=== PATIENT | female | born 1940 | race Caucasian/White ===

== ENCOUNTER → 2017-02-02 | Outpatient (CLI) | payer MEDICARE, OTHER ==
[~2017-02-02] MED LIST: ALBU0.63 IH; ALPR2TAB5 PO; DICY20TA30 PO; ERGO500027 PO; ESTR1TAB25 PO; FLUT16SP2 NS; FLUT1DIS5 IH; FLUV100C2 PO; FURO-68 PO; HYDR1TAB12 PO; LAMO100T5 PO; NYST15PO9 TP; OLME1TAB21 PO; OMEP40CA5 PO; POTA10TA31 PO; SIMV80TA PO; SUCR1TAB35 PO
--- NOTE | 2017-02-02 11:55 | RAD ---
EXAM: Nuclear gastric emptying scan. HISTORY: Nausea/vomiting. COMPARISON: None. TECHNIQUE: Serial static images were obtained over the stomach following oral administration of 2.1 mCi of 99m-Tc sulfur colloid in an egg based meal. FINDINGS: The stomach appears normal in contour. There is clearance of activity into the small bowel. Gastric emptying half-time is 145.5 minutes (normal <90 minutes). Refer to the worksheets for more detail. IMPRESSION: 1. Delayed gastric emptying.
== END | disposition home or self-care (01) ==
LOC: NM 09:41
PROVIDERS: ATTEND Internal Medicine Gastroenterology
DX: K30 Functional dyspepsia (principal); R11.2 Nausea with vomiting, unspecified
CPT/HCPCS: 78264; A9541

== ENCOUNTER → 2017-02-11 | Outpatient (CLI) | payer MEDICARE, OTHER ==
--- NOTE | 2017-02-11 10:55 | KCIC ---
Small bowel series dated 02/11/2017. No comparison available. Clinical indication: Nausea vomiting for 2 years. Constipation. FINDINGS: Initial wastewater analyst radiograph shows a large amount of stool throughout the colon. There are multiple surgical clips. No significant small bowel dilation. Contrast material reaches the colon on the 15 minute film. Spot compression imaging performed at 20 minutes. 9 total images. Small bowel is normal in caliber. No apparent wall thickening or fold thickening. No focal stricture or mass. No intrinsic or extrinsic mass effect. Spot compression imaging of the terminal ileum unremarkable. IMPRESSION: 1. Negative small bowel series. 2. Large amount of stool throughout colon. Electronically signed by: Ramirez Muniz MD (02/11/2017 10:52 AM) [facility]
== END | disposition home or self-care (01) ==
LOC: KCIC 09:26
PROVIDERS: ATTEND Internal Medicine Gastroenterology
DX: K59.00 Constipation, unspecified (principal); R11.2 Nausea with vomiting, unspecified
CPT/HCPCS: 74250

== ENCOUNTER → 2017-04-23 | Day surgery (SDC) | payer MEDICARE, OTHER ==
[~2017-04-23] MED LIST changes: -ALBU0.63 IH; -ALPR2TAB5 PO; -DICY20TA30 PO; -ERGO500027 PO; -ESTR1TAB25 PO; -FLUT16SP2 NS; -FLUT1DIS5 IH; -FLUV100C2 PO; -FURO-68 PO; -HYDR1TAB12 PO; +HYDROmorphone 2 MG/ML VIAL IV; -LAMO100T5 PO; +LIDOCAINE 1% PF 2 ML VIAL. ID; +LIDOCAINE 2% PF Vial for OR 5 ML VIAL.; +MORPHINE SULFATE 2 MG/ML DISP.SYRIN. IV; -NYST15PO9 TP; -OLME1TAB21 PO; -OMEP40CA5 PO; +ONDANSETRON PF 4 MG/2 ML VIAL. IV; -POTA10TA31 PO; +PROCHLORPERAZINE 10 MG/2 ML VIAL. IV; +PROPOFOL 20 ML IV; -SIMV80TA PO; -SUCR1TAB35 PO; +fentaNYL PF VIAL 100 MCG/2 ML VIAL IV
[2017-04-23] MEDS: IV RINGERS,LACTATED 1000ML 1,000 ML IV ×2 (07:00)
== END | disposition home or self-care (01) ==
LOC: ENDOS 10:48
DX: Z08 Encounter for follow-up examination after completed treatment for malignant neoplasm (principal); Z85.038 Personal history of other malignant neoplasm of large intestine; K64.0 First degree hemorrhoids; E78.00 Pure hypercholesterolemia, unspecified; I10 Essential (primary) hypertension; J45.909 Unspecified asthma, uncomplicated; K21.9 Gastro-esophageal reflux disease without esophagitis; E11.9 Type 2 diabetes mellitus without complications; F41.9 Anxiety disorder, unspecified; F32.9 Major depressive disorder, single episode, unspecified; M19.90 Unspecified osteoarthritis, unspecified site; Z86.39 Personal history of other endocrine, nutritional and metabolic disease; Z98.51 Tubal ligation status; Z90.710 Acquired absence of both cervix and uterus; Z88.1 Allergy status to other antibiotic agents; Z88.2 Allergy status to sulfonamides; Z88.8 Allergy status to other drugs, medicaments and biological substances
CPT/HCPCS: 45378; 88305; J2704

== ENCOUNTER → 2017-07-03 | Outpatient (CLI) | payer MEDICARE, OTHER | END | disposition home or self-care (01) | LOC: CT 09:01 | DX: J98.4 Other disorders of lung (principal); J84.10 Pulmonary fibrosis, unspecified; I25.10 Atherosclerotic heart disease of native coronary artery without angina pectoris | CPT/HCPCS: 71250 ==

== ENCOUNTER 2017-12-04 10:31 | Inpatient (IN) | payer MEDICARE ==
[2017-12-04] VITALS (7 sets, daily range): BP systolic 119–164; BP diastolic 54–81
[~2017-12-04] VITALS: Ht 167.6 cm; Wt 103.4 kg
[~2017-12-04 10:31] MED LIST changes: +ALBU0.63 IH; +ALBU2.5V5 IH; +ALPR2TAB2 PO; +ALPR2TAB5 PO; +ASPI-482 PO; +ASPI325T8 PO; +DICY20TA30 PO; +ERGO500027 PO; +ERYT250T14 PO; +ESTR1TAB25 PO; +FLUC200T4 PO; +FLUT16SP2 NS; +FLUT1DIS5 IH; +FLUV100C2 PO; +FURO-68 PO; +HYDR1TAB12 PO; +HYDR1TAB20 PO; -HYDROmorphone 2 MG/ML VIAL IV; +LAMO100T5 PO; -LIDOCAINE 1% PF 2 ML VIAL. ID; -LIDOCAINE 2% PF Vial for OR 5 ML VIAL.; +MELO15TA23 PO; -MORPHINE SULFATE 2 MG/ML DISP.SYRIN. IV; +NABU500T PO; +NITR100C62 PO; +NYST100054 PO; +NYST15PO9 TP; +OLME1TAB21 PO; +OMEP40CA5 PO; -ONDANSETRON PF 4 MG/2 ML VIAL. IV; +POTA10TA12 PO; +POTA10TA31 PO; +PRED-220 PO; +PRED50TA PO; -PROCHLORPERAZINE 10 MG/2 ML VIAL. IV; -PROPOFOL 20 ML IV; +SERT100T PO; +SIMV80TA PO; +SUCR1TAB35 PO; -fentaNYL PF VIAL 100 MCG/2 ML VIAL IV
[2017-12-04] MEDS ORDERED: FAMOTIDINE 20 MG/2 ML VIAL IVP ONE (10:45)
[2017-12-04] MEDS ORDERED: methylPREDNISolone SOD SUCC PF 125 MG/2 ML VIAL. IV ONE (10:45)
[2017-12-04] MEDS ORDERED: ONDANSETRON PF 4 MG/2 ML VIAL. ONE (10:46)
[2017-12-04 10:51] LABS: BASO # 0.1 x10^3/uL (0.0-0.2); BASO % 1 % (0-3); EOS % 0 % (0-3); HEMATOCRIT 42.9 % (36.0-47.0); HEMOGLOBIN 14.9 g/dL (12.0-15.5); LYMPH # 1.6 x10^3/uL (1.0-4.8); LYMPH % 19 % (24-48); MEAN CORPUSCULAR HEMOGLOBIN 32 pg (25-35); MEAN CORPUSCULAR HGB CONC 35 g/dL (31-37); MEAN CORPUSCULAR VOLUME 92 fL (79-100); MONO # 0.6 x10^3/uL (0.0-1.1); MONO % 7 % (0-9); NEUT % 72 % (31-73); PLATELET COUNT 230 x10^3/uL (140-400); RED BLOOD COUNT 4.66 x10^6/uL (3.50-5.40); RED CELL DISTRIBUTION WIDTH 14.7 % (11.5-14.5); WHITE BLOOD COUNT 8.3 x10^3/uL (4.0-11.0)
--- NOTE | 2017-12-04 10:52 | PHYS DOC ---
Past Medical History Past Medical History: Other Additional Past Medical Histor: vertigo Past Surgical History: No Surgical History Additional Past Surgical Histo: colon resection, eyelid surgery, knee surgery, bunionectomy, shoulder Alcohol Use: None Drug Use: None Adult General Chief Complaint Chief Complaint: TONGUE SWELLING/INJURY HPI HPI 69-year-old female with a history of hypertension on lisinopril presenting with tongue swelling that started about 30 minutes prior to arrival. She took Benadryl which seems to be making it worse and she reports is currently improving. She denies any pain. Duration constant. Review of systems is negative for lip swelling or stridor. Negative for difficulty breathing. Patient is able to tolerate her secretions. All other review of systems is negative unless otherwise noted in history of present illness. ED course: 69-year-old female presenting with what is probably lisinopril- induced angioedema. Patient admitted Benadryl prior to arrival. We'll give her corticosteroids and Pepcid here. Her symptoms are improving and given her age I am hesitant to give epi, so we will hold off on epinephrine for now and monitor her. On reexamination the patient's tongue continues to be swollen but is not getting worse. We will admit her for observation to monitor her. I spoke with Dr. Hurtado who accepted patient for admission. Basic bridge orders placed. Review of Systems Review of Systems SEE ABOVE. Current Medications Current Medications Current Medications Medications (Trade) Dose Ordered Sig/Denia Start Time Stop Time Status Last Admin Dose Admin Famotidine (Pepcid Vial) 20 mg 1X ONCE 12/04/17 10:45 12/04/17 10:46 DC 12/04/17 10:42 20 MG Methylprednisolone Sodium Succinate (SOLU-Medrol 125MG VIAL) 125 mg 1X ONCE 12/04/17 10:45 12/04/17 10:46 DC 12/04/17 10:42 125 MG Morphine Sulfate (Morphine Sulfate) 2 mg PRN Q2HR PRN 12/04/17 13:00 12/05/17 12:59 Ondansetron HCl (Zofran) 4 mg PRN Q8HRS PRN 12/04/17 13:00 12/05/17 12:59 Allergies Allergies Allergies Coded Allergies Type Severity Reaction Last Updated Verified Sulfa (Sulfonamide Antibiotics) Allergy Intermediate Itching 04/23/17 Yes cefdinir Allergy Intermediate Itching 04/23/17 Yes ciprofloxacin Allergy Intermediate Itching 04/23/17 Yes ciprofloxacin HCl Allergy Intermediate Itching 04/23/17 Yes tetracycline Allergy Intermediate Itching 04/23/17 Yes lisinopril Adverse Reaction Severe 12/04/17 Yes Physical Exam Physical Exam SEE ABOVE Constitutional: Well developed, well nourished, no acute distress, non-toxic appearance. [] HENT: Normocephalic, atraumatic, bilateral external ears normal, oropharynx moist, no oral exudates, nose normal. the pts tongue is swollen on the left side. Clear airway. Tolerating secretions. Not drooling. No swelling of the lips. No wheezing on examination of the lungs. Eyes: PERRLA, EOMI, conjunctiva normal, no discharge. Neck: Normal range of motion, no tenderness, supple, no stridor. [] Cardiovascular:Heart rate regular rhythm, no murmur Lungs & Thorax: Bilateral breath sounds clear to auscultation [] Abdomen: Bowel sounds normal, soft, no tenderness, no masses, no pulsatile masses. Skin: Warm, dry, no erythema, no rash. [] Back: No tenderness, no CVA tenderness. Extremities: No tenderness, no cyanosis, no clubbing, ROM intact, no edema. [] Neurologic: Alert and oriented X 3, normal motor function, normal sensory function, no focal deficits noted. [] Psychologic: Affect normal, judgement normal, mood normal. [] Current Patient Data Vital Signs Vital Signs Date Time Temp Pulse Resp B/P (MAP) Pulse Ox O2 Delivery O2 Flow Rate FiO2 12/04/17 10:36 98.4 88 18 158/72 (100) 98 Room Air 98.4 Lab Values Laboratory Tests Test 12/04/17 10:35 White Blood Count 8.3 x10^3/uL (4.0-11.0) Red Blood Count 4.66 x10^6/uL (3.50-5.40) Hemoglobin 14.9 g/dL (12.0-15.5) Hematocrit 42.9 % (36.0-47.0) Mean Corpuscular Volume 92 fL (79-100) Mean Corpuscular Hemoglobin 32 pg (25-35) Mean Corpuscular Hemoglobin Concent 35 g/dL (31-37) Red Cell Distribution Width 14.7 % (11.5-14.5) H Platelet Count 230 x10^3/uL (140-400) Neutrophils (%) (Auto) 72 % (31-73) Lymphocytes (%) (Auto) 19 % (24-48) L Monocytes (%) (Auto) 7 % (0-9) Eosinophils (%) (Auto) 0 % (0-3) Basophils (%) (Auto) 1 % (0-3) Neutrophils # (Auto) 6.0 x10^3uL (1.8-7.7) Lymphocytes # (Auto) 1.6 x10^3/uL (1.0-4.8) Monocytes # (Auto) 0.6 x10^3/uL (0.0-1.1) Eosinophils # (Auto) 0.0 x10^3/uL (0.0-0.7) Basophils # (Auto) 0.1 x10^3/uL (0.0-0.2) Sodium Level 143 mmol/L (136-145) Potassium Level 3.9 mmol/L (3.5-5.1) Chloride Level 104 mmol/L (98-107) Carbon Dioxide Level 28 mmol/L (21-32) Anion Gap 11 (6-14) Blood Urea Nitrogen 18 mg/dL (7-20) Creatinine 1.5 mg/dL (0.6-1.0) H Estimated GFR (Cockcroft-Gault) 33.6 BUN/Creatinine Ratio 12 (6-20) Glucose Level 139 mg/dL (70-99) H Calcium Level 8.4 mg/dL (8.5-10.1) L Total Bilirubin 0.3 mg/dL (0.2-1.0) Aspartate Amino Transferase (AST) 16 U/L (15-37) Alanine Aminotransferase (ALT) 20 U/L (14-59) Alkaline Phosphatase 78 U/L (46-116) Total Protein 7.7 g/dL (6.4-8.2) Albumin 3.5 g/dL (3.4-5.0) Albumin/Globulin Ratio 0.8 (1.0-1.7) L Laboratory Tests 12/04/17 10:35 Laboratory Tests 12/04/17 10:35 EKG EKG [] Radiology/Procedures Radiology/Procedures [] Course & Med Decision Making Course & Med Decision Making Pertinent Labs and Imaging studies reviewed. (See chart for details) [] Dragon Disclaimer Dragon Disclaimer This electronic medical record was generated, in whole or in part, using a voice recognition dictation system. Departure Departure Impression: Primary Impression: SARIAH inhibitor-aggravated angioedema Disposition: ADMITTED INPATIENT Admitting Physician: Janett La Condition: STABLE Referrals: JANETT LA MD (PCP) Patient Instructions: Angioedema SVETLANA DAVID MD Dec 04, 2017 10:52
[2017-12-04 10:55] LABS: CALCIUM 8.4 mg/dL (8.5-10.1); CREATININE 1.5 mg/dL (0.6-1.0); GFR 33.6; POTASSIUM 3.9 mmol/L (3.5-5.1)
[2017-12-04] MEDS ORDERED: ONDANSETRON PF 4 MG/2 ML VIAL. IV ONE (11:00)
[2017-12-04 11:01] LABS: ALBUMIN 3.5 g/dL (3.4-5.0); ALBUMIN/GLOBULIN RATIO 0.8 (1.0-1.7); TOTAL BILIRUBIN 0.3 mg/dL (0.2-1.0); TOTAL PROTEIN 7.7 g/dL (6.4-8.2)
[2017-12-04] MEDS ORDERED: MORPHINE SULFATE 2 MG/ML VIAL. IV PRN (13:00)
[2017-12-04] MEDS ORDERED: ONDANSETRON PF 4 MG/2 ML VIAL. IV PRN (13:00)
[2017-12-04] MEDS: IV 1/2 NORMAL SALINE 1,000 ML IV SCH (17:49)
[2017-12-04] MEDS ORDERED: CETIRIZINE HCL 10 MG TABLET. PO ONE (18:00)
[2017-12-04] MEDS: FAMOTIDINE 20 MG/2 ML VIAL IVP SCH (21:09)
[2017-12-04] MEDS: methylPREDNISolone SOD SUCC PF 40 MG/ML VIAL. IV SCH (21:09)
[2017-12-05] VITALS (16 sets, daily range): BP systolic 110–145; BP diastolic 48–74
[2017-12-05 04:57] LABS: BASO % 0 % (0-3); EOS % 0 % (0-3); HEMATOCRIT 40.7 % (36.0-47.0); HEMOGLOBIN 13.8 g/dL (12.0-15.5); LYMPH # 1.1 x10^3/uL (1.0-4.8); LYMPH % 13 % (24-48); MEAN CORPUSCULAR HEMOGLOBIN 32 pg (25-35); MEAN CORPUSCULAR HGB CONC 34 g/dL (31-37); MEAN CORPUSCULAR VOLUME 94 fL (79-100); MONO # 0.2 x10^3/uL (0.0-1.1); MONO % 2 % (0-9); NEUT # 7.4 x10^3uL (1.8-7.7); NEUT % 85 % (31-73); PLATELET COUNT 196 x10^3/uL (140-400); RED BLOOD COUNT 4.35 x10^6/uL (3.50-5.40); RED CELL DISTRIBUTION WIDTH 14.9 % (11.5-14.5); WHITE BLOOD COUNT 8.7 x10^3/uL (4.0-11.0)
[2017-12-05 05:28] LABS: CALCIUM 8.2 mg/dL (8.5-10.1); CREATININE 1.2 mg/dL (0.6-1.0); GFR 43.4; POTASSIUM 3.9 mmol/L (3.5-5.1)
[2017-12-05] MEDS: methylPREDNISolone SOD SUCC PF 40 MG/ML VIAL. IV SCH (05:38)
[2017-12-05] MEDS: IV 1/2 NORMAL SALINE 1,000 ML IV SCH (05:39)
[2017-12-05] MEDS: FAMOTIDINE 20 MG/2 ML VIAL IVP SCH (09:00)
[2017-12-05] MEDS ORDERED: HYDROCODONE BIT PO PRN (12:15)
[2017-12-05] MEDS ORDERED: ALBUTEROL SULFATE 2.5 MG/3 ML NEBU. NEB PRN (12:15)
[2017-12-05] MEDS ORDERED: ACETAMINOPHEN PO PRN (12:15)
--- NOTE | 2017-12-05 12:27 | PDOC ---
Provider Note Provider Note [id number] CHASE SHAIKH MD Dec 05, 2017 12:27
[2017-12-05] MEDS ORDERED: ALPRAZolam 1 MG TABLET PO PRN (12:30)
[2017-12-05] MEDS ORDERED: HYDROcodone/APAP 5/325MG 1 TAB TABLET PO PRN (12:30)
--- NOTE | 2017-12-05 12:45 | HP ---
ADMIT DATE: 12/04/2017 CHIEF COMPLAINT: Tongue swelling. HISTORY OF PRESENT ILLNESS: A 77-year-old white female, patient of Dr. Mello, has asthma, hypertension, and gastroparesis. She was seen by an sugar drier about 2 months ago for possibility of diabetes, which was found not to be the case, but was placed on lisinopril for hypertension. She is not sure of the dose, but she has been taking it daily since then until she developed swelling of the left side of her tongue and came to the ER. Her last dose of lisinopril is now about 36 hours ago and she was given IV steroids and Benadryl and feels better at this time. PAST MEDICAL HISTORY: MULTIPLE ALLERGIES INCLUDING SULFA, CIPRO, TETRACYCLINE. MEDICATIONS: She is on multiple meds as listed per the chart. History of asthma, taking Symbicort, hypertension, gastroparesis and anxiety disorder for which she takes Lamictal and Zoloft. SOCIAL HISTORY: Nonsmoker. Lives with , nondrinker as well. FAMILY HISTORY: Unremarkable. REVIEW OF SYSTEMS: No other complaints. OBJECTIVE: ENT: There is no sign of oral, lingual, or buccal swelling at this time. EYES AND EARS: Normal. NECK: Revealed no carotid bruits, nodes or masses. LUNGS: Clear, without wheezing. CARDIOVASCULAR: Regular rate. No irregular beat or tachycardia. ABDOMEN: Soft, benign and nontender. EXTREMITIES: Good pedal and radial pulses. No joint or skin lesions or any swelling. NEUROLOGIC: Physiologic, nonfocal, oriented and not combative. ASSESSMENT: Likely lisinopril-induced angioedema, seems to be improved at this time. Otherwise, medically stable. PLAN: We will reduce steroids, discontinue IV fluids and transfer and let her eat and drink. I recommended staying another 24 hours to be sure no further angioedema will occur as it is possible to occur several days even after stopping lisinopril as her last dose was 36 hours ago and she concurs to stay in the hospital. CHASE SHAIKH MD DR: MARIAH/nts JOB#: [id number] / [id number]
[2017-12-05] MEDS: SERTRALINE 50 MG TABLET. PO SCH (13:35)
[2017-12-05] MEDS: POTASSIUM CHLORIDE 10 MEQ TABLET.ER. PO SCH (13:35)
[2017-12-05] MEDS: FUROSEMIDE 40 MG TABLET. PO SCH (13:36)
[2017-12-05] MEDS: PANTOPRAZOLE 40 MG TABLET.DR. PO SCH (13:36)
[2017-12-05] MEDS: ASPIRIN ENTERIC COATED 81 MG TABLET.DR. PO SCH (13:36)
[2017-12-05] MEDS: lamoTRIgine 100 MG TABLET. PO SCH ×2 (13:36→19:58)
[2017-12-05] MEDS: methylPREDNISolone SOD SUCC PF 125 MG/2 ML VIAL. IV SCH (16:55)
[2017-12-05] MEDS: ERYTHROMYCIN BASE 250 MG TABLET PO SCH (16:55)
[2017-12-05] MEDS ORDERED: LAMOTRIGINE 100 MG PO SCH (21:00)
[2017-12-05] MEDS ORDERED: NON FORMULARY ITEM (Omeprazole 40 MG) PO SCH (21:00)
[2017-12-06 03:03] VITALS: BP 122/43
[2017-12-06] MEDS: methylPREDNISolone SOD SUCC PF 125 MG/2 ML VIAL. IV SCH (06:02)
[2017-12-06 08:00] VITALS: BP 147/60
[2017-12-06] MEDS: PANTOPRAZOLE 40 MG TABLET.DR. PO SCH (08:13)
[2017-12-06] MEDS: POTASSIUM CHLORIDE 10 MEQ TABLET.ER. PO SCH (08:13)
[2017-12-06] MEDS: ERYTHROMYCIN BASE 250 MG TABLET PO SCH (08:13)
[2017-12-06] MEDS: lamoTRIgine 100 MG TABLET. PO SCH (08:13)
[2017-12-06] MEDS: FUROSEMIDE 40 MG TABLET. PO SCH (08:14)
[2017-12-06] MEDS: ASPIRIN ENTERIC COATED 81 MG TABLET.DR. PO SCH (08:14)
[2017-12-06] MEDS: SERTRALINE 50 MG TABLET. PO SCH (08:14)
[2017-12-06] MEDS ORDERED: ESTROGEN ESTER PO SCH ×2 (09:00)
[2017-12-06] MEDS ORDERED: [UNRECOGNIZED DRUG - OTHER] PO SCH ×2 (09:00)
[2017-12-06] MEDS ORDERED: FUROSEMIDE 40 MG TABLET. PO SCH (09:00)
[2017-12-06] MEDS ORDERED: TESTOSTERONE PO SCH ×2 (09:00)
[2017-12-06] MEDS ORDERED: POTASSIUM CHLORIDE 10 MEQ TABLET.ER. PO SCH (09:00)
--- NOTE | 2017-12-06 09:02 | DISCH ---
DISCHARGE INSTRUCTIONS Condition on Discharge Condition on Discharge: Stable Activity After Discharge Activity Instructions for Disc: No restrictions Diet after Discharge Diet after Discharge: Low Sodium 4 gm Follow-Up Follow up with: dr arlene Drake w CHASE SHAIKH MD Dec 06, 2017 09:02
--- NOTE | 2017-12-06 09:05 | PDOC ---
Provider Note Provider Note [id number] CHASE SHAIKH MD Dec 06, 2017 09:05
[2017-12-06] MEDS ORDERED: MAGNESIUM HYDROXIDE 2,400 MG/30 ML ORAL.SUSP. PO ONE (09:30)
--- NOTE | 2017-12-06 10:49 | DS ---
DATE OF DISCHARGE: 12/06/2017 HOSPITAL SUMMARY: A 77-year-old white female, patient of Dr. Mello, who has been on lisinopril for about 2 months for hypertension, developed swelling of the left side of her tongue that progressed at home and came in to the ER. It had already lessened somewhat and she was given IV Solu-Medrol, Zyrtec and Pepcid. Throughout her hospital stay she had no further angioedema, was eating and drinking well, and was given reduced dose of steroids. Blood pressure remained stable. CBC and chemistry profile were unremarkable. She is eating and drinking and comfortable, will be discharged and followed as an outpatient at this point. FINAL DIAGNOSES: Lisinopril-induced angioedema. OPERATIONS, PROCEDURES, COMPLICATIONS, AND CONSULTATIONS: None. DISPOSITION: Home medicines remain the same at home except no further lisinopril or any SARIAH inhibitors. Blood pressure has been good without the drug here in the hospital. Office followup with Dr. Mello in 1-2 weeks and she is advised that further angioedema could occur for a few weeks even though she is no longer taking the lisinopril and she is aware of this possibility. CHASE SHAIKH MD DR: MARIAH/darwin JOB#: [id number] / [id number]
== END 2017-12-06 10:20 | disposition home or self-care (01) | DRG 916 ==
LOC: ER 10:31 → 1 WEST ICU 12:34 → 6 SOUTH 12-05 15:47
PROVIDERS: ADMIT Family Medicine; ATTEND Family Medicine
DX: T78.3XXA Angioneurotic edema, initial encounter (principal); K31.84 Gastroparesis; J45.909 Unspecified asthma, uncomplicated; F41.9 Anxiety disorder, unspecified; I10 Essential (primary) hypertension; T46.4X5A Adverse effect of angiotensin-converting-enzyme inhibitors, initial encounter; Z88.2 Allergy status to sulfonamides; Z88.1 Allergy status to other antibiotic agents; Y92.89 Other specified places as the place of occurrence of the external cause; Z79.899 Other long term (current) drug therapy; Z88.8 Allergy status to other drugs, medicaments and biological substances
CPT/HCPCS: 36415; 80048; 80053; 85025; 87641; 96374; 96375; J2405; J2920; J2930; S0028; 99285-25

== ENCOUNTER 2018-01-15 17:10 | Emergency (ER) | payer MEDICARE ==
[~2018-01-15] VITALS: Ht 167.6 cm; Wt 102.1 kg
[2018-01-15] MEDS ORDERED: ONDANSETRON PF 4 MG/2 ML VIAL. IV ONE (18:00)
[2018-01-15] MEDS ORDERED: IOHEXOL 300 MG/ML 100ML VIAL. IV ONE (18:00)
[2018-01-15] MEDS ORDERED: CONTRAST GIVEN. MC PRN (18:00)
[2018-01-15] MEDS ORDERED: IV NORMAL SALINE 500ML BAG 500 ML IV ONE (18:00)
[2018-01-15] MEDS ORDERED: fentaNYL PF VIAL 100 MCG/2 ML VIAL IV ONE (18:00)
[2018-01-15 18:03] LABS: BASO # 0.1 x10^3/uL (0.0-0.2); BASO % 1 % (0-3); EOS # 0.2 x10^3/uL (0.0-0.7); EOS % 3 % (0-3); HEMATOCRIT 42.5 % (36.0-47.0); HEMOGLOBIN 14.9 g/dL (12.0-15.5); LYMPH # 2.5 x10^3/uL (1.0-4.8); LYMPH % 32 % (24-48); MEAN CORPUSCULAR HEMOGLOBIN 32 pg (25-35); MEAN CORPUSCULAR HGB CONC 35 g/dL (31-37); MEAN CORPUSCULAR VOLUME 92 fL (79-100); MONO % 12 % (0-9); NEUT % 52 % (31-73); PLATELET COUNT 204 x10^3/uL (140-400); RED BLOOD COUNT 4.64 x10^6/uL (3.50-5.40); RED CELL DISTRIBUTION WIDTH 14.5 % (11.5-14.5); WHITE BLOOD COUNT 7.9 x10^3/uL (4.0-11.0)
[2018-01-15 18:13] LABS: CALCIUM 8.9 mg/dL (8.5-10.1); CREATININE 1.7 mg/dL (0.6-1.0); GFR 29.1; POTASSIUM 4.2 mmol/L (3.5-5.1)
[2018-01-15 18:19] LABS: ALBUMIN 3.3 g/dL (3.4-5.0); TOTAL BILIRUBIN 0.4 mg/dL (0.2-1.0); TOTAL PROTEIN 6.6 g/dL (6.4-8.2)
--- NOTE | 2018-01-15 18:24 | PHYS DOC ---
Past Medical History Past Medical History: Asthma, Cancer, COPD, High Cholesterol, Hypertension, Other Additional Past Medical Histor: vertigo, colon CA; gastroparesis Past Surgical History: Cancer Surgery, , Hysterectomy, Other Additional Past Surgical Histo: colon resection, eyelid surgery, l knee surgery , bunionectomy, r shoulder Alcohol Use: Rarely Drug Use: None Adult General Chief Complaint Chief Complaint: ABDOMINAL PAIN HPI HPI Patient is a 77 year old female who presents with diffuse abdominal pain and with nausea and vomiting. Patient reports history of gastroparesis. She reports she was out of her medication for gastroparesis and recently restarted that. She reports she has been vomiting and unable to keep anything down for the last 3 days. She has not had a bowel movement for approximately 4 days. Patient reports she has had multiple surgeries on her abdomen, the last time the surgeon told her she had a lot of lesions. Review of Systems Review of Systems Constitutional: Denies fever or chills [] GI: Reports generalized abdominal pain, nausea, vomiting and constipation. : Denies dysuria or hematuria [] Musculoskeletal: Denies back pain or joint pain [] Integument: Denies rash or skin lesions [] Neurologic: Denies headache, focal weakness or sensory changes [] All other systems were reviewed and found to be within normal limits, except as documented in this note. Current Medications Current Medications Current Medications Medications (Trade) Dose Ordered Sig/Denia Start Time Stop Time Status Last Admin Dose Admin Fentanyl Citrate (Fentanyl 2ml Vial) 50 mcg 1X ONCE 01/15/18 18:00 01/15/18 18:01 DC 01/15/18 18:00 50 MCG Info (CONTRAST GIVEN -- Rx MONITORING) 1 each PRN DAILY PRN 01/15/18 18:00 01/15/18 21:08 DC Iohexol (Omnipaque 300 Mg/ml) 75 ml 1X ONCE 01/15/18 18:00 01/15/18 18:01 DC Metoclopramide HCl (Reglan) 10 mg 1X ONCE 01/15/18 20:00 01/15/18 20:01 DC Mineral Oil (Fleet Mineral Oil) 133 ml 1X ONCE 01/15/18 20:15 01/15/18 20:16 DC 01/15/18 20:32 133 ML Ondansetron HCl (Zofran) 4 mg 1X ONCE 01/15/18 18:00 01/15/18 18:01 DC 01/15/18 18:00 4 MG Sodium Chloride 500 ml @ 500 mls/hr 1X ONCE 01/15/18 18:00 01/15/18 18:59 DC 01/15/18 18:00 500 MLS/HR Allergies Allergies Allergies Coded Allergies Type Severity Reaction Last Updated Verified Sulfa (Sulfonamide Antibiotics) Allergy Intermediate Itching 04/23/17 Yes cefdinir Allergy Intermediate Itching 04/23/17 Yes ciprofloxacin Allergy Intermediate Itching 04/23/17 Yes ciprofloxacin HCl Allergy Intermediate Itching 04/23/17 Yes tetracycline Allergy Intermediate Itching 04/23/17 Yes lisinopril Adverse Reaction Severe 12/04/17 Yes Physical Exam Physical Exam Constitutional: Well developed, well nourished, no acute distress, non-toxic appearance. [] HENT: Normocephalic, atraumatic Eyes: PERRLA, EOMI, conjunctiva normal, no discharge. [] Neck: Normal range of motion, no tenderness, supple, no stridor. [] Cardiovascular:Heart rate regular rhythm, no murmur [] Lungs & Thorax: Bilateral breath sounds clear to auscultation [] Abdomen: Bowel sounds normal, soft, diffuse tenderness Skin: Warm, dry, no erythema, no rash. [] Back: No tenderness, no CVA tenderness. [] Neurologic: Alert and oriented X 3, normal motor function, normal sensory function, no focal deficits noted. [] Psychologic: Affect normal, judgement normal, mood normal. [] Current Patient Data Vital Signs Vital Signs Date Time Temp Pulse Resp B/P (MAP) Pulse Ox O2 Delivery O2 Flow Rate FiO2 01/15/18 18:35 68 121/60 (80) 96 Nasal Cannula 2.0 01/15/18 18:00 17 01/15/18 17:30 98.1 98.1 Lab Values Laboratory Tests Test 01/15/18 17:53 01/15/18 19:20 White Blood Count 7.9 x10^3/uL (4.0-11.0) Red Blood Count 4.64 x10^6/uL (3.50-5.40) Hemoglobin 14.9 g/dL (12.0-15.5) Hematocrit 42.5 % (36.0-47.0) Mean Corpuscular Volume 92 fL (79-100) Mean Corpuscular Hemoglobin 32 pg (25-35) Mean Corpuscular Hemoglobin Concent 35 g/dL (31-37) Red Cell Distribution Width 14.5 % (11.5-14.5) Platelet Count 204 x10^3/uL (140-400) Neutrophils (%) (Auto) 52 % (31-73) Lymphocytes (%) (Auto) 32 % (24-48) Monocytes (%) (Auto) 12 % (0-9) H Eosinophils (%) (Auto) 3 % (0-3) Basophils (%) (Auto) 1 % (0-3) Neutrophils # (Auto) 4.0 x10^3uL (1.8-7.7) Lymphocytes # (Auto) 2.5 x10^3/uL (1.0-4.8) Monocytes # (Auto) 1.0 x10^3/uL (0.0-1.1) Eosinophils # (Auto) 0.2 x10^3/uL (0.0-0.7) Basophils # (Auto) 0.1 x10^3/uL (0.0-0.2) Sodium Level 142 mmol/L (136-145) Potassium Level 4.2 mmol/L (3.5-5.1) Chloride Level 103 mmol/L (98-107) Carbon Dioxide Level 31 mmol/L (21-32) Anion Gap 8 (6-14) Blood Urea Nitrogen 22 mg/dL (7-20) H Creatinine 1.7 mg/dL (0.6-1.0) H Estimated GFR (Cockcroft-Gault) 29.1 BUN/Creatinine Ratio 13 (6-20) Glucose Level 98 mg/dL (70-99) Calcium Level 8.9 mg/dL (8.5-10.1) Total Bilirubin 0.4 mg/dL (0.2-1.0) Aspartate Amino Transferase (AST) 14 U/L (15-37) L Alanine Aminotransferase (ALT) 12 U/L (14-59) L Alkaline Phosphatase 70 U/L (46-116) Total Protein 6.6 g/dL (6.4-8.2) Albumin 3.3 g/dL (3.4-5.0) L Albumin/Globulin Ratio 1.0 (1.0-1.7) Urine Collection Type Unknown Urine Color Yellow Urine Clarity Cloudy Urine pH 6.5 Urine Specific [place] 1.010 Urine Protein Negative mg/dL (NEG-TRACE) Urine Glucose (UA) Negative mg/dL (NEG) Urine Ketones (Stick) Negative mg/dL (NEG) Urine Blood Negative (NEG) Urine Nitrite Negative (NEG) Urine Bilirubin Negative (NEG) Urine Urobilinogen Dipstick 0.2 mg/dL (0.2 mg/dL) Urine Leukocyte Esterase Negative (NEG) Urine RBC 0 /HPF (0-2) Urine WBC Rare /HPF (0-4) Urine Squamous Epithelial Cells Mod /LPF Urine Bacteria 0 /HPF (0-FEW) Urine Mucus Slight /LPF Laboratory Tests 01/15/18 17:53 Laboratory Tests 01/15/18 17:53 EKG EKG [] Radiology/Procedures Radiology/Procedures PATIENT: JAY VILLANUEVA JACCOUNT: [id number]#: [id number] : 1940 LOCATION: ER AGE: 77 SEX: F EXAM STATUS: REG ER ORD. PHYSICIAN: NEHAL LE APRN REASON: vomiting, abdominal pain PROCEDURE: CT ABDOMEN PELVIS WO CONTRAST EXAM: CT Abdomen and Pelvis without IV contrast CLINICAL HISTORY: Four-day history of abdominal pain and vomiting.s COMPARISON: none TECHNIQUE: Helical CT of the abdomen and pelvis without intravenous contrast. Axial, coronal and sagittal reformatted images were generated. PQRS compliance statement - One or more of the following individualized dose reduction techniques were utilized for this study: 1. Automated exposure control 2. Adjustment of the mA and/or kV according to patient size 3. Use of iterative reconstruction technique FINDINGS: Lack of intravenous contrast limits evaluation of solid organs, vasculature, and lymph nodes. Lower chest: Dependent opacities likely atelectasis/scarring most prominent in the lower lobes and lingula. Abdomen and Pelvis: No focal liver lesion. Gallbladder is unremarkable. No biliary ductal dilatation. Spleen is unremarkable. Small calcified splenic artery aneurysm is seen at the splenic hilum. Adrenal glands are normal. Pancreas is mildly atrophic but otherwise unremarkable. No definite renal tract calculus. No hydronephrosis or hydroureter. No focal renal lesion. Moderate colonic stool content is seen. No small or large bowel dilatation to suggest bowel obstruction. The appendix is not seen. No abdominal or pelvic ascites. No abdominal or pelvic lymphadenopathy. Bones: Degenerative changes of the spine are seen. IMPRESSION: 1. No evidence for bowel obstruction. 2. Gallbladder is normal. 3. No renal tract calculi. No hydronephrosis. Electronically signed by: Francisco Javier Sahu MD (01/15/2018 7:37 PM) [facility] DICTATED and SIGNED BY: FRANCISCO JAVIER SAHU MD DATE: 01/15/181922 [] Course & Med Decision Making Course & Med Decision Making Pertinent Labs and Imaging studies reviewed. (See chart for details) Patient had a large BM after enema. She is feeling better. Plan: home to rest, f/u with PCP, return precautions reviewed Dragon Disclaimer Dragon Disclaimer This electronic medical record was generated, in whole or in part, using a voice recognition dictation system. Departure Departure Impression: Primary Impression: Constipation Additional Impression: Gastroparesis Disposition: HOME, SELF-CARE Condition: IMPROVED Referrals: JANETT LA MD (PCP) Patient Instructions: Constipation, Adult Attending Signature Attending Signature I have reviewed the PA/RETAIL MANAGER IN [employer]'s note and plan of care. I was available for consultation as needed during the patient's visit in the emergency department. I agree with the clinical impression, plan, and disposition. Problem Qualifiers Primary Impression: Constipation Constipation type: unspecified constipation type Qualified Codes: K59.00 - Constipation, unspecified NEHAL LE APRN Jan 15, 2018 18:24 CECILIA SALINAS DO Jan 16, 2018 03:08
[2018-01-15 18:35] VITALS: BP 121/60
[2018-01-15 19:28] LABS: BILIRUBIN,URINE NEGATIVE (NEG); CLARITY,URINE CLOUDY; COLOR,URINE YELLOW; NITRITE,URINE NEGATIVE (NEG); PH,URINE 6.5; PROTEIN,URINE NEGATIVE (NEG-TRACE); UROBILINOGEN,URINE 0.2 mg/dL (0.2 mg/dL)
--- NOTE | 2018-01-15 19:40 | RAD ---
EXAM: CT Abdomen and Pelvis without IV contrast CLINICAL HISTORY: Four-day history of abdominal pain and vomiting.s COMPARISON: none TECHNIQUE: Helical CT of the abdomen and pelvis without intravenous contrast. Axial, coronal and sagittal reformatted images were generated. PQRS compliance statement - One or more of the following individualized dose reduction techniques were utilized for this study: 1. Automated exposure control 2. Adjustment of the mA and/or kV according to patient size 3. Use of iterative reconstruction technique FINDINGS: Lack of intravenous contrast limits evaluation of solid organs, vasculature, and lymph nodes. Lower chest: Dependent opacities likely atelectasis/scarring most prominent in the lower lobes and lingula. Abdomen and Pelvis: No focal liver lesion. Gallbladder is unremarkable. No biliary ductal dilatation. Spleen is unremarkable. Small calcified splenic artery aneurysm is seen at the splenic hilum. Adrenal glands are normal. Pancreas is mildly atrophic but otherwise unremarkable. No definite renal tract calculus. No hydronephrosis or hydroureter. No focal renal lesion. Moderate colonic stool content is seen. No small or large bowel dilatation to suggest bowel obstruction. The appendix is not seen. No abdominal or pelvic ascites. No abdominal or pelvic lymphadenopathy. Bones: Degenerative changes of the spine are seen. IMPRESSION: 1. No evidence for bowel obstruction. 2. Gallbladder is normal. 3. No renal tract calculi. No hydronephrosis. Electronically signed by: Francisco Javier Rizzo MD (01/15/2018 7:37 PM) [facility]
[2018-01-15 19:42] LABS: BACTERIA,URINE 0 /HPF (0-FEW); RBC,URINE 0 /HPF (0-2); SQUAMOUS EPITHELIAL CELL,UR MOD /LPF; WBC,URINE RARE /HPF (0-4)
[2018-01-15] MEDS ORDERED: METOCLOPRAMIDE 10 MG TABLET. PO ONE (20:00)
[2018-01-15] MEDS ORDERED: MINERAL OIL 133 ML ENEMA. PR ONE (20:15)
[2018-01-15] MEDS ORDERED: METO10TA81 PO (20:43)
== END 2018-01-15 21:01 | disposition home or self-care (01) ==
LOC: ER 17:10
DX: K31.84 Gastroparesis (principal); K59.00 Constipation, unspecified; R11.2 Nausea with vomiting, unspecified; J44.9 Chronic obstructive pulmonary disease, unspecified; E78.00 Pure hypercholesterolemia, unspecified; I10 Essential (primary) hypertension; Z90.710 Acquired absence of both cervix and uterus; Z90.49 Acquired absence of other specified parts of digestive tract; Z88.1 Allergy status to other antibiotic agents; Z88.2 Allergy status to sulfonamides; Z88.8 Allergy status to other drugs, medicaments and biological substances
CPT/HCPCS: 36415; 74176; 80053; 81001; 85025; 96361; 96374; 96375; 99285; J2405; J3010; J7040

== ENCOUNTER → 2018-02-10 | Outpatient (CLI) | payer MEDICARE ==
[2018-01-15 18:35] VITALS: BP 121/60
[~2018-02-10] MED LIST changes: +METO10TA81 PO
--- NOTE | 2018-02-10 13:04 | KCIC ---
EXAM: Lumbar spine MRI without contrast. HISTORY: Left lower extremity radiculopathy TECHNIQUE: Multiplanar, multisequence magnetic resonance imaging of the lumbar spine was performed without contrast. COMPARISON: None. FINDINGS: There is grade 1 anterolisthesis of L4 on L5, measuring 6 mm. There is grade 1 anterolisthesis of L5 on S1, measuring 3 mm. There is mild scoliosis. There is degenerative endplate remodeling with osteophytosis primarily at L5-S1. There are multiple endplate Schmorl's nodes. There is multilevel disc desiccation. The conus terminates at L1-L2. There is no suspicious osseous lesion. At L1-L2, there is a minimal shallow right paracentral superior disc extrusion superimposed on a disc bulge and endplate remodeling. There is mild bilateral foraminal stenosis. At L2-L3, there is a broad-based posterior central disc protrusion and annular tear and there is a right foraminal to extraforaminal disc protrusion with slight superior extrusion and annular tear. These are superimposed on a right lateral predominant disc bulge and endplate osteophytosis. There is mild right facet arthropathy. There is mild to moderate right greater than left foraminal stenosis. At L3-L4, there are bilateral foraminal disc protrusions and annular tears superimposed on a disc bulge and endplate remodeling. There is mild to moderate bilateral facet arthropathy. There is moderate right and mild left foraminal stenosis. At L4-L5, there is a disc bulge and endplate remodeling. There is moderate to severe facet arthropathy. There is hypertrophy of the ligamentum flavum. There is grade 1 anterolisthesis. There is moderate central canal stenosis. At L5-S1, there is a broad-based posterior central disc protrusion and annular tear with slight superior extrusion superimposed on a disc bulge and endplate osteophytosis. There is severe bilateral facet arthropathy. There is mild to moderate right and moderate left foraminal stenosis. There is mild central canal stenosis. IMPRESSION: 1. Multilevel degenerative change within the lumbar spine, described in detail above. This results in stenosis at the aforementioned levels. 2. Mild scoliosis and multilevel listhesis, described above. Electronically signed by: Jena Blackburn MD (02/10/2018 1:01 PM) [facility]
== END | disposition home or self-care (01) ==
LOC: KCIC MRI 12:19
PROVIDERS: ATTEND Family Medicine
DX: M51.36 Other intervertebral disc degeneration, lumbar region (principal); M48.061 Spinal stenosis, lumbar region without neurogenic claudication; M41.86 Other forms of scoliosis, lumbar region; M43.16 Spondylolisthesis, lumbar region; M51.27 Other intervertebral disc displacement, lumbosacral region; M12.88 Other specific arthropathies, not elsewhere classified, other specified site; M48.07 Spinal stenosis, lumbosacral region; M51.46 Schmorl's nodes, lumbar region
CPT/HCPCS: 72148

== ENCOUNTER → 2018-03-05 | Outpatient (CLI) | payer MEDICARE ==
[~2018-03-05] MED LIST changes: +ASCO500T PO; +BUDE10.2 IH; +IOHEXOL 180 MG/ML 10 ML VIAL. ONE; +MULT1TAB6 PO; +OMEG1CAP38 PO; +methylPREDNISolone ACETATE 40 MG/ML VIAL. ONE; +methylPREDNISolone ACETATE 80 MG/ML VIAL. ONE
--- NOTE | 2018-03-05 13:39 | PAIN ---
DATE OF SERVICE: 03/05/2018 INITIAL CONSULTATION FOR PAIN CLINIC CHIEF COMPLAINT: Low back and left lower extremity pain. HISTORY OF PRESENT ILLNESS: This is a 78-year-old female who presents with history of pain in the low back, left lower extremity for many years, but worse over the past 3 months, increasing daily. The patient reports not the result of any specific injury or accident she is aware of, but has had significant pain in the low back, left leg. Describes as intermittent in intensity, but tingling with numbness, radiating, throbbing, aching, shooting, sharp, dull, cramping and burning at times. The patient reports it is much worse with standing, walking, better with sitting or lying down, but does awaken her from sleep about twice at night. The patient reports it does not affect her bowel or bladder control, but does affect her ability to walk. She has a cane, walker and a wheelchair. She has a cane with her today. The patient has had physical therapy in the past, but nothing recently, is doing some stretching on her own, but this has not been decreasing the pain significantly. The patient reports it is much worse with standing, especially for greater than about 15 minutes, also walking for about 20 minutes. The patient reports no loss of motor function with significant fatigability in the left lower extremity. The patient reports it is mostly in the left anterior thigh with numbness and tingling, anterior medial thigh, some in the posterior leg as well, but mostly in the medial and anterior aspect on the left side. The patient reports no significant symptoms on the right side. The patient reports her disability rate from 0-10, 10 being the worst, is an 8 with family and home responsibilities, recreation, social activity and occupation, 7 with self-care and life support activities, 0 with sexual behavior. The patient did have an MRI scan of the lumbar spine dated 02/10/2018 showing multilevel degenerative change within the lumbar spine with stenosis in the L2-L3, L3-L4, L4-L5 and L5-S1 levels. At L2-L3, broad-based posterior central disk protrusion, annular tear with right foraminal to extraforaminal disk protrusion and slight extrusion and annular tear as well. PAST MEDICAL HISTORY: Significant for shortness of breath, colon cancer, hypertension, gastroparesis, dizziness, arthritis. PREVIOUS SURGERY: Include colon resection, knee replacement, hysterectomy, eye surgery, and cataract extraction as well as a previous hernia repair. CURRENT MEDICATIONS: Include estrogen cream, vitamins, omeprazole, Zocor, Bentyl, Symbicort, vitamin C, omega 3 oils, Lasix, daily baby aspirin, Xanax, Zoloft, prednisone, meloxicam, potassium, Flonase, Lamictal, and erythromycin. ALLERGIES: The patient is allergic to CIPRO, SULFA and TETRACYCLINE. FAMILY HISTORY: Significant for no major medical problems or conditions that she reports. SOCIAL HISTORY: The patient does not smoke, does drink alcohol about twice a year. Does not use illegal, illicit, recreational drugs or other substances. She is , lives with her spouse locally in [place], [place]. Reports she is currently retired. REVIEW OF SYSTEMS: The patient's review of systems is positive for those items mentioned in history of present illness. All systems reviewed and otherwise negative. It is complete, full and well documented on the patient's chart. PHYSICAL EXAMINATION: VITAL SIGNS: The patient's blood pressure is 143/75, pulse 75, respirations 18, temperature is 96.0 degrees. Height is 5 feet 5 inches, weight is 232 pounds. GENERAL: The patient is awake, alert, oriented, appropriate, very pleasant demeanor. HEENT: Shows normocephalic, atraumatic. Extraocular movements are intact and symmetrical. Oral cavity appears moist and pink. Dentition is intact. NECK: Shows anterior throat supple without palpable lymphadenopathy noted. Swallow reflex symmetrical. CHEST: Shows normal with inspection. Breath sounds are clear to auscultation bilaterally. HEART: Shows S1, S2 clear. No murmurs auscultated. ABDOMEN: Soft, obese, nontender, nondistended. No palpable organomegaly is noted. No rebound or guarding demonstrated. BACK: Shows spine grossly in the midline, slight exaggerated thoracic kyphosis, mild flattening of the lumbar lordotic curvature. Lumbar paraspinous muscle shows symmetrical on inspection. On palpation shows some moderate tenderness throughout the upper, middle and lower distribution of the paraspinous muscles diffusely without radiation, without trigger points. No tenderness over the spinous processes, sacrum or sacroiliac regions. The patient has good rotational motion of lumbar spine, both laterally as well as extension and flexion without significant increase in pain, no tenderness over the sacrum. The patient's lower extremities show deep tendon reflexes at 1+ in the patellar and tendo calcaneus tendons are equal. Motor exam is approximately 4 on a scale of 5, but equal and symmetrical dorsiflexion, extension, quadriceps and hamstring flexion, right and left. Peripheral pulses are 1+ posterior tibial bilaterally. No peripheral edema is noted as well. Lower extremities are warm and dry to touch, equal in color and appearance. Straight leg raise noted to be positive on the left at about 35 degrees, decreased with knee flexion, right side is negative. Gaenslen's and Suman's maneuvers are negative bilaterally. The patient is able to stand, stand on her toes, loses balance quickly with putting all of her weight on her left leg. Again, using a cane in her right hand that she has it with her today, walks with a favoring gait with a limp favoring the left lower extremity in an antalgic fashion. SKIN: The patient's skin shows warm and dry, good turgor. No edema. No sores, rashes or bruising. IMPRESSION: 1. This is a 78-year-old female with long history of low back, left lower extremity pain, worse over the past 3 months in a radicular fashion. 2. MRI scan of lumbar spine as noted. 3. History of colon cancer. 4. Arthritis. 5. Hypertension. PLAN: Options were discussed with the patient including conservative medical management, physical therapy, interventional techniques. She would like to pursue interventional techniques. We discussed lumbar epidural steroid injection using description as well as anatomical models to describe the procedure. Risks were then discussed including, but not limited to bleeding, infection, possibility of epidural hematoma, subsequent neurological compromise, dural puncture, headaches, spinal cord and/or nerve damage, side effects of steroid medication and poor results regarding pain control. The patient understands and wished to proceed. The patient will return to clinic in approximately 2 weeks for followup, was counseled on return appointment, activity level and side effects to be aware of. DIAGNOSES: Lumbar radiculopathy with lumbar spinal stenosis, lumbar degenerative disk disease. PROCEDURE: Lumbar epidural steroid injection, translaminar approach at L3-L4 level using C-arm fluoroscopic guidance under sterile prep and drape using local anesthetic. MEDICATION INJECTED: A total of 120 mg Depo-Medrol plus 10 mL of preservative-free normal saline and 2 mL of Isovue for contrast. CONDITION AT DISCHARGE: Stable. The patient tolerated procedure well, had no complications. JONATAN MUÑOZ MD DR: MARY ANNE/darwin JOB#: [id number] / [id number] Johan Márquez MD
== END | disposition home or self-care (01) ==
LOC: PNCL 09:37
PROVIDERS: ATTEND Anesthesiology
DX: M51.16 Intervertebral disc disorders with radiculopathy, lumbar region (principal); M48.061 Spinal stenosis, lumbar region without neurogenic claudication; I10 Essential (primary) hypertension; M19.90 Unspecified osteoarthritis, unspecified site; Z85.038 Personal history of other malignant neoplasm of large intestine; K31.84 Gastroparesis; Z90.710 Acquired absence of both cervix and uterus; Z98.890 Other specified postprocedural states; Z90.49 Acquired absence of other specified parts of digestive tract; Z96.652 Presence of left artificial knee joint; Z98.49 Cataract extraction status, unspecified eye; Z96.1 Presence of intraocular lens; Z79.82 Long term (current) use of aspirin; Z79.899 Other long term (current) drug therapy; Z88.2 Allergy status to sulfonamides; Z88.1 Allergy status to other antibiotic agents; Z72.89 Other problems related to lifestyle; Z88.8 Allergy status to other drugs, medicaments and biological substances
CPT/HCPCS: 62323; J1030; J1040; Q9965

== ENCOUNTER → 2018-05-04 | Outpatient (CLI) | payer MEDICARE ==
[~2018-05-04] MED LIST changes: -HYDR1TAB12 PO; +HYDR1TAB13 PO; -IOHEXOL 180 MG/ML 10 ML VIAL. ONE; -methylPREDNISolone ACETATE 40 MG/ML VIAL. ONE; -methylPREDNISolone ACETATE 80 MG/ML VIAL. ONE
--- NOTE | 2018-05-04 16:55 | KCIC ---
EXAM: Lateral views of the lumbar spine in neutral, flexion and extension DATE: 05/04/2018 12:00 AM INDICATION: Spondylolisthesis, chronic low back pain progressing. COMPARISON: MRI lumbar spine 02/02/2018 FINDINGS: For the purposes of this report, there are 5 nonrib-bearing lumbar-type vertebral bodies. On the neutral examination there is approximately 9 mm anterolisthesis of L4 on L5. This measures 8 mm on the flexion image and 8 mm on the extension image. There is also trace anterolisthesis of L5 on S1 measuring 5 mm on the neutral image, 5 mm in the flexion image and 5 mm on the extension image. There is at least moderate multilevel intervertebral disc height loss with moderate to severe disc height loss at L5-S1 and L2-3. Small anterior endplate osteophytes are seen at multiple levels. Multilevel degenerative changes most prominent at L4-5 and L5-S1. Intracranially surgical clips are partially profiled. Diffusely decreased bone mineral density. Vertebral body heights are preserved. IMPRESSION: 1. Anterolisthesis of L4 on L5 and L5 on S1 without dynamic instability. 2. Multilevel degenerative changes as above. Electronically signed by: Francisco Javier Rizzo MD (05/04/2018 4:52 PM) [facility]
== END | disposition home or self-care (01) ==
LOC: KCIC 12:17
PROVIDERS: ATTEND Neurological Surgery
DX: M43.16 Spondylolisthesis, lumbar region (principal); M43.17 Spondylolisthesis, lumbosacral region; M47.896 Other spondylosis, lumbar region; M25.78 Osteophyte, vertebrae; R29.890 Loss of height
CPT/HCPCS: 72100

== ENCOUNTER → 2018-05-20 | Outpatient (CLI) | payer MEDICARE ==
[~2018-05-20] MED LIST changes: +IOHEXOL 180 MG/ML 10 ML VIAL. ONE; +methylPREDNISolone ACETATE 40 MG/ML VIAL. ONE; +methylPREDNISolone ACETATE 80 MG/ML VIAL. ONE
--- NOTE | 2018-05-20 21:46 | PAIN ---
DATE OF SERVICE: 05/20/2018 PROGRESS NOTE FOR PAIN CLINIC: DIAGNOSES: Lumbar radiculopathy with lumbar spinal stenosis, lumbar degenerative disk disease. HISTORY OF PRESENT ILLNESS: The patient is a 78-year-old female who returns for followup status post lumbar epidural steroid injection x 1, last seen 03/05/2018. The patient reports she did well with this, 50% improvement initially, now about 25% improvement, but still did better, especially the first week after the injection. The patient reports the pain returned now in the low back, left lower extremity, mostly in the lateral aspect of the thigh, anterior thigh, medial thigh, medial lower leg and into the posterior lower leg into the calf. The patient reports it goes to her hip bone in her back and is rated 8 on a scale of 10 at its worst, 7 on average and a 3 at its least and is a 7 today. The patient reports it is aching, sharp, shooting, stabbing, burning, tingling and becoming more severe and cramping. It has been waking her from sleep at night about every 5 hours, worse with walking and standing. She is still using a cane in her right hand. The patient reports no new motor or sensory deficits, no new bowel or bladder incontinence. Initially, she was doing better with walking and doing household activities, but now has returned. PHYSICAL EXAMINATION: VITAL SIGNS: The patient's blood pressure 148/89, pulse 54, respirations 18, temperature 98.4 degrees Fahrenheit, height is 5 feet 5 inches, weight is 232 pounds. GENERAL: The patient is awake, alert, oriented, appropriate, very pleasant demeanor. HEENT: Head shows normocephalic, atraumatic. Extraocular muscles are intact and symmetrical. Oral cavity: Mucous membranes moist and pink. Dentition is intact. NECK: Shows anterior throat supple without palpable lymphadenopathy noted. Swallow reflex is symmetrical. CHEST: Shows normal with inspection. Breath sounds are clear to auscultation bilaterally. HEART: Shows S1, S2 clear. No murmurs auscultated. ABDOMEN: Soft, nontender, nondistended. No palpable organomegaly is noted. No rebound or guarding demonstrated. BACK: Shows spine grossly in the midline. Slight increase in thoracic kyphosis and minor flattening of lumbar lordotic curvature. Lumbar paraspinous muscle shows symmetrical on inspection, with palpation shows some moderate tenderness bilaterally, but only with a deeper palpation in the low lumbar distribution, specifically patient reports no pain with rotational motion, which is intact to greater than 10 degrees right and left as well as extension greater than 10 degrees, forward flexion 45 degrees without difficulty or pain reported. EXTREMITIES: Lower extremities show deep tendon reflexes 1+ in the patellar and tendo calcaneus tendons. Motor exam is strong with approximately 4 on a scale of 5, but equal dorsiflexion, extension, quadriceps and hamstring flexion and symmetrical. Peripheral pulses are 1+ posterior tibia. No peripheral edema is noted. Options were discussed with the patient. The patient's old chart was reviewed as her current medication regimen updated. Current review of systems updated today as well. We will proceed with a second in the series of lumbar epidural steroid injection today with fluoroscopic guidance. Risks were again discussed including, but not limited to bleeding, infection, possibility of epidural hematoma and subsequent neurological compromise, dural puncture, headaches, spinal cord and/or nerve damage, side effects of steroid medication and poor results regarding pain control. The patient understands and wished to proceed. The patient will return to clinic in approximately 2 weeks for followup, was counseled as to return appointment, activity level and side effects to be aware of. DIAGNOSES: Lumbar radiculopathy with lumbar spinal stenosis, lumbar degenerative disk disease. PROCEDURE: Lumbar epidural steroid injection, translaminar approach L3-L4 level using C-arm fluoroscopic guidance under sterile prep and drape using local anesthetic. MEDICATION INJECTED: A total of 120 mg Depo-Medrol plus 10 mL of preservative free normal saline, 2 mL of Isovue for contrast. CONDITION AT DISCHARGE: Stable. The patient tolerated procedure well, had no complications. JONATAN MUÑOZ MD DR: MARY ANNE/darwin JOB#: [id number] / [id number]
== END | disposition home or self-care (01) ==
LOC: PNCL 11:22
PROVIDERS: ATTEND Anesthesiology
DX: M51.16 Intervertebral disc disorders with radiculopathy, lumbar region (principal); M48.061 Spinal stenosis, lumbar region without neurogenic claudication; Z88.2 Allergy status to sulfonamides; Z88.1 Allergy status to other antibiotic agents; Z88.8 Allergy status to other drugs, medicaments and biological substances
CPT/HCPCS: 62323; J1030; J1040; Q9965

== ENCOUNTER → 2019-04-01 | Outpatient (CLI) | payer MEDICARE ==
[~2019-04-01] MED LIST changes: +ASCO-219 PO; -ASCO500T PO; -IOHEXOL 180 MG/ML 10 ML VIAL. ONE; +IOHEXOL 240 MG/ML 50ML VIAL. PO ONE; +IOHEXOL 300 MG/ML 100ML VIAL. IV ONE; +OMEP40CA45 PO; -OMEP40CA5 PO; -methylPREDNISolone ACETATE 40 MG/ML VIAL. ONE; -methylPREDNISolone ACETATE 80 MG/ML VIAL. ONE
--- NOTE | 2019-04-01 12:20 | KCIC ---
EXAM: CT Abdomen and Pelvis with and without IV contrast INDICATION: Colon cancer, chronic kidneys disease with elevated CEA. TECHNIQUE: Multi-detector row CT images were acquired from the lung bases through the abdomen and pelvis with the use of IV contrast. Sagittal and coronal images were acquired from the transaxial data. All CT scans performed at this facility utilize dose optimization techniques as appropriate to the exam, including the following: Automated exposure control and adjustment of the mA and/or KV according to patient size (this includes techniques or standardized protocols for targeted exams where dose is indication/reason for exam). IV CONTRAST: Administered ORAL CONTRAST: Administered DLP 2159 mGycm COMPARISON: Report on January 15, [address] without IV contrast FINDINGS: LOWER CHEST: Unremarkable LIVER: Unremarkable BILIARY SYSTEM: Gallbladder is unremarkable. Bile ducts are not dilated. PANCREAS: Generalized parenchymal atrophy is present with multiple pancreatic tail cysts, at least 3 number largest measuring 1.2 cm most proximally. SPLEEN: Unremarkable ADRENALS: Unremarkable KIDNEYS & URETERS: Unremarkable BLADDER: Unremarkable REPRODUCTIVE ORGANS: Hysterectomy GASTROINTESTINAL: The stomach and small bowel are unremarkable. The large bowel shows evidence of previous partial left colectomy with anastomosis. There are no findings of bowel obstruction, perforation or acute inflammation. Appendix is not well seen and may be surgically absent. MESENTERY/PERITONEUM/RETROPERITONEUM: Unremarkable VASCULAR: Unremarkable LYMPH NODES: No adenopathy OSSEOUS & SOFT TISSUES: Left flank neurostimulator is present with electrodes terminating in the dorsal aspect of the lower thoracic spine, entering from a left T11-T12 approach terminate at T9. Lumbar spinal degenerative changes with minimal anterolisthesis of L4-L5 and L5-S1. IMPRESSION: 1. Postoperative changes from partial colectomy in the left upper quadrant with no findings suspicious for local recurrence or metastatic disease in the included field of view. 2. Pancreatic atrophy with cystic changes in the pancreatic tail of indeterminate significance. Primary pancreatic neoplasm is not excluded. Recommend attention on follow-up. Electronically signed by: Narda Benavidez MD (04/01/2019 12:17 PM) [facility]
== END | disposition home or self-care (01) ==
LOC: KCIC CT 09:14
PROVIDERS: ATTEND Internal Medicine Endocrinology, Diabetes & Metabolism
DX: C18.9 Malignant neoplasm of colon, unspecified (principal); K86.89 Other specified diseases of pancreas; N18.3 Chronic kidney disease, stage 3 (moderate)
CPT/HCPCS: 74178; 82565; Q9966; Q9967

== ENCOUNTER 2020-04-14 12:32 | Inpatient (IN) | payer MEDICARE ==
[~2020-04-14] VITALS: Ht 170.2 cm; Wt 107.0 kg
[~2020-04-14 12:32] MED LIST changes: -ASCO-219 PO; +ASCO500T53 PO; -IOHEXOL 240 MG/ML 50ML VIAL. PO ONE; -IOHEXOL 300 MG/ML 100ML VIAL. IV ONE; -NABU500T PO; +NABU500T11 PO; -OMEP40CA45 PO; +OMEP40CA7 PO
[2020-04-14] MEDS ORDERED: ONDANSETRON PF 4 MG/2 ML VIAL. IVP ONE (13:15)
[2020-04-14 13:31] LABS: BASO # 0.1 x10^3/uL (0.0-0.2); BASO % 1 % (0-3); EOS # 0.1 x10^3/uL (0.0-0.7); EOS % 1 % (0-3); HEMATOCRIT 40.2 % (36.0-47.0); HEMOGLOBIN 13.9 g/dL (12.0-15.5); LYMPH # 2.4 x10^3/uL (1.0-4.8); LYMPH % 23 % (24-48); MEAN CORPUSCULAR HEMOGLOBIN 31 pg (25-35); MEAN CORPUSCULAR HGB CONC 35 g/dL (31-37); MEAN CORPUSCULAR VOLUME 90 fL (79-100); MONO # 1.3 x10^3/uL (0.0-1.1); MONO % 12 % (0-9); NEUT # 6.6 x10^3/uL (1.8-7.7); NEUT % 62 % (31-73); PLATELET COUNT 185 x10^3/uL (140-400); RED BLOOD COUNT 4.49 x10^6/uL (3.50-5.40); WHITE BLOOD COUNT 10.7 x10^3/uL (4.0-11.0)
[2020-04-14 13:43] LABS: CREATININE 1.3 mg/dL (0.6-1.0); GFR 39.3; POTASSIUM 3.7 mmol/L (3.5-5.1)
[2020-04-14 13:49] LABS: ALBUMIN 3.4 g/dL (3.4-5.0); DIRECT BILIRUBIN 0.1 mg/dL (0.0-0.2); TOTAL BILIRUBIN 0.5 mg/dL (0.2-1.0); TOTAL PROTEIN 7.1 g/dL (6.4-8.2)
--- NOTE | 2020-04-14 14:02 | PHYS DOC ---
Past Medical History Past Medical History: Asthma, Cancer, COPD, High Cholesterol, Hypertension, Other Additional Past Medical Histor: vertigo, colon CA; gastroparesis Past Surgical History: Cancer Surgery, , Hysterectomy, Other Additional Past Surgical Histo: colon resection, eyelid surgery, l knee surgery, bunionectomy, r shoulder Smoking Status: Never Smoker Alcohol Use: Rarely Drug Use: None General Adult EDM: Chief Complaint: ABDOMINAL PAIN HPI: HPI: 80-year-old female past medical history significant for colon cancer with resection, CKD, COPD, hypertension, and hyperlipidemia presents to the ED with complaints of left upper quadrant left lower quadrant abdominal pain with associated nausea and "brown vomiting" stating "I feel constipation and full of gas." Normal formed bowel movement yesterday. States she has a history of an incarcerated hernia 2 years ago and gastroparesis. Reports back infection from her neurostimulator that was placed 6 weeks ago, completed 3 wks of keflex. Review of Systems: Review of Systems: Constitutional: Denies fever or chills. [] Eyes: Denies change in visual acuity. [] HENT: Denies nasal congestion or sore throat. [] Respiratory: Denies cough or shortness of breath. [] Cardiovascular: Denies chest pain or edema. [] GI: Denies bloody stools or diarrhea. [] : Denies dysuria. [] Musculoskeletal: Denies midline back pain or joint pain. [] Integument: Denies rash. [] Neurologic: Denies headache, focal weakness or sensory changes. [] Endocrine: Denies polyuria or polydipsia. [] Lymphatic: Denies swollen glands. [] Psychiatric: Denies depression or anxiety. [] Heart Score: Risk Factors: Risk Factors: DM, Current or recent (<one month) smoker, HTN, HLP, family history of CAD, obesity. Risk Scores: Score 0 - 3: 2.5% MACE over next 6 weeks - Discharge Home Score 4 - 6: 20.3% MACE over next 6 weeks - Admit for Clinical Observation Score 7 - 10: 72.7% MACE over next 6 weeks - Early Invasive Strategies Current Medications: Current Medications Medications (Trade) Dose Ordered Sig/Denia Start Time Stop Time Status Last Admin Dose Admin Ondansetron HCl (Zofran) 8 mg 1X ONCE 04/14/20 13:15 04/14/20 13:16 DC 04/14/20 13:55 8 MG Allergies: Allergies: Allergies Coded Allergies Type Severity Reaction Last Updated Verified lisinopril Allergy Severe 09/18/18 Yes Sulfa (Sulfonamide Antibiotics) Allergy Intermediate Itching 04/23/17 Yes cefdinir Allergy Intermediate Itching 04/23/17 Yes ciprofloxacin Allergy Intermediate Itching 04/23/17 Yes ciprofloxacin HCl Allergy Intermediate Itching 04/23/17 Yes tetracycline Allergy Intermediate Itching 04/23/17 Yes Physical Exam: PE: Constitutional: Well developed, well nourished, no acute distress, non-toxic appearance. HENT: Normocephalic, atraumatic, dry mucous membranes Eyes: EOMI, conjunctiva normal, no discharge. Neck: Normal range of motion, supple, Cardiovascular: S1/2 present, regular rhythm Lungs & Thorax: Speaking in full sentences, bilateral equal chest rise, no tachypnea or increased work of breathing Abdomen: soft, no tenderness, Skin: Warm, dry, no erythema, no rash. [] Back: No tenderness, no CVA tenderness. [] Extremities: No tenderness, no cyanosis, no edema Neurologic: Alert and oriented X 3, normal motor function, normal sensory function, no focal deficits noted. [] Psychologic: Affect normal, judgement normal, mood normal. [] Current Patient Data: Labs: Laboratory Tests Test 04/14/20 13:25 White Blood Count 10.7 x10^3/uL (4.0-11.0) Red Blood Count 4.49 x10^6/uL (3.50-5.40) Hemoglobin 13.9 g/dL (12.0-15.5) Hematocrit 40.2 % (36.0-47.0) Mean Corpuscular Volume 90 fL (79-100) Mean Corpuscular Hemoglobin 31 pg (25-35) Mean Corpuscular Hemoglobin Concent 35 g/dL (31-37) Red Cell Distribution Width 15.0 % (11.5-14.5) H Platelet Count 185 x10^3/uL (140-400) Neutrophils (%) (Auto) 62 % (31-73) Lymphocytes (%) (Auto) 23 % (24-48) L Monocytes (%) (Auto) 12 % (0-9) H Eosinophils (%) (Auto) 1 % (0-3) Basophils (%) (Auto) 1 % (0-3) Neutrophils # (Auto) 6.6 x10^3/uL (1.8-7.7) Lymphocytes # (Auto) 2.4 x10^3/uL (1.0-4.8) Monocytes # (Auto) 1.3 x10^3/uL (0.0-1.1) H Eosinophils # (Auto) 0.1 x10^3/uL (0.0-0.7) Basophils # (Auto) 0.1 x10^3/uL (0.0-0.2) Sodium Level 141 mmol/L (136-145) Potassium Level 3.7 mmol/L (3.5-5.1) Chloride Level 106 mmol/L (98-107) Carbon Dioxide Level 30 mmol/L (21-32) Anion Gap 5 (6-14) L Blood Urea Nitrogen 24 mg/dL (7-20) H Creatinine 1.3 mg/dL (0.6-1.0) H Estimated GFR (Cockcroft-Gault) 39.3 Glucose Level 94 mg/dL (70-99) Calcium Level 9.0 mg/dL (8.5-10.1) Total Bilirubin 0.5 mg/dL (0.2-1.0) Direct Bilirubin 0.1 mg/dL (0.0-0.2) Aspartate Amino Transferase (AST) 16 U/L (15-37) Alanine Aminotransferase (ALT) 17 U/L (14-59) Alkaline Phosphatase 56 U/L (46-116) Creatine Kinase 33 U/L (26-192) Troponin I Quantitative < 0.017 ng/mL (0.000-0.055) Total Protein 7.1 g/dL (6.4-8.2) Albumin 3.4 g/dL (3.4-5.0) Lipase 62 U/L (73-393) L Laboratory Tests 04/14/20 13:25 Laboratory Tests 04/14/20 13:25 EKG: EKG: Sinus rhythm 64 bpm, left axis deviation, normal intervals, no T wave inversions, no ST elevations or ST depressions Radiology/Procedures: Radiology/Procedures: IMAGING REPORT Signed PATIENT: JAY VILLANUEVA Walt ACCOUNT: [id number] : 1940 LOCATION: ER AGE: 80 SEX: F EXAM STATUS: REG ER ORD. PHYSICIAN: JOSE GRIFFITH DO REASON: luq pain, OMNI 300 INJ 60 MLS OK TO INJ PER GLADIS PROCEDURE: CT ABD PELV W/ IV CONTRST ONLY CT abdomen and pelvis with contrast: Reason for examination: Left upper quadrant abdominal pain. Comparison is made to previous studies dated 04/01/2019 and 01/15/2018. Helical images were obtained through the abdomen and pelvis with intravenous administration Omnipaque 300. Reconstruction was performed in sagittal and coronal planes. Exposure: One or more of the following individualized dose reduction techniques were utilized for this examination: 1. Automated exposure control 2. Adjustment of the mA and/or kV according to patient size 3. Use of iterative reconstruction technique. The lung bases show some mild increased interstitial markings in the lingula which are unchanged. The heart size is enlarged with no pericardial effusion evident. No abnormality seen at the liver, gallbladder, spleen, adrenal glands or pancreas. There is a small calcific density near the splenic hilum consistent with a splenic artery aneurysm measuring 1 cm in size which is unchanged. The abdominal aorta and inferior vena cava show no acute abnormalities. The colon shows no diverticulosis, diverticulitis or colitis. There is however some mild distention and moderate amount fecal material present in the region of the splenic flexure proximal to the colonic anastomosis. A similar appearance however was seen previously. The appendix is not identified and may be surgically absent. Recommend clinical correlation. The small intestinal tract shows no abnormal dilatation or wall thickening and no apparent obstruction. No abnormality seen at the stomach or duodenum. There continue to be metallic densities with beam hardening artifact present in the left upper quadrant adjacent to the left kidney and in the left lower quadrant. There is a small 7 mm cystic-appearing lesion posteriorly at the upper pole of the right kidney. No other renal nodules are seen. There are no renal calculi, hydronephrosis or obstructive uropathy evident. No abnormality seen at the bladder or vaginal cuff. No free fluid or free air seen in the abdomen or pelvis. There is also severe degenerative disc disease at the L2-3 level with mild central stenosis and moderate right lateral recess stenosis and neural foraminal stenosis. There is severe degenerative disc disease at the L3-4 disc levels with mild stenosis centrally and at the lateral recesses and neural foramen. There is a grade 1 anterolisthesis of L4 on L5 with moderate degenerative disc disease with severe central stenosis and bilateral lateral recess and neural foraminal stenosis related to the anterolisthesis and bilateral facet hypertrophy. There is a grade 1 anterolisthesis of L5 on S1 with severe degenerative disc disease with moderate central stenosis and bilateral neural foraminal stenosis. No acute bony abnormalities are seen. There appears be a TENS unit present in the thoracolumbar spine. IMPRESSION: Mild interstitial changes in the left lingula without change. Cardiomegaly which is stable. 1 cm calcified splenic artery aneurysm at the splenic hilum which is stable. Dilatation with moderate fecal material in the splenic flexure colon proximal to the anastomosis in the left colon but with a similar appearance to previous exams. No apparent obstruction is seen. Small 7 mm cystic lesion at the upper pole the right kidney. Severe degenerative spondylosis in the lumbar spine. Electronically signed by: Heri De Dios MD (04/14/2020 3:06 PM) [facility] DICTATED and SIGNED BY: HERI DE DIOS MD DATE: 04/14/20 [id number] IMAGING REPORT Signed PATIENT: JAY VILLANUEVA ACCOUNT: [id number] : 1940 LOCATION: ER AGE: 80 SEX: F EXAM STATUS: REG ER ORD. PHYSICIAN: JOSE GRIFFITH DO REASON: cvc palcement PROCEDURE: CHEST AP ONLY EXAM: Chest, single view. HISTORY: Line placement. COMPARISON: 07/03/2017 FINDINGS: A frontal view of the chest is obtained. There is no infiltrate, pleural effusion or pneumothorax. There are suspected chronic interstitial changes with superimposed lower lobe atelectasis. The heart is normal in size. There is left glenohumeral osteoarthritis. There are surgical clips within the upper abdomen. There are dorsal column stimulator leads overlying the mid thoracic spine. IMPRESSION: 1. Chronic appearing interstitial changes with superimposed lower lobe atelectasis. 1. No line is seen to correspond with the reported history. This may be external to the [id number]. Electronically signed by: Jena Cramer MD (04/14/2020 2:00 PM) [facility] DICTATED and SIGNED BY: JENA CRAMER MD DATE: 04/14/20 [id number] 0 Course & Med Decision Making: Course & Med Decision Making Pertinent Labs and Imaging studies reviewed. (See chart for details) Concern for pyelonephritis with nausea and vomiting and acute kidney injury. Will admit for IV fluids, antiemetics and further medical management. Patient accepted by Dr. Mello. Patient stable at time of admission. I have spoken with the patient and/or caregivers. I have explained the patient's condition, diagnosis and treatment plan based on the information available to me at this time. I have answered the patient's and/or caregivers questions and answered any concerns. The patient and/or caregivers have as good an understanding of the patient's diagnosis, condition and treatment plan as can be expected at this point. The patient has been stabilized within the capability of the emergency department. The patient will be transported for further care and management or will be moved to an observation or inpatient service. I have communicated with the staff or medical practitioner taking over this patient's care. Adali Disclaimer: Adali Disclaimer: This electronic medical record was generated, in whole or in part, using a voice recognition dictation system. Departure Departure Impression: Primary Impression: Pyelonephritis Additional Impressions: UTI (urinary tract infection) Nausea and vomiting Abdominal pain Disposition: ADMITTED INPT THIS HOSP Admitting Physician: Janett Mello Condition: STABLE Referrals: JANETT MELLO MD (PCP) JOSE GRIFFITH DO Apr 14, 2020 14:02
--- NOTE | 2020-04-14 14:07 | RAD ---
EXAM: Chest, single view. HISTORY: Line placement. COMPARISON: 07/03/2017 FINDINGS: A frontal view of the chest is obtained. There is no infiltrate, pleural effusion or pneumo thorax. There are suspected chronic interstitial changes with superimposed lower lobe atelectasis. Th e heart is normal in size. There is left glenohumeral osteoarthritis. There are surgical clips within the upper abdomen. There are dorsal column stimulator leads overlying the mid thoracic spine. IMPRESSION: 1. Chronic appearing interstitial changes with superimposed lower lobe atelectasis. 1. No line is seen to correspond with the reported history. This may be external to the [id number]-ns-[id number] . Electronically signed by: Jena Blackburn MD (04/14/2020 2:00 PM) [facility]
[2020-04-14 14:08] LABS: BILIRUBIN,URINE NEGATIVE (NEG); CLARITY,URINE CLEAR; COLOR,URINE YELLOW; NITRITE,URINE NEGATIVE (NEG); PROTEIN,URINE NEGATIVE (NEG-TRACE); UROBILINOGEN,URINE 0.2 mg/dL (0.2 mg/dL)
[2020-04-14 14:16] LABS: BARBITURATES NEG (NEG); BENZODIAZEPINES POS (NEG); CANNABINOIDS NEG (NEG); COCAINE NEG (NEG); METHADONE NEG (NEG); OPIATES NEG (NEG); PHENCYCLIDINE NEG (NEG)
[2020-04-14 14:17] LABS: AMPHETAMINE/METHAMPHETAMINE NEG (NEG); BACTERIA,URINE MODERATE /HPF (0-FEW); HYALINE CASTS, URINE MODERATE /HPF; RBC,URINE 0 /HPF (0-2)
[2020-04-14] MEDS ORDERED: IV NORMAL SALINE 1000ML BAG 1,000 ML IV ONE (14:30)
[2020-04-14] MEDS ORDERED: fentaNYL PF VIAL 100 MCG/2 ML VIAL IVP ONE (14:30)
[2020-04-14] MEDS ORDERED: IOHEXOL 300 MG/ML 100ML VIAL. IV ONE (14:45)
[2020-04-14] MEDS ORDERED: CONTRAST GIVEN. MC PRN (14:45)
--- NOTE | 2020-04-14 15:13 | RAD ---
CT abdomen and pelvis with contrast: Reason for examination: Left upper quadrant abdominal pain. Comparison is made to previous studies dated 04/01/2019 and 01/15/2018. Helical images were obtained through the abdomen and pelvis with intravenous administration Omnipaque 300. Reconstruction was performed in sagittal and coronal planes. Exposure: One or more of the following individualized dose reduction techniques were utilized for thi s examination: 1. Automated exposure control 2. Adjustment of the mA and/or kV according to patient size 3. Use of iterative reconstruction technique. The lung bases show some mild increased interstitial markings in the lingula which are unchanged. The heart size is enlarged with no pericardial effusion evident. No abnormality seen at the liver, gallbladder, spleen, adrenal glands or pancreas. There is a small c alcific density near the splenic hilum consistent with a splenic artery aneurysm measuring 1 cm in si ze which is unchanged. The abdominal aorta and inferior vena cava show no acute abnormalities. The co john shows no diverticulosis, diverticulitis or colitis. There is however some mild distention and mod erate amount fecal material present in the region of the splenic flexure proximal to the colonic anas tomosis. A similar appearance however was seen previously. The appendix is not identified and may be surgically absent. Recommend clinical correlation. The small intestinal tract shows no abnormal dilat ation or wall thickening and no apparent obstruction. No abnormality seen at the stomach or duodenum. There continue to be metallic densities with beam hardening artifact present in the left upper quadr ant adjacent to the left kidney and in the left lower quadrant. There is a small 7 mm cystic-appearin g lesion posteriorly at the upper pole of the right kidney. No other renal nodules are seen. There ar e no renal calculi, hydronephrosis or obstructive uropathy evident. No abnormality seen at the bladder or vaginal cuff. No free fluid or free air seen in the abdomen or pelvis. There is also severe degenerative disc disease at the L2-3 level with mild central stenosis a nd moderate right lateral recess stenosis and neural foraminal stenosis. There is severe degenerative disc disease at the L3-4 disc levels with mild stenosis centrally and at the lateral recesses and ne ural foramen. There is a grade 1 anterolisthesis of L4 on L5 with moderate degenerative disc disease with severe central stenosis and bilateral lateral recess and neural foraminal stenosis related to th e anterolisthesis and bilateral facet hypertrophy. There is a grade 1 anterolisthesis of L5 on S1 wit h severe degenerative disc disease with moderate central stenosis and bilateral neural foraminal sten osis. No acute bony abnormalities are seen. There appears be a TENS unit present in the thoracolumbar spine. IMPRESSION: Mild interstitial changes in the left lingula without change. Cardiomegaly which is stable. 1 cm calcified splenic artery aneurysm at the splenic hilum which is stable. Dilatation with moderate fecal material in the splenic flexure colon proximal to the anastomosis in t he left colon but with a similar appearance to previous exams. No apparent obstruction is seen. Small 7 mm cystic lesion at the upper pole the right kidney. Severe degenerative spondylosis in the lumbar spine. Electronically signed by: Ángela Vang MD (04/14/2020 3:06 PM) [facility]
[2020-04-14] MEDS ORDERED: ONDANSETRON PF 4 MG/2 ML VIAL. IV PRN (16:15)
[2020-04-14] MEDS ORDERED: PIPERACILLIN/TAZOBACTAM 4.5 GM in IV NORMAL SALINE 100ML 100 ML IV ONE (16:15)
[2020-04-14] MEDS ORDERED: PIPERACILLIN/TAZOBACTAM 3.375 GM in IV NORMAL SALINE 50ML 50 ML IV ONE (16:30)
[2020-04-14] MEDS ORDERED: ALPR1TAB6 PO (20:25)
[2020-04-14] MEDS ORDERED: VITAMIN D (20:26)
[2020-04-14] MEDS ORDERED: NON FORMULARY ITEM (Budesonide/Formoterol Fumarate (Symbicort 160-4.5 Mcg Inhaler) 1 PUFF) IH SCH (21:00)
[2020-04-14] MEDS ORDERED: ALPRAZolam 1 MG TABLET PO SCH (21:00)
[2020-04-14] MEDS: IV NORMAL SALINE 1000ML BAG 1,000 ML IV SCH (21:16)
[2020-04-14] MEDS: ALPRAZolam 1 MG TABLET PO PRN (21:17)
[2020-04-14] MEDS: fentaNYL PF VIAL 100 MCG/2 ML VIAL IVP PRN (21:17)
[2020-04-14] MEDS: lamoTRIgine 100 MG TABLET. PO SCH (21:17)
[2020-04-14] MEDS: BUDESONIDE 0.5 MG/2 ML NEBU. NEB SCH (21:30)
[2020-04-14] MEDS: ALBUTEROL SULFATE 2.5 MG/3 ML NEBU. NEB SCH (21:30)
--- NOTE | 2020-04-14 22:00 | NUR ---
Rt does not seem to have administered her treatments, monitoring
[2020-04-14 23:00] VITALS: BP 118/94
[2020-04-15] MEDS: PIPERACILLIN/TAZOBACTAM 3.375 GM in IV NORMAL SALINE 50ML 50 ML IV SCH ×5 (00:40→23:27)
[2020-04-15 03:00] VITALS: BP 120/52
--- NOTE | 2020-04-15 04:08 | EKG ---
[facility] [address] [place] [address] Test Date: 2020-04-14 Test Time: 13:12:07 Pat Name: JAY VILLANUEVA Department: Room: [facility] Gender: F Hse Manager: : 1940 Requested By: JOSE GRIFFITH Order Number: [id number] Reading MD: Barrington Arce Measurements Intervals [place] Rate: 64 P: ID: QRS: -31 QRSD: 92 T: 32 QT: 414 QTc: 431 Interpretive Statements SINUS RHYTHM ABNORMAL LEFT AXIS DEVIATION LEFT ANTERIOR FASCICULAR BLOCK ABNORMAL ECG Electronically Signed On 04-24-2020 14:43:54 [employer]LE [employer]ARD OPERATOR by Barrington Arce
[2020-04-15 07:00] VITALS: BP 136/76
[2020-04-15] MEDS: ALBUTEROL SULFATE 2.5 MG/3 ML NEBU. NEB SCH ×4 (07:31→20:42)
[2020-04-15] MEDS: BUDESONIDE 0.5 MG/2 ML NEBU. NEB SCH ×2 (07:31→20:42)
[2020-04-15] MEDS: lamoTRIgine 100 MG TABLET. PO SCH ×2 (08:48→22:06)
[2020-04-15] MEDS: IV NORMAL SALINE 1000ML BAG 1,000 ML IV SCH ×2 (08:50→17:13)
[2020-04-15] MEDS: fentaNYL PF VIAL 100 MCG/2 ML VIAL IVP PRN ×3 (08:50→18:24)
[2020-04-15] MEDS ORDERED: MAGNESIUM CITRATE 296 ML SOLUTION. PO ONE (10:45)
[2020-04-15 11:00] VITALS: BP 119/45
--- NOTE | 2020-04-15 13:44 | HP ---
ADMIT DATE: 04/15/2020 CHIEF COMPLAINT AND HISTORY OF PRESENT ILLNESS: This 80-year-old white female is well known to me from followup in the office. The patient called me on the day of admission with left upper quadrant abdominal pain with radiation into the back. She stated it was crampy in nature and tend to come in waves. She admits to being a little bit constipated with it. Denied any urinary symptoms with the same. It was severe enough. She came to the Emergency Room where she was felt to have a probable pyelonephritis; although, I think this is probably stool and constipation related by looking at her CT and the urine which shows possibly some infection, but it is not that impressive, and a normal white count. PAST MEDICAL HISTORY: Remarkable for: 1. Chronic persistent asthma. 2. History of cancer. 3. COPD. 4. Hypertension. 5. Hyperlipidemia. 6. Gastroparesis. PAST SURGICAL HISTORY: Remarkable for: 1. Partial colon resection. 2. . 3. Hysterectomy. 4. One knee surgery. 5. Bunionectomy. 6. Right shoulder surgery. SOCIAL HISTORY: She is a lifetime nonsmoker. Rarely drinks. Does not use drugs. Lives at home with her . FAMILY HISTORY: Positive for longevity with both of her parents living into their 90s. MEDICATIONS: Medications were brought with the patient, listed on the computer and have been addressed. ALLERGIES: She is allergic to SULFA, CEFDINIR, CIPRO, LISINOPRIL and TETRACYCLINE. REVIEW OF SYSTEMS: As mentioned above. PHYSICAL EXAMINATION: GENERAL: She is a well-developed, well-nourished white female who appears nontoxic. VITAL SIGNS: Stable. She is afebrile. HEAD, EYES, EARS, NOSE and THROAT: Unremarkable. NECK: Supple, without adenopathy or thyromegaly. CHEST: Clear to auscultation and percussion. HEART: Regular rate and rhythm without S3, S4 or murmur. ABDOMEN: Soft. Does have some left upper quadrant tenderness on deep palpation, but no rebound or guarding, organomegaly or masses. EXTREMITIES: Without cyanosis, clubbing or edema. NEUROLOGIC: She is intact. LABORATORY DATA: Initial ____ is 10,700 with a normal differential. Rest of her CBC is essentially unremarkable. Initial creatinine 1.3. Toxicology screen shows benzodiazepines, which she takes at home. UA shows 5-10 white blood cells, moderate bacteria and moderate leukocyte esterase, negative nitrite. IMAGING: Includes a chest x-ray showing chronic changes and an abdomen and pelvis CT that shows stable cardiomegaly and mild interstitial changes in left lingula without change. 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 Dilation with moderate fecal material in the splenic flexure colon proximal to the anastomosis in the left colon with similar appearance to previous exams. No obstruction seen. A small ____ cystic lesion in upper pole of right kidney and severe degenerative spondylosis in the lumbar spine. IMPRESSION: 1. Abdominal pain, pyelo versus constipation. 2. Other problems listed above. PLAN: Pain control. IV antibiotics. Urine culture. I am going to give her some mag citrate today to see how she does with the same and we will reevaluate tomorrow morning. JANETT LA MD DR: MARITZA/darwin JOB#: [id number] / [id number]
[2020-04-15 15:00] VITALS: BP 166/73
[2020-04-15] MEDS ORDERED: ONDANSETRON PF 4 MG/2 ML VIAL. IVP PRN (17:00)
[2020-04-15 19:00] VITALS: BP 139/44
[2020-04-15] MEDS: LACTOBACILLUS RHAMNOSUS GG 1 CAPSULE. PO SCH (22:06)
[2020-04-15] MEDS: ALPRAZolam 1 MG TABLET PO PRN (22:06)
[2020-04-15 23:00] VITALS: BP 122/45
[2020-04-16 03:00] VITALS: BP 135/49
[2020-04-16] MEDS: PIPERACILLIN/TAZOBACTAM 3.375 GM in IV NORMAL SALINE 50ML 50 ML IV SCH ×4 (06:00→23:34)
[2020-04-16 07:00] VITALS: BP 125/49
[2020-04-16] MEDS: BUDESONIDE 0.5 MG/2 ML NEBU. NEB SCH ×2 (07:04→20:37)
[2020-04-16] MEDS: ALBUTEROL SULFATE 2.5 MG/3 ML NEBU. NEB SCH ×4 (07:04→20:37)
[2020-04-16] MEDS: lamoTRIgine 100 MG TABLET. PO SCH ×2 (07:59→20:57)
[2020-04-16] MEDS: IV NORMAL SALINE 1000ML BAG 1,000 ML IV SCH ×2 (07:59→17:46)
[2020-04-16] MEDS: LACTOBACILLUS RHAMNOSUS GG 1 CAPSULE. PO SCH ×2 (07:59→20:57)
[2020-04-16] MEDS: fentaNYL PF VIAL 100 MCG/2 ML VIAL IVP PRN ×2 (09:02→17:51)
[2020-04-16 11:00] VITALS: BP 101/47
--- NOTE | 2020-04-16 11:33 | NUR ---
SW following for discharge planning. Spoke with RN and reviewed chart. Pt from home with spouse. SW met with pt and pt's spouse today. Discharge plan is home, self-care. Pt declined the need for HH. Pt on 3l 02 with home 02. Pt on IV Zosyn at this time. SW following.
[2020-04-16 15:00] VITALS: BP 115/44
[2020-04-16] MEDS ORDERED: predniSONE 10 MG TABLET PO PRN (15:45)
[2020-04-16 19:00] VITALS: BP 148/52
[2020-04-16] MEDS: ALPRAZolam 1 MG TABLET PO PRN (20:57)
[2020-04-16] MEDS ORDERED: lamoTRIgine 100 MG TABLET. PO SCH (21:00)
[2020-04-16] MEDS ORDERED: SIMVASTATIN 40 MG TABLET. PO SCH (21:00)
[2020-04-16 23:00] VITALS: BP 126/47
[2020-04-17 03:00] VITALS: BP 133/48
[2020-04-17] MEDS: IV NORMAL SALINE 1000ML BAG 1,000 ML IV SCH ×2 (03:08→08:33)
[2020-04-17] MEDS: ALPRAZolam 1 MG TABLET PO PRN (03:08)
--- NOTE | 2020-04-17 03:24 | PN ---
DATE: 04/16/2020 DAILY PROGRESS NOTE LOCATION: She is in room 510. SUBJECTIVE: The patient is awake, alert, getting ready to eat breakfast as I saw her this morning. She is still having left upper quadrant pain, but feels like it may be slightly better. She did have bowel movement with some mag citrate yesterday, but not what she expected to be a good one. OBJECTIVE: VITAL SIGNS: Stable. She is afebrile. CHEST: Clear. HEART: Regular. ABDOMEN: Left upper quadrant tenderness. EXTREMITIES: Okay. LABORATORY DATA: Urine culture pending. IMPRESSION: 1. Left upper quadrant pain with pyelonephritis versus constipation. 2. Gastroparesis with history today of not taking her erythromycin regularly, which may be part of this pain process in addition. 3. Asthma. PLAN: Continue present care. We would expect erythromycin may help in addition with her bowel movements. I will get this restarted today. Otherwise, observe clinically and see ____ tomorrow. JANETT LA MD DR: MARITZA/darwin JOB#: [id number] / [id number]
[2020-04-17] MEDS: fentaNYL PF VIAL 100 MCG/2 ML VIAL IVP PRN (04:09)
[2020-04-17] MEDS: PIPERACILLIN/TAZOBACTAM 3.375 GM in IV NORMAL SALINE 50ML 50 ML IV SCH (05:37)
[2020-04-17 07:00] VITALS: BP 134/60
[2020-04-17] MEDS: ALBUTEROL SULFATE 2.5 MG/3 ML NEBU. NEB SCH (07:48)
[2020-04-17] MEDS: BUDESONIDE 0.5 MG/2 ML NEBU. NEB SCH (07:48)
[2020-04-17] MEDS ORDERED: methylPREDNISolone SOD SUCC PF 125 MG/2 ML VIAL. IV ONE (08:15)
[2020-04-17] MEDS: lamoTRIgine 100 MG TABLET. PO SCH (08:34)
[2020-04-17] MEDS: LACTOBACILLUS RHAMNOSUS GG 1 CAPSULE. PO SCH (08:34)
[2020-04-17] MEDS ORDERED: MULTIVITAMIN with MINERAL TABLET. PO SCH (09:00)
[2020-04-17] MEDS ORDERED: OMEGA-3 FATTY ACIDS/FISH OIL 1,000 MG CAPSULE. PO SCH (09:00)
[2020-04-17] MEDS ORDERED: FUROSEMIDE 40 MG TABLET. PO SCH (09:00)
[2020-04-17] MEDS ORDERED: ASPIRIN ENTERIC COATED 81 MG TABLET.DR. PO SCH (09:00)
[2020-04-17] MEDS ORDERED: MELOXICAM 7.5 MG TABLET PO SCH (09:00)
[2020-04-17] MEDS ORDERED: SERTRALINE 50 MG TABLET. PO SCH (09:00)
[2020-04-17] MEDS ORDERED: FLUTICASONE 50MCG/NASAL SPRAY 16GM BOTTLE. NS SCH (09:00)
[2020-04-17] MEDS ORDERED: POTASSIUM CHLORIDE 10 MEQ TABLET.ER. PO SCH (09:00)
--- NOTE | 2020-04-17 11:00 | NUR ---
Discharge Note: JAY VILLANUEVA [address] Discharge instructions and discharge home medications reviewed with Patient and a copy given. All questions have been answered and understanding verbalized. The following instructions and handouts were given: discharge instructions, education and follow up recommendations. Discontinued lines and drains: Peripheral IV discontinued intact. Patient discharged to Home or Self Care with Spouse via Wheelchair off unit by STAFFING RN.
--- NOTE | 2020-04-17 12:11 | NUR ---
SW following for discharge planning. Spoke with RN and reviewed chart. Pt to discharge home today, self-care. No further SW needs at this time.
--- NOTE | 2020-04-17 19:05 | DS ---
DATE OF DISCHARGE: 04/17/2020 PRIMARY DIAGNOSIS: Left upper quadrant abdominal pain, likely due to constipation. ADDITIONAL DIAGNOSES: Asthma, history of colon cancer, hypertension, hyperlipidemia, gastroparesis. CHIEF COMPLAINT AND HISTORY OF PRESENT ILLNESS: This 80-year-old white female is well known to me from followup in the office. I spoke with her on the phone on the day of admission with left upper quadrant abdominal pain with radiation into the back. It was crampy in nature and came in waves. She admitted to be somewhat constipated with it. Denied any urinary symptoms with it. It was severe enough that she came to the Emergency Room where she was initially felt to have a possible pyelonephritis and admitted for the same. CT scanning of her abdomen was impressive for more constipation and particularly in the splenic flexure area at the site of her pain and her urine was minimally compressive with a normal white count on admission. SUMMARY OF STAY: The patient was admitted and treated with IV antibiotics, laxatives, and improved. It became apparent that she had not been taking her erythromycin for the gastroparesis as she should because of cost at home and this may have been part of the entire presentation. She improved to the point where she was felt ready for dismissal and this was accomplished. DISPOSITION: The patient is discharged to home. DIET: Regular diet. ACTIVITY: As tolerated. FOLLOWUP: In the office in 1 week. DISCHARGE MEDICATIONS: Listed on the med rec and have been addressed. JANETT LA MD DR: MARITZA/darwin JOB#: [id number] / [id number]
--- NOTE | 2020-07-06 15:05 | PDOC1 ---
History & Physical: Date of Service: DOS: 04-15-2020 H&P: PATIENT: JAY VILLANUEVA ACCOUNT: [id number] : 1940 LOC: [address] [place] [address] AGE: 80 SEX: F STATUS: ADM IN LOCATION: [address] [place] [address] ADMIT DATE: 04/15/2020 CHIEF COMPLAINT AND HISTORY OF PRESENT ILLNESS: This 80-year-old white female is well known to me from followup in the office. The patient called me on the day of admission with left upper quadrant abdominal pain with radiation into the back. She stated it was crampy in nature and tend to come in waves. She admits to being a little bit constipated with it. Denied any urinary symptoms with the same. It was severe enough. She came to the Emergency Room where she was felt to have a probable pyelonephritis; although, I think this is probably stool and constipation related by looking at her CT and the urine which shows possibly some infection, but it is not that impressive, and a normal white count. PAST MEDICAL HISTORY: Remarkable for: 1. Chronic persistent asthma. 2. History of cancer. 3. COPD. 4. Hypertension. 5. Hyperlipidemia. 6. Gastroparesis. PAST SURGICAL HISTORY: Remarkable for: 1. Partial colon resection. 2. . 3. Hysterectomy. 4. One knee surgery. 5. Bunionectomy. 6. Right shoulder surgery. SOCIAL HISTORY: She is a lifetime nonsmoker. Rarely drinks. Does not use drugs. Lives at home with her . FAMILY HISTORY: Positive for longevity with both of her parents living into their 90s. MEDICATIONS: Medications were brought with the patient, listed on the computer and have been addressed. ALLERGIES: She is allergic to SULFA, CEFDINIR, CIPRO, LISINOPRIL and TETRACYCLINE. REVIEW OF SYSTEMS: As mentioned above. PHYSICAL EXAMINATION: GENERAL: She is a well-developed, well-nourished white female who appears nontoxic. VITAL SIGNS: Stable. She is afebrile. HEAD, EYES, EARS, NOSE and THROAT: Unremarkable. NECK: Supple, without adenopathy or thyromegaly. CHEST: Clear to auscultation and percussion. HEART: Regular rate and rhythm without S3, S4 or murmur. ABDOMEN: Soft. Does have some left upper quadrant tenderness on deep palpation, but no rebound or guarding, organomegaly or masses. EXTREMITIES: Without cyanosis, clubbing or edema. NEUROLOGIC: She is intact. LABORATORY DATA: Initial ____ is 10,700 with a normal differential. Rest of her CBC is essentially unremarkable. Initial creatinine 1.3. Toxicology screen shows benzodiazepines, which she takes at home. UA shows 5-10 white blood cells, moderate bacteria and moderate leukocyte esterase, negative nitrite. IMAGING: Includes a chest x-ray showing chronic changes and an abdomen and pelvis CT that shows stable cardiomegaly and mild interstitial changes in left lingula without change. 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 Dilation with moderate fecal material in the splenic flexure colon proximal to the anastomosis in the left colon with similar appearance to previous exams. No obstruction seen. A small ____ cystic lesion in upper pole of right kidney and severe degenerative spondylosis in the lumbar spine. IMPRESSION: 1. Abdominal pain, pyelo versus constipation. 2. Other problems listed above. PLAN: Pain control. IV antibiotics. Urine culture. I am going to give her some mag citrate today to see how she does with the same and we will reevaluate tomorrow morning. JANETT LA MD DR: MARITZA/darwin JOB#: [id number] / [id number] DICTATED BY: JANETT LA MD 04/15/20 1037 SIGNED BY: JANETT LA MD 04/16/20 1044 cc: JANETT LA MD ~[id number] Page of JANETT LA MD Jul 06, 2020 15:05
== END 2020-04-17 12:29 | disposition home or self-care (01) | DRG 392 ==
LOC: ER 12:32 → ED HOLD 15:30 → 5 NORTH 19:10
PROVIDERS: ADMIT Family Medicine; ATTEND Family Medicine
DX: K59.00 Constipation, unspecified (principal); N12 Tubulo-interstitial nephritis, not specified as acute or chronic; E78.00 Pure hypercholesterolemia, unspecified; E78.5 Hyperlipidemia, unspecified; I12.9 Hypertensive chronic kidney disease with stage 1 through stage 4 chronic kidney disease, or unspecified chronic kidney disease; J44.9 Chronic obstructive pulmonary disease, unspecified; K31.84 Gastroparesis; M48.00 Spinal stenosis, site unspecified; M51.36 Other intervertebral disc degeneration, lumbar region; N18.9 Chronic kidney disease, unspecified; Z85.038 Personal history of other malignant neoplasm of large intestine; Z90.710 Acquired absence of both cervix and uterus; Z88.1 Allergy status to other antibiotic agents; Z88.2 Allergy status to sulfonamides; Z88.8 Allergy status to other drugs, medicaments and biological substances
CPT/HCPCS: 36415; 71045; 74177; 80048; 80076; 80307; 81001; 82550; 83605; 83690; 84484; 85025; 87040; 87086; 93005; 94640; 94760; 96361; 96374; 96375; J2405; J2543; J2930; J3010; J7030; Q9967; 99285-25; G0378; J7613; J7626

== ENCOUNTER 2020-04-18 16:34 | Inpatient (IN) | payer MEDICARE ==
[~2020-04-18] VITALS: Ht 165.1 cm; Wt 102.5 kg
[2020-04-18 10:30] VITALS: BP 143/62
[~2020-04-18 16:34] MED LIST changes: +ALPR1TAB6 PO; +VITAMIN D
[2020-04-18 17:34] LABS: BASO # 0.1 x10^3/uL (0.0-0.2); BASO % 1 % (0-3); EOS # 0.1 x10^3/uL (0.0-0.7); EOS % 1 % (0-3); HEMOGLOBIN 12.1 g/dL (12.0-15.5); LYMPH # 1.2 x10^3/uL (1.0-4.8); LYMPH % 12 % (24-48); MEAN CORPUSCULAR HEMOGLOBIN 31 pg (25-35); MEAN CORPUSCULAR HGB CONC 34 g/dL (31-37); MEAN CORPUSCULAR VOLUME 91 fL (79-100); MONO # 1.2 x10^3/uL (0.0-1.1); MONO % 12 % (0-9); NEUT # 7.6 x10^3/uL (1.8-7.7); NEUT % 75 % (31-73); PLATELET COUNT 168 x10^3/uL (140-400); RED BLOOD COUNT 3.97 x10^6/uL (3.50-5.40); RED CELL DISTRIBUTION WIDTH 14.5 % (11.5-14.5); WHITE BLOOD COUNT 10.2 x10^3/uL (4.0-11.0)
[2020-04-18 17:44] LABS: INFLUENZA A PATIENT NEGATIVE (NEGATIVE); INFLUENZA B PATIENT NEGATIVE (NEGATIVE)
[2020-04-18 17:45] LABS: CALCIUM 8.1 mg/dL (8.5-10.1); CREATININE 1.1 mg/dL (0.6-1.0); GFR 47.7; POTASSIUM 3.5 mmol/L (3.5-5.1)
[2020-04-18 17:51] LABS: ALBUMIN 3.1 g/dL (3.4-5.0); ALBUMIN/GLOBULIN RATIO 0.9 (1.0-1.7); MAGNESIUM 2.3 mg/dL (1.8-2.4); TOTAL BILIRUBIN 0.6 mg/dL (0.2-1.0); TOTAL PROTEIN 6.5 g/dL (6.4-8.2)
--- NOTE | 2020-04-18 18:19 | RAD ---
INDICATION: Reason: soa, fever / Spl. Instructions: / History: COMPARISON: April 14, 2020 FINDINGS: Single view of chest obtained. Enlarged cardiomediastinal silhouette. Severe degenerative changes the left shoulder. Mild interstitial opacities bilaterally IMPRESSION: * There is some patchy interstitial opacities bilaterally which could be from interstitial infiltrat e or edema Electronically signed by: Lance Escoto MD (04/18/2020 6:16 PM) [id number]
[2020-04-18] MEDS ORDERED: CONTRAST GIVEN. MC PRN (19:45)
[2020-04-18] MEDS ORDERED: IOHEXOL 350 MG/ML 100 ML VIAL. IV ONE (19:45)
--- NOTE | 2020-04-18 19:56 | ED.ADGEN ---
Past Medical History Past Medical History: Asthma, Cancer, COPD, High Cholesterol, Hypertension, Other Additional Past Medical Histor: vertigo, colon CA; gastroparesis Past Surgical History: Cancer Surgery, , Hysterectomy, Other Additional Past Surgical Histo: colon resection, eyelid surgery, l knee surgery, bunionectomy, r shoulder Smoking Status: Never Smoker Alcohol Use: Rarely Drug Use: None General Adult EDM: Chief Complaint: FEVER HPI: HPI: Patient is a 80 year old female who presents emergency department with complaints of shortness of breath, and a fever that began today. Patient reports that she was just discharged from this facility yesterday after being admitted for urinary tract infection. Reports that they used a temporal thermometer and her temperature was 101. Patient denies taking any Tylenol or ibuprofen prior to arrival. She denies any abdominal pain, chest pain, palpitations, dysuria, increased urinary frequency, back pain, or hematuria. The patient denies any cough. She reports body aches, chills, fatigue, and nausea. The patient denies any vomiting, or diarrhea. She currently rates her pain a 8 out of 10 on the pain scale, she denies any alleviating or exacerbating factors. Patient denies any known COVID-19 exposure. Review of Systems: Review of Systems: Complete ROS is negative unless otherwise noted in HPI. Current Medications: Current Medications Medications (Trade) Dose Ordered Sig/Denia Start Time Stop Time Status Last Admin Dose Admin Info (CONTRAST GIVEN -- Rx MONITORING) 1 each PRN DAILY PRN 04/18/20 19:45 04/20/20 19:44 Iohexol (Omnipaque 350 Mg/ml) 100 ml 1X ONCE 04/18/20 19:45 04/18/20 19:46 DC 04/18/20 19:53 100 ML Allergies: Allergies: Allergies Coded Allergies Type Severity Reaction Last Updated Verified lisinopril Allergy Severe 09/18/18 Yes Sulfa (Sulfonamide Antibiotics) Allergy Intermediate Itching 04/23/17 Yes cefdinir Allergy Intermediate Itching 04/23/17 Yes ciprofloxacin Allergy Intermediate Itching 04/23/17 Yes ciprofloxacin HCl Allergy Intermediate Itching 04/23/17 Yes tetracycline Allergy Intermediate Itching 04/23/17 Yes Physical Exam: PE: See Above Constitutional: Well developed, well nourished, no acute distress, non-toxic appearance. [] HENT: Normocephalic, atraumatic, bilateral external ears normal, nose normal. [] Eyes: PERRLA, EOMI, conjunctiva normal, no discharge. [] Neck: Normal range of motion, no stridor. [] Cardiovascular:Heart rate regular rhythm Lungs & Thorax: Respirations even and unlabored, no retractions, no respiratory distress Abdomen: soft, no tenderness Skin: Warm, dry, no erythema, no rash. [] Extremities: No cyanosis, ROM intact, no edema. [] Neurologic: Alert and oriented X 3, no focal deficits noted. [] Psychologic: Affect normal, judgement normal, mood normal. [] Current Patient Data: Labs: Laboratory Tests Test 04/18/20 17:10 White Blood Count 10.2 x10^3/uL (4.0-11.0) Red Blood Count 3.97 x10^6/uL (3.50-5.40) Hemoglobin 12.1 g/dL (12.0-15.5) Hematocrit 36.0 % (36.0-47.0) Mean Corpuscular Volume 91 fL (79-100) Mean Corpuscular Hemoglobin 31 pg (25-35) Mean Corpuscular Hemoglobin Concent 34 g/dL (31-37) Red Cell Distribution Width 14.5 % (11.5-14.5) Platelet Count 168 x10^3/uL (140-400) Neutrophils (%) (Auto) 75 % (31-73) H Lymphocytes (%) (Auto) 12 % (24-48) L Monocytes (%) (Auto) 12 % (0-9) H Eosinophils (%) (Auto) 1 % (0-3) Basophils (%) (Auto) 1 % (0-3) Neutrophils # (Auto) 7.6 x10^3/uL (1.8-7.7) Lymphocytes # (Auto) 1.2 x10^3/uL (1.0-4.8) Monocytes # (Auto) 1.2 x10^3/uL (0.0-1.1) H Eosinophils # (Auto) 0.1 x10^3/uL (0.0-0.7) Basophils # (Auto) 0.1 x10^3/uL (0.0-0.2) D-Dimer (Samantha) 1.18 ug/mlFEU (0.00-0.50) H Sodium Level 141 mmol/L (136-145) Potassium Level 3.5 mmol/L (3.5-5.1) Chloride Level 104 mmol/L (98-107) Carbon Dioxide Level 29 mmol/L (21-32) Anion Gap 8 (6-14) Blood Urea Nitrogen 14 mg/dL (7-20) Creatinine 1.1 mg/dL (0.6-1.0) H Estimated GFR (Cockcroft-Gault) 47.7 BUN/Creatinine Ratio 13 (6-20) Glucose Level 120 mg/dL (70-99) H Lactic Acid Level 1.1 mmol/L (0.4-2.0) Calcium Level 8.1 mg/dL (8.5-10.1) L Magnesium Level 2.3 mg/dL (1.8-2.4) Total Bilirubin 0.6 mg/dL (0.2-1.0) Aspartate Amino Transferase (AST) 16 U/L (15-37) Alanine Aminotransferase (ALT) 17 U/L (14-59) Alkaline Phosphatase 51 U/L (46-116) Creatine Kinase 81 U/L (26-192) Creatine Kinase MB (Mass) 0.9 ng/mL (0.0-3.6) Creatine Kinase MB Relative Index 1.1 % (0-4) Troponin I Quantitative 0.022 ng/mL (0.000-0.055) NZ-Ppj-Y-Type Natriuretic Peptide 4267 pg/mL (0-449) H Total Protein 6.5 g/dL (6.4-8.2) Albumin 3.1 g/dL (3.4-5.0) L Albumin/Globulin Ratio 0.9 (1.0-1.7) L Influenza Type A Antigen Negative (NEGATIVE) Influenza Type B Antigen Negative (NEGATIVE) Laboratory Tests 04/18/20 17:10 Laboratory Tests 04/18/20 17:10 Vital Signs: Vital Signs Date Time Temp Pulse Resp B/P (MAP) Pulse Ox O2 Delivery O2 Flow Rate FiO2 04/18/20 16:57 98.6 78 19 163/70 (101) 98 Room Air 98.6 EKG: EKG: [] Heart Score: Risk Factors: Risk Factors: DM, Current or recent (<one month) smoker, HTN, HLP, family history of CAD, obesity. Risk Scores: Score 0 - 3: 2.5% MACE over next 6 weeks - Discharge Home Score 4 - 6: 20.3% MACE over next 6 weeks - Admit for Clinical Observation Score 7 - 10: 72.7% MACE over next 6 weeks - Early Invasive Strategies Radiology/Procedures: Radiology/Procedures: PROCEDURE: CHEST AP ONLY INDICATION: Reason: soa, fever / Spl. Instructions: / History: COMPARISON: April 14, 2020 FINDINGS: Single view of chest obtained. Enlarged cardiomediastinal silhouette. Severe degenerative changes the left shoulder. Mild interstitial opacities bilaterally IMPRESSION: * There is some patchy interstitial opacities bilaterally which could be from interstitial infiltrate or edema PROCEDURE: CT ANGIOGRAPHY CHEST Exam: CT of chest with contrast INDICATION: Short of air TECHNIQUE: Sequential axial images through the chest obtained following the administration 100 mL of Omni 350 IV contrast. Sagittal and coronal reformatted images were reconstructed from the axial data and reviewed. 3-D reformatted images were reconstructed from the axial data and reviewed. Comparisons: Chest x-ray same day FINDINGS: Visual is portions of the thyroid are unremarkable. No enlarged mediastinal lymph nodes. Heart size is normal. No pericardial effusion. Mild coronary artery calcium lesions. Thoracic aorta has a normal course and caliber. Pulmonary artery is not enlarged. Airways are patent. No consolidation or pneumothorax. There is patchy areas of groundglass opacity noted in the right upper lobe. No suspicious lung nodules. There are small bilateral pleural effusions. Visualized upper abdomen is unremarkable. No suspicious osseous lesions or acute fractures. IMPRESSION: 1. No pulmonary embolus identified within the main, lobar or segmental pulmonary arteries. 2. Patchy areas of groundglass opacity noted in the right upper lobe favored to be infectious or inflammatory in etiology. [] Course & Med Decision Making: Course & Med Decision Making Pertinent Labs and Imaging studies reviewed. (See chart for details) 1945-spoke with Dr. Mello who is the admitting physician, and care was assumed following discussion of patient. Will admit patient for shortness of breath, bilateral lung infiltrates, and PUI. I will order Solu-Medrol, 40 mg of Lasix, 500 mg of Zithromax, and a gram of IV Rocephin as requested. Patient's vital signs stable. Patient remains afebrile, appears nontoxic, r espirations even and unlabored. Patient will be admitted to the med/telemetry floor. Patient's case and plan of care also discussed with Dr. Ashu Bro Disclaimer: Adali Disclaimer: This electronic medical record was generated, in whole or in part, using a voice recognition dictation system. Departure Departure Impression: Primary Impression: Shortness of breath Additional Impressions: Bilateral pulmonary infiltrates on CXR Person under investigation for COVID-19 Disposition: ADMITTED INPT THIS HOSP Admitting Physician: Janett Mello Condition: STABLE Referrals: JANETT MELLO MD (PCP) Problem Qualifiers TYE COREA APRN Apr 18, 2020 19:56
[2020-04-18] MEDS ORDERED: cefTRIAXone IV Push 1 GM VIAL. IVP ONE (20:15)
[2020-04-18] MEDS ORDERED: methylPREDNISolone SOD SUCC PF 125 MG/2 ML VIAL. IV ONE (20:15)
[2020-04-18] MEDS ORDERED: diphenhydrAMINE 50 MG/ML VIAL IVP ONE (20:15)
[2020-04-18] MEDS ORDERED: AZITHRMYCN 500MG IVPB FOR OMNI 250 ML IV ONE (20:15)
[2020-04-18] MEDS ORDERED: FUROSEMIDE 20 MG/2 ML VIAL. IVP ONE (20:15)
--- NOTE | 2020-04-18 20:18 | RAD ---
Exam: CT of chest with contrast INDICATION: Short of air TECHNIQUE: Sequential axial images through the chest obtained following the administration 100 mL of Omni 350 IV contrast. Sagittal and coronal reformatted images were reconstructed from the axial data and reviewed. 3-D reformatted images were reconstructed from the axial data and reviewed. Comparisons: Chest x-ray same day FINDINGS: Visual is portions of the thyroid are unremarkable. No enlarged mediastinal lymph nodes. Heart size is normal. No pericardial effusion. Mild coronary artery calcium lesions. Thoracic aorta h as a normal course and caliber. Pulmonary artery is not enlarged. Airways are patent. No consolidation or pneumothorax. There is patchy areas of groundglass opacity no kuldeep in the right upper lobe. No suspicious lung nodules. There are small bilateral pleural effusions. Visualized upper abdomen is unremarkable. No suspicious osseous lesions or acute fractures. IMPRESSION: 1. No pulmonary embolus identified within the main, lobar or segmental pulmonary arteries. 2. Patchy areas of groundglass opacity noted in the right upper lobe favored to be infectious or inf lammatory in etiology. Exposure: One or more of the following in the visualized dose reduction techniques were utilized for this examination: 1. Automated exposure control 2. Adjustment of the MA and/or KV according to patient size 3. Use of iterative of reconstructive technique Electronically signed by: Sarah Chacon MD (04/18/2020 8:16 PM) [facility]
[2020-04-18] MEDS ORDERED: ALPRAZolam 1 MG TABLET PO ONE (22:30)
[2020-04-18] MEDS: ALPRAZolam 1 MG TABLET PO SCH (23:13)
[2020-04-18] MEDS: fentaNYL PF VIAL 100 MCG/2 ML VIAL IVP PRN (23:14)
[2020-04-19 03:00] VITALS: BP 151/67
[2020-04-19 07:00] VITALS: BP 146/65
[2020-04-19] MEDS: ALPRAZolam 1 MG TABLET PO SCH ×2 (08:08→20:26)
[2020-04-19 11:00] VITALS: BP 116/54
--- NOTE | 2020-04-19 13:26 | NUR ---
CHELSEA following for discharge planning. Spoke with RN and reviewed chart. COVID result negative. Pt on 2l , regular diet. CHELSEA following. Addendum: 04/19/20 at 1332 by MARYCHUY TRAN CHELSEA confirmed pt has home .
[2020-04-19 15:00] VITALS: BP 146/65
[2020-04-19] MEDS: fentaNYL PF VIAL 100 MCG/2 ML VIAL IVP PRN (16:52)
--- NOTE | 2020-04-19 18:03 | HP ---
ADMIT DATE: 04/19/2020 CHIEF COMPLAINT AND HISTORY OF PRESENT ILLNESS: This is an 80-year-old white female presented to the Emergency Room with fevers up to 101 and shortness of breath as well as cough. She had just been discharged within a couple of days with abdominal pain, felt most likely due to constipation with initial pyelonephritis that does not kebede out with negative cultures. She still complains of some left upper quadrant pain. Denies any urinary symptoms. Does admit aches, chills, sweats. With the same, denies any vomiting or diarrhea. She is rating pain in her chest area 8/10. She has had no recent COVID exposure. PAST MEDICAL HISTORY: Well documented includes asthma, hyperlipidemia, cancer of the colon, hypertension, vertigo, gastroparesis. PAST SURGICAL HISTORY: Marked for , hysterectomy, partial colon resection, eyelid surgery, knee surgery, right shoulder surgery. SOCIAL HISTORY: She is a lifetime nonsmoker. Rarely drinks alcohol. Does not use drugs. . Lives at home with her . FAMILY HISTORY: Positive for longevity. MEDICATIONS: Brought with the patient, listed on the computer and have been addressed. ALLERGIES: SHE IS ALLERGIC TO CEFDINIR, CIPROFLOXACIN, LISINOPRIL, AND TETRACYCLINE. REVIEW OF SYSTEMS: As mentioned above. PHYSICAL EXAMINATION: GENERAL: She is a well-developed, well-nourished white female who does not appear toxic. VITAL SIGNS: Stable. She is afebrile since admission. HEAD, EYES, EARS, NOSE AND THROAT: Unremarkable. NECK: Supple, without adenopathy or thyromegaly. CHEST: Reveals some wheezing in the right upper lobe posteriorly. HEART: Regular rate and rhythm. ABDOMEN: Soft, nontender, without hepatosplenomegaly or masses. EXTREMITIES: Without cyanosis, clubbing, or edema. NEUROLOGIC: She is intact. LABORATORY DATA: Initial evaluation reveals a white count of 10,200 with a slight left shift. Creatinine is 1.1. BNP is elevated at 4267. D-dimer is high at 1.18. She is negative for influenza as well as COVID-19. Chest x-ray shows some patchy bilateral interstitial infiltrates that could be infectious versus edematous. CTA of the chest to rule out pulmonary embolism was negative, but it shows patchy areas of ground-glass opacity noted in the right upper lobe, felt to be infectious or inflammatory in etiology. IMPRESSION: Right upper lobe pneumonia in a patient with known underlying asthma, multiple other medical conditions listed above. PLAN: The patient has been admitted. She will be giving antibiotics and followed clinically with Pulmonary consultation if there is any deterioration. JANETT LA MD DR: MARITZA/darwin JOB#: [id number] / [id number]
[2020-04-19] MEDS: cefTRIAXone IV Push 1 GM VIAL. IVP SCH (18:27)
[2020-04-19] MEDS: methylPREDNISolone SOD SUCC PF 40 MG/ML VIAL. IV SCH (18:27)
[2020-04-19 19:50] VITALS: BP 162/72
[2020-04-19] MEDS: lamoTRIgine 100 MG TABLET. PO SCH (20:25)
[2020-04-19] MEDS: AZITHROMYCIN 500 MG in IV NORMAL SALINE 250ML 250 ML IV SCH (20:25)
[2020-04-19] MEDS: SIMVASTATIN 40 MG TABLET. PO SCH (20:26)
[2020-04-19] MEDS: ALBUTEROL SULFATE 2.5 MG/3 ML NEBU. NEB SCH (20:35)
[2020-04-19] MEDS: BUDESONIDE 0.5 MG/2 ML NEBU. NEB SCH (20:35)
[2020-04-19] MEDS ORDERED: NON FORMULARY ITEM (Budesonide/Formoterol Fumarate (Symbicort 160-4.5 Mcg Inhaler) 1 PUFF) IH SCH (21:00)
[2020-04-19 23:40] VITALS: BP 125/57
[2020-04-20] MEDS: methylPREDNISolone SOD SUCC PF 40 MG/ML VIAL. IV SCH ×4 (00:17→21:56)
[2020-04-20 03:52] VITALS: BP 142/62
[2020-04-20 07:00] VITALS: BP 144/88
[2020-04-20] MEDS: ALBUTEROL SULFATE 2.5 MG/3 ML NEBU. NEB SCH ×5 (07:00→22:49)
[2020-04-20] MEDS: BUDESONIDE 0.5 MG/2 ML NEBU. NEB SCH ×2 (07:00→19:56)
[2020-04-20] MEDS ORDERED: TESTOSTERONE PO SCH (09:00)
[2020-04-20] MEDS ORDERED: ESTROGEN ESTER PO SCH (09:00)
[2020-04-20] MEDS ORDERED: [UNRECOGNIZED DRUG - OTHER] PO SCH (09:00)
[2020-04-20 09:02] LABS: BILIRUBIN,URINE NEGATIVE (NEG); CLARITY,URINE CLEAR; COLOR,URINE YELLOW; NITRITE,URINE NEGATIVE (NEG); PH,URINE 7.5 (<5.0-8.0); PROTEIN,URINE NEGATIVE (NEG-TRACE); UROBILINOGEN,URINE 0.2 mg/dL (0.2 mg/dL)
[2020-04-20] MEDS: MELOXICAM 7.5 MG TABLET PO SCH (09:04)
[2020-04-20] MEDS: FLUTICASONE 50MCG/NASAL SPRAY 16GM BOTTLE. NS SCH (09:04)
[2020-04-20] MEDS: lamoTRIgine 100 MG TABLET. PO SCH ×2 (09:04→19:53)
[2020-04-20] MEDS: ASPIRIN ENTERIC COATED 81 MG TABLET.DR. PO SCH (09:04)
[2020-04-20] MEDS: MULTIVITAMIN with MINERAL TABLET. PO SCH (09:04)
[2020-04-20] MEDS: FUROSEMIDE 40 MG TABLET. PO SCH (09:04)
[2020-04-20] MEDS: OMEGA-3 FATTY ACIDS/FISH OIL 1,000 MG CAPSULE. PO SCH (09:04)
[2020-04-20] MEDS: ASCORBIC ACID 500 MG TABLET PO SCH (09:05)
[2020-04-20] MEDS: SERTRALINE 50 MG TABLET. PO SCH (09:05)
[2020-04-20] MEDS: ALPRAZolam 1 MG TABLET PO SCH ×2 (09:05→19:53)
[2020-04-20] MEDS: POTASSIUM CHLORIDE 10 MEQ TABLET.ER. PO SCH (09:05)
[2020-04-20 09:36] LABS: RBC,URINE RARE /HPF (0-2)
[2020-04-20 09:39] LABS: BACTERIA,URINE 0 /HPF (0-FEW)
[2020-04-20 11:00] VITALS: BP 132/63
--- NOTE | 2020-04-20 11:01 | PN ---
DATE: 04/20/2020 DAILY PROGRESS NOTE LOCATION: She is in room 672. SUBJECTIVE: This 80-year-old white female remains hospitalized with right upper lobe pneumonia, shortness of breath and chest pain. She does feel a little bit better, but is completely worn out and has no energy whatsoever. OBJECTIVE: VITAL SIGNS: Stable. She is afebrile. CHEST: Sounds better with no wheezing heard this morning. HEART: Regular rate and rhythm. ABDOMEN: Benign. IMPRESSION: 1. Right upper lobe pneumonia in a patient with chronic asthma. 2. Recent admission for left upper quadrant pain, felt to be constipation, normal in nature. 3. Gastroparesis. PLAN: Continue present antibiotics, steroids and follow. I am going to add back her erythromycin before meals for gastroparesis. JANETT LA MD DR: MARITZA/darwin JOB#: [id number] / [id number]
[2020-04-20] MEDS: CALCIUM CARBONATE 500 MG TAB.CHEW PO PRN (11:31)
[2020-04-20] MEDS: DOCUSATE SODIUM 100 MG CAPSULE. PO SCH ×2 (11:31→19:53)
[2020-04-20] MEDS: ERYTHROMYCIN BASE 250 MG TABLET PO SCH ×2 (11:34→16:42)
[2020-04-20 15:00] VITALS: BP 152/64
[2020-04-20] MEDS: cefTRIAXone IV Push 1 GM VIAL. IVP SCH (17:46)
[2020-04-20 19:00] VITALS: BP 159/76
[2020-04-20] MEDS: AZITHROMYCIN 500 MG in IV NORMAL SALINE 250ML 250 ML IV SCH (19:52)
[2020-04-20] MEDS: SIMVASTATIN 40 MG TABLET. PO SCH (19:53)
[2020-04-20 22:31] VITALS: BP 169/73
[2020-04-21 02:42] VITALS: BP 147/67
[2020-04-21] MEDS: fentaNYL PF VIAL 100 MCG/2 ML VIAL IVP PRN (04:48)
[2020-04-21] MEDS: methylPREDNISolone SOD SUCC PF 40 MG/ML VIAL. IV SCH ×3 (05:32→21:35)
[2020-04-21 07:00] VITALS: BP 143/77
[2020-04-21] MEDS: MELOXICAM 7.5 MG TABLET PO SCH (08:26)
[2020-04-21] MEDS: lamoTRIgine 100 MG TABLET. PO SCH ×2 (08:26→20:06)
[2020-04-21] MEDS: MULTIVITAMIN with MINERAL TABLET. PO SCH (08:26)
[2020-04-21] MEDS: ASPIRIN ENTERIC COATED 81 MG TABLET.DR. PO SCH (08:26)
[2020-04-21] MEDS: SERTRALINE 50 MG TABLET. PO SCH (08:26)
[2020-04-21] MEDS: ERYTHROMYCIN BASE 250 MG TABLET PO SCH ×3 (08:26→17:06)
[2020-04-21] MEDS: POTASSIUM CHLORIDE 10 MEQ TABLET.ER. PO SCH (08:27)
[2020-04-21] MEDS: ALPRAZolam 1 MG TABLET PO SCH ×2 (08:27→22:08)
[2020-04-21] MEDS: DOCUSATE SODIUM 100 MG CAPSULE. PO SCH ×2 (08:27→20:07)
[2020-04-21] MEDS: OMEGA-3 FATTY ACIDS/FISH OIL 1,000 MG CAPSULE. PO SCH (08:27)
[2020-04-21] MEDS: FUROSEMIDE 40 MG TABLET. PO SCH (08:27)
[2020-04-21] MEDS: ASCORBIC ACID 500 MG TABLET PO SCH (08:27)
[2020-04-21] MEDS: FLUTICASONE 50MCG/NASAL SPRAY 16GM BOTTLE. NS SCH (08:28)
[2020-04-21] MEDS ORDERED: ONDANSETRON PF 4 MG/2 ML VIAL. IVP PRN (08:30)
[2020-04-21] MEDS: BUDESONIDE 0.5 MG/2 ML NEBU. NEB SCH ×2 (08:31→20:01)
[2020-04-21] MEDS: ALBUTEROL SULFATE 2.5 MG/3 ML NEBU. NEB SCH ×4 (08:31→22:25)
[2020-04-21] MEDS: CALCIUM CARBONATE 500 MG TAB.CHEW PO PRN (09:00)
--- NOTE | 2020-04-21 10:07 | PN ---
DATE: 04/21/2020 LOCATION: She is in room 672. SUBJECTIVE: This 80-year-old white female remains hospitalized with right upper lobe pneumonia, shortness of breath, and chest pain. She does feel better on a daily basis and continues to have no energy. She states she did not sleep at all last night, probably because of steroids. OBJECTIVE: VITAL SIGNS: Stable. She is afebrile. CHEST: Reveals mild wheezing right upper lobe posteriorly. HEART: Regular rate and rhythm. ABDOMEN: Benign. IMPRESSION: 1. Right upper lobe pneumonia in a patient with chronic asthma. 2. Recent admission for left upper quadrant pain, felt to be constipation. 3. Gastroparesis. PLAN: Continue present antibiotics, steroids and followup. Would anticipate transition to p.o. antibiotics by Thursday at home. JANETT LA MD DR: MARITZA/darwin JOB#: [id number] / [id number]
[2020-04-21 11:00] VITALS: BP 144/65
[2020-04-21 15:00] VITALS: BP 153/65
[2020-04-21] MEDS: cefTRIAXone IV Push 1 GM VIAL. IVP SCH (17:06)
[2020-04-21 19:45] VITALS: BP 149/66
[2020-04-21] MEDS: AZITHROMYCIN 500 MG in IV NORMAL SALINE 250ML 250 ML IV SCH (20:06)
[2020-04-21] MEDS: SIMVASTATIN 40 MG TABLET. PO SCH (20:07)
[2020-04-21 23:00] VITALS: BP 157/69
[2020-04-22 03:40] VITALS: BP 178/76
[2020-04-22] MEDS ORDERED: cloNIDine HCL 0.1 MG TABLET PO ONE (04:15)
--- NOTE | 2020-04-22 06:25 | NUR ---
Pt received one time dose Clonidine 0.5 fpr elevated BP 176/79 pt voiced concern with BP higher than usual. Appeared to be awake majority of the night, voiced concern steroid is keeping her awake. SB on telemetry 58 HR, Snacks and juices received throughout the night. Safety measures in place will continue to monitor.
[2020-04-22] MEDS: methylPREDNISolone SOD SUCC PF 40 MG/ML VIAL. IV SCH (06:57)
[2020-04-22 07:00] VITALS: BP 148/61
[2020-04-22] MEDS: ALBUTEROL SULFATE 2.5 MG/3 ML NEBU. NEB SCH ×4 (07:37→19:57)
[2020-04-22] MEDS: BUDESONIDE 0.5 MG/2 ML NEBU. NEB SCH ×2 (07:37→19:57)
[2020-04-22] MEDS: ASPIRIN ENTERIC COATED 81 MG TABLET.DR. PO SCH (08:26)
[2020-04-22] MEDS: OMEGA-3 FATTY ACIDS/FISH OIL 1,000 MG CAPSULE. PO SCH (08:26)
[2020-04-22] MEDS: ERYTHROMYCIN BASE 250 MG TABLET PO SCH (08:26)
[2020-04-22] MEDS: FLUTICASONE 50MCG/NASAL SPRAY 16GM BOTTLE. NS SCH (08:26)
[2020-04-22] MEDS: SERTRALINE 50 MG TABLET. PO SCH (08:26)
[2020-04-22] MEDS: ASCORBIC ACID 500 MG TABLET PO SCH (08:27)
[2020-04-22] MEDS: MULTIVITAMIN with MINERAL TABLET. PO SCH (08:27)
[2020-04-22] MEDS: ALPRAZolam 1 MG TABLET PO SCH ×2 (08:27→22:10)
[2020-04-22] MEDS: FUROSEMIDE 40 MG TABLET. PO SCH (08:27)
[2020-04-22] MEDS: DOCUSATE SODIUM 100 MG CAPSULE. PO SCH ×2 (08:27→20:17)
[2020-04-22] MEDS: MELOXICAM 7.5 MG TABLET PO SCH (08:27)
[2020-04-22] MEDS: lamoTRIgine 100 MG TABLET. PO SCH ×2 (08:28→20:17)
[2020-04-22] MEDS: POTASSIUM CHLORIDE 10 MEQ TABLET.ER. PO SCH (08:28)
--- NOTE | 2020-04-22 09:03 | PDOC ---
Provider Note Date of Service: DATE: 04/22/20 TIME: 09:02 Provider Note vss, no temp, feels beter , no wheezing at rest - go to po pred now, likey dc in am Justifications for Admission Other Justification CHASE SHAIKH MD Apr 22, 2020 09:03
[2020-04-22 11:00] VITALS: BP 148/62
[2020-04-22 15:00] VITALS: BP 179/87
[2020-04-22] MEDS: cefTRIAXone IV Push 1 GM VIAL. IVP SCH (17:37)
[2020-04-22 19:45] VITALS: BP 151/66
[2020-04-22] MEDS: SIMVASTATIN 40 MG TABLET. PO SCH (20:17)
[2020-04-22 23:30] VITALS: BP 162/72
[2020-04-23 04:00] VITALS: BP 148/66
[2020-04-23 07:00] VITALS: BP 173/76
[2020-04-23] MEDS ORDERED: predniSONE 20 MG TABLET PO SCH (08:00)
[2020-04-23] MEDS: FLUTICASONE 50MCG/NASAL SPRAY 16GM BOTTLE. NS SCH (08:35)
[2020-04-23] MEDS: ASPIRIN ENTERIC COATED 81 MG TABLET.DR. PO SCH (08:35)
[2020-04-23] MEDS: MULTIVITAMIN with MINERAL TABLET. PO SCH (08:36)
[2020-04-23] MEDS: ALPRAZolam 1 MG TABLET PO SCH (08:36)
[2020-04-23] MEDS: ASCORBIC ACID 500 MG TABLET PO SCH (08:36)
[2020-04-23] MEDS: SERTRALINE 50 MG TABLET. PO SCH (08:36)
[2020-04-23] MEDS: OMEGA-3 FATTY ACIDS/FISH OIL 1,000 MG CAPSULE. PO SCH (08:36)
[2020-04-23] MEDS: MELOXICAM 7.5 MG TABLET PO SCH (08:36)
[2020-04-23] MEDS: FUROSEMIDE 40 MG TABLET. PO SCH (08:37)
[2020-04-23] MEDS: POTASSIUM CHLORIDE 10 MEQ TABLET.ER. PO SCH (08:37)
[2020-04-23] MEDS: lamoTRIgine 100 MG TABLET. PO SCH (08:37)
[2020-04-23] MEDS: DOCUSATE SODIUM 100 MG CAPSULE. PO SCH (08:38)
--- NOTE | 2020-04-23 10:17 | NUR ---
Called Dr. Mello at 1000 regarding the patient's antibiotic, cefdinir listed as allergy. Prescription changed to levofloxacin 500 mg OD x 7days. Dr Mello is aware that tetracycline is in the list. Prescription called to the patient's pharmacy, [facility] at [facility]4.
--- NOTE | 2020-04-23 10:56 | NUR ---
Discharge Note: JAY VILLANUEVA J[facility] Discharge instructions and discharge home medications reviewed with the patient and a copy given. All questions have been answered and understanding verbalized. The following instructions and handouts were given: Take homeds as directed Levaquin 500 mg OD x 7 days Resume erythromycin tab BID for gastroparesis. Pneumonia handout Watch out for severe SOB, body weakness, fever--call MD Watch out for allergy symptoms-generalized itch, SOB, tongue swelling--go to nearest ER Follow up with Dr. Mello in 2 weeks Discontinued lines and drains: peripheral IV intact, patient tolerated removal, no complications noted Patient discharged to home with self-care via wheelchair on room air accompanied by the patient's at 1040.
--- NOTE | 2020-04-23 13:07 | DS ---
DATE OF DISCHARGE: 04/23/2020 PRIMARY DIAGNOSIS: Right upper lobe pneumonia. ADDITIONAL DIAGNOSES: Shortness of breath, asthma, right-sided chest pain, hypertension, status post cancer of the colon, gastroparesis. CHIEF COMPLAINT AND HISTORY OF PRESENT ILLNESS: This 80-year-old white female admitted through the Emergency Room with chest pain, shortness of breath and found to have right upper lobe pneumonia on CT scanning. SUMMARY OF STAY: The patient was admitted and treated with steroids, breathing treatments, IV antibiotics with improvement to the point where she was felt she could go home with oral antibiotics on the day of dismissal on a prednisone taper by now and this was accomplished. DISPOSITION: The patient is discharged to home. DIET: Regular diet. ACTIVITY: As tolerated, office in 2 weeks. DISCHARGE MEDICATIONS: Listed on the med rec and have been addressed I did give her a prescription for prednisone taper as well as Levaquin 500 mg 1 daily, #7, in addition to her regular home medications. JANETT LA MD DR: MARITZA/darwin JOB#: [id number] / [id number]
--- NOTE | 2020-07-06 15:04 | PDOC1 ---
History & Physical: Date of Service: DOS: 04-19-2020 H&P: PATIENT: JAY VILLANUEVA ACCOUNT: [id number] : 1940 LOC: [address] [place] [address] AGE: 80 SEX: F STATUS: ADM IN LOCATION: [address] [place] [address] ADMIT DATE: 04/19/2020 CHIEF COMPLAINT AND HISTORY OF PRESENT ILLNESS: This is an 80-year-old white female presented to the Emergency Room with fevers up to 101 and shortness of breath as well as cough. She had just been discharged within a couple of days with abdominal pain, felt most likely due to constipation with initial pyelonephritis that does not kebede out with negative cultures. She still complains of some left upper quadrant pain. Denies any urinary symptoms. Does admit aches, chills, sweats. With the same, denies any vomiting or diarrhea. She is rating pain in her chest area 8/10. She has had no recent COVID exposure. PAST MEDICAL HISTORY: Well documented includes asthma, hyperlipidemia, cancer of the colon, hypertension, vertigo, gastroparesis. PAST SURGICAL HISTORY: Marked for , hysterectomy, partial colon resection, eyelid surgery, knee surgery, right shoulder surgery. SOCIAL HISTORY: She is a lifetime nonsmoker. Rarely drinks alcohol. Does not use drugs. . Lives at home with her . FAMILY HISTORY: Positive for longevity. MEDICATIONS: Brought with the patient, listed on the computer and have been addressed. ALLERGIES: SHE IS ALLERGIC TO CEFDINIR, CIPROFLOXACIN, LISINOPRIL, AND TETRACYCLINE. REVIEW OF SYSTEMS: As mentioned above. PHYSICAL EXAMINATION: GENERAL: She is a well-developed, well-nourished white female who does not appear toxic. VITAL SIGNS: Stable. She is afebrile since admission. HEAD, EYES, EARS, NOSE AND THROAT: Unremarkable. NECK: Supple, without adenopathy or thyromegaly. CHEST: Reveals some wheezing in the right upper lobe posteriorly. HEART: Regular rate and rhythm. ABDOMEN: Soft, nontender, without hepatosplenomegaly or masses. EXTREMITIES: Without cyanosis, clubbing, or edema. NEUROLOGIC: She is intact. LABORATORY DATA: Initial evaluation reveals a white count of 10,200 with a slight left shift. Creatinine is 1.1. BNP is elevated at 4267. D-dimer is high at 1.18. She is negative for influenza as well as COVID-19. Chest x-ray shows some patchy bilateral interstitial infiltrates that could be infectious versus edematous. CTA of the chest to rule out pulmonary embolism was negative, but it shows patchy areas of ground-glass opacity noted in the right upper lobe, felt to be infectious or inflammatory in etiology. IMPRESSION: Right upper lobe pneumonia in a patient with known underlying asthma, multiple other medical conditions listed above. PLAN: The patient has been admitted. She will be giving antibiotics and followed clinically with Pulmonary consultation if there is any deterioration. JANETT Hannah. MD ABHINAV DR: MARITZA/darwin JOB#: [id number] / [id number] DICTATED BY: JANETT LA MD 04/19/20 1731 SIGNED BY: JANETT LA MD 04/20/20 0924 cc: JANETT LA MD ~[id number] 28 Page of JANETT LA MD Jul 06, 2020 15:04
== END 2020-04-23 10:40 | disposition home or self-care (01) | DRG 190 ==
LOC: ER 16:34 → 6 SOUTH 19:45
PROVIDERS: ADMIT Family Medicine; ATTEND Family Medicine
DX: J44.0 Chronic obstructive pulmonary disease with (acute) lower respiratory infection (principal); J18.9 Pneumonia, unspecified organism; Z20.822 Contact with and (suspected) exposure to COVID-19; Z85.038 Personal history of other malignant neoplasm of large intestine; Z90.710 Acquired absence of both cervix and uterus; K31.84 Gastroparesis; E78.00 Pure hypercholesterolemia, unspecified; E78.5 Hyperlipidemia, unspecified; I10 Essential (primary) hypertension; Z90.711 Acquired absence of uterus with remaining cervical stump; Z88.1 Allergy status to other antibiotic agents; Z88.2 Allergy status to sulfonamides; Z88.8 Allergy status to other drugs, medicaments and biological substances
CPT/HCPCS: 36415; 71045; 71275; 80053; 81001; 82553; 83605; 83735; 83880; 84484; 85025; 85379; 87040; 87086; 87804; 93005; 94640; 94667; 94760; 96365; 96375; 99285; J0456; J0696; J1200; J1940; J2405; J2920; J2930; J3010; J7050; J7512; Q9967; U0003; 97116-GP; 97530-GP; G0378; J7030; J7613; J7626

== ENCOUNTER 2020-11-05 09:53 | Inpatient (IN) | payer MEDICARE ==
[~2020-11-05] VITALS: Ht 165.1 cm; Wt 95.4 kg
--- NOTE | 2020-11-05 10:13 | PHYS DOC ---
Past Medical History Past Medical History: Asthma, Cancer, COPD, High Cholesterol, Hypertension, Other Additional Past Medical Histor: vertigo, colon CA; gastroparesis (CECILIA RANGEL APRN) Past Surgical History: Cancer Surgery, , Hysterectomy, Other Additional Past Surgical Histo: colon resection, eyelid surgery, l knee surgery, bunionectomy, r shoulder (CECILIA RANGEL APRN) Smoking Status: Never Smoker Alcohol Use: Rarely Drug Use: None (CECILIA RANGEL APRN) General Adult EDM: Chief Complaint: DIZZY/LIGHT HEADED HPI: HPI: Patient is a 80 female presents to the emergency department with a chief complaint of feeling tired and unable to wake up. Patient's is at bedside who reports patient took her tramadol at 8 PM last night and again at 11 PM along with a Xanax for anxiety. Woke up in a confused state at approximately 3:30 AM in which she went outside and fell off the front porch into the flower garden. Patient's states patient suffered abrasions to her arms and legs, did not want to be seen at the hospital, helped her up and she went back to bed. Patient's reports she woke up and was still acting confused in his opinion, made an appointment to see her primary care physician Dr. Edwards, was unable to get her in the car related to increased weakness, called 911 to have her transported to the emergency department. Patient denies remembering the events of the fall. Patient reports her last tetanus immunization was greater than 5 years ago. Patient denies aches or pains at this time. Patient denies any other physical complaints or physical concerns. (CECILIA RANGEL APRN) Review of Systems: Review of Systems: 14 body systems of review of systems have been reviewed. See HPI for pertinent positives and negative responses, otherwise all other systems are negative, n onpertinent or noncontributory. Constitutional: Negative except as outlined in HPI above. Skin: Negative except as outlined in HPI above. Eyes: Negative except as outlined in HPI above. HENT: Negative except as outlined in HPI above. Respiratory: Negative except as outlined in HPI above. Cardiovascular: Negative except as outlined in HPI above. GI: Negative except as outlined in HPI above. : Negative except as outlined in HPI above. Musculoskeletal: Negative except as outlined in HPI above. Integument: Negative except as outlined in HPI above. Neurologic: Negative except as outlined in HPI above. Endocrine: Negative except as outlined in HPI above. Lymphatic: Negative except as outlined in HPI above. Psychiatric: Negative except as outlined in HPI above. (CECILIA RANGEL APRN) Heart Score: C/O Chest Pain: No Risk Factors: Risk Factors: DM, Current or recent (<one month) smoker, HTN, HLP, family history of CAD, obesity. Risk Scores: Score 0 - 3: 2.5% MACE over next 6 weeks - Discharge Home Score 4 - 6: 20.3% MACE over next 6 weeks - Admit for Clinical Observation Score 7 - 10: 72.7% MACE over next 6 weeks - Early Invasive Strategies (CECILIA RANGEL APRN) Allergies: Allergies: Allergies Coded Allergies Type Severity Reaction Last Updated Verified lisinopril Allergy Severe 09/18/18 Yes Sulfa (Sulfonamide Antibiotics) Allergy Intermediate Itching 04/23/17 Yes cefdinir Allergy Intermediate Itching 04/23/17 Yes ciprofloxacin Allergy Intermediate Itching 04/23/17 Yes ciprofloxacin HCl Allergy Intermediate Itching 04/23/17 Yes tetracycline Allergy Intermediate Itching 04/23/17 Yes (CECILIA RANGEL APRN) Physical Exam: PE: Constitutional: Well developed, well nourished, no acute distress, non-toxic appearance. 80-year-old female in no apparent distress. Asleep upon arrival to room for examination however patient awakens easily with verbal stimuli and is keenly alert. HENT: Normocephalic, atraumatic, bilateral external ears normal, oropharynx moist, no oral exudates, nose normal. No raccoon eyes, no bullard's sign, no drainage from bilateral external auditory canals, no drainage from bilateral nasal turbinates, no malocclusion, patient speaking in normal voice tones. Eyes: PERRLA, EOMI, conjunctiva normal, no discharge. Satisfactory 6 cardinal eye movements. Neck: Normal range of motion, no tenderness, supple, no stridor. No midline spinal neck tenderness, no step-offs, no crepitus or contusions appreciated. Cardiovascular:Heart rate regular rhythm, no murmur Lungs & Thorax: Bilateral breath sounds clear to auscultation Abdomen: Bowel sounds normal, soft, no tenderness, no masses, no pulsatile masses. Skin: Warm, dry, no erythema, no rash. Skin abrasions to bilateral feet, right knee. Back: No tenderness, no CVA tenderness. Extremities: No tenderness, no cyanosis, no clubbing, ROM intact, no edema. Neurologic: Alert and oriented X 3, normal motor function, normal sensory function, no focal deficits noted. Psychologic: Affect normal, judgement normal, mood normal. (CECILIA RANGEL APRN) Current Patient Data: Labs: Laboratory Tests Test 11/05/20 10:01 Glucose (Fingerstick) 120 mg/dL (70-99) H (CECILIA RANGEL APRN) EKG: EKG: EKG performed at 1014 by ED nursing staff shows a heart rate of 93 bpm sinus rhythm with a first-degree AV block, left axis deviation, HI interval 0.260, QTc interval 0.445, no acute STEMI, no ACS, no acute ischemia appreciated, EKG interpreted by ED attending physician Dr. Dey. (CECILIA RANGEL APRN) Radiology/Procedures: Radiology/Procedures: PATIENT: JAY VILLANUEVA ACCOUNT: [id number] : 1940 LOCATION: ER AGE: 80 SEX: F EXAM STATUS: REG ER ORD. PHYSICIAN: CECILIA RANGEL APRN REASON: fall,dizzy PROCEDURE: CT HEAD AND CERVICAL SPINE WO EXAM: CT head and cervical spine without contrast INDICATION: Fall, dizziness COMPARISON: CT head and C-spine 11/28/2012 TECHNIQUE: Axial CT imaging through the head and cervical spine without intravenous contrast. Sagittal and coronal reformats were obtained of the cervical spine. One or more of the following individualized dose reduction techniques were utilized for this examination: 1. Automated exposure control 2. Adjustment of the mA and/or kV according to patient size 3. Use of iterative reconstruction technique. FINDINGS: CT head: The ventricles and sulci are mildly enlarged, reflecting age-related volume loss. There is mild periventricular white matter hypoattenuation. Wen-white matter differentiation is maintained. There is no intracranial hemorrhage, acute infarct, or mass lesion. Basal cisterns are clear. The skull and scalp are intact. Paranasal sinuses and mastoid air cells are clear. Globes and orbits are intact. CT cervical spine: No acute fracture. There is minimal listhesis at several levels. Mild to moderate disc space narrowing throughout the cervical spine. There is multilevel facet arthrosis, severe on the left C2-C3 and C3-C4, severe on the right at C4- C5. Prevertebral soft tissues normal. Mild septal thickening in the lung apices. A 7 mm subpleural nodular opacity in the right apex with adjacent pleural thickening is unchanged from at least 2018 and may reflect scarring or atelectasis. IMPRESSION: 1. No acute intracranial abnormality. 2. No acute osseous abnormality of the cervical spine. 3. Mild degenerative disc disease and multilevel facet arthrosis. PATIENT: JAY VILLANUEVA ACCOUNT: [id number] : 1940 LOCATION: ER AGE: 80 SEX: F EXAM STATUS: REG ER ORD. PHYSICIAN: CECILIA RANGEL APRN REASON: fall,dizzy PROCEDURE: CT HEAD AND CERVICAL SPINE WO EXAM: CT head and cervical spine without contrast INDICATION: Fall, dizziness COMPARISON: CT head and C-spine 11/28/2012 TECHNIQUE: Axial CT imaging through the head and cervical spine without intravenous contrast. Sagittal and coronal reformats were obtained of the cervical spine. One or more of the following individualized dose reduction techniques were utilized for this examination: 1. Automated exposure control 2. Adjustment of the mA and/or kV according to patient size 3. Use of iterative reconstruction technique. FINDINGS: CT head: The ventricles and sulci are mildly enlarged, reflecting age-related volume loss. There is mild periventricular white matter hypoattenuation. Wen-white matter differentiation is maintained. There is no intracranial hemorrhage, acute infarct, or mass lesion. Basal cisterns are clear. The skull and scalp are intact. Paranasal sinuses and mastoid air cells are clear. Globes and orbits are intact. CT cervical spine: No acute fracture. There is minimal listhesis at several levels. Mild to m oderate disc space narrowing throughout the cervical spine. There is multilevel facet arthrosis, severe on the left C2-C3 and C3-C4, severe on the right at C4- C5. Prevertebral soft tissues normal. Mild septal thickening in the lung apices. A 7 mm subpleural nodular opacity in the right apex with adjacent pleural thickening is unchanged from at least 2018 and may reflect scarring or atelectasis. IMPRESSION: 1. No acute intracranial abnormality. 2. No acute osseous abnormality of the cervical spine. 3. Mild degenerative disc disease and multilevel facet arthrosis. (CECILIA RANGEL APRN) Course & Med Decision Making: Course & Med Decision Making Pertinent Labs and Imaging studies reviewed. (See chart for details) 80-year-old female, vital signs reviewed, presents to the emergency department with chief complaint of weakness and fall. Patient's physical examination concerning for over medicated syndrome of tramadol and Xanax. Will order CT head, cardiorespiratory work-up. Patient's was concerned of patient having slurred speech, and NIHSS scale performed immediately upon notification of this, NIHSS scale equals 0. Will order urinalysis assay. The patient's tetanus status was brought up-to-date today in the emergency department with Adacel/Tdap. The patient's urine was not infected, CT head and chest x-ray unremarkable, cardiorespiratory work-up unremarkable. However patient's creatinine 2.5, upon extensive review of history patient is usually around 1-1.1, recommended patient be admitted for weakness and acute kidney injury, patient is amenable to this planning. Called and discussed patient case and ED work-up with patient's primary care physician Dr. Janett Mello who agreed patient's case warrants admission to the medical surgical unit, recommended consult from nephrology related to acute kidney injury. Patient is awaiting bed assignment from house repairer. Dr. Janett Mello has assumed patient care at this time. While patient awaiting room assignment from house repairer, ED nurse reported patient was found sitting on ground on edge of bed, there is a abrasion to the b ack. Upon reexamination of the patient, the patient denies back pain on or around the abrasion site. Nursing staff will cleansed and dressed with bacitracin. Patient's tetanus immunization was brought up-to-date earlier today in the emergency department. (CECILIA RANGEL APRN) Course & Med Decision Making I have reviewed and agree with all pertinent clinical information above including history, exam, and recommendations. Radha Dey DO (RADHA DEY DO) Adali Disclaimer: Adali Disclaimer: This electronic medical record was generated, in whole or in part, using a voice recognition dictation system. (CECILIA RANGEL APRN) NIHSS Stroke Scale NIH Stroke Scale: NIH Stroke Scale Response (Comments) Value Level of Consciousness: 0 Alert/Responsive 0 LOC Questions: 0 Answers both correctly 0 LOC Commands: 0 Performs both tasks 0 Best Gaze: 0 Normal 0 Visual: 0 No visual loss 0 Facial Palsy: 0 Normal, symmetrical 0 Motor - Left Arm 0 No drift 0 Motor - Right Arm 0 No drift 0 Motor - Left Leg 0 No drift 0 Motor: Right Leg 0 No drift 0 Limb Ataxia: 0 Absent 0 Sensory: 0 No loss 0 Best Language: 0 Normal 0 Dysathria: 0 Normal 0 Extinction and Inattention: 0 Normal 0 Total 0 Departure Departure Impression: Primary Impression: Weakness Additional Impressions: Fall Qualified Codes: W19.XXXA - Unspecified fall, initial encounter Acute kidney injury Skin abrasion Disposition: HOME / SELF CARE / HOMELESS Admitting Physician: Janett Mello (Admit to MedSurg unit) (CECILIA RANGEL APRN) Referrals: JANETT MELLO MD (PCP) CECILIA RANGEL APRN Nov 05, 2020 10:13 RADHA DEY DO Nov 05, 2020 16:29
[2020-11-05] MEDS ORDERED: IV NORMAL SALINE 1000ML BAG 1,000 ML IV ONE (10:15)
--- NOTE | 2020-11-05 10:18 | EKG ---
[facility] [address] [place] [address] Test Date: 2020-11-05 Test Time: 10:14:48 Pat Name: JAY VILLANUEVA Department: Room: Gender: F Master Esthetician: [id number] : 1940 Requested By: CECILIA RANGEL Order Number: [id number] Reading MD: Measurements Intervals [place] Rate: 93 P: 167 AR: 260 QRS: -44 QRSD: 90 T: 8 QT: 356 QTc: 445 Interpretive Statements SINUS RHYTHM PROLONGED AR INTERVAL ABNORMAL LEFT AXIS DEVIATION R-S TRANSITION ZONE IN V LEADS DISPLACED TO THE LEFT LEFT ANTERIOR FASCICULAR BLOCK ABNORMAL ECG RI6.02 No previous ECG available for comparison
[2020-11-05 10:34] LABS: BASO % 1 % (0-3); EOS # 0.4 x10^3/uL (0.0-0.7); EOS % 4 % (0-3); HEMATOCRIT 36.2 % (36.0-47.0); HEMOGLOBIN 12.3 g/dL (12.0-15.5); LYMPH # 1.8 x10^3/uL (1.0-4.8); LYMPH % 18 % (24-48); MEAN CORPUSCULAR HEMOGLOBIN 32 pg (25-35); MEAN CORPUSCULAR HGB CONC 34 g/dL (31-37); MEAN CORPUSCULAR VOLUME 93 fL (79-100); MONO # 1.3 x10^3/uL (0.0-1.1); MONO % 13 % (0-9); NEUT # 6.5 x10^3/uL (1.8-7.7); NEUT % 65 % (31-73); PLATELET COUNT 229 x10^3/uL (140-400); RED BLOOD COUNT 3.91 x10^6/uL (3.50-5.40); RED CELL DISTRIBUTION WIDTH 14.2 % (11.5-14.5); WHITE BLOOD COUNT 10.1 x10^3/uL (4.0-11.0)
[2020-11-05 10:40] LABS: CALCIUM 8.9 mg/dL (8.5-10.1); CREATININE 2.5 mg/dL (0.6-1.0); GFR 18.5; POTASSIUM 4.2 mmol/L (3.5-5.1)
[2020-11-05] MEDS ORDERED: BACITRACIN TOPICAL OINT PACKET. TP ONE (10:45)
[2020-11-05] MEDS ORDERED: DIPH,PERTUSS(ACELL),TET VAC/PF 0.5 ML SYRINGE. VAX IM ONE (10:45)
[2020-11-05 10:46] LABS: ALBUMIN 3.5 g/dL (3.4-5.0); ALBUMIN/GLOBULIN RATIO 0.9 (1.0-1.7); TOTAL BILIRUBIN 0.4 mg/dL (0.2-1.0); TOTAL PROTEIN 7.2 g/dL (6.4-8.2)
--- NOTE | 2020-11-05 11:43 | RAD ---
EXAM: CT head and cervical spine without contrast INDICATION: Fall, dizziness COMPARISON: CT head and C-spine 11/28/2012 TECHNIQUE: Axial CT imaging through the head and cervical spine without intravenous contrast. Sagitta l and coronal reformats were obtained of the cervical spine. One or more of the following individualized dose reduction techniques were utilized for this examinat ion: 1. Automated exposure control 2. Adjustment of the mA and/or kV according to patient size 3. Use of iterative reconstruction technique. FINDINGS: CT head: The ventricles and sulci are mildly enlarged, reflecting age-related volume loss. There is mild periv entricular white matter hypoattenuation. Wen-white matter differentiation is maintained. There is no intracranial hemorrhage, acute infarct, or mass lesion. Basal cisterns are clear. The skull and scal p are intact. Paranasal sinuses and mastoid air cells are clear. Globes and orbits are intact. CT cervical spine: No acute fracture. There is minimal listhesis at several levels. Mild to moderate disc space narrowin g throughout the cervical spine. There is multilevel facet arthrosis, severe on the left C2-C3 and C3 -C4, severe on the right at C4-C5. Prevertebral soft tissues normal. Mild septal thickening in the eusebia ng apices. A 7 mm subpleural nodular opacity in the right apex with adjacent pleural thickening is un changed from at least 2018 and may reflect scarring or atelectasis. IMPRESSION: 1. No acute intracranial abnormality. 2. No acute osseous abnormality of the cervical spine. 3. Mild degenerative disc disease and multilevel facet arthrosis. Electronically signed by: Chelsy Queen MD (11/05/2020 11:41 AM) [id number]
--- NOTE | 2020-11-05 11:45 | RAD ---
EXAM: Chest, single view. HISTORY: Weakness. COMPARISON: 04/18/2020 FINDINGS: A frontal view of the chest is obtained. There is right upper lobe and left lower lobe inte rstitial opacity superimposed on diffuse interstitial prominence. There is no consolidation, pleural effusion or pneumothorax. There is a prominent cardiac silhouette. There are dorsal column stimulator leads overlying the mid thoracic spine. There are surgical clips within the left upper abdomen. IMPRESSION: Suspected right upper lobe and left lower lobe interstitial infiltrate superimposed on ch ronic interstitial changes. Electronically signed by: Jena Blackburn MD (11/05/2020 11:42 AM) [id number]
[2020-11-05] MEDS ORDERED: ACETAMINOPHEN 325 MG TABLET. PO ONE (12:00)
[2020-11-05 12:24] LABS: BILIRUBIN,URINE NEGATIVE (NEG); CLARITY,URINE CLEAR; COLOR,URINE YELLOW; NITRITE,URINE NEGATIVE (NEG); PROTEIN,URINE NEGATIVE (NEG-TRACE); UROBILINOGEN,URINE 0.2 mg/dL (0.2 mg/dL)
[2020-11-05 12:48] LABS: BACTERIA,URINE 0 /HPF (0-FEW); HYALINE CASTS, URINE FEW /HPF; RBC,URINE 0 /HPF (0-2); WBC,URINE 0 /HPF (0-4)
--- NOTE | 2020-11-05 19:33 | NUR ---
Nursing communication was given to Shira ARREOLA at shift change.
--- NOTE | 2020-11-05 22:10 | NUR ---
Patient admitted from ER to room 434 per cart. Admitting diagnosis: JANAE and weakness. Patient lives at home with . Patient fell at home at 0300. Patient's stated she was weak and slurring her speech. In ER stroke scale 0. Patient may have been taking too much pain medication at home. While patient was in ER she fell again according to ER staff. Patient stated to the nurse that she was looking for her diet coke. No diet was in the patient's room. Patient also has JANAE with elevated BUN and Creat. Consult to Dr. Davis. Patient in no acute distress on admission. Will continue to monitor.
[2020-11-05 23:00] VITALS: BP 130/89
[2020-11-06 03:00] VITALS: BP 103/45
[2020-11-06 07:15] VITALS: BP 144/54
--- NOTE | 2020-11-06 07:41 | NUR ---
Report got this AM that pt had emesis coffee ground colored. This nurse went to assess pt and noted that she was confused and rambling her words unable to make senses. Pt would not open her eyes. Lung sounds to BUL with faint crackles heard on expiratory. VS were obtained and Temp was 101.1, O2 88% on 3.5L. Dr. Hurtado was here making rounds, he was notified in regards of pt status. He assessed her and gave orders for blood gases, CXR and pulmonary consult. Orders were placed for stat blood gases and CXR. Call placed to Dr. Marshall for consult.
[2020-11-06] MEDS ORDERED: IV 1/2 NORMAL SALINE 1,000 ML IV ONE (07:45)
--- NOTE | 2020-11-06 08:00 | NUR ---
Dr. Monroy returned phone call at this time, will be in to consult
[2020-11-06] MEDS: PIPERACILLIN/TAZOBACTAM 2.25 GM in IV NORMAL SALINE 50ML 50 ML IV SCH ×4 (08:25→23:11)
[2020-11-06] MEDS: PANTOPRAZOLE IV PUSH 40 MG VIAL. IVP SCH (08:25)
--- NOTE | 2020-11-06 08:34 | RAD ---
EXAM: Chest, single view. HISTORY: Crackles. COMPARISON: 11/05/2020 FINDINGS: A frontal view of the chest obtained. There has been interval increase in diffuse mixed int erstitial and alveolar infiltrate. There is no convincing pleural effusion. There is no pneumothorax. There is a stable cardiac silhouette. There are dorsal column stimulator leads overlying the thoraci c spine. There are surgical clips within the left upper quadrant. IMPRESSION: Increase in diffuse mixed interstitial and alveolar infiltrate. Electronically signed by: Jena Blackburn MD (11/06/2020 8:32 AM) [id number]
[2020-11-06] MEDS: lamoTRIgine 100 MG TABLET. PO SCH ×2 (09:00→20:50)
--- NOTE | 2020-11-06 09:08 | PREOP HP ---
DATE OF SERVICE: 11/06/2020 CHIEF COMPLAINT AND HISTORY OF PRESENT ILLNESS: This is an 80-year-old female who is well known to me from followup in the office. The patient had an episode the night prior where she got up, ____ some outside, went outside and fell into apparently a flower bed, was confused. thought it might be medication related. She was not acting right. Unable to get her up and around the house. He called 911 and she was sent to the Emergency Room where she was admitted with mental status change, acute kidney injury with creatinine up to 2.5 and chest x-ray showing possible pneumonia. PAST MEDICAL HISTORY: Remarkable for longstanding severe asthma. She has a history of hyperlipidemia, hypertension, vertigo, gastroparesis. PAST SURGICAL HISTORY: Remarkable for prior colon polyp with resection, , hysterectomy, knee surgery, bunionectomy, right shoulder surgery, eyelid surgery. MEDICATIONS: Brought with the patient, listed on the computer, have been addressed. ALLERGIES: SHE IS ALLERGIC TO SULFA, OMNICEF, TETRACYCLINE, LISINOPRIL AND CIPRO. SOCIAL HISTORY: She is a lifetime nonsmoker and rarely drinks alcohol. , lives at home with her . Does not abuse drugs. FAMILY HISTORY: Positive for longevity. REVIEW OF SYSTEMS: Unobtainable due to her altered mental status. PHYSICAL EXAMINATION: GENERAL: She is a well-developed, well-nourished white female who is very confused. She is breathing in a relatively rapid rate and has bilateral rhonchi and crackles audible without a stethoscope. HEAD, EYES, EARS, NOSE AND THROAT: Remarkable for O2 per nasal cannula. NECK: Supple, without any lymphadenopathy or thyromegaly. CHEST: Bilateral rhonchi, rales. HEART: Regular rate and rhythm without S3, S4 or murmur. ABDOMEN: Soft, nontender, without hepatosplenomegaly or mass. EXTREMITIES: Without cyanosis, clubbing, edema. NEUROLOGIC: Remarkable for the altered mental status. LABORATORY DATA: Initial lab work includes a CBC that is essentially unremarkable. Chem panel was remarkable for the creatinine increased to 2.5. CPK is normal. Urinalysis is normal. She is COVID negative. CT scanning of the head and neck showed no acute process from the fall and chest x-ray shows suspected right upper lobe and left lower lobe interstitial infiltrates. IMPRESSION: 1. Fall with altered mental status, likely due to infection and likely due to pneumonia. 2. Acute kidney injury. 3. Multiple other problems listed above. PLAN: Hydration. Chest x-ray. We will check a blood gas this morning. Ask Pulmonary to see her. Antibiotics will be started. Per nursing, she had some coffee-ground emesis within the last hour or so and they are concerned about aspiration. We will heme test any further emesis and follow blood counts. ROBERTA/CONCHITA DR: Bisi TID: [id number]
--- NOTE | 2020-11-06 09:56 | PDOC2 ---
NEUROLOGY CONSULT Date of Service DOS: DATE: 11/06/20 TIME: 09:48 Reason for Consult Reason for Consult: Altered mental status, weakness Referring Physician Referring Physician: Dr. Mello Source Source: Caregiver (), Chart review History of Present Illness History of Present Illness The patient is an 80-year-old right-handed female with a long history of gait disorder for which I saw her last 7 years ago. She has had several falls over the years. She gets around with a walker or a cane. Sometimes she uses a wheelchair. The night before last she heard a noise outside and sent her out to investigate. He did not find anything. Then she came out on the porch and fell off of it into a flower bed, but did not lose consciousness or hit her head, says. However, yesterday, the patient was more lethargic and not acting herself. He tried to get her into his car to bring her to Dr. Mello's office, but was unsuccessful, so he called 911. In the [place] emergency department she has been found to have acute kidney injury and possible pneumonia. Past Medical History Cardiovascular: HTN, Hyperlipidemia Pulmonary: Asthma, Other (Sleep apnea) CENTRAL NERVOUS SYSTEM: Other (Gait disorder) GI: Constipation (And diarrhea), GERD, Other (Gastroparesis, esophagitis, stricture) Heme/Onc: Cancer (:), Other (Hives with blood transfusion) Psych: Anxiety, Depression Musculoskeletal: Osteoarthritis Past Surgical History Past Surgical History: , Hernia Repair (Ventral, with obstruction), Hysterectomy, Colon Resection, Other (knee surgery, bunionectomy, right shoulder surgery, eyelid surgery, remove pancreatic cyst) Family History Family History: Other (Both parents lived into their 90s) Social History Social History , no tobacco or alcohol Current Medications Current Medications Current Medications Sodium Chloride 1,000 ml @ 1,000 mls/hr 1X ONCE IV Last administered on 11/05/20at 12:17; Start 11/05/20 at 10:15; Stop 11/05/20 at 11:14; Status DC Diphtheria/ Tetanus/Acell Pertussis (ADACEL TDap SYRINGE) 0.5 ml ONCE ONCE VAX IM Last administered on 11/05/20at 12:14; Start 11/05/20 at 10:45; Stop 11/05/20 at 10:53; Status DC Bacitracin (Bacitracin Zinc Oint Pkt) 1 pkt 1X ONCE TP Last administered on 11/05/20at 12:14; Start 11/05/20 at 10:45; Stop 11/05/20 at 10:53; Status DC Acetaminophen (Tylenol) 650 mg 1X ONCE PO Last administered on 11/05/20at 12:12; Start 11/05/20 at 12:00; Stop 11/05/20 at 12:01; Status DC Lorazepam (Ativan Inj) 1 mg 1X ONCE IVP Last administered on 11/05/20at 13:15; Start 11/05/20 at 13:15; Stop 11/05/20 at 13:16; Status DC Lamotrigine (LaMICtal) 100 mg BID PO ; Start 11/06/20 at 09:00 Pantoprazole Sodium (PROTONIX VIAL for IV PUSH) 40 mg DAILYAC IVP Last administered on 11/06/20at 08:25; Start 11/06/20 at 08:00 Sodium Chloride 1,000 ml @ 75 mls/hr 1X ONCE IV Last administered on 11/06/20at 08:11; Start 11/06/20 at 07:45; Stop 11/06/20 at 21:04 Piperacillin Sod/ Tazobactam Sod 2.25 gm/Sodium Chloride 50 ml @ 100 mls/hr Q6HRS IV Last administered on 11/06/20at 08:25; Start 11/06/20 at 08:00 Active Scripts Active Reported [Vitamin D] Alprazolam 1 Mg Tablet 1 Tab PO BID Centrum Complete Multivit Tab (Multivitamin/Iron/Folic Acid) 1 Each Tablet 1 Each PO DAILY Dorsey 3 Fish Oil Softgel (Dorsey-3 Fatty Acids/Fish Oil) 1 Each Capsule.dr 1 Each PO DAILY Vitamin C (Ascorbic Acid) 500 Mg Tab.chew 500 Mg PO DAILY Symbicort 160-4.5 Mcg Inhaler (Budesonide/Formoterol Fumarate) 10.2 Gm Hfa.aer.ad 1 Puff IH BID Aspir 81 (Aspirin) 81 Mg Tablet.dr 81 Mg PO DAILY Meloxicam 15 Mg Tablet 15 Mg PO DAILY Zoloft (Sertraline Hcl) 100 Mg Tablet 150 Mg PO DAILY Potassium Chloride 10 Meq Tab.er.prt 10 Meq PO DAILY Lasix (Furosemide) 40 Mg Tablet 40 Mg PO DAILY Flonase (Fluticasone Propionate) 16 Gm [place].susp 16 Gm NS DAILY Lamictal (Lamotrigine) 100 Mg Tablet 100 Mg PO BID Eemt Hs 0.625-1.25 Mg Tablet (Estrogen,Tess/Me-Testosterone) 1 Each Tablet 1 Each PO DAILY Zocor (Simvastatin) 80 Mg Tablet 40 Mg PO QHS Allergies Allergies: Coded Allergies: lisinopril (Verified Allergy, Severe, 09/18/18) Patient has lisinopril-induced angioedema Sulfa (Sulfonamide Antibiotics) (Verified Allergy, Intermediate, Itching, 04/23/17) cefdinir (Verified Allergy, Intermediate, Itching, 04/23/17) ciprofloxacin (Verified Allergy, Intermediate, Itching, 04/23/17) ciprofloxacin HCl (Verified Allergy, Intermediate, Itching, 04/23/17) tetracycline (Verified Allergy, Intermediate, Itching, 04/23/17) ROS Review of System Negative for fever, chills, weight loss, shortness of breath, chest pain, indigestion, hematochezia, melena, and dysuria. Full 14-point review of systems is negative. Physical Exam Physical Examination General: Well-developed, well-nourished white female in no acute distress HEENT: Normocephalic andatraumatic. Tympanic membranes clear.Temporal arteriespulsatile and nontender.Fundoscopic exam unremarkable Neck: Supple without bruit, no meningismus Musculoskeletal: Stability:see neurologic. Gait exam:see neurologic. Tone:see neurologic.Strength:see neurologic. Neurological: Mental Status:orientation, memory, attention span/concentration, language, fund of knowledge: Sleepy, arouses, tells me she is in the hospital and her name, does not know the date, follows command. Cranial Nerves:Pupils equal and reactive to light, extraocular movements areintact, visual gusman are full to confrontation. Facial sensation is normal. There is no facial asymmetry. Vestibulo-ocular reflex is intact. Palate elevates and tongue protrudes in midline. All other cranial related problems are negative except as mentioned before.Reflexes:1+ and symmetric with flexor plantar responses. Motor:3-4/5 strength with normal tone and bulk. Coordination and gait:not cooperative. Sensory:Responds to pinprick in all 4 extremities. Vitals VITALS Vital Signs Date Time Temp Pulse Resp B/P (MAP) Pulse Ox O2 Delivery O2 Flow Rate FiO2 11/06/20 07:15 101.1 100 16 144/54 (84) 88 Nasal Cannula 4.0 101.1 Labs Labs Laboratory Tests Test 11/05/20 10:00 11/05/20 10:01 11/05/20 12:18 11/05/20 13:18 White Blood Count 10.1 x10^3/uL (4.0-11.0) Red Blood Count 3.91 x10^6/uL (3.50-5.40) Hemoglobin 12.3 g/dL (12.0-15.5) Hematocrit 36.2 % (36.0-47.0) Mean Corpuscular Volume 93 fL (79-100) Mean Corpuscular Hemoglobin 32 pg (25-35) Mean Corpuscular Hemoglobin Concent 34 g/dL (31-37) Red Cell Distribution Width 14.2 % (11.5-14.5) Platelet Count 229 x10^3/uL (140-400) Neutrophils (%) (Auto) 65 % (31-73) Lymphocytes (%) (Auto) 18 % (24-48) Monocytes (%) (Auto) 13 % (0-9) Eosinophils (%) (Auto) 4 % (0-3) Basophils (%) (Auto) 1 % (0-3) Neutrophils # (Auto) 6.5 x10^3/uL (1.8-7.7) Lymphocytes # (Auto) 1.8 x10^3/uL (1.0-4.8) Monocytes # (Auto) 1.3 x10^3/uL (0.0-1.1) Eosinophils # (Auto) 0.4 x10^3/uL (0.0-0.7) Basophils # (Auto) 0.0 x10^3/uL (0.0-0.2) Sodium Level 144 mmol/L (136-145) Potassium Level 4.2 mmol/L (3.5-5.1) Chloride Level 105 mmol/L (98-107) Carbon Dioxide Level 25 mmol/L (21-32) Anion Gap 14 (6-14) Blood Urea Nitrogen 23 mg/dL (7-20) Creatinine 2.5 mg/dL (0.6-1.0) Estimated GFR (Cockcroft-Gault) 18.5 BUN/Creatinine Ratio 9 (6-20) Glucose Level 115 mg/dL (70-99) Calcium Level 8.9 mg/dL (8.5-10.1) Total Bilirubin 0.4 mg/dL (0.2-1.0) Aspartate Amino Transf (AST/SGOT) 24 U/L (15-37) Alanine Aminotransferase (ALT/SGPT) 15 U/L (14-59) Alkaline Phosphatase 77 U/L (46-116) Creatine Kinase 191 U/L (26-192) Creatine Kinase MB (Mass) 5.8 ng/mL (0.0-3.6) Creatine Kinase MB Relative Index 3.0 % (0-4) Troponin I Quantitative 0.019 ng/mL (0.000-0.055) Total Protein 7.2 g/dL (6.4-8.2) Albumin 3.5 g/dL (3.4-5.0) Albumin/Globulin Ratio 0.9 (1.0-1.7) Glucose (Fingerstick) 120 mg/dL (70-99) Urine Collection Type U cath Urine Color Yellow Urine Clarity Clear Urine pH 5.0 (<5.0-8.0) Urine Specific [place] 1.015 (1.000-1.030) Urine Protein Negative mg/dL (NEG-TRACE) Urine Glucose (UA) Negative mg/dL (NEG) Urine Ketones (Stick) Negative mg/dL (NEG) Urine Blood Negative (NEG) Urine Nitrite Negative (NEG) Urine Bilirubin Negative (NEG) Urine Urobilinogen Dipstick 0.2 mg/dL (0.2 mg/dL) Urine Leukocyte Esterase Negative (NEG) Urine RBC 0 /HPF (0-2) Urine WBC 0 /HPF (0-4) Urine Transitional Epithelial Cells Occ /LPF Urine Bacteria 0 /HPF (0-FEW) Urine Hyaline Casts Few /HPF SARS-CoV-2 RNA (MICAELA) Negative (Negative) SARS-CoV-2 Antigen (Rapid) Negative (NEGATIVE) Laboratory Tests Test 11/05/20 10:00 11/05/20 10:01 11/05/20 12:18 11/05/20 13:18 White Blood Count 10.1 x10^3/uL (4.0-11.0) Red Blood Count 3.91 x10^6/uL (3.50-5.40) Hemoglobin 12.3 g/dL (12.0-15.5) Hematocrit 36.2 % (36.0-47.0) Mean Corpuscular Volume 93 fL (79-100) Mean Corpuscular Hemoglobin 32 pg (25-35) Mean Corpuscular Hemoglobin Concent 34 g/dL (31-37) Red Cell Distribution Width 14.2 % (11.5-14.5) Platelet Count 229 x10^3/uL (140-400) Neutrophils (%) (Auto) 65 % (31-73) Lymphocytes (%) (Auto) 18 % (24-48) Monocytes (%) (Auto) 13 % (0-9) Eosinophils (%) (Auto) 4 % (0-3) Basophils (%) (Auto) 1 % (0-3) Neutrophils # (Auto) 6.5 x10^3/uL (1.8-7.7) Lymphocytes # (Auto) 1.8 x10^3/uL (1.0-4.8) Monocytes # (Auto) 1.3 x10^3/uL (0.0-1.1) Eosinophils # (Auto) 0.4 x10^3/uL (0.0-0.7) Basophils # (Auto) 0.0 x10^3/uL (0.0-0.2) Sodium Level 144 mmol/L (136-145) Potassium Level 4.2 mmol/L (3.5-5.1) Chloride Level 105 mmol/L (98-107) Carbon Dioxide Level 25 mmol/L (21-32) Anion Gap 14 (6-14) Blood Urea Nitrogen 23 mg/dL (7-20) Creatinine 2.5 mg/dL (0.6-1.0) Estimated GFR (Cockcroft-Gault) 18.5 BUN/Creatinine Ratio 9 (6-20) Glucose Level 115 mg/dL (70-99) Calcium Level 8.9 mg/dL (8.5-10.1) Total Bilirubin 0.4 mg/dL (0.2-1.0) Aspartate Amino Transf (AST/SGOT) 24 U/L (15-37) Alanine Aminotransferase (ALT/SGPT) 15 U/L (14-59) Alkaline Phosphatase 77 U/L (46-116) Creatine Kinase 191 U/L (26-192) Creatine Kinase MB (Mass) 5.8 ng/mL (0.0-3.6) Creatine Kinase MB Relative Index 3.0 % (0-4) Troponin I Quantitative 0.019 ng/mL (0.000-0.055) Total Protein 7.2 g/dL (6.4-8.2) Albumin 3.5 g/dL (3.4-5.0) Albumin/Globulin Ratio 0.9 (1.0-1.7) Glucose (Fingerstick) 120 mg/dL (70-99) Urine Collection Type U cath Urine Color Yellow Urine Clarity Clear Urine pH 5.0 (<5.0-8.0) Urine Specific [place] 1.015 (1.000-1.030) Urine Protein Negative mg/dL (NEG-TRACE) Urine Glucose (UA) Negative mg/dL (NEG) Urine Ketones (Stick) Negative mg/dL (NEG) Urine Blood Negative (NEG) Urine Nitrite Negative (NEG) Urine Bilirubin Negative (NEG) Urine Urobilinogen Dipstick 0.2 mg/dL (0.2 mg/dL) Urine Leukocyte Esterase Negative (NEG) Urine RBC 0 /HPF (0-2) Urine WBC 0 /HPF (0-4) Urine Transitional Epithelial Cells Occ /LPF Urine Bacteria 0 /HPF (0-FEW) Urine Hyaline Casts Few /HPF SARS-CoV-2 RNA (MICAELA) Negative (Negative) SARS-CoV-2 Antigen (Rapid) Negative (NEGATIVE) Images Images CT head and cervical spine without contrast INDICATION: Fall, dizziness COMPARISON: CT head and C-spine 11/28/2012 TECHNIQUE: Axial CT imaging through the head and cervical spine without intravenous contrast. Sagittal and coronal reformats were obtained of the cervical spine. One or more of the following individualized dose reduction techniques were utilized for this examination: 1. Automated exposure control 2. Adjustment of the mA and/or kV according to patient size 3. Use of iterative reconstruction technique. FINDINGS: CT head: The ventricles and sulci are mildly enlarged, reflecting age-related volume loss. There is mild periventricular white matter hypoattenuation. Wen-white matter differentiation is maintained. There is no intracranial hemorrhage, acute infarct, or mass lesion. Basal cisterns are clear. The skull and scalp are intact. Paranasal sinuses and mastoid air cells are clear. Globes and orbits are intact. CT cervical spine: No acute fracture. There is minimal listhesis at several levels. Mild to moderate disc space narrowing throughout the cervical spine. There is multilevel facet arthrosis, severe on the left C2-C3 and C3-C4, severe on the right at C4- C5. Prevertebral soft tissues normal. Mild septal thickening in the lung apices. A 7 mm subpleural nodular opacity in the right apex with adjacent pleural thickening is unchanged from at least 2018 and may reflect scarring or atelectasis. IMPRESSION: 1. No acute intracranial abnormality. 2. No acute osseous abnormality of the cervical spine. 3. Mild degenerative disc disease and multilevel facet arthrosis. Assessment/Plan Assessment/Plan Impression: Metabolic encephalopathy, pneumonia and acute kidney injury Covid negative No acute intracranial findings or focal abnormalities on exam Cervical spondylosis without evidence of radiculopathy or myelopathy Recommendations: Treat medical issues Hold on additional studies such as MRI Discussed with patient and . Thank you for letting me help with the patient's care. MOO BRO MD Nov 06, 2020 09:56
[2020-11-06] MEDS: ACETAMINOPHEN 650 MG SUPP.RECT. PR PRN (10:29)
--- NOTE | 2020-11-06 10:37 | NUR ---
Pt with a temp of 101.4, labored, shallow breathing noted with audible rales noted on expiratory. Tylenol 650mg suppository was given and gown with socks removed, sheet only covering pt to cool body down. at bedside applying cold wash clothes to her head. CXR was done this AM, waiting on results
[2020-11-06 11:12] LABS: BASE EXCESS ABG 0 mmol/L (-3-3); CORRECTED PCO2 ABG 54 mmHg; CORRECTED PH ABG 7.32; CORRECTED PO2 ABG 69 mmHg; HCO3 ABG 27 mmol/L (21-28); SAT O2 ABG 94 % (92-99)
[2020-11-06 11:14] VITALS: BP 119/50
[2020-11-06] MEDS ORDERED: VANCOMYCIN PER PHARMACY MC PRN (11:45)
[2020-11-06] MEDS ORDERED: FUROSEMIDE 40 MG/4 ML VIAL. IVP ONE (11:45)
--- NOTE | 2020-11-06 11:54 | NUR ---
Blood gases were drawn by respiratory, Bipap was applied and Dr. Monroy was here for consult. Order to draw blood cx and to consult ID. Call placed to Dr. Pizano and messaged left, order was put into computer
--- NOTE | 2020-11-06 11:58 | CONS ---
DATE OF CONSULTATION: 11/06/2020 PULMONARY CONSULTATION ATTENDING PHYSICIAN: Johan Mello MD REASON FOR CONSULTATION: Respiratory failure. HISTORY OF PRESENT ILLNESS: The patient is an 80-year-old female who has been followed by me at the office. The patient has history of COPD, history of JAVI, on home CPAP and nocturnal oxygen. She was brought into the hospital after she has been feeling tired and weak. She has been falling recently. The patient called 911 and was hospitalized. She has received her COVID vaccine. In fact, she received a third dose a week ago. While in the hospital, she was receiving IV fluids. I was called today due to increasing respiratory distress. She feels very weak and fatigued. I have reviewed the patient's chest x-ray that shows worsening bilateral interstitial infiltrates consistent with congestive heart failure. The patient is currently on nasal cannula. Her arterial blood gases are not recorded yet, but I reviewed them and she had respiratory acidosis with a pCO2 in the 50s, and a pO2 also was low. I have ordered BiPAP. PAST MEDICAL HISTORY: Significant for history of COPD, history of JAVI, dyslipidemia, hypertension, vertigo. PAST SURGICAL HISTORY: Colon cancer surgery, , hysterectomy and others as listed. ALLERGIES: All reviewed as listed. MEDICATIONS: All reviewed as listed. REVIEW OF SYSTEMS: A 10-point system obtained. Pertinent positives and negatives discussed in my present illness, otherwise noncontributory. All systems that were negative were reviewed as well. FAMILY HISTORY: Noncontributory to lungs. SOCIAL HISTORY: Nonsmoker. PHYSICAL EXAMINATION: VITAL SIGNS: T-max of 101.9, pulse ox is 92% on 4 L. LUNGS: With coarse rhonchi. CARDIOVASCULAR: With a regular rate. ABDOMEN: Soft. EXTREMITIES: With no pitting edema. LABORATORY DATA: Her COVID test is negative. BUN 23, creatinine 2.5. IMPRESSION: 1. Acute hypoxic and hypercapnic respiratory failure with worsening bilateral infiltrates/ high grade fever in a patient who recently received 3rd COVID19- booster. Possibilities include A)Acute Interstitial Pneumonitis with hyperimmune response to vaccine. B).Likely congestive heart failure, Pt on IVF since admission C) Sepsis 2. Abnormal chest x-ray with worsening bilateral infiltrates. Currently receiving IV fluids. Suspect congestive heart failure, but cannot exclude pneumonia. 3. Underlying chronic obstructive pulmonary disease. 4. Obstructive sleep apnea, on home CPAP and oxygen. 5. Acute kidney injury.? sepsis induced, check previous renal function. 6. The patient is status post third booster of COVID vaccine. RECOMMENDATIONS: 1. We will initiate BiPAP and follow ABGs. 2. Follow all blood cultures. Consider Infectious Disease consult. Continue Zosyn. 3. One dose of Lasix with close monitoring of renal function. 4. Follow chest x-rays post diuresis 5. Consider adding gram-positive coverage until Infectious Disease has seen the patient. 6. P.r.n. bronchodilators. 7. We will follow along with you. 8. Discontinue IV fluids. 9. Discussed with RN./ RT 10. d/w ID/ Dr John cct 30 min DAYSI/[facility] [place] DR: DAYSI/darwin TID: [id number] MTDD
[2020-11-06 13:25] LABS: FIO2 ABG 44; PCO2 ABG 52 mmHg (35-46); PO2 ABG 65 mmHg (65-108)
[2020-11-06] MEDS ORDERED: LINEZOLID 600 MG TABLET PO SCH (13:30)
[2020-11-06] MEDS ORDERED: VANCOMYCIN 1.5 GM in IV NORMAL SALINE 500ML BAG 500 ML IV ONE (14:00)
[2020-11-06 14:32] LABS: CREATININE 2.5 mg/dL (0.6-1.0); GFR 18.5
[2020-11-06 14:51] LABS: BILIRUBIN,URINE SMALL (NEG); CLARITY,URINE CLEAR; COLOR,URINE YELLOW; NITRITE,URINE NEGATIVE (NEG); PROTEIN,URINE NEGATIVE (NEG-TRACE); UROBILINOGEN,URINE 0.2 mg/dL (0.2 mg/dL)
[2020-11-06 14:57] VITALS: BP 105/35
[2020-11-06 15:01] LABS: HYALINE CASTS, URINE MANY /HPF
[2020-11-06 15:02] LABS: AMORPHOUS SEDIMENT,UR PRESENT /HPF; BACTERIA,URINE 0 /HPF (0-FEW); RBC,URINE 0 /HPF (0-2); WBC,URINE 0 /HPF (0-4)
--- NOTE | 2020-11-06 15:05 | CONS ---
DATE OF CONSULTATION: 11/06/2020 REFERRING PHYSICIAN: Marshall Monroy MD. REASON FOR CONSULTATION: Fever, antibiotic management. HISTORY OF PRESENT ILLNESS: An 80-year-old female who lives at home with her who was brought to the ER on 11/05 with complaints of feeling tired, history of fall at home. She had sustained some abrasions to her arm and legs. The patient continues to remain confused. He was unable to make an appointment to see her primary care physician, Dr. Mello as she was unable to get in the car due to weakness, so 911 was called and was brought to the ER. The patient's glucose was 120. CT head was negative for acute intracranial abnormality. CT spine was negative for acute fracture. The patient was afebrile on admission. White count was 10.1, eosinophil of 4, lymphocyte of 18. Creatinine was 2.5, CK was 191, glucose later was 120. UA was negative. SARS COVID PCR was negative. Chest x-ray revealed suspected right upper lobe and left lower lobe interstitial infiltrate superimposed on chronic interstitial changes. The patient this morning was febrile at 101. She also had coffee-ground emesis, now on BiPAP. The patient was started on IV vanc and Zosyn. ID consultation has been requested for antibiotic management. Blood cultures are done. PAST MEDICAL HISTORY: COPD, JAVI, dyslipidemia, hypertension, vertigo, history of multiple falls, gait ataxia. PAST SURGICAL HISTORY: Colon cancer surgery, , hysterectomy. ALLERGIES: CEFDINIR, CIPRO, LISINOPRIL, TETRACYCLINE, SULFA. REVIEW OF SYSTEMS: The patient denies any headache, sore throat, currently nausea, vomiting, diarrhea, abdominal pain. SOCIAL HISTORY: Nonsmoker. Lives at home with . Status post a third dose of COVID vaccine last week. FAMILY HISTORY: Noncontributory. PHYSICAL EXAMINATION: VITAL SIGNS: Temperature 101.9, pulse 97, respiratory rate 22, blood pressure 119/50, oxygen saturation 92% on 4 liters O2 by nasal cannula. GENERAL: Alert, awake female, well-developed, well-nourished on BiPAP. confused HEENT: Normocephalic, atraumatic. Anicteric. No thrush. Oral mucosa moist. NECK: Supple, no JVD. No meningismus. LUNGS: Coarse breath sounds bilaterally. Rhonchi present. HEART: S1, S2 regular. No murmurs. ABDOMEN: Soft, nontender, nondistended. No rebound. No guarding. GENITOURINARY: Brief is in place. No Harrell. EXTREMITIES: No edema, no cyanosis. DERMATOLOGIC: Warm, dry. No generalized rash. Few abrasions not infected. PSYCHIATRIC: Calm, cooperative. NEUROLOGIC: Alert, awake, confused, moves all 4 extremities. PIV looks clean. LABORATORY DATA: WBC 10.1, hemoglobin 12.3, Plt 229. Sodium 144, potassium 4.2, chloride 105, bicarb 25, BUN 23, creatinine 2.5, glucose 115. LFT is normal. CK 191, albumin 3.5. SARS-COVID negative. UA negative. IMAGING DATA: 1. CT head as above. 2. CT spine as above. 3. Chest x-ray as above. 4. Repeat chest x-ray today shows increase in diffuse mixed interstitial and alveolar infiltrates. IMPRESSION: 1. Fever, source appears respiratory. 2. Acute hypoxic respiratory failure with diffuse bilateral infiltrates, 3. Acute kidney injury. 4. History of chronic obstructive pulmonary disease. 5. History of obstructive sleep apnea. 6. CHF 7. Status post third booster of COVID vaccine. 8. Coffee-ground emesis earlier this morning. 9. History of fall prior to admission. 10.Encephalopathy appears metabolic RECOMMENDATIONS: 1. Discontinue vancomycin due to JANAE. 2. Start linezolid. 3. Continue Zosyn, renal dosing.Pharmacy to assist 4. Follow up labs and cultures.Labs have been ordered for the am. 5. Continue supportive care. 6. Maintain aspiration precaution. Thank you for allowing me to participate in this patient's care. If you have any questions, do not hesitate to contact me. Discussed with Dr. Monroy. Discussed with RN. MICHI/ORIlana LLANES: Wayne TID: [id number] MTDD
--- NOTE | 2020-11-06 15:12 | NUR ---
Wound Care wound care consult for multiple abrasions. Pt has abrasions to right foot, knee, arm and upper back that are superficial and scabbed. Painted with skin prpe and reapplied foam dressings. Wound care will sign off at this time. Please reconsult if new wounds develop
[2020-11-06] MEDS: ACETAMINOPHEN 325 MG TABLET. PO PRN (17:40)
--- NOTE | 2020-11-06 18:18 | NUR ---
Pt is alert and asking for drinks, she is communicating with staff. She does not remember this morning. Water has been given and pt swallowing without incident. Renal diet had been ordered. Pt up to commode with balance steady and gaitbelt on
[2020-11-06 19:25] VITALS: BP 111/46
[2020-11-06 23:35] VITALS: BP 107/43
[2020-11-07 03:00] VITALS: BP 110/51
--- NOTE | 2020-11-07 03:30 | NUR ---
CHECKED ON PT PT IS REFUSING BIPAP. PT NALINI BIT MORE CONFUSED AND SLEEPY. ABG DONE AND IS SLIGHTLY WORSE THAN PREVIOUS. PLACED ON BIPAP AND SEEMS TO TOLERATE BETTER. WILL CONTINUE TO MONITOR
[2020-11-07 04:04] LABS: BASE EXCESS ABG -1 mmol/L (-3-3); HCO3 ABG 26 mmol/L (21-28); PCO2 ABG 55 mmHg (35-46); PO2 ABG 70 mmHg (65-108); SAT O2 ABG 94 % (92-99)
[2020-11-07 04:46] LABS: BASO % 0 % (0-3); EOS # 0.2 x10^3/uL (0.0-0.7); EOS % 1 % (0-3); HEMATOCRIT 34.7 % (36.0-47.0); HEMOGLOBIN 11.5 g/dL (12.0-15.5); LYMPH # 1.1 x10^3/uL (1.0-4.8); LYMPH % 7 % (24-48); MEAN CORPUSCULAR HEMOGLOBIN 31 pg (25-35); MEAN CORPUSCULAR HGB CONC 33 g/dL (31-37); MEAN CORPUSCULAR VOLUME 94 fL (79-100); MONO % 7 % (0-9); NEUT # 12.9 x10^3/uL (1.8-7.7); NEUT % 85 % (31-73); PLATELET COUNT 168 x10^3/uL (140-400); RED CELL DISTRIBUTION WIDTH 14.6 % (11.5-14.5); WHITE BLOOD COUNT 15.3 x10^3/uL (4.0-11.0)
[2020-11-07 05:13] LABS: ALBUMIN 2.6 g/dL (3.4-5.0); ALBUMIN/GLOBULIN RATIO 0.7 (1.0-1.7); CALCIUM 8.1 mg/dL (8.5-10.1); CREATININE 2.6 mg/dL (0.6-1.0); GFR 17.7; TOTAL BILIRUBIN 0.7 mg/dL (0.2-1.0); TOTAL PROTEIN 6.1 g/dL (6.4-8.2)
[2020-11-07] MEDS: PANTOPRAZOLE IV PUSH 40 MG VIAL. IVP SCH (05:25)
[2020-11-07] MEDS: PIPERACILLIN/TAZOBACTAM 2.25 GM in IV NORMAL SALINE 50ML 50 ML IV SCH ×3 (05:27→17:29)
[2020-11-07 05:32] LABS: % BANDS 55 % (0-9); % EOS 1 % (0-5); % LYMPHS 7 % (24-48); % METAS 4 % (0-0); % MONOS 2 % (0-10); % MYELOS 2 % (0-0); % SEGS 29 % (35-66); PLT ESTIMATE ADEQUATE (ADEQUATE)
[2020-11-07 05:33] LABS: TOXIC GRANULATION SLIGHT
[2020-11-07 07:10] VITALS: BP 167/65
--- NOTE | 2020-11-07 07:42 | NUR ---
Pt agitated, trying to take her Bi-pap off. Mits have been placed. Pt making statements that staff are trying to kill her. She calls out for [place]. Dr. Monroy called and gave orders to obtain Pro-BNP and Procalcitonin. Change her Bipap settings to I-pap at 20, rate 20, and O2 at 45%.
[2020-11-07 08:22] LABS: BASE EXCESS ABG -3 mmol/L (-3-3); HCO3 ABG 23 mmol/L (21-28); PCO2 ABG 43 mmHg (35-46); PO2 ABG 81 mmHg (65-108); SAT O2 ABG 96 % (92-99)
[2020-11-07 08:23] LABS: FIO2 ABG 45
--- NOTE | 2020-11-07 08:28 | PDOC ---
PROGRESS NOTES Date of Service DATE: 11/07/20 TIME: 08:25 Assessment Problems Medical Problems: (1) Acute kidney injury Status: Acute (2) Fall Status: Acute (3) Skin abrasion Status: Acute (4) Weakness Status: Acute Metabolic encephalopathy, pneumonia and acute kidney injury, more alert today Covid negative No acute intracranial findings or focal abnormalities on exam Cervical spondylosis without evidence of radiculopathy or myelopathy Plan Treat medical issues Hold on additional studies such as MRI Discussed with patient and . Subjective No new complaints Objective Vital Signs Date Time Temp Pulse Resp B/P (MAP) Pulse Ox O2 Delivery O2 Flow Rate FiO2 11/07/20 07:54 BiPAP/CPAP 11/07/20 07:10 98.6 87 18 167/65 (99) 95 98.6 11/06/20 23:35 3.0 Intake and Output 11/07/20 07:00 Intake Total 1000 ml Balance 1000 ml Intake Oral 600 ml IV Total 400 ml # Voids 3 PHYSICAL EXAM Alert. Knows the year, says that she is "in a place that I do not want to be." PERRL. EOMI. CN: no focal findings. Muscle tone: normal. Muscle strength: 3-4/5 DTR: 1+ Plantar reflex: Flexor Gait: not examined in bed. Sensory exam: no abnormal findings. No cerebellar signs elicited. Review of Relevant I have reviewed the following items shiela (where applicable) has been applied. Labs Laboratory Tests Test 11/05/20 10:00 11/05/20 10:01 11/05/20 12:18 11/05/20 13:18 White Blood Count 10.1 x10^3/uL (4.0-11.0) Red Blood Count 3.91 x10^6/uL (3.50-5.40) Hemoglobin 12.3 g/dL (12.0-15.5) Hematocrit 36.2 % (36.0-47.0) Mean Corpuscular Volume 93 fL (79-100) Mean Corpuscular Hemoglobin 32 pg (25-35) Mean Corpuscular Hemoglobin Concent 34 g/dL (31-37) Red Cell Distribution Width 14.2 % (11.5-14.5) Platelet Count 229 x10^3/uL (140-400) Neutrophils (%) (Auto) 65 % (31-73) Lymphocytes (%) (Auto) 18 % (24-48) Monocytes (%) (Auto) 13 % (0-9) Eosinophils (%) (Auto) 4 % (0-3) Basophils (%) (Auto) 1 % (0-3) Neutrophils # (Auto) 6.5 x10^3/uL (1.8-7.7) Lymphocytes # (Auto) 1.8 x10^3/uL (1.0-4.8) Monocytes # (Auto) 1.3 x10^3/uL (0.0-1.1) Eosinophils # (Auto) 0.4 x10^3/uL (0.0-0.7) Basophils # (Auto) 0.0 x10^3/uL (0.0-0.2) Sodium Level 144 mmol/L (136-145) Potassium Level 4.2 mmol/L (3.5-5.1) Chloride Level 105 mmol/L (98-107) Carbon Dioxide Level 25 mmol/L (21-32) Anion Gap 14 (6-14) Blood Urea Nitrogen 23 mg/dL (7-20) Creatinine 2.5 mg/dL (0.6-1.0) Estimated GFR (Cockcroft-Gault) 18.5 BUN/Creatinine Ratio 9 (6-20) Glucose Level 115 mg/dL (70-99) Calcium Level 8.9 mg/dL (8.5-10.1) Total Bilirubin 0.4 mg/dL (0.2-1.0) Aspartate Amino Transf (AST/SGOT) 24 U/L (15-37) Alanine Aminotransferase (ALT/SGPT) 15 U/L (14-59) Alkaline Phosphatase 77 U/L (46-116) Creatine Kinase 191 U/L (26-192) Creatine Kinase MB (Mass) 5.8 ng/mL (0.0-3.6) Creatine Kinase MB Relative Index 3.0 % (0-4) Troponin I Quantitative 0.019 ng/mL (0.000-0.055) Total Protein 7.2 g/dL (6.4-8.2) Albumin 3.5 g/dL (3.4-5.0) Albumin/Globulin Ratio 0.9 (1.0-1.7) Glucose (Fingerstick) 120 mg/dL (70-99) Urine Collection Type U cath Urine Color Yellow Urine Clarity Clear Urine pH 5.0 (<5.0-8.0) Urine Specific [place] 1.015 (1.000-1.030) Urine Protein Negative mg/dL (NEG-TRACE) Urine Glucose (UA) Negative mg/dL (NEG) Urine Ketones (Stick) Negative mg/dL (NEG) Urine Blood Negative (NEG) Urine Nitrite Negative (NEG) Urine Bilirubin Negative (NEG) Urine Urobilinogen Dipstick 0.2 mg/dL (0.2 mg/dL) Urine Leukocyte Esterase Negative (NEG) Urine RBC 0 /HPF (0-2) Urine WBC 0 /HPF (0-4) Urine Transitional Epithelial Cells Occ /LPF Urine Bacteria 0 /HPF (0-FEW) Urine Hyaline Casts Few /HPF SARS-CoV-2 RNA (MICAELA) Negative (Negative) SARS-CoV-2 Antigen (Rapid) Negative (NEGATIVE) Test 11/06/20 11:15 11/06/20 14:00 11/06/20 14:17 11/07/20 03:35 O2 Saturation 94 % (92-99) 94 % (92-99) Arterial Blood pH 7.33 (7.35-7.45) 7.30 (7.35-7.45) Arterial Blood pH (Temp corrected) 7.32 Arterial Blood pCO2 at Patient Temp 52 mmHg (35-46) 55 mmHg (35-46) Arterial Blood pCO2 (Temp correct) 54 mmHg Arterial Blood pO2 at Patient Temp 65 mmHg (65-108) 70 mmHg (65-108) Arterial Blood pO2 (Temp corrected) 69 mmHg Arterial Blood HCO3 27 mmol/L (21-28) 26 mmol/L (21-28) Arterial Blood Base Excess 0 mmol/L (-3-3) -1 mmol/L (-3-3) FiO2 44 Urine Collection Type Unknown Urine Color Yellow Urine Clarity Clear Urine pH 5.0 (<5.0-8.0) Urine Specific [place] 1.020 (1.000-1.030) Urine Protein Negative mg/dL (NEG-TRACE) Urine Glucose (UA) Negative mg/dL (NEG) Urine Ketones (Stick) Negative mg/dL (NEG) Urine Blood Negative (NEG) Urine Nitrite Negative (NEG) Urine Bilirubin Small (NEG) Urine Urobilinogen Dipstick 0.2 mg/dL (0.2 mg/dL) Urine Leukocyte Esterase Negative (NEG) Urine RBC 0 /HPF (0-2) Urine WBC 0 /HPF (0-4) Urine Amorphous Sediment Present /HPF Urine Bacteria 0 /HPF (0-FEW) Urine Hyaline Casts Many /HPF Urine Mucus Mod /LPF Creatinine 2.5 mg/dL (0.6-1.0) Estimated GFR (Cockcroft-Gault) 18.5 Test 11/07/20 04:10 11/07/20 08:20 White Blood Count 15.3 x10^3/uL (4.0-11.0) Red Blood Count 3.70 x10^6/uL (3.50-5.40) Hemoglobin 11.5 g/dL (12.0-15.5) Hematocrit 34.7 % (36.0-47.0) Mean Corpuscular Volume 94 fL (79-100) Mean Corpuscular Hemoglobin 31 pg (25-35) Mean Corpuscular Hemoglobin Concent 33 g/dL (31-37) Red Cell Distribution Width 14.6 % (11.5-14.5) Platelet Count 168 x10^3/uL (140-400) Neutrophils (%) (Auto) 85 % (31-73) Lymphocytes (%) (Auto) 7 % (24-48) Monocytes (%) (Auto) 7 % (0-9) Eosinophils (%) (Auto) 1 % (0-3) Basophils (%) (Auto) 0 % (0-3) Neutrophils # (Auto) 12.9 x10^3/uL (1.8-7.7) Lymphocytes # (Auto) 1.1 x10^3/uL (1.0-4.8) Monocytes # (Auto) 1.0 x10^3/uL (0.0-1.1) Eosinophils # (Auto) 0.2 x10^3/uL (0.0-0.7) Basophils # (Auto) 0.0 x10^3/uL (0.0-0.2) Segmented Neutrophils % 29 % (35-66) Band Neutrophils % 55 % (0-9) Lymphocytes % 7 % (24-48) Monocytes % 2 % (0-10) Eosinophils % 1 % (0-5) Metamyelocytes % 4 % (0-0) Myelocytes % 2 % (0-0) Toxic Granulation Slight Dohle Bodies Present Platelet Estimate Adequate (ADEQUATE) Sodium Level 142 mmol/L (136-145) Potassium Level 4.0 mmol/L (3.5-5.1) Chloride Level 106 mmol/L (98-107) Carbon Dioxide Level 26 mmol/L (21-32) Anion Gap 10 (6-14) Blood Urea Nitrogen 45 mg/dL (7-20) Creatinine 2.6 mg/dL (0.6-1.0) Estimated GFR (Cockcroft-Gault) 17.7 BUN/Creatinine Ratio 17 (6-20) Glucose Level 112 mg/dL (70-99) Calcium Level 8.1 mg/dL (8.5-10.1) Total Bilirubin 0.7 mg/dL (0.2-1.0) Aspartate Amino Transf (AST/SGOT) 50 U/L (15-37) Alanine Aminotransferase (ALT/SGPT) 21 U/L (14-59) Alkaline Phosphatase 55 U/L (46-116) KK-[id number]-Type Natriuretic Peptide 8560 pg/mL (0-449) Total Protein 6.1 g/dL (6.4-8.2) Albumin 2.6 g/dL (3.4-5.0) Albumin/Globulin Ratio 0.7 (1.0-1.7) O2 Saturation 96 % (92-99) Arterial Blood pH 7.35 (7.35-7.45) Arterial Blood pCO2 at Patient Temp 43 mmHg (35-46) Arterial Blood pO2 at Patient Temp 81 mmHg (65-108) Arterial Blood HCO3 23 mmol/L (21-28) Arterial Blood Base Excess -3 mmol/L (-3-3) FiO2 45 Laboratory Tests Test 11/06/20 11:15 11/06/20 14:00 11/06/20 14:17 11/07/20 03:35 O2 Saturation 94 % (92-99) 94 % (92-99) Arterial Blood pH 7.33 (7.35-7.45) 7.30 (7.35-7.45) Arterial Blood pH (Temp corrected) 7.32 Arterial Blood pCO2 at Patient Temp 52 mmHg (35-46) 55 mmHg (35-46) Arterial Blood pCO2 (Temp correct) 54 mmHg Arterial Blood pO2 at Patient Temp 65 mmHg (65-108) 70 mmHg (65-108) Arterial Blood pO2 (Temp corrected) 69 mmHg Arterial Blood HCO3 27 mmol/L (21-28) 26 mmol/L (21-28) Arterial Blood Base Excess 0 mmol/L (-3-3) -1 mmol/L (-3-3) FiO2 44 Urine Collection Type Unknown Urine Color Yellow Urine Clarity Clear Urine pH 5.0 (<5.0-8.0) Urine Specific [place] 1.020 (1.000-1.030) Urine Protein Negative mg/dL (NEG-TRACE) Urine Glucose (UA) Negative mg/dL (NEG) Urine Ketones (Stick) Negative mg/dL (NEG) Urine Blood Negative (NEG) Urine Nitrite Negative (NEG) Urine Bilirubin Small (NEG) Urine Urobilinogen Dipstick 0.2 mg/dL (0.2 mg/dL) Urine Leukocyte Esterase Negative (NEG) Urine RBC 0 /HPF (0-2) Urine WBC 0 /HPF (0-4) Urine Amorphous Sediment Present /HPF Urine Bacteria 0 /HPF (0-FEW) Urine Hyaline Casts Many /HPF Urine Mucus Mod /LPF Creatinine 2.5 mg/dL (0.6-1.0) Estimated GFR (Cockcroft-Gault) 18.5 Test 11/07/20 04:10 11/07/20 08:20 White Blood Count 15.3 x10^3/uL (4.0-11.0) Red Blood Count 3.70 x10^6/uL (3.50-5.40) Hemoglobin 11.5 g/dL (12.0-15.5) Hematocrit 34.7 % (36.0-47.0) Mean Corpuscular Volume 94 fL (79-100) Mean Corpuscular Hemoglobin 31 pg (25-35) Mean Corpuscular Hemoglobin Concent 33 g/dL (31-37) Red Cell Distribution Width 14.6 % (11.5-14.5) Platelet Count 168 x10^3/uL (140-400) Neutrophils (%) (Auto) 85 % (31-73) Lymphocytes (%) (Auto) 7 % (24-48) Monocytes (%) (Auto) 7 % (0-9) Eosinophils (%) (Auto) 1 % (0-3) Basophils (%) (Auto) 0 % (0-3) Neutrophils # (Auto) 12.9 x10^3/uL (1.8-7.7) Lymphocytes # (Auto) 1.1 x10^3/uL (1.0-4.8) Monocytes # (Auto) 1.0 x10^3/uL (0.0-1.1) Eosinophils # (Auto) 0.2 x10^3/uL (0.0-0.7) Basophils # (Auto) 0.0 x10^3/uL (0.0-0.2) Segmented Neutrophils % 29 % (35-66) Band Neutrophils % 55 % (0-9) Lymphocytes % 7 % (24-48) Monocytes % 2 % (0-10) Eosinophils % 1 % (0-5) Metamyelocytes % 4 % (0-0) Myelocytes % 2 % (0-0) Toxic Granulation Slight Dohle Bodies Present Platelet Estimate Adequate (ADEQUATE) Sodium Level 142 mmol/L (136-145) Potassium Level 4.0 mmol/L (3.5-5.1) Chloride Level 106 mmol/L (98-107) Carbon Dioxide Level 26 mmol/L (21-32) Anion Gap 10 (6-14) Blood Urea Nitrogen 45 mg/dL (7-20) Creatinine 2.6 mg/dL (0.6-1.0) Estimated GFR (Cockcroft-Gault) 17.7 BUN/Creatinine Ratio 17 (6-20) Glucose Level 112 mg/dL (70-99) Calcium Level 8.1 mg/dL (8.5-10.1) Total Bilirubin 0.7 mg/dL (0.2-1.0) Aspartate Amino Transf (AST/SGOT) 50 U/L (15-37) Alanine Aminotransferase (ALT/SGPT) 21 U/L (14-59) Alkaline Phosphatase 55 U/L (46-116) [id number]-Type Natriuretic Peptide 8560 pg/mL (0-449) Total Protein 6.1 g/dL (6.4-8.2) Albumin 2.6 g/dL (3.4-5.0) Albumin/Globulin Ratio 0.7 (1.0-1.7) O2 Saturation 96 % (92-99) Arterial Blood pH 7.35 (7.35-7.45) Arterial Blood pCO2 at Patient Temp 43 mmHg (35-46) Arterial Blood pO2 at Patient Temp 81 mmHg (65-108) Arterial Blood HCO3 23 mmol/L (21-28) Arterial Blood Base Excess -3 mmol/L (-3-3) FiO2 45 Medications Current Medications Sodium Chloride 1,000 ml @ 1,000 mls/hr 1X ONCE IV Last administered on 11/05/20at 12:17; Start 11/05/20 at 10:15; Stop 11/05/20 at 11:14; Status DC Diphtheria/ Tetanus/Acell Pertussis (ADACEL TDap SYRINGE) 0.5 ml ONCE ONCE VAX IM Last administered on 11/05/20at 12:14; Start 11/05/20 at 10:45; Stop 11/05/20 at 10:53; Status DC Bacitracin (Bacitracin Zinc Oint Pkt) 1 pkt 1X ONCE TP Last administered on 11/05/20at 12:14; Start 11/05/20 at 10:45; Stop 11/05/20 at 10:53; Status DC Acetaminophen (Tylenol) 650 mg 1X ONCE PO Last administered on 11/05/20at 12:12; Start 11/05/20 at 12:00; Stop 11/05/20 at 12:01; Status DC Lorazepam (Ativan Inj) 1 mg 1X ONCE IVP Last administered on 11/05/20at 13:15; Start 11/05/20 at 13:15; Stop 11/05/20 at 13:16; Status DC Lamotrigine (LaMICtal) 100 mg BID PO Last administered on 11/06/20at 20:50; Start 11/06/20 at 09:00 Pantoprazole Sodium (PROTONIX VIAL for IV PUSH) 40 mg DAILYAC IVP Last administered on 11/07/20at 05:25; Start 11/06/20 at 08:00 Sodium Chloride 1,000 ml @ 75 mls/hr 1X ONCE IV Last administered on 11/06/20at 08:11; Start 11/06/20 at 07:45; Stop 11/06/20 at 21:04; Status DC Piperacillin Sod/ Tazobactam Sod 2.25 gm/Sodium Chloride 50 ml @ 100 mls/hr Q6HRS IV Last administered on 11/07/20at 05:27; Start 11/06/20 at 08:00 Acetaminophen (Tylenol Supp) 650 mg PRN Q6HRS PRN DE MILD PAIN / TEMP > 100.3'F Last administered on 11/06/20at 10:29; Start 11/06/20 at 10:15 Vancomycin HCl (Vanco Per Pharmacy) 1 each PRN DAILY PRN MC SEE COMMENTS; Start 11/06/20 at 11:45; Stop 11/06/20 at 13:20; Status DC Furosemide (Lasix) 40 mg 1X ONCE IVP Last administered on 11/06/20at 12:05; Start 11/06/20 at 11:45; Stop 11/06/20 at 11:46; Status DC Vancomycin HCl 1.5 gm/Sodium Chloride 500 ml @ 250 mls/hr 1X ONCE IV ; Start 11/06/20 at 14:00; Stop 11/06/20 at 13:18; Status DC Linezolid (Zyvox) 600 mg BID PO ; Start 11/06/20 at 13:30; Status Cancel Linezolid/Dextrose 300 ml @ 300 mls/hr Q12H IV Last administered on 11/07/20at 01:01; Start 11/06/20 at 14:00 Acetaminophen (Tylenol) 650 mg PRN Q6HRS PRN PO MILD PAIN / TEMP > 100.3'F Last administered on 11/06/20at 17:40; Start 11/06/20 at 17:30 Active Scripts Active Reported [Vitamin D] Alprazolam 1 Mg Tablet 1 Tab PO BID Centrum Complete Multivit Tab (Multivitamin/Iron/Folic Acid) 1 Each Tablet 1 Each PO DAILY [place] 3 Fish Oil Softgel ([place]-3 Fatty Acids/Fish Oil) 1 Each Capsule.dr 1 Each PO DAILY Vitamin C (Ascorbic Acid) 500 Mg Tab.chew 500 Mg PO DAILY Symbicort 160-4.5 Mcg Inhaler (Budesonide/Formoterol Fumarate) 10.2 Gm Hfa.aer.ad 1 Puff IH BID Aspir 81 (Aspirin) 81 Mg Tablet.dr 81 Mg PO DAILY Meloxicam 15 Mg Tablet 15 Mg PO DAILY Zoloft (Sertraline Hcl) 100 Mg Tablet 150 Mg PO DAILY Potassium Chloride 10 Meq Tab.er.prt 10 Meq PO DAILY Lasix (Furosemide) 40 Mg Tablet 40 Mg PO DAILY Flonase (Fluticasone Propionate) 16 Gm [place].susp 16 Gm NS DAILY Lamictal (Lamotrigine) 100 Mg Tablet 100 Mg PO BID [place]em[place] Hs 0.625-1.25 Mg Tablet (Estrogen,Tess/Me-Testosterone) 1 Each Tablet 1 Each PO DAILY Zocor (Simvastatin) 80 Mg Tablet 40 Mg PO QHS Vitals/I & O Vital Sign - Last 24 Hours 11/06/20 11/06/20 11/06/20 11/06/20 11:04 11:14 11:20 13:16 Temp 101.9 101.9 Pulse 97 Resp 22 B/P (MAP) 119/50 (73) Pulse Ox 92 94 96 O2 Delivery Nasal Cannula Nasal Cannula BiPAP/CPAP BiPAP/CPAP O2 Flow Rate 6.0 4.0 11/06/20 11/06/20 11/06/20 11/06/20 14:57 19:25 20:00 21:06 Temp 97.1 98.6 97.1 98.6 Pulse 90 68 Resp 20 18 B/P (MAP) 105/35 (58) 111/46 (67) Pulse Ox 93 93 99 O2 Delivery Nasal Cannula Nasal Cannula Nasal Cannula BiPAP/CPAP O2 Flow Rate 4.0 3.0 3.0 11/06/20 11/07/20 11/07/20 11/07/20 23:35 03:00 03:50 07:10 Temp 98.8 98.3 98.6 98.8 98.3 98.6 Pulse 90 90 87 Resp 18 18 18 B/P (MAP) 107/43 (64) 110/51 (70) 167/65 (99) Pulse Ox 93 93 93 95 O2 Delivery Nasal Cannula BiPAP/CPAP BiPAP/CPAP BiPAP/CPAP O2 Flow Rate 3.0 11/07/20 07:54 O2 Delivery BiPAP/CPAP Intake and Output 11/06/20 11/06/20 11/07/20 15:00 23:00 07:00 Intake Total 100 ml 540 ml 360 ml Balance 100 ml 540 ml 360 ml Justicifation of Admission Dx: Justifications for Admission: Justification of Admission Dx: N/A MOO BRO MD Nov 07, 2020 08:28
--- NOTE | 2020-11-07 08:40 | PDOC ---
Infectious Disease Note Subjective: Subjective She remains on BiPAP Fever pattern improved Somewhat confused No further episodes of nausea or vomiting per discussion with RN at bedside Vital Signs: Vital Signs Vital Signs Date Time Temp Pulse Resp B/P (MAP) Pulse Ox O2 Delivery O2 Flow Rate FiO2 11/07/20 07:54 BiPAP/CPAP 11/07/20 07:10 98.6 87 18 167/65 (99) 95 98.6 11/06/20 23:35 3.0 Physical Exam: PHYSICAL EXAM GENERAL: Alert, awake female, well-developed, well-nourished on BiPAP. Remains confused HEENT: Normocephalic, atraumatic. Anicteric. No thrush. Oral mucosa moist. NECK: Supple, no JVD. No meningismus. LUNGS: Coarse breath sounds bilaterally. Rhonchi present. HEART: S1, S2 regular. No murmurs. ABDOMEN: Soft, nontender, nondistended. No rebound. No guarding. GENITOURINARY: Brief is in place. No [place]. EXTREMITIES: No edema, no cyanosis. DERMATOLOGIC: Warm, dry. No generalized rash. Few abrasions not infected. PSYCHIATRIC: Calm, cooperative. NEUROLOGIC: Alert, awake, remains confused moves all 4 extremities. PIV looks clean. Medications: Inpatient Meds: Medications reviewed. Labs: Lab Laboratory Tests Test 11/06/20 11:15 11/06/20 14:00 11/06/20 14:17 11/07/20 03:35 O2 Saturation 94 % (92-99) 94 % (92-99) Arterial Blood pH 7.33 (7.35-7.45) 7.30 (7.35-7.45) Arterial Blood pH (Temp corrected) 7.32 Arterial Blood pCO2 at Patient Temp 52 mmHg (35-46) 55 mmHg (35-46) Arterial Blood pCO2 (Temp correct) 54 mmHg Arterial Blood pO2 at Patient Temp 65 mmHg (65-108) 70 mmHg (65-108) Arterial Blood pO2 (Temp corrected) 69 mmHg Arterial Blood HCO3 27 mmol/L (21-28) 26 mmol/L (21-28) Arterial Blood Base Excess 0 mmol/L (-3-3) -1 mmol/L (-3-3) FiO2 44 Urine Collection Type Unknown Urine Color Yellow Urine Clarity Clear Urine pH 5.0 (<5.0-8.0) Urine Specific [place] 1.020 (1.000-1.030) Urine Protein Negative mg/dL (NEG-TRACE) Urine Glucose (UA) Negative mg/dL (NEG) Urine Ketones (Stick) Negative mg/dL (NEG) Urine Blood Negative (NEG) Urine Nitrite Negative (NEG) Urine Bilirubin Small (NEG) Urine Urobilinogen Dipstick 0.2 mg/dL (0.2 mg/dL) Urine Leukocyte Esterase Negative (NEG) Urine RBC 0 /HPF (0-2) Urine WBC 0 /HPF (0-4) Urine Amorphous Sediment Present /HPF Urine Bacteria 0 /HPF (0-FEW) Urine Hyaline Casts Many /HPF Urine Mucus Mod /LPF Creatinine 2.5 mg/dL (0.6-1.0) Estimated GFR (Cockcroft-Gault) 18.5 Test 11/07/20 04:10 11/07/20 08:20 White Blood Count 15.3 x10^3/uL (4.0-11.0) Red Blood Count 3.70 x10^6/uL (3.50-5.40) Hemoglobin 11.5 g/dL (12.0-15.5) Hematocrit 34.7 % (36.0-47.0) Mean Corpuscular Volume 94 fL (79-100) Mean Corpuscular Hemoglobin 31 pg (25-35) Mean Corpuscular Hemoglobin Concent 33 g/dL (31-37) Red Cell Distribution Width 14.6 % (11.5-14.5) Platelet Count 168 x10^3/uL (140-400) Neutrophils (%) (Auto) 85 % (31-73) Lymphocytes (%) (Auto) 7 % (24-48) Monocytes (%) (Auto) 7 % (0-9) Eosinophils (%) (Auto) 1 % (0-3) Basophils (%) (Auto) 0 % (0-3) Neutrophils # (Auto) 12.9 x10^3/uL (1.8-7.7) Lymphocytes # (Auto) 1.1 x10^3/uL (1.0-4.8) Monocytes # (Auto) 1.0 x10^3/uL (0.0-1.1) Eosinophils # (Auto) 0.2 x10^3/uL (0.0-0.7) Basophils # (Auto) 0.0 x10^3/uL (0.0-0.2) Segmented Neutrophils % 29 % (35-66) Band Neutrophils % 55 % (0-9) Lymphocytes % 7 % (24-48) Monocytes % 2 % (0-10) Eosinophils % 1 % (0-5) Metamyelocytes % 4 % (0-0) Myelocytes % 2 % (0-0) Toxic Granulation Slight Dohle Bodies Present Platelet Estimate Adequate (ADEQUATE) Sodium Level 142 mmol/L (136-145) Potassium Level 4.0 mmol/L (3.5-5.1) Chloride Level 106 mmol/L (98-107) Carbon Dioxide Level 26 mmol/L (21-32) Anion Gap 10 (6-14) Blood Urea Nitrogen 45 mg/dL (7-20) Creatinine 2.6 mg/dL (0.6-1.0) Estimated GFR (Cockcroft-Gault) 17.7 BUN/Creatinine Ratio 17 (6-20) Glucose Level 112 mg/dL (70-99) Calcium Level 8.1 mg/dL (8.5-10.1) Total Bilirubin 0.7 mg/dL (0.2-1.0) Aspartate Amino Transf (AST/SGOT) 50 U/L (15-37) Alanine Aminotransferase (ALT/SGPT) 21 U/L (14-59) Alkaline Phosphatase 55 U/L (46-116) [id number]-Type Natriuretic Peptide 8560 pg/mL (0-449) Total Protein 6.1 g/dL (6.4-8.2) Albumin 2.6 g/dL (3.4-5.0) Albumin/Globulin Ratio 0.7 (1.0-1.7) O2 Saturation 96 % (92-99) Arterial Blood pH 7.35 (7.35-7.45) Arterial Blood pCO2 at Patient Temp 43 mmHg (35-46) Arterial Blood pO2 at Patient Temp 81 mmHg (65-108) Arterial Blood HCO3 23 mmol/L (21-28) Arterial Blood Base Excess -3 mmol/L (-3-3) FiO2 45 Objective: Assessment: 1. Fever, source appears respiratory. Improved 2. Acute hypoxic respiratory failure with diffuse bilateral infiltrates, Appears multifactorial including pneumonia, CHF, pneumonitis 3. Acute kidney injury. 4. History of chronic obstructive pulmonary disease. 5. History of obstructive sleep apnea. 6. CHF 7. Status post third booster of COVID vaccine. 8. Coffee-ground emesis earlier this morning. 9. History of fall prior to admission. 10.Encephalopathy appears metabolic Plan: Plan of Care Continue Zosyn and linezolid Follow labs and cultures Maintain aspiration precautions Discussed with at bedside Discussed with WILFRIDO ARGUELLES MD Nov 07, 2020 08:40
--- NOTE | 2020-11-07 08:49 | RAD ---
EXAM: Chest, single view. HISTORY: Congestive heart failure. COMPARISON: 11/06/2020 FINDINGS: A frontal view of the chest is obtained. There is stable diffuse interstitial and alveolar infiltrate. No pleural effusion or pneumothorax is seen. There is a stable cardiac silhouette. There are incidental dorsal column stimulator leads overlying the thoracic spine. There are surgical clips within the left upper abdomen. IMPRESSION: Stable diffuse infiltrate. Electronically signed by: Jena Blackburn MD (11/07/2020 8:46 AM) [id number]
[2020-11-07] MEDS: lamoTRIgine 100 MG TABLET. PO SCH ×2 (09:00→21:00)
--- NOTE | 2020-11-07 10:27 | PDOC ---
PULMONARY PROGRESS NOTES DATE: 11/07/20 TIME: 10:25 Subjective Still on BiPAP. Complains of shortness of breath and wheezing. Fever improving. Vitals Vital Signs Date Time Temp Pulse Resp B/P (MAP) Pulse Ox O2 Delivery O2 Flow Rate FiO2 11/07/20 07:54 BiPAP/CPAP 11/07/20 07:10 98.6 87 18 167/65 (99) 95 98.6 11/06/20 23:35 3.0 General: Alert, No acute distress Lungs: Wheezing Cardiovascular: S1 Abdomen: Soft Neuro Exam: Alert Extremities: No Edema Skin: Warm Labs Laboratory Tests Test 11/05/20 12:18 11/05/20 13:18 11/06/20 11:15 11/06/20 14:00 Urine Collection Type U cath Unknown Urine Color Yellow Yellow Urine Clarity Clear Clear Urine pH 5.0 (<5.0-8.0) 5.0 (<5.0-8.0) Urine Specific [place] 1.015 (1.000-1.030) 1.020 (1.000-1.030) Urine Protein Negative mg/dL (NEG-TRACE) Negative mg/dL (NEG-TRACE) Urine Glucose (UA) Negative mg/dL (NEG) Negative mg/dL (NEG) Urine Ketones (Stick) Negative mg/dL (NEG) Negative mg/dL (NEG) Urine Blood Negative (NEG) Negative (NEG) Urine Nitrite Negative (NEG) Negative (NEG) Urine Bilirubin Negative (NEG) Small (NEG) Urine Urobilinogen Dipstick 0.2 mg/dL (0.2 mg/dL) 0.2 mg/dL (0.2 mg/dL) Urine Leukocyte Esterase Negative (NEG) Negative (NEG) Urine RBC 0 /HPF (0-2) 0 /HPF (0-2) Urine WBC 0 /HPF (0-4) 0 /HPF (0-4) Urine Transitional Epithelial Cells Occ /LPF Urine Bacteria 0 /HPF (0-FEW) 0 /HPF (0-FEW) Urine Hyaline Casts Few /HPF Many /HPF SARS-CoV-2 RNA (MICAELA) Negative (Negative) SARS-CoV-2 Antigen (Rapid) Negative (NEGATIVE) O2 Saturation 94 % (92-99) Arterial Blood pH 7.33 (7.35-7.45) Arterial Blood pH (Temp corrected) 7.32 Arterial Blood pCO2 at Patient Temp 52 mmHg (35-46) Arterial Blood pCO2 (Temp correct) 54 mmHg Arterial Blood pO2 at Patient Temp 65 mmHg (65-108) Arterial Blood pO2 (Temp corrected) 69 mmHg Arterial Blood HCO3 27 mmol/L (21-28) Arterial Blood Base Excess 0 mmol/L (-3-3) FiO2 44 Urine Amorphous Sediment Present /HPF Urine Mucus Mod /LPF Test 11/06/20 14:17 11/07/20 03:35 11/07/20 04:10 11/07/20 08:20 Creatinine 2.5 mg/dL (0.6-1.0) 2.6 mg/dL (0.6-1.0) Estimated GFR (Cockcroft-Gault) 18.5 17.7 O2 Saturation 94 % (92-99) 96 % (92-99) Arterial Blood pH 7.30 (7.35-7.45) 7.35 (7.35-7.45) Arterial Blood pCO2 at Patient Temp 55 mmHg (35-46) 43 mmHg (35-46) Arterial Blood pO2 at Patient Temp 70 mmHg (65-108) 81 mmHg (65-108) Arterial Blood HCO3 26 mmol/L (21-28) 23 mmol/L (21-28) Arterial Blood Base Excess -1 mmol/L (-3-3) -3 mmol/L (-3-3) FiO2 45 White Blood Count 15.3 x10^3/uL (4.0-11.0) Red Blood Count 3.70 x10^6/uL (3.50-5.40) Hemoglobin 11.5 g/dL (12.0-15.5) Hematocrit 34.7 % (36.0-47.0) Mean Corpuscular Volume 94 fL (79-100) Mean Corpuscular Hemoglobin 31 pg (25-35) Mean Corpuscular Hemoglobin Concent 33 g/dL (31-37) Red Cell Distribution Width 14.6 % (11.5-14.5) Platelet Count 168 x10^3/uL (140-400) Neutrophils (%) (Auto) 85 % (31-73) Lymphocytes (%) (Auto) 7 % (24-48) Monocytes (%) (Auto) 7 % (0-9) Eosinophils (%) (Auto) 1 % (0-3) Basophils (%) (Auto) 0 % (0-3) Neutrophils # (Auto) 12.9 x10^3/uL (1.8-7.7) Lymphocytes # (Auto) 1.1 x10^3/uL (1.0-4.8) Monocytes # (Auto) 1.0 x10^3/uL (0.0-1.1) Eosinophils # (Auto) 0.2 x10^3/uL (0.0-0.7) Basophils # (Auto) 0.0 x10^3/uL (0.0-0.2) Segmented Neutrophils % 29 % (35-66) Band Neutrophils % 55 % (0-9) Lymphocytes % 7 % (24-48) Monocytes % 2 % (0-10) Eosinophils % 1 % (0-5) Metamyelocytes % 4 % (0-0) Myelocytes % 2 % (0-0) Toxic Granulation Slight Dohle Bodies Present Platelet Estimate Adequate (ADEQUATE) Sodium Level 142 mmol/L (136-145) Potassium Level 4.0 mmol/L (3.5-5.1) Chloride Level 106 mmol/L (98-107) Carbon Dioxide Level 26 mmol/L (21-32) Anion Gap 10 (6-14) Blood Urea Nitrogen 45 mg/dL (7-20) BUN/Creatinine Ratio 17 (6-20) Glucose Level 112 mg/dL (70-99) Calcium Level 8.1 mg/dL (8.5-10.1) Total Bilirubin 0.7 mg/dL (0.2-1.0) Aspartate Amino Transf (AST/SGOT) 50 U/L (15-37) Alanine Aminotransferase (ALT/SGPT) 21 U/L (14-59) Alkaline Phosphatase 55 U/L (46-116) MM-Ogs-T-Type Natriuretic Peptide 8560 pg/mL (0-449) Total Protein 6.1 g/dL (6.4-8.2) Albumin 2.6 g/dL (3.4-5.0) Albumin/Globulin Ratio 0.7 (1.0-1.7) Laboratory Tests Test 11/06/20 11:15 11/06/20 14:00 11/06/20 14:17 11/07/20 03:35 O2 Saturation 94 % (92-99) 94 % (92-99) Arterial Blood pH 7.33 (7.35-7.45) 7.30 (7.35-7.45) Arterial Blood pH (Temp corrected) 7.32 Arterial Blood pCO2 at Patient Temp 52 mmHg (35-46) 55 mmHg (35-46) Arterial Blood pCO2 (Temp correct) 54 mmHg Arterial Blood pO2 at Patient Temp 65 mmHg (65-108) 70 mmHg (65-108) Arterial Blood pO2 (Temp corrected) 69 mmHg Arterial Blood HCO3 27 mmol/L (21-28) 26 mmol/L (21-28) Arterial Blood Base Excess 0 mmol/L (-3-3) -1 mmol/L (-3-3) FiO2 44 Urine Collection Type Unknown Urine Color Yellow Urine Clarity Clear Urine pH 5.0 (<5.0-8.0) Urine Specific [place] 1.020 (1.000-1.030) Urine Protein Negative mg/dL (NEG-TRACE) Urine Glucose (UA) Negative mg/dL (NEG) Urine Ketones (Stick) Negative mg/dL (NEG) Urine Blood Negative (NEG) Urine Nitrite Negative (NEG) Urine Bilirubin Small (NEG) Urine Urobilinogen Dipstick 0.2 mg/dL (0.2 mg/dL) Urine Leukocyte Esterase Negative (NEG) Urine RBC 0 /HPF (0-2) Urine WBC 0 /HPF (0-4) Urine Amorphous Sediment Present /HPF Urine Bacteria 0 /HPF (0-FEW) Urine Hyaline Casts Many /HPF Urine Mucus Mod /LPF Creatinine 2.5 mg/dL (0.6-1.0) Estimated GFR (Cockcroft-Gault) 18.5 Test 11/07/20 04:10 11/07/20 08:20 White Blood Count 15.3 x10^3/uL (4.0-11.0) Red Blood Count 3.70 x10^6/uL (3.50-5.40) Hemoglobin 11.5 g/dL (12.0-15.5) Hematocrit 34.7 % (36.0-47.0) Mean Corpuscular Volume 94 fL (79-100) Mean Corpuscular Hemoglobin 31 pg (25-35) Mean Corpuscular Hemoglobin Concent 33 g/dL (31-37) Red Cell Distribution Width 14.6 % (11.5-14.5) Platelet Count 168 x10^3/uL (140-400) Neutrophils (%) (Auto) 85 % (31-73) Lymphocytes (%) (Auto) 7 % (24-48) Monocytes (%) (Auto) 7 % (0-9) Eosinophils (%) (Auto) 1 % (0-3) Basophils (%) (Auto) 0 % (0-3) Neutrophils # (Auto) 12.9 x10^3/uL (1.8-7.7) Lymphocytes # (Auto) 1.1 x10^3/uL (1.0-4.8) Monocytes # (Auto) 1.0 x10^3/uL (0.0-1.1) Eosinophils # (Auto) 0.2 x10^3/uL (0.0-0.7) Basophils # (Auto) 0.0 x10^3/uL (0.0-0.2) Segmented Neutrophils % 29 % (35-66) Band Neutrophils % 55 % (0-9) Lymphocytes % 7 % (24-48) Monocytes % 2 % (0-10) Eosinophils % 1 % (0-5) Metamyelocytes % 4 % (0-0) Myelocytes % 2 % (0-0) Toxic Granulation Slight Dohle Bodies Present Platelet Estimate Adequate (ADEQUATE) Sodium Level 142 mmol/L (136-145) Potassium Level 4.0 mmol/L (3.5-5.1) Chloride Level 106 mmol/L (98-107) Carbon Dioxide Level 26 mmol/L (21-32) Anion Gap 10 (6-14) Blood Urea Nitrogen 45 mg/dL (7-20) Creatinine 2.6 mg/dL (0.6-1.0) Estimated GFR (Cockcroft-Gault) 17.7 BUN/Creatinine Ratio 17 (6-20) Glucose Level 112 mg/dL (70-99) Calcium Level 8.1 mg/dL (8.5-10.1) Total Bilirubin 0.7 mg/dL (0.2-1.0) Aspartate Amino Transf (AST/SGOT) 50 U/L (15-37) Alanine Aminotransferase (ALT/SGPT) 21 U/L (14-59) Alkaline Phosphatase 55 U/L (46-116) NW-Nhl-N-Type Natriuretic Peptide 8560 pg/mL (0-449) Total Protein 6.1 g/dL (6.4-8.2) Albumin 2.6 g/dL (3.4-5.0) Albumin/Globulin Ratio 0.7 (1.0-1.7) O2 Saturation 96 % (92-99) Arterial Blood pH 7.35 (7.35-7.45) Arterial Blood pCO2 at Patient Temp 43 mmHg (35-46) Arterial Blood pO2 at Patient Temp 81 mmHg (65-108) Arterial Blood HCO3 23 mmol/L (21-28) Arterial Blood Base Excess -3 mmol/L (-3-3) FiO2 45 Medications Active Scripts Medications Dose Route/Sig Max Daily Dose Days Date Category [Vitamin D] 04/14/20 Reported Alprazolam 1 Mg Tablet 1 Tab PO BID 04/14/20 Reported Centrum Complete Multivit Tab (Multivitamin/Iron/Folic Acid) 1 Each Tablet 1 Each PO DAILY 03/05/18 Reported [place] 3 Fish Oil Softgel ([place]-3 Fatty Acids/Fish Oil) 1 Each Capsule.dr 1 Each PO DAILY 03/05/18 Reported Vitamin C (Ascorbic Acid) 500 Mg Tab.chew 500 Mg PO DAILY 03/05/18 Reported Symbicort 160-4.5 Mcg Inhaler (Budesonide/Formoterol Fumarate) 10.2 Gm Hfa.aer.ad 1 Puff IH BID 03/05/18 Reported Aspir 81 (Aspirin) 81 Mg Tablet.dr 81 Mg PO DAILY 04/23/17 Reported Meloxicam 15 Mg Tablet 15 Mg PO DAILY 04/23/17 Reported Zoloft (Sertraline Hcl) 100 Mg Tablet 150 Mg PO DAILY 07/28/16 Reported Potassium Chloride 10 Meq Tab.er.prt 10 Meq PO DAILY 03/10/13 Reported Lasix (Furosemide) 40 Mg Tablet 40 Mg PO DAILY 03/10/13 Reported Flonase (Fluticasone Propionate) 16 Gm [place].susp 16 Gm NS DAILY 03/10/13 Reported Lamictal (Lamotrigine) 100 Mg Tablet 100 Mg PO BID 03/10/13 Reported Eemt Hs 0.625-1.25 Mg Tablet (Estrogen,Tess/Me-Testosterone) 1 Each Tablet 1 Each PO DAILY 02/19/13 Reported Zocor (Simvastatin) 80 Mg Tablet 40 Mg PO QHS 02/19/13 Reported Comments Chest x-ray reviewed 11/07/2020 Mild improvement in bilateral interstitial infiltrates. Impression . 1. Acute hypoxic and hypercapnic respiratory failure with worsening bilateral infiltrates/ high grade fever in a patient who recently received 3rd COVID19- booster. Possibilities include A)Acute Interstitial Pneumonitis with hyperimmune response to vaccine. B).Likely congestive heart failure, Pt on IVF since admission ( High PrBNP) C) Sepsis with bacterial pneumonia ( Procalcitonin 30) 2. Abnormal chest x-ray with worsening bilateral infiltrates. Currently receiving IV fluids. Suspect congestive heart failure, but cannot exclude pneumonia. 3. Underlying chronic obstructive pulmonary disease. 4. Obstructive sleep apnea, on home CPAP and oxygen. 5. Acute kidney injury.? sepsis induced, check previous renal function. 6. The patient is status post third booster of COVID vaccine. Plan . 1. Continue BiPAP and follow ABGs. As needed 2. Follow all blood cultures. Follow infectious disease recommendations. 3. Hold off further Lasix. 4. Follow chest x-rays as needed. May consider doing CT chest. 5. Add IV Solu-Medrol due to bronchospasm along with duo nebs 6. Discussed with RN./ RT 10. d/w ID/ Dr John and patient's HEIDI TRACEY MD Nov 07, 2020 10:27
--- NOTE | 2020-11-07 10:42 | NUR ---
Dr. Mello notified of agitation, new order for Ativan IV 1mg Q6H PRN. is aware of order is in agreement with it
[2020-11-07 11:04] VITALS: BP 140/76
[2020-11-07] MEDS: methylPREDNISolone SOD SUCC PF 125 MG/2 ML VIAL. IV SCH ×2 (11:10→22:12)
[2020-11-07] MEDS: IPRATRPIUM/ALBUTEROL 0.5/2.5MG 3 ML NEBU. NEB SCH ×3 (11:32→20:18)
--- NOTE | 2020-11-07 13:11 | NUR ---
Pt continues to be agitated, trying to get out of bed, pulling at mits and at bipap. ask "is there anything else you can give her because she just wont stay still and trying to get out of the bed." Dr. Mello notified order to give Haldol 1mg IM X 1.
[2020-11-07] MEDS ORDERED: HALOPERIDOL LACTATE 5 MG/ML VIAL. IM ONE (13:15)
[2020-11-07 14:56] VITALS: BP 142/79
[2020-11-07 19:00] VITALS: BP 121/67
[2020-11-07 23:30] VITALS: BP 123/75
[2020-11-08] VITALS (8 sets, daily range): BP systolic 136–240; BP diastolic 63–100
[2020-11-08] MEDS: PIPERACILLIN/TAZOBACTAM 2.25 GM in IV NORMAL SALINE 50ML 50 ML IV SCH ×4 (00:14→21:33)
--- NOTE | 2020-11-08 05:32 | PN ---
DATE: 11/07/2020 DAILY PROGRESS NOTE SUBJECTIVE: This is an 80-year-old female remains hospitalized with sepsis, pneumonia, acute kidney injury likely due to pneumonia. She is much more awake and alert this morning, but definitely has a very altered mental status from her baseline. She is very encephalopathic. She does recognize me as well as her in the room, but feels like someone is trying to kill her and we have tried to reassure her that everybody is trying to help. She is quite combative after gloves on. OBJECTIVE: VITAL SIGNS: Stable. Temperature curve is better. CHEST: Reveals bilateral wheezes. HEART: Regular. ABDOMEN: Benign. She remains on O2. LABORATORY DATA: BNP is elevated at 8560. Procalcitonin is markedly elevated at 30.79, creatinine is still elevated at 2.6. Blood gas this morning called shows resolution of her respiratory acidosis. Hemoglobin has not dropped significantly with her ____ of coffee-ground emesis yesterday and she is on a PPI for the same. IMPRESSION: Pneumonia, sepsis, encephalopathy and acute kidney injury. PLAN: Continue supportive care. Help of pulmonary and ID appreciated ongoing antibiotics. Neurology opinion also noted. MARITZA/MAYDA/PATRICIA DR: MARITZA/darwin TID: [id number]
[2020-11-08] MEDS: methylPREDNISolone SOD SUCC PF 125 MG/2 ML VIAL. IV SCH ×3 (06:16→22:36)
[2020-11-08] MEDS: IPRATRPIUM/ALBUTEROL 0.5/2.5MG 3 ML NEBU. NEB SCH ×4 (08:02→20:00)
[2020-11-08] MEDS: PANTOPRAZOLE IV PUSH 40 MG VIAL. IVP SCH (08:34)
[2020-11-08] MEDS: lamoTRIgine 100 MG TABLET. PO SCH ×2 (08:34→21:00)
--- NOTE | 2020-11-08 09:18 | PDOC ---
Infectious Disease Note Subjective: Subjective She is sleeping, I could not arouse her,got ativan for agitation remains on BiPAP T-max 100.5 this am No further episodes of nausea or vomiting per discussion with RN at bedside Vital Signs: Vital Signs Vital Signs Date Time Temp Pulse Resp B/P (MAP) Pulse Ox O2 Delivery O2 Flow Rate FiO2 11/08/20 07:59 95 BiPAP/CPAP 11/08/20 07:00 97.9 65 22 170/65 (100) 97.9 Physical Exam: PHYSICAL EXAM GENERAL:Pt sleepy on BiPAP. HEENT: Normocephalic, atraumatic. Anicteric. No thrush. Oral mucosa moist. NECK: Supple, no JVD. No meningismus. LUNGS: Coarse breath sounds bilaterally. Rhonchi present. HEART: S1, S2 regular. No murmurs. ABDOMEN: Soft, nontender, nondistended. No rebound. No guarding. GENITOURINARY: Brief is in place. No Harrell. EXTREMITIES: No edema, no cyanosis. DERMATOLOGIC: Warm, dry. No generalized rash. Few abrasions not infected. PSYCHIATRIC: Calm, cooperative. NEUROLOGIC: in mittens,sleepy, PIV looks clean. Medications: Inpatient Meds: Medications reviewed. Objective: Assessment: 1. Fever, source appears respiratory. 2. Acute hypoxic respiratory failure with diffuse bilateral infiltrates, Appears multifactorial including pneumonia, CHF, pneumonitis 3. Acute kidney injury. 4. History of chronic obstructive pulmonary disease. 5. History of obstructive sleep apnea. 6. CHF 7. Status post third booster of COVID vaccine. 8. Coffee-ground emesis earlier this morning. 9. History of fall prior to admission. 10.Encephalopathy appears metabolic,no evidence of encephalitis Plan: Plan of Care Monitor resp status closely, Continue Zosyn and linezolid Follow labs and cultures Follow-up labs from a.m. Maintain aspiration precautions Discussed with at bedside Discussed with WILFRIDO ARGUELLES MD Nov 08, 2020 09:18
[2020-11-08 10:32] LABS: BASE EXCESS COOX 3 mmol/L (-3-3); HCO3 COOX 26 mmol/L (21-28); METHEMOGLOBIN 0.1 % (0.0-1.9); OXYHEMOGLOBIN 97.4 %; PCO2 COOX 36 mmHg (35-46); PO2 COOX 120 mmHg (65-108); SAT O2 COOX 98 % (92-99)
--- NOTE | 2020-11-08 10:44 | PDOC ---
PROGRESS NOTES Date of Service DATE: 11/08/20 TIME: 10:39 Assessment Problems Medical Problems: (1) Acute kidney injury Status: Acute (2) Fall Status: Acute (3) Skin abrasion Status: Acute (4) Weakness Status: Acute Metabolic encephalopathy, less alert, did get lorazepam for agitation Covid negative, status-post third booster of COVID vaccine No acute intracranial findings or focal abnormalities on exam Cervical spondylosis without evidence of radiculopathy or myelopathy. Fell prior to admission Fever, acute hypoxic respiratory failure, diffuse bilateral infiltrates, pneumonia, CHF, acute kidney injury, had coffee-ground emesis yesterday, 11/07. History of chronic obstructive pulmonary disease, obstructive sleep apnea. Plan Treat medical issues Hold on additional studies such as MRI Discussed with patient and . Subjective None Objective Vital Signs Date Time Temp Pulse Resp B/P (MAP) Pulse Ox O2 Delivery O2 Flow Rate FiO2 11/08/20 10:10 95 BiPAP/CPAP 11/08/20 07:00 97.9 65 22 170/65 (100) 97.9 Intake and Output 11/08/20 07:00 Intake Total 400 ml Balance 400 ml IV Total 400 ml # Voids 4 # Bowel Movements 3 PHYSICAL EXAM Alert. Interacts with her , but does not answer questions for me, just nods and grunts to him PERRL. EOMI. CN: no focal findings. Muscle tone: normal. Muscle strength: 3-4/5 DTR: 1+ Plantar reflex: Flexor Gait: not examined in bed. Sensory exam: no abnormal findings. No cerebellar signs elicited. Review of Relevant I have reviewed the following items shiela (where applicable) has been applied. Labs Laboratory Tests Test 11/06/20 11:15 11/06/20 14:00 11/06/20 14:17 11/07/20 03:35 O2 Saturation 94 % (92-99) 94 % (92-99) Arterial Blood pH 7.33 (7.35-7.45) 7.30 (7.35-7.45) Arterial Blood pH (Temp corrected) 7.32 Arterial Blood pCO2 at Patient Temp 52 mmHg (35-46) 55 mmHg (35-46) Arterial Blood pCO2 (Temp correct) 54 mmHg Arterial Blood pO2 at Patient Temp 65 mmHg (65-108) 70 mmHg (65-108) Arterial Blood pO2 (Temp corrected) 69 mmHg Arterial Blood HCO3 27 mmol/L (21-28) 26 mmol/L (21-28) Arterial Blood Base Excess 0 mmol/L (-3-3) -1 mmol/L (-3-3) FiO2 44 Urine Collection Type Unknown Urine Color Yellow Urine Clarity Clear Urine pH 5.0 (<5.0-8.0) Urine Specific [place] 1.020 (1.000-1.030) Urine Protein Negative mg/dL (NEG-TRACE) Urine Glucose (UA) Negative mg/dL (NEG) Urine Ketones (Stick) Negative mg/dL (NEG) Urine Blood Negative (NEG) Urine Nitrite Negative (NEG) Urine Bilirubin Small (NEG) Urine Urobilinogen Dipstick 0.2 mg/dL (0.2 mg/dL) Urine Leukocyte Esterase Negative (NEG) Urine RBC 0 /HPF (0-2) Urine WBC 0 /HPF (0-4) Urine Amorphous Sediment Present /HPF Urine Bacteria 0 /HPF (0-FEW) Urine Hyaline Casts Many /HPF Urine Mucus Mod /LPF Creatinine 2.5 mg/dL (0.6-1.0) Estimated GFR (Cockcroft-Gault) 18.5 Test 11/07/20 04:10 11/07/20 08:20 11/08/20 10:19 White Blood Count 15.3 x10^3/uL (4.0-11.0) Red Blood Count 3.70 x10^6/uL (3.50-5.40) Hemoglobin 11.5 g/dL (12.0-15.5) Hematocrit 34.7 % (36.0-47.0) Mean Corpuscular Volume 94 fL (79-100) Mean Corpuscular Hemoglobin 31 pg (25-35) Mean Corpuscular Hemoglobin Concent 33 g/dL (31-37) Red Cell Distribution Width 14.6 % (11.5-14.5) Platelet Count 168 x10^3/uL (140-400) Neutrophils (%) (Auto) 85 % (31-73) Lymphocytes (%) (Auto) 7 % (24-48) Monocytes (%) (Auto) 7 % (0-9) Eosinophils (%) (Auto) 1 % (0-3) Basophils (%) (Auto) 0 % (0-3) Neutrophils # (Auto) 12.9 x10^3/uL (1.8-7.7) Lymphocytes # (Auto) 1.1 x10^3/uL (1.0-4.8) Monocytes # (Auto) 1.0 x10^3/uL (0.0-1.1) Eosinophils # (Auto) 0.2 x10^3/uL (0.0-0.7) Basophils # (Auto) 0.0 x10^3/uL (0.0-0.2) Segmented Neutrophils % 29 % (35-66) Band Neutrophils % 55 % (0-9) Lymphocytes % 7 % (24-48) Monocytes % 2 % (0-10) Eosinophils % 1 % (0-5) Metamyelocytes % 4 % (0-0) Myelocytes % 2 % (0-0) Toxic Granulation Slight Dohle Bodies Present Platelet Estimate Adequate (ADEQUATE) Sodium Level 142 mmol/L (136-145) Potassium Level 4.0 mmol/L (3.5-5.1) Chloride Level 106 mmol/L (98-107) Carbon Dioxide Level 26 mmol/L (21-32) Anion Gap 10 (6-14) Blood Urea Nitrogen 45 mg/dL (7-20) Creatinine 2.6 mg/dL (0.6-1.0) Estimated GFR (Cockcroft-Gault) 17.7 BUN/Creatinine Ratio 17 (6-20) Glucose Level 112 mg/dL (70-99) Calcium Level 8.1 mg/dL (8.5-10.1) Total Bilirubin 0.7 mg/dL (0.2-1.0) Aspartate Amino Transf (AST/SGOT) 50 U/L (15-37) Alanine Aminotransferase (ALT/SGPT) 21 U/L (14-59) Alkaline Phosphatase 55 U/L (46-116) SN-Jbs-Q-Type Natriuretic Peptide 8560 pg/mL (0-449) Total Protein 6.1 g/dL (6.4-8.2) Albumin 2.6 g/dL (3.4-5.0) Albumin/Globulin Ratio 0.7 (1.0-1.7) Procalcitonin 30.79 ng/mL (0.00-0.10) O2 Saturation 96 % (92-99) 98 % (92-99) Arterial Blood pH 7.35 (7.35-7.45) 7.48 (7.35-7.45) Arterial Blood pCO2 at Patient Temp 43 mmHg (35-46) 36 mmHg (35-46) Arterial Blood pO2 at Patient Temp 81 mmHg (65-108) 120 mmHg (65-108) Arterial Blood HCO3 23 mmol/L (21-28) 26 mmol/L (21-28) Arterial Blood Base Excess -3 mmol/L (-3-3) 3 mmol/L (-3-3) FiO2 45 45% Oxyhemoglobin 97.4 % Methemoglobin 0.1 % (0.0-1.9) Carbon Monoxide, Quantitative 0.2 % (0.0-1.9) Laboratory Tests Test 11/08/20 10:19 O2 Saturation 98 % (92-99) Arterial Blood pH 7.48 (7.35-7.45) Arterial Blood pCO2 at Patient Temp 36 mmHg (35-46) Arterial Blood pO2 at Patient Temp 120 mmHg (65-108) Arterial Blood HCO3 26 mmol/L (21-28) Arterial Blood Base Excess 3 mmol/L (-3-3) Oxyhemoglobin 97.4 % Methemoglobin 0.1 % (0.0-1.9) Carbon Monoxide, Quantitative 0.2 % (0.0-1.9) FiO2 45% Medications Current Medications Sodium Chloride 1,000 ml @ 1,000 mls/hr 1X ONCE IV Last administered on 11/05/20at 12:17; Start 11/05/20 at 10:15; Stop 11/05/20 at 11:14; Status DC Diphtheria/ Tetanus/Acell Pertussis (ADACEL TDap SYRINGE) 0.5 ml ONCE ONCE VAX I M Last administered on 11/05/20at 12:14; Start 11/05/20 at 10:45; Stop 11/05/20 at 10:53; Status DC Bacitracin (Bacitracin Zinc Oint Pkt) 1 pkt 1X ONCE TP Last administered on 11/05/20at 12:14; Start 11/05/20 at 10:45; Stop 11/05/20 at 10:53; Status DC Acetaminophen (Tylenol) 650 mg 1X ONCE PO Last administered on 11/05/20at 12:12; Start 11/05/20 at 12:00; Stop 11/05/20 at 12:01; Status DC Lorazepam (Ativan Inj) 1 mg 1X ONCE IVP Last administered on 11/05/20at 13:15; Start 11/05/20 at 13:15; Stop 11/05/20 at 13:16; Status DC Lamotrigine (LaMICtal) 100 mg BID PO Last administered on 11/06/20at 20:50; Start 11/06/20 at 09:00 Pantoprazole Sodium (PROTONIX VIAL for IV PUSH) 40 mg DAILYAC IVP Last administered on 11/08/20at 08:34; Start 11/06/20 at 08:00 Sodium Chloride 1,000 ml @ 75 mls/hr 1X ONCE IV Last administered on 11/06/20at 08:11; Start 11/06/20 at 07:45; Stop 11/06/20 at 21:04; Status DC Piperacillin Sod/ Tazobactam Sod 2.25 gm/Sodium Chloride 50 ml @ 100 mls/hr Q6HRS IV Last administered on 11/08/20at 06:16; Start 11/06/20 at 08:00 Acetaminophen (Tylenol Supp) [address] MILD PAIN / TEMP > 100.3'F Last administered on 11/06/20at 10:29; Start 11/06/20 at 10:15 Vancomycin HCl (Vanco Per Pharmacy) 1 each PRN DAILY PRN MC SEE COMMENTS; Start 11/06/20 at 11:45; Stop 11/06/20 at 13:20; Status DC Furosemide (Lasix) 40 mg 1X ONCE IVP Last administered on 11/06/20at 12:05; Start 11/06/20 at 11:45; Stop 11/06/20 at 11:46; Status DC Vancomycin HCl 1.5 gm/Sodium Chloride 500 ml @ 250 mls/hr 1X ONCE IV ; Start 11/06/20 at 14:00; Stop 11/06/20 at 13:18; Status DC Linezolid (Zyvox) 600 mg BID PO ; Start 11/06/20 at 13:30; Status Cancel Linezolid/Dextrose 300 ml @ 300 mls/hr Q12H IV Last administered on 11/08/20at 02:07; Start 11/06/20 at 14:00 Acetaminophen (Tylenol) 650 mg PRN Q6HRS PRN PO MILD PAIN / TEMP > 100.3'F Last administered on 11/06/20at 17:40; Start 11/06/20 at 17:30 Methylprednisolone Sodium Succinate (SOLU-Medrol 125MG VIAL) 60 mg Q8HRS IV Last administered on 11/08/20at 06:16; Start 11/07/20 at 11:00 Albuterol/ Ipratropium (Duoneb) 3 ml RTQID NEB Last administered on 11/08/20at 08:02; Start 11/07/20 at 12:00 Lorazepam (Ativan Inj) 1 mg PRN Q6HRS PRN IVP ANXIETY / AGITATION Last administered on 11/08/20at 05:34; Start 11/07/20 at 10:45 Haloperidol Lactate (Haldol Inj) 1 mg 1X ONCE IM Last administered on 11/07/20at 13:20; Start 11/07/20 at 13:15; Stop 11/07/20 at 13:16; Status DC Active Scripts Active Reported [Vitamin D] Alprazolam 1 Mg Tablet 1 Tab PO BID Centrum Complete Multivit Tab (Multivitamin/Iron/Folic Acid) 1 Each Tablet 1 Each PO DAILY [place] 3 Fish Oil Softgel ([place]-3 Fatty Acids/Fish Oil) 1 Each Capsule.dr 1 Each PO DAILY Vitamin C (Ascorbic Acid) 500 Mg Tab.chew 500 Mg PO DAILY Symbicort 160-4.5 Mcg Inhaler (Budesonide/Formoterol Fumarate) 10.2 Gm Hfa.aer.ad 1 Puff IH BID Aspir 81 (Aspirin) 81 Mg Tablet.dr 81 Mg PO DAILY Meloxicam 15 Mg Tablet 15 Mg PO DAILY Zoloft (Sertraline Hcl) 100 Mg Tablet 150 Mg PO DAILY Potassium Chloride 10 Meq Tab.er.prt 10 Meq PO DAILY Lasix (Furosemide) 40 Mg Tablet 40 Mg PO DAILY Flonase (Fluticasone Propionate) 16 Gm [place].susp 16 Gm NS DAILY Lamictal (Lamotrigine) 100 Mg Tablet 100 Mg PO BID Eemt Hs 0.625-1.25 Mg Tablet (Estrogen,Tess/Me-Testosterone) 1 Each Tablet 1 Each PO DAILY Zocor (Simvastatin) 80 Mg Tablet 40 Mg PO QHS Vitals/I & O Vital Sign - Last 24 Hours 11/07/20 11/07/20 11/07/20 11/07/20 11:04 11:32 13:22 14:49 Temp 98.2 98.2 Pulse 83 Resp 22 B/P (MAP) 140/76 (97) Pulse Ox 96 O2 Delivery BiPAP/CPAP BiPAP/CPAP BiPAP/CPAP BiPAP/CPAP 11/07/20 11/07/20 11/07/20 11/07/20 14:56 17:07 19:00 19:40 Temp 99.2 100.5 99.2 100.5 Pulse 85 65 Resp 22 25 B/P (MAP) 142/79 (100) 121/67 (85) Pulse Ox 95 91 O2 Delivery BiPAP/CPAP BiPAP/CPAP BiPAP/CPAP Bi-pap 11/07/20 11/07/20 11/07/20 11/08/20 20:19 23:30 23:30 02:05 Temp 99.7 99.7 Pulse 127 Resp B/P (MAP) 123/75 (91) Pulse Ox 94 92 O2 Delivery BiPAP/CPAP BiPAP/CPAP BiPAP/CPAP BiPAP/CPAP 11/08/20 11/08/20 11/08/20 11/08/20 03:17 04:22 07:00 07:59 Temp 100.4 97.9 100.4 97.9 Pulse 91 65 Resp B/P (MAP) 169/90 (116) 170/65 (100) Pulse Ox 94 95 95 95 O2 Delivery BiPAP/CPAP BiPAP/CPAP BiPAP/CPAP BiPAP/CPAP 11/08/20 10:10 Pulse Ox 95 O2 Delivery BiPAP/CPAP Intake and Output 11/07/20 11/07/20 11/08/20 15:00 23:00 07:00 Intake Total 50 ml 350 ml Balance 50 ml 350 ml Justicifation of Admission Dx: Justifications for Admission: Justification of Admission Dx: N/A MOO BRO MD Nov 08, 2020 10:44
[2020-11-08 11:06] LABS: BASO % 0 % (0-3); EOS % 0 % (0-3); HEMATOCRIT 33.6 % (36.0-47.0); HEMOGLOBIN 11.1 g/dL (12.0-15.5); LYMPH # 0.8 x10^3/uL (1.0-4.8); LYMPH % 5 % (24-48); MEAN CORPUSCULAR HEMOGLOBIN 31 pg (25-35); MEAN CORPUSCULAR HGB CONC 33 g/dL (31-37); MEAN CORPUSCULAR VOLUME 93 fL (79-100); MONO # 0.6 x10^3/uL (0.0-1.1); MONO % 3 % (0-9); NEUT # 15.2 x10^3/uL (1.8-7.7); NEUT % 92 % (31-73); PLATELET COUNT 194 x10^3/uL (140-400); RED BLOOD COUNT 3.61 x10^6/uL (3.50-5.40); RED CELL DISTRIBUTION WIDTH 14.6 % (11.5-14.5); WHITE BLOOD COUNT 16.7 x10^3/uL (4.0-11.0)
[2020-11-08 11:10] LABS: ALBUMIN 2.4 g/dL (3.4-5.0); ALBUMIN/GLOBULIN RATIO 0.6 (1.0-1.7); CALCIUM 8.6 mg/dL (8.5-10.1); CREATININE 1.6 mg/dL (0.6-1.0); GFR 30.9; POTASSIUM 3.6 mmol/L (3.5-5.1); TOTAL BILIRUBIN 0.6 mg/dL (0.2-1.0); TOTAL PROTEIN 6.4 g/dL (6.4-8.2)
--- NOTE | 2020-11-08 11:27 | PDOC ---
PULMONARY PROGRESS NOTES DATE: 11/08/20 TIME: 11:23 Subjective Patient remains on BiPAP Lethargic on examination however received Ativan overnight Vitals Vital Signs Date Time Temp Pulse Resp B/P (MAP) Pulse Ox O2 Delivery O2 Flow Rate FiO2 11/08/20 11:01 98.5 88 20 196/95 (128) 98 BiPAP/CPAP 98.5 Comments Unable to report review of systems secondary to current clinical state General: Alert, No acute distress Lungs: Wheezing Cardiovascular: S1 Abdomen: Soft Neuro Exam: Alert Extremities: No Edema Skin: Warm Labs Laboratory Tests Test 11/06/20 14:00 11/06/20 14:17 11/07/20 03:35 11/07/20 04:10 Urine Collection Type Unknown Urine Color Yellow Urine Clarity Clear Urine pH 5.0 (<5.0-8.0) Urine Specific [place] 1.020 (1.000-1.030) Urine Protein Negative mg/dL (NEG-TRACE) Urine Glucose (UA) Negative mg/dL (NEG) Urine Ketones (Stick) Negative mg/dL (NEG) Urine Blood Negative (NEG) Urine Nitrite Negative (NEG) Urine Bilirubin Small (NEG) Urine Urobilinogen Dipstick 0.2 mg/dL (0.2 mg/dL) Urine Leukocyte Esterase Negative (NEG) Urine RBC 0 /HPF (0-2) Urine WBC 0 /HPF (0-4) Urine Amorphous Sediment Present /HPF Urine Bacteria 0 /HPF (0-FEW) Urine Hyaline Casts Many /HPF Urine Mucus Mod /LPF Creatinine 2.5 mg/dL (0.6-1.0) 2.6 mg/dL (0.6-1.0) Estimated GFR (Cockcroft-Gault) 18.5 17.7 O2 Saturation 94 % (92-99) Arterial Blood pH 7.30 (7.35-7.45) Arterial Blood pCO2 at Patient Temp 55 mmHg (35-46) Arterial Blood pO2 at Patient Temp 70 mmHg (65-108) Arterial Blood HCO3 26 mmol/L (21-28) Arterial Blood Base Excess -1 mmol/L (-3-3) FiO2 White Blood Count 15.3 x10^3/uL (4.0-11.0) Red Blood Count 3.70 x10^6/uL (3.50-5.40) Hemoglobin 11.5 g/dL (12.0-15.5) Hematocrit 34.7 % (36.0-47.0) Mean Corpuscular Volume 94 fL (79-100) Mean Corpuscular Hemoglobin 31 pg (25-35) Mean Corpuscular Hemoglobin Concent 33 g/dL (31-37) Red Cell Distribution Width 14.6 % (11.5-14.5) Platelet Count 168 x10^3/uL (140-400) Neutrophils (%) (Auto) 85 % (31-73) Lymphocytes (%) (Auto) 7 % (24-48) Monocytes (%) (Auto) 7 % (0-9) Eosinophils (%) (Auto) 1 % (0-3) Basophils (%) (Auto) 0 % (0-3) Neutrophils # (Auto) 12.9 x10^3/uL (1.8-7.7) Lymphocytes # (Auto) 1.1 x10^3/uL (1.0-4.8) Monocytes # (Auto) 1.0 x10^3/uL (0.0-1.1) Eosinophils # (Auto) 0.2 x10^3/uL (0.0-0.7) Basophils # (Auto) 0.0 x10^3/uL (0.0-0.2) Segmented Neutrophils % 29 % (35-66) Band Neutrophils % 55 % (0-9) Lymphocytes % 7 % (24-48) Monocytes % 2 % (0-10) Eosinophils % 1 % (0-5) Metamyelocytes % 4 % (0-0) Myelocytes % 2 % (0-0) Toxic Granulation Slight Dohle Bodies Present Platelet Estimate Adequate (ADEQUATE) Sodium Level 142 mmol/L (136-145) Potassium Level 4.0 mmol/L (3.5-5.1) Chloride Level 106 mmol/L (98-107) Carbon Dioxide Level 26 mmol/L (21-32) Anion Gap 10 (6-14) Blood Urea Nitrogen 45 mg/dL (7-20) BUN/Creatinine Ratio 17 (6-20) Glucose Level 112 mg/dL (70-99) Calcium Level 8.1 mg/dL (8.5-10.1) Total Bilirubin 0.7 mg/dL (0.2-1.0) Aspartate Amino Transf (AST/SGOT) 50 U/L (15-37) Alanine Aminotransferase (ALT/SGPT) 21 U/L (14-59) Alkaline Phosphatase 55 U/L (46-116) BW-Lne-D-Type Natriuretic Peptide 8560 pg/mL (0-449) Total Protein 6.1 g/dL (6.4-8.2) Albumin 2.6 g/dL (3.4-5.0) Albumin/Globulin Ratio 0.7 (1.0-1.7) Procalcitonin 30.79 ng/mL (0.00-0.10) Test 11/07/20 08:20 11/08/20 10:19 11/08/20 10:30 O2 Saturation 96 % (92-99) 98 % (92-99) Arterial Blood pH 7.35 (7.35-7.45) 7.48 (7.35-7.45) Arterial Blood pCO2 at Patient Temp 43 mmHg (35-46) 36 mmHg (35-46) Arterial Blood pO2 at Patient Temp 81 mmHg (65-108) 120 mmHg (65-108) Arterial Blood HCO3 23 mmol/L (21-28) 26 mmol/L (21-28) Arterial Blood Base Excess -3 mmol/L (-3-3) 3 mmol/L (-3-3) FiO2 45 45% Oxyhemoglobin 97.4 % Methemoglobin 0.1 % (0.0-1.9) Carbon Monoxide, Quantitative 0.2 % (0.0-1.9) Sodium Level 142 mmol/L (136-145) Potassium Level 3.6 mmol/L (3.5-5.1) Chloride Level 107 mmol/L (98-107) Carbon Dioxide Level 28 mmol/L (21-32) Anion Gap 7 (6-14) Blood Urea Nitrogen 51 mg/dL (7-20) Creatinine 1.6 mg/dL (0.6-1.0) Estimated GFR (Cockcroft-Gault) 30.9 BUN/Creatinine Ratio 32 (6-20) Glucose Level 157 mg/dL (70-99) Calcium Level 8.6 mg/dL (8.5-10.1) Total Bilirubin 0.6 mg/dL (0.2-1.0) Aspartate Amino Transf (AST/SGOT) 39 U/L (15-37) Alanine Aminotransferase (ALT/SGPT) 22 U/L (14-59) Alkaline Phosphatase 61 U/L (46-116) Total Protein 6.4 g/dL (6.4-8.2) Albumin 2.4 g/dL (3.4-5.0) Albumin/Globulin Ratio 0.6 (1.0-1.7) Laboratory Tests Test 11/08/20 10:19 11/08/20 10:30 O2 Saturation 98 % (92-99) Arterial Blood pH 7.48 (7.35-7.45) Arterial Blood pCO2 at Patient Temp 36 mmHg (35-46) Arterial Blood pO2 at Patient Temp 120 mmHg (65-108) Arterial Blood HCO3 26 mmol/L (21-28) Arterial Blood Base Excess 3 mmol/L (-3-3) Oxyhemoglobin 97.4 % Methemoglobin 0.1 % (0.0-1.9) Carbon Monoxide, Quantitative 0.2 % (0.0-1.9) FiO2 45% Sodium Level 142 mmol/L (136-145) Potassium Level 3.6 mmol/L (3.5-5.1) Chloride Level 107 mmol/L (98-107) Carbon Dioxide Level 28 mmol/L (21-32) Anion Gap 7 (6-14) Blood Urea Nitrogen 51 mg/dL (7-20) Creatinine 1.6 mg/dL (0.6-1.0) Estimated GFR (Cockcroft-Gault) 30.9 BUN/Creatinine Ratio 32 (6-20) Glucose Level 157 mg/dL (70-99) Calcium Level 8.6 mg/dL (8.5-10.1) Total Bilirubin 0.6 mg/dL (0.2-1.0) Aspartate Amino Transf (AST/SGOT) 39 U/L (15-37) Alanine Aminotransferase (ALT/SGPT) 22 U/L (14-59) Alkaline Phosphatase 61 U/L (46-116) Total Protein 6.4 g/dL (6.4-8.2) Albumin 2.4 g/dL (3.4-5.0) Albumin/Globulin Ratio 0.6 (1.0-1.7) Medications Active Scripts Medications Dose Route/Sig Max Daily Dose Days Date Category [Vitamin D] 04/14/20 Reported Alprazolam 1 Mg Tablet 1 Tab PO BID 04/14/20 Reported Centrum Complete Multivit Tab (Multivitamin/Iron/Folic Acid) 1 Each Tablet 1 Each PO DAILY 03/05/18 Reported [place] 3 Fish Oil Softgel ([place]-3 Fatty Acids/Fish Oil) 1 Each Capsule.dr 1 Each PO DAILY 03/05/18 Reported Vitamin C (Ascorbic Acid) 500 Mg Tab.chew 500 Mg PO DAILY 03/05/18 Reported Symbicort 160-4.5 Mcg Inhaler (Budesonide/Formoterol Fumarate) 10.2 Gm Hfa.aer.ad 1 Puff IH BID 03/05/18 Reported Aspir 81 (Aspirin) 81 Mg Tablet.dr 81 Mg PO DAILY 04/23/17 Reported Meloxicam 15 Mg Tablet 15 Mg PO DAILY 04/23/17 Reported Zoloft (Sertraline Hcl) 100 Mg Tablet 150 Mg PO DAILY 07/28/16 Reported Potassium Chloride 10 Meq Tab.er.prt 10 Meq PO DAILY 03/10/13 Reported Lasix (Furosemide) 40 Mg Tablet 40 Mg PO DAILY 03/10/13 Reported Flonase (Fluticasone Propionate) 16 Gm [place].susp 16 Gm NS DAILY 03/10/13 Reported Lamictal (Lamotrigine) 100 Mg Tablet 100 Mg PO BID 03/10/13 Reported Eemt Hs 0.625-1.25 Mg Tablet (Estrogen,Tess/Me-Testosterone) 1 Each Tablet 1 Each PO DAILY 02/19/13 Reported Zocor (Simvastatin) 80 Mg Tablet 40 Mg PO QHS 02/19/13 Reported Impression . 1. Acute hypoxic and hypercapnic respiratory failure with worsening bilateral infiltrates/ high grade fever in a patient who recently received 3rd COVID19- booster. Possibilities include A)Acute Interstitial Pneumonitis with hyperimmune response to vaccine. B).Likely congestive heart failure, Pt on IVF since admission ( High PrBNP) C) Sepsis with bacterial pneumonia ( Procalcitonin 30) 2. Abnormal chest x-ray with worsening bilateral infiltrates. Currently receiving IV fluids. Suspect congestive heart failure, but cannot exclude pneumonia. 3. Underlying chronic obstructive pulmonary disease. 4. Obstructive sleep apnea, on home CPAP and oxygen. 5. Acute kidney injury.? sepsis induced, check previous renal function. 6. The patient is status post third booster of COVID vaccine. Plan . Updated 11/08/2020 Continue supplemental oxygen with BiPAP at 45%, keep oxygen saturations greater than 92% Pump settings reviewed 02/09 with a rate of 20 at 45%, ABG reviewed no changes at this time Continue antibiotics per infectious disease Continue IV steroids, will slowly taper Bronchodilators DC Ativan, Haldol as needed for agitation DVT/GI prophylaxis Discussed with RN and RT Discussed with at bedside HERMINIO RIGGS APRN Nov 08, 2020 11:27
[2020-11-08] MEDS: cloNIDine TTS-1 1 PATCH PATCH.TDWK TD SCH (12:14)
--- NOTE | 2020-11-08 13:18 | RAD ---
EXAM: Chest CT without intravenous contrast. HISTORY: Hypoxia. TECHNIQUE: Computed tomographic images of the chest were obtained without contrast. Multiplanar refor matting was performed. *One or more of the following individualized dose reduction techniques were utilized for this examina tion: 1. Automated exposure control. 2. Adjustment of the mA and/or kV according to patient size. 3. Use of iterative reconstruction technique. COMPARISON: 04/18/2020. FINDINGS: There is multifocal bilateral multifocal alveolar infiltrate with partial left lower lobe c onsolidation. There is no significant pleural effusion. There is no pneumothorax. There is cardiomega ly. The aorta is normal in caliber. There are calcified hilar granulomas. No pathologically enlarged noncalcified lymph node is seen. There is no acute finding involving the upper abdomen. There is no a cute or suspicious osseous lesion. IMPRESSION: Multifocal bilateral alveolar infiltrate with partial left lower lobe consolidation. Electronically signed by: Jena Blackburn MD (11/08/2020 1:15 PM) [id number]
--- NOTE | 2020-11-08 13:30 | NUR ---
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 Pt was transferred to [address] [place] [address] for tele monitoring, she is on continuous bipap with positive sepsis protocol. Report was given to Estrada ARREOLA on [facility]. Pt was stable at transfer.
[2020-11-08] MEDS: HALOPERIDOL LACTATE 5 MG/ML VIAL. IVP PRN (22:35)
[2020-11-09] VITALS (7 sets, daily range): BP systolic 175–210; BP diastolic 78–93
[2020-11-09] MEDS: PIPERACILLIN/TAZOBACTAM 2.25 GM in IV NORMAL SALINE 50ML 50 ML IV SCH ×5 (00:57→23:25)
[2020-11-09] MEDS: methylPREDNISolone SOD SUCC PF 125 MG/2 ML VIAL. IV SCH ×3 (05:33→19:56)
--- NOTE | 2020-11-09 05:47 | PN ---
DATE: 11/08/2020 DAILY PROGRESS NOTE LOCATION: She is in room 434. SUBJECTIVE: This 80-year-old female remains hospitalized with pneumonia and acute respiratory failure along with sepsis. She remains encephalopathic. is at bedside, extremely worried whether he needs all the information . OBJECTIVE: VITAL SIGNS: Stable. She has remained afebrile. GENERAL: She is encephalopathic and does not respond appropriately to verbal stimulation. CHEST: Reveals occasional bilateral wheeze. HEART: Regular. ABDOMEN: Benign. IMPRESSION: Pneumonia with sepsis, metabolic encephalopathy on top of a patient with lifelong severe asthma. PLAN: Continue present antibiotics, pulmonary care. Help of Pulmonary as well as ID appreciated. She is currently on BiPAP. MARITZA/DINA/PARISH DR: MARITZA/darwin TID: [id number]
[2020-11-09] MEDS: HALOPERIDOL LACTATE 5 MG/ML VIAL. IVP PRN ×3 (05:52→23:26)
[2020-11-09] MEDS: IPRATRPIUM/ALBUTEROL 0.5/2.5MG 3 ML NEBU. NEB SCH ×4 (07:33→20:53)
--- NOTE | 2020-11-09 08:45 | PN ---
DATE: 11/09/2020 DAILY PROGRESS NOTE LOCATION: She is in room 669. SUBJECTIVE: This 80-year-old female remains hospitalized with pneumonia and acute hypoxic hypercarbic respiratory failure with sepsis. She remains encephalopathic, although was definitely better than yesterday morning. is at bedside. OBJECTIVE: VITAL SIGNS: Stable. She has remained afebrile. GENERAL: She remains encephalopathic, but is a little bit conversant today. She does do some shaking and jerking throughout the examination of her arms and legs. CHEST: Reveals better breath sounds, but still occasional wheeze. HEART: Regular. ABDOMEN: Benign. IMPRESSION: Pneumonia with sepsis and metabolic encephalopathy on top of a patient with a lifetime long severe asthma. PLAN: Continue present antibiotics, pulmonary care. Expect gradual improvement. Help of pulmonary and ID appreciated. AMELIE DR: Bisi TID: [id number]
[2020-11-09] MEDS: PANTOPRAZOLE IV PUSH 40 MG VIAL. IVP SCH (09:11)
[2020-11-09] MEDS: lamoTRIgine 100 MG TABLET. PO SCH ×2 (09:14→19:56)
--- NOTE | 2020-11-09 09:54 | PDOC ---
PROGRESS NOTES Date of Service DATE: 11/09/20 TIME: 09:52 Assessment Problems Medical Problems: (1) Acute kidney injury Status: Acute (2) Fall Status: Acute (3) Skin abrasion Status: Acute (4) Weakness Status: Acute Metabolic encephalopathy, less alert, did get lorazepam for agitation, this has been switched to as needed Haldol Covid negative, status-post third booster of COVID vaccine No acute intracranial findings or focal abnormalities on exam Cervical spondylosis without evidence of radiculopathy or myelopathy. Fell pr ior to admission Fever, acute hypoxic respiratory failure, diffuse bilateral infiltrates, pneumonia, CHF, acute kidney injury, had coffee-ground emesis yesterday, 11/07. History of chronic obstructive pulmonary disease, obstructive sleep apnea. Plan Treat medical issues Hold on additional studies such as MRI Subjective None Objective Vital Signs Date Time Temp Pulse Resp B/P (MAP) Pulse Ox O2 Delivery O2 Flow Rate FiO2 11/09/20 09:20 179/79 (112) 11/09/20 07:40 98.9 70 95 BiPAP/CPAP 98.9 11/09/20 03:24 20 Intake and Output 11/09/20 07:00 Intake Total 400 ml Balance 400 ml Intake Oral 0 ml IV Total 400 ml # Voids 4 # Bowel Movements 2 PHYSICAL EXAM Sleepy, just got Haldol, stirs to voice PERRL. EOMI. CN: no focal findings. Muscle tone: normal. Muscle strength: 3-4/5 DTR: 1+ Plantar reflex: Flexor Gait: not examined in bed. Sensory exam: no abnormal findings. No cerebellar signs elicited. Review of Relevant I have reviewed the following items shiela (where applicable) has been applied. Labs Laboratory Tests Test 11/08/20 10:19 11/08/20 10:30 11/08/20 12:25 O2 Saturation 98 % (92-99) Arterial Blood pH 7.48 (7.35-7.45) Arterial Blood pCO2 at Patient Temp 36 mmHg (35-46) Arterial Blood pO2 at Patient Temp 120 mmHg (65-108) Arterial Blood HCO3 26 mmol/L (21-28) Arterial Blood Base Excess 3 mmol/L (-3-3) Oxyhemoglobin 97.4 % Methemoglobin 0.1 % (0.0-1.9) Carbon Monoxide, Quantitative 0.2 % (0.0-1.9) FiO2 45% White Blood Count 16.7 x10^3/uL (4.0-11.0) Red Blood Count 3.61 x10^6/uL (3.50-5.40) Hemoglobin 11.1 g/dL (12.0-15.5) Hematocrit 33.6 % (36.0-47.0) Mean Corpuscular Volume 93 fL (79-100) Mean Corpuscular Hemoglobin 31 pg (25-35) Mean Corpuscular Hemoglobin Concent 33 g/dL (31-37) Red Cell Distribution Width 14.6 % (11.5-14.5) Platelet Count 194 x10^3/uL (140-400) Neutrophils (%) (Auto) 92 % (31-73) Lymphocytes (%) (Auto) 5 % (24-48) Monocytes (%) (Auto) 3 % (0-9) Eosinophils (%) (Auto) 0 % (0-3) Basophils (%) (Auto) 0 % (0-3) Neutrophils # (Auto) 15.2 x10^3/uL (1.8-7.7) Lymphocytes # (Auto) 0.8 x10^3/uL (1.0-4.8) Monocytes # (Auto) 0.6 x10^3/uL (0.0-1.1) Eosinophils # (Auto) 0.0 x10^3/uL (0.0-0.7) Basophils # (Auto) 0.0 x10^3/uL (0.0-0.2) Sodium Level 142 mmol/L (136-145) Potassium Level 3.6 mmol/L (3.5-5.1) Chloride Level 107 mmol/L (98-107) Carbon Dioxide Level 28 mmol/L (21-32) Anion Gap 7 (6-14) Blood Urea Nitrogen 51 mg/dL (7-20) Creatinine 1.6 mg/dL (0.6-1.0) Estimated GFR (Cockcroft-Gault) 30.9 BUN/Creatinine Ratio 32 (6-20) Glucose Level 157 mg/dL (70-99) Calcium Level 8.6 mg/dL (8.5-10.1) Total Bilirubin 0.6 mg/dL (0.2-1.0) Aspartate Amino Transf (AST/SGOT) 39 U/L (15-37) Alanine Aminotransferase (ALT/SGPT) 22 U/L (14-59) Alkaline Phosphatase 61 U/L (46-116) Total Protein 6.4 g/dL (6.4-8.2) Albumin 2.4 g/dL (3.4-5.0) Albumin/Globulin Ratio 0.6 (1.0-1.7) Lactic Acid Level 1.3 mmol/L (0.4-2.0) Laboratory Tests Test 11/08/20 10:19 11/08/20 10:30 11/08/20 12:25 O2 Saturation 98 % (92-99) Arterial Blood pH 7.48 (7.35-7.45) Arterial Blood pCO2 at Patient Temp 36 mmHg (35-46) Arterial Blood pO2 at Patient Temp 120 mmHg (65-108) Arterial Blood HCO3 26 mmol/L (21-28) Arterial Blood Base Excess 3 mmol/L (-3-3) Oxyhemoglobin 97.4 % Methemoglobin 0.1 % (0.0-1.9) Carbon Monoxide, Quantitative 0.2 % (0.0-1.9) FiO2 45% White Blood Count 16.7 x10^3/uL (4.0-11.0) Red Blood Count 3.61 x10^6/uL (3.50-5.40) Hemoglobin 11.1 g/dL (12.0-15.5) Hematocrit 33.6 % (36.0-47.0) Mean Corpuscular Volume 93 fL (79-100) Mean Corpuscular Hemoglobin 31 pg (25-35) Mean Corpuscular Hemoglobin Concent 33 g/dL (31-37) Red Cell Distribution Width 14.6 % (11.5-14.5) Platelet Count 194 x10^3/uL (140-400) Neutrophils (%) (Auto) 92 % (31-73) Lymphocytes (%) (Auto) 5 % (24-48) Monocytes (%) (Auto) 3 % (0-9) Eosinophils (%) (Auto) 0 % (0-3) Basophils (%) (Auto) 0 % (0-3) Neutrophils # (Auto) 15.2 x10^3/uL (1.8-7.7) Lymphocytes # (Auto) 0.8 x10^3/uL (1.0-4.8) Monocytes # (Auto) 0.6 x10^3/uL (0.0-1.1) Eosinophils # (Auto) 0.0 x10^3/uL (0.0-0.7) Basophils # (Auto) 0.0 x10^3/uL (0.0-0.2) Sodium Level 142 mmol/L (136-145) Potassium Level 3.6 mmol/L (3.5-5.1) Chloride Level 107 mmol/L (98-107) Carbon Dioxide Level 28 mmol/L (21-32) Anion Gap 7 (6-14) Blood Urea Nitrogen 51 mg/dL (7-20) Creatinine 1.6 mg/dL (0.6-1.0) Estimated GFR (Cockcroft-Gault) 30.9 BUN/Creatinine Ratio 32 (6-20) Glucose Level 157 mg/dL (70-99) Calcium Level 8.6 mg/dL (8.5-10.1) Total Bilirubin 0.6 mg/dL (0.2-1.0) Aspartate Amino Transf (AST/SGOT) 39 U/L (15-37) Alanine Aminotransferase (ALT/SGPT) 22 U/L (14-59) Alkaline Phosphatase 61 U/L (46-116) Total Protein 6.4 g/dL (6.4-8.2) Albumin 2.4 g/dL (3.4-5.0) Albumin/Globulin Ratio 0.6 (1.0-1.7) Lactic Acid Level 1.3 mmol/L (0.4-2.0) Medications Current Medications Sodium Chloride 1,000 ml @ 1,000 mls/hr 1X ONCE IV Last administered on 11/05/20at 12:17; Start 11/05/20 at 10:15; Stop 11/05/20 at 11:14; Status DC Diphtheria/ Tetanus/Acell Pertussis (ADACEL TDap SYRINGE) 0.5 ml ONCE ONCE VAX IM Last administered on 11/05/20at 12:14; Start 11/05/20 at 10:45; Stop 11/05/20 at 10:53; Status DC Bacitracin (Bacitracin Zinc Oint Pkt) 1 pkt 1X ONCE TP Last administered on 11/05/20at 12:14; Start 11/05/20 at 10:45; Stop 11/05/20 at 10:53; Status DC Acetaminophen (Tylenol) 650 mg 1X ONCE PO Last administered on 11/05/20at 12:12; Start 11/05/20 at 12:00; Stop 11/05/20 at 12:01; Status DC Lorazepam (Ativan Inj) 1 mg 1X ONCE IVP Last administered on 11/05/20at 13:15; Start 11/05/20 at 13:15; Stop 11/05/20 at 13:16; Status DC Lamotrigine (LaMICtal) 100 mg BID PO Last administered on 11/09/20at 09:14; Start 11/06/20 at 09:00 Pantoprazole Sodium (PROTONIX VIAL for IV PUSH) 40 mg DAILYAC IVP Last administered on 11/09/20at 09:11; Start 11/06/20 at 08:00 Sodium Chloride 1,000 ml @ 75 mls/hr 1X ONCE IV Last administered on 11/06/20at 08:11; Start 11/06/20 at 07:45; Stop 11/06/20 at 21:04; Status DC Piperacillin Sod/ Tazobactam Sod 2.25 gm/Sodium Chloride 50 ml @ 100 mls/hr Q6HRS IV Last administered on 11/09/20at 05:33; Start 11/06/20 at 08:00 Acetaminophen (Tylenol Supp) 650 mg PRN Q6HRS PRN ND MILD PAIN / TEMP > 100.3'F Last administered on 11/06/20at 10:29; Start 11/06/20 at 10:15 Vancomycin HCl (Vanco Per Pharmacy) 1 each PRN DAILY PRN MC SEE COMMENTS; Start 11/06/20 at 11:45; Stop 11/06/20 at 13:20; Status DC Furosemide (Lasix) 40 mg 1X ONCE IVP Last administered on 11/06/20at 12:05; Start 11/06/20 at 11:45; Stop 11/06/20 at 11:46; Status DC Vancomycin HCl 1.5 gm/Sodium Chloride 500 ml @ 250 mls/hr 1X ONCE IV ; Start 11/06/20 at 14:00; Stop 11/06/20 at 13:18; Status DC Linezolid (Zyvox) 600 mg BID PO ; Start 11/06/20 at 13:30; Status Cancel Linezolid/Dextrose 300 ml @ 300 mls/hr Q12H IV Last administered on 11/09/20at 02:36; Start 11/06/20 at 14:00 Acetaminophen (Tylenol) 650 mg PRN Q6HRS PRN PO MILD PAIN / TEMP > 100.3'F Last administered on 11/06/20at 17:40; Start 11/06/20 at 17:30 Methylprednisolone Sodium Succinate (SOLU-Medrol 125MG VIAL) 60 mg Q8HRS IV Last administered on 11/09/20at 05:33; Start 11/07/20 at 11:00 Albuterol/ Ipratropium (Duoneb) 3 ml RTQID NEB Last administered on 11/09/20at 07:33; Start 11/07/20 at 12:00 Lorazepam (Ativan Inj) 1 mg PRN Q6HRS PRN IVP ANXIETY / AGITATION Last administered on 11/08/20at 05:34; Start 11/07/20 at 10:45; Stop 11/08/20 at 11 :18; Status DC Haloperidol Lactate (Haldol Inj) 1 mg 1X ONCE IM Last administered on 11/07/20at 13:20; Start 11/07/20 at 13:15; Stop 11/07/20 at 13:16; Status DC Haloperidol Lactate (Haldol Inj) 5 mg PRN Q6HRS PRN IVP AGITATION Last administered on 11/09/20at 05:52; Start 11/08/20 at 11:30 Clonidine HCl (Catapres Tts-1) 1 patch WEEKLY TD Last administered on 11/08/20at 12:14; Start 11/08/20 at 12:30 Active Scripts Active Reported [Vitamin D] Alprazolam 1 Mg Tablet 1 Tab PO BID Centrum Complete Multivit Tab (Multivitamin/Iron/Folic Acid) 1 Each Tablet 1 Each PO DAILY [place] 3 Fish Oil Softgel ([place]-3 Fatty Acids/Fish Oil) 1 Each Capsule.dr 1 Each PO DAILY Vitamin C (Ascorbic Acid) 500 Mg Tab.chew 500 Mg PO DAILY Symbicort 160-4.5 Mcg Inhaler (Budesonide/Formoterol Fumarate) 10.2 Gm Hfa.aer.ad 1 Puff IH BID Aspir 81 (Aspirin) 81 Mg Tablet.dr 81 Mg PO DAILY Meloxicam 15 Mg Tablet 15 Mg PO DAILY Zoloft (Sertraline Hcl) 100 Mg Tablet 150 Mg PO DAILY Potassium Chloride 10 Meq Tab.er.prt 10 Meq PO DAILY Lasix (Furosemide) 40 Mg Tablet 40 Mg PO DAILY Flonase (Fluticasone Propionate) 16 Gm [place].susp 16 Gm NS DAILY Lamictal (Lamotrigine) 100 Mg Tablet 100 Mg PO BID Eemt Hs 0.625-1.25 Mg Tablet (Estrogen,Tess/Me-Testosterone) 1 Each Tablet 1 Each PO DAILY Zocor (Simvastatin) 80 Mg Tablet 40 Mg PO QHS Vitals/I & O Vital Sign - Last 24 Hours 11/08/20 11/08/20 11/08/20 11/08/20 10:10 11:01 12:12 13:13 Temp 98.5 98.5 Pulse 88 96 Resp 20 26 B/P (MAP) 196/95 (128) 240/100 (146) Pulse Ox 95 98 95 93 O2 Delivery BiPAP/CPAP BiPAP/CPAP BiPAP/CPAP BiPAP/CPAP 11/08/20 11/08/20 11/08/20 11/08/20 13:15 13:29 14:39 16:02 Temp 99.5 99.5 Pulse 96 92 Resp 20 B/P (MAP) 169/68 (101) 156/70 (98) Pulse Ox 94 95 O2 Delivery Bi-pap BiPAP/CPAP BiPAP/CPAP 11/08/20 11/08/20 11/08/20 11/08/20 18:09 19:26 20:00 20:24 Temp 99.3 99.3 Pulse 95 Resp 20 B/P (MAP) 172/75 (107) Pulse Ox 96 95 96 O2 Delivery BiPAP/CPAP BiPAP/CPAP Bi-pap BiPAP/CPAP 11/08/20 11/08/20 11/09/20 11/09/20 23:00 23:09 01:30 03:24 Temp 98.9 98.5 98.9 98.5 Pulse 68 73 Resp 22 20 B/P (MAP) 136/63 (87) 190/79 (116) Pulse Ox 96 91 96 98 O2 Delivery BiPAP/CPAP BiPAP/CPAP BiPAP/CPAP BiPAP/CPAP 11/09/20 11/09/20 11/09/20 11/09/20 04:00 07:33 07:40 09:20 Temp 98.9 98.9 Pulse 70 B/P (MAP) 210/93 (132) 179/79 (112) Pulse Ox 96 95 O2 Delivery BiPAP/CPAP BiPAP/CPAP BiPAP/CPAP Intake and Output 11/08/20 11/08/20 11/09/20 15:00 23:00 07:00 Intake Total 50 ml 350 ml Balance 50 ml 350 ml Justicifation of Admission Dx: Justifications for Admission: Justification of Admission Dx: N/A MOO BRO MD Nov 09, 2020 09:53
--- NOTE | 2020-11-09 10:23 | PDOC ---
Infectious Disease Note Subjective: Subjective Patient is sleepy arousable still lethargic On 4 L O2 by nasal cannula Fever pattern improved Vital Signs: Vital Signs Vital Signs Date Time Temp Pulse Resp B/P (MAP) Pulse Ox O2 Delivery O2 Flow Rate FiO2 11/09/20 10:04 Nasal Cannula 4.0 11/09/20 09:20 179/79 (112) 11/09/20 07:40 98.9 70 95 98.9 11/09/20 03:24 20 Physical Exam: PHYSICAL EXAM GENERAL: Lethargic female arousable on nasal O2 HEENT: Normocephalic, atraumatic. Anicteric. No thrush. Oral mucosa moist. NECK: Supple, no JVD. No meningismus. LUNGS: Coarse breath sounds bilaterally. Rhonchi present. HEART: S1, S2 regular. No murmurs. ABDOMEN: Soft, mild diffuse tenderness nondistended. No rebound. No guarding. GENITOURINARY: Brief is in place. No Harrell. EXTREMITIES: No edema, no cyanosis. DERMATOLOGIC: Warm, dry. No generalized rash. Few abrasions not infected. PSYCHIATRIC: Calm, cooperative. NEUROLOGIC: in mittens,sleepy, PIV looks clean. Medications: Inpatient Meds: Medications reviewed. Labs: Lab Laboratory Tests Test 11/08/20 10:30 11/08/20 12:25 White Blood Count 16.7 x10^3/uL (4.0-11.0) Red Blood Count 3.61 x10^6/uL (3.50-5.40) Hemoglobin 11.1 g/dL (12.0-15.5) Hematocrit 33.6 % (36.0-47.0) Mean Corpuscular Volume 93 fL (79-100) Mean Corpuscular Hemoglobin 31 pg (25-35) Mean Corpuscular Hemoglobin Concent 33 g/dL (31-37) Red Cell Distribution Width 14.6 % (11.5-14.5) Platelet Count 194 x10^3/uL (140-400) Neutrophils (%) (Auto) 92 % (31-73) Lymphocytes (%) (Auto) 5 % (24-48) Monocytes (%) (Auto) 3 % (0-9) Eosinophils (%) (Auto) 0 % (0-3) Basophils (%) (Auto) 0 % (0-3) Neutrophils # (Auto) 15.2 x10^3/uL (1.8-7.7) Lymphocytes # (Auto) 0.8 x10^3/uL (1.0-4.8) Monocytes # (Auto) 0.6 x10^3/uL (0.0-1.1) Eosinophils # (Auto) 0.0 x10^3/uL (0.0-0.7) Basophils # (Auto) 0.0 x10^3/uL (0.0-0.2) Sodium Level 142 mmol/L (136-145) Potassium Level 3.6 mmol/L (3.5-5.1) Chloride Level 107 mmol/L (98-107) Carbon Dioxide Level 28 mmol/L (21-32) Anion Gap 7 (6-14) Blood Urea Nitrogen 51 mg/dL (7-20) Creatinine 1.6 mg/dL (0.6-1.0) Estimated GFR (Cockcroft-Gault) 30.9 BUN/Creatinine Ratio 32 (6-20) Glucose Level 157 mg/dL (70-99) Calcium Level 8.6 mg/dL (8.5-10.1) Total Bilirubin 0.6 mg/dL (0.2-1.0) Aspartate Amino Transf (AST/SGOT) 39 U/L (15-37) Alanine Aminotransferase (ALT/SGPT) 22 U/L (14-59) Alkaline Phosphatase 61 U/L (46-116) Total Protein 6.4 g/dL (6.4-8.2) Albumin 2.4 g/dL (3.4-5.0) Albumin/Globulin Ratio 0.6 (1.0-1.7) Lactic Acid Level 1.3 mmol/L (0.4-2.0) Objective: Assessment: 1. Fever, source appears respiratory. 2. Acute hypoxic respiratory failure with diffuse bilateral infiltrates, Appears multifactorial including pneumonia, CHF, pneumonitis 3. Acute kidney injury. 4. History of chronic obstructive pulmonary disease. 5. History of obstructive sleep apnea. 6. CHF 7. Status post third booster of COVID vaccine. 8. Coffee-ground emesis earlier this morning. 9. History of fall prior to admission. 10.Encephalopathy appears metabolic,no evidence of encephalitis Plan: Plan of Care Continue Zosyn and linezolid Obtain abdominal ultrasound Follow labs and cultures Follow-up labs from a.m. Maintain aspiration precautions WILFRIDO ALEMAN MD Nov 09, 2020 10:23
--- NOTE | 2020-11-09 11:09 | PDOC ---
PULMONARY PROGRESS NOTES DATE: 11/09/20 TIME: 11:06 Subjective Patient remains on BiPAP Lethargic on examination but able to follow commands. Ativan discontinued. Vitals Vital Signs Date Time Temp Pulse Resp B/P (MAP) Pulse Ox O2 Delivery O2 Flow Rate FiO2 11/09/20 10:22 98.9 81 20 180/83 (115) 91 Nasal Cannula 4.0 98.9 Comments Unable to report review of systems secondary to current clinical state General: Alert, No acute distress Lungs: Wheezing (Improved) Cardiovascular: S1 Abdomen: Soft Extremities: No Edema Skin: Warm Labs Laboratory Tests Test 11/08/20 10:19 11/08/20 10:30 11/08/20 12:25 O2 Saturation 98 % (92-99) Arterial Blood pH 7.48 (7.35-7.45) Arterial Blood pCO2 at Patient Temp 36 mmHg (35-46) Arterial Blood pO2 at Patient Temp 120 mmHg (65-108) Arterial Blood HCO3 26 mmol/L (21-28) Arterial Blood Base Excess 3 mmol/L (-3-3) Oxyhemoglobin 97.4 % Methemoglobin 0.1 % (0.0-1.9) Carbon Monoxide, Quantitative 0.2 % (0.0-1.9) FiO2 45% White Blood Count 16.7 x10^3/uL (4.0-11.0) Red Blood Count 3.61 x10^6/uL (3.50-5.40) Hemoglobin 11.1 g/dL (12.0-15.5) Hematocrit 33.6 % (36.0-47.0) Mean Corpuscular Volume 93 fL (79-100) Mean Corpuscular Hemoglobin 31 pg (25-35) Mean Corpuscular Hemoglobin Concent 33 g/dL (31-37) Red Cell Distribution Width 14.6 % (11.5-14.5) Platelet Count 194 x10^3/uL (140-400) Neutrophils (%) (Auto) 92 % (31-73) Lymphocytes (%) (Auto) 5 % (24-48) Monocytes (%) (Auto) 3 % (0-9) Eosinophils (%) (Auto) 0 % (0-3) Basophils (%) (Auto) 0 % (0-3) Neutrophils # (Auto) 15.2 x10^3/uL (1.8-7.7) Lymphocytes # (Auto) 0.8 x10^3/uL (1.0-4.8) Monocytes # (Auto) 0.6 x10^3/uL (0.0-1.1) Eosinophils # (Auto) 0.0 x10^3/uL (0.0-0.7) Basophils # (Auto) 0.0 x10^3/uL (0.0-0.2) Sodium Level 142 mmol/L (136-145) Potassium Level 3.6 mmol/L (3.5-5.1) Chloride Level 107 mmol/L (98-107) Carbon Dioxide Level 28 mmol/L (21-32) Anion Gap 7 (6-14) Blood Urea Nitrogen 51 mg/dL (7-20) Creatinine 1.6 mg/dL (0.6-1.0) Estimated GFR (Cockcroft-Gault) 30.9 BUN/Creatinine Ratio 32 (6-20) Glucose Level 157 mg/dL (70-99) Calcium Level 8.6 mg/dL (8.5-10.1) Total Bilirubin 0.6 mg/dL (0.2-1.0) Aspartate Amino Transf (AST/SGOT) 39 U/L (15-37) Alanine Aminotransferase (ALT/SGPT) 22 U/L (14-59) Alkaline Phosphatase 61 U/L (46-116) Total Protein 6.4 g/dL (6.4-8.2) Albumin 2.4 g/dL (3.4-5.0) Albumin/Globulin Ratio 0.6 (1.0-1.7) Lactic Acid Level 1.3 mmol/L (0.4-2.0) Laboratory Tests Test 11/08/20 12:25 Lactic Acid Level 1.3 mmol/L (0.4-2.0) Medications Active Scripts Medications Dose Route/Sig Max Daily Dose Days Date Category [Vitamin D] 04/14/20 Reported Alprazolam 1 Mg Tablet 1 Tab PO BID 04/14/20 Reported Centrum Complete Multivit Tab (Multivitamin/Iron/Folic Acid) 1 Each Tablet 1 Each PO DAILY 03/05/18 Reported [place] 3 Fish Oil Softgel ([place]-3 Fatty Acids/Fish Oil) 1 Each Capsule.dr 1 Each PO DAILY 03/05/18 Reported Vitamin C (Ascorbic Acid) 500 Mg Tab.chew 500 Mg PO DAILY 03/05/18 Reported Symbicort 160-4.5 Mcg Inhaler (Budesonide/Formoterol Fumarate) 10.2 Gm Hfa.aer.ad 1 Puff IH BID 03/05/18 Reported Aspir 81 (Aspirin) 81 Mg Tablet.dr 81 Mg PO DAILY 04/23/17 Reported Meloxicam 15 Mg Tablet 15 Mg PO DAILY 04/23/17 Reported Zoloft (Sertraline Hcl) 100 Mg Tablet 150 Mg PO DAILY 07/28/16 Reported Potassium Chloride 10 Meq Tab.er.prt 10 Meq PO DAILY 03/10/13 Reported Lasix (Furosemide) 40 Mg Tablet 40 Mg PO DAILY 03/10/13 Reported Flonase (Fluticasone Propionate) 16 Gm [place].susp 16 Gm NS DAILY 03/10/13 Reported Lamictal (Lamotrigine) 100 Mg Tablet 100 Mg PO BID 03/10/13 Reported Eemt Hs 0.625-1.25 Mg Tablet (Estrogen,Tess/Me-Testosterone) 1 Each Tablet 1 Each PO DAILY 02/19/13 Reported Zocor (Simvastatin) 80 Mg Tablet 40 Mg PO QHS 02/19/13 Reported Impression . 1. Acute hypoxic and hypercapnic respiratory failure with worsening bilateral infiltrates/ high grade fever in a patient who recently received 3rd COVID19- booster. Possibilities include A) Acute Interstitial Pneumonitis with hyperimmune response to vaccine. B).Likely congestive heart failure, Pt on IVF since admission ( High PrBNP) C) Sepsis with bacterial pneumonia, likely gram-negative ( Procalcitonin 30) 2. Abnormal chest x-ray as discussed above CT chest also abnormal with diffuse interstitial infiltrates and consolidation left lower lobe 3. Underlying chronic obstructive pulmonary disease. 4. Obstructive sleep apnea, on home CPAP and oxygen. 5. Acute kidney injury.? sepsis induced, check previous renal function. 6. The patient is status post third booster of COVID vaccine. Plan . Updated 11/09/2020 Continue supplemental oxygen. ABGs have improved. Try off BiPAP., keep oxygen saturations greater than 92% Continue antibiotics per infectious disease Continue IV steroids, will slowly taper. Bronchospasm has improved. Bronchodilators Off Ativan. Haldol as needed for agitation DVT/GI prophylaxis Discussed with HEIDI BRICENO MD Nov 09, 2020 11:09
--- NOTE | 2020-11-09 12:46 | RAD ---
EXAM: ULTRASOUND ABDOMEN COMPLETE CLINICAL HISTORY: Pain and fever. COMPARISON: None available. TECHNIQUE: Ultrasound of the upper abdomen was performed. FINDINGS: The liver is normal in size. No focal hepatic lesion is seen. The gallbladder is unremarkable. The co mmon bile duct is normal in caliber. The kidneys are normal in size. The spleen is normal in size. Th e pancreas, aorta and inferior vena cava are predominantly obscured due to bowel gas. IMPRESSION: No acute sonographic finding. Electronically signed by: Jena Blackburn MD (11/09/2020 12:44 PM) [id number]
[2020-11-09] MEDS: ACETAMINOPHEN 325 MG TABLET. PO PRN (17:04)
[2020-11-10 03:15] VITALS: BP 199/87
[2020-11-10] MEDS: HALOPERIDOL LACTATE 5 MG/ML VIAL. IVP PRN ×2 (05:02→21:25)
[2020-11-10] MEDS: methylPREDNISolone SOD SUCC PF 125 MG/2 ML VIAL. IV SCH (05:02)
[2020-11-10] MEDS: PIPERACILLIN/TAZOBACTAM 2.25 GM in IV NORMAL SALINE 50ML 50 ML IV SCH ×4 (05:02→23:11)
[2020-11-10 07:00] VITALS: BP 210/90
[2020-11-10] MEDS: IPRATRPIUM/ALBUTEROL 0.5/2.5MG 3 ML NEBU. NEB SCH ×4 (07:06→20:57)
--- NOTE | 2020-11-10 07:49 | PDOC ---
Infectious Disease Note Subjective: Subjective Patient on bipap low grade fevers More alert today though continues to remain weak Daughter at bedside Vital Signs: Vital Signs Vital Signs Date Time Temp Pulse Resp B/P (MAP) Pulse Ox O2 Delivery O2 Flow Rate FiO2 11/10/20 07:07 94 BiPAP/CPAP 11/10/20 03:15 99.8 61 27 199/87 (124) 99.8 11/09/20 11:37 4.0 Physical Exam: PHYSICAL EXAM GENERAL: Lethargic female arousable on nasal O2 HEENT: Normocephalic, atraumatic. Anicteric. No thrush. Oral mucosa moist. NECK: Supple, no JVD. No meningismus. LUNGS: Coarse breath sounds bilaterally. Rhonchi present. HEART: S1, S2 regular. No murmurs. ABDOMEN: Soft, mild diffuse tenderness nondistended. No rebound. No guarding. GENITOURINARY: Brief is in place. No Harrell. EXTREMITIES: No edema, no cyanosis. DERMATOLOGIC: Warm, dry. No generalized rash. Few abrasions not infected. PSYCHIATRIC: Calm, cooperative. NEUROLOGIC: in mittens,sleepy, PIV looks clean. Medications: Inpatient Meds: Medications reviewed. Objective: Assessment: 1. Fever, source appears respiratory. 2. Acute hypoxic respiratory failure with diffuse bilateral infiltrates, Appears multifactorial including pneumonia, CHF, pneumonitis 3. Acute kidney injury. 4. History of chronic obstructive pulmonary disease. 5. History of obstructive sleep apnea. 6. CHF 7. Status post third booster of COVID vaccine. 8. Coffee-ground emesis earlier this morning. 9. History of fall prior to admission. 10.Encephalopathy appears metabolic,no evidence of encephalitis 11. Leucocytosis on steroids Plan: Plan of Care Continue Zosyn and linezolid Results of abdominal ultrasound reviewed Follow labs and cultures Follow-up labs from a.m. Maintain aspiration precautions prognosis guarded WILFRIDO ALEMAN MD Nov 10, 2020 07:49
[2020-11-10] MEDS: lamoTRIgine 100 MG TABLET. PO SCH ×2 (09:00→19:51)
[2020-11-10 09:09] LABS: BASO % 0 % (0-3); EOS % 0 % (0-3); HEMATOCRIT 34.1 % (36.0-47.0); HEMOGLOBIN 11.5 g/dL (12.0-15.5); LYMPH # 0.7 x10^3/uL (1.0-4.8); LYMPH % 6 % (24-48); MEAN CORPUSCULAR HEMOGLOBIN 31 pg (25-35); MEAN CORPUSCULAR HGB CONC 34 g/dL (31-37); MEAN CORPUSCULAR VOLUME 91 fL (79-100); MONO # 0.9 x10^3/uL (0.0-1.1); MONO % 8 % (0-9); NEUT # 9.5 x10^3/uL (1.8-7.7); NEUT % 86 % (31-73); PLATELET COUNT 181 x10^3/uL (140-400); RED BLOOD COUNT 3.73 x10^6/uL (3.50-5.40); RED CELL DISTRIBUTION WIDTH 14.3 % (11.5-14.5)
--- NOTE | 2020-11-10 09:09 | PDOC ---
PULMONARY PROGRESS NOTES DATE: 11/10/20 TIME: 09:07 Subjective Patient remains on BiPAP 45% fio2 Lethargic on examination but able to follow commands at times. daughter at bedside Vitals Vital Signs Date Time Temp Pulse Resp B/P (MAP) Pulse Ox O2 Delivery O2 Flow Rate FiO2 11/10/20 07:07 94 BiPAP/CPAP 11/10/20 07:00 99.4 24 210/90 (130) 99.4 11/10/20 03:15 61 11/09/20 11:37 4.0 Comments Unable to report review of systems secondary to current clinical state General: No acute distress Lungs: Crackles Cardiovascular: S1, S2 Abdomen: Soft Extremities: No Edema Skin: Warm Labs Laboratory Tests Test 11/08/20 10:19 11/08/20 10:30 11/08/20 12:25 O2 Saturation 98 % (92-99) Arterial Blood pH 7.48 (7.35-7.45) Arterial Blood pCO2 at Patient Temp 36 mmHg (35-46) Arterial Blood pO2 at Patient Temp 120 mmHg (65-108) Arterial Blood HCO3 26 mmol/L (21-28) Arterial Blood Base Excess 3 mmol/L (-3-3) Oxyhemoglobin 97.4 % Methemoglobin 0.1 % (0.0-1.9) Carbon Monoxide, Quantitative 0.2 % (0.0-1.9) FiO2 45% White Blood Count 16.7 x10^3/uL (4.0-11.0) Red Blood Count 3.61 x10^6/uL (3.50-5.40) Hemoglobin 11.1 g/dL (12.0-15.5) Hematocrit 33.6 % (36.0-47.0) Mean Corpuscular Volume 93 fL (79-100) Mean Corpuscular Hemoglobin 31 pg (25-35) Mean Corpuscular Hemoglobin Concent 33 g/dL (31-37) Red Cell Distribution Width 14.6 % (11.5-14.5) Platelet Count 194 x10^3/uL (140-400) Neutrophils (%) (Auto) 92 % (31-73) Lymphocytes (%) (Auto) 5 % (24-48) Monocytes (%) (Auto) 3 % (0-9) Eosinophils (%) (Auto) 0 % (0-3) Basophils (%) (Auto) 0 % (0-3) Neutrophils # (Auto) 15.2 x10^3/uL (1.8-7.7) Lymphocytes # (Auto) 0.8 x10^3/uL (1.0-4.8) Monocytes # (Auto) 0.6 x10^3/uL (0.0-1.1) Eosinophils # (Auto) 0.0 x10^3/uL (0.0-0.7) Basophils # (Auto) 0.0 x10^3/uL (0.0-0.2) Sodium Level 142 mmol/L (136-145) Potassium Level 3.6 mmol/L (3.5-5.1) Chloride Level 107 mmol/L (98-107) Carbon Dioxide Level 28 mmol/L (21-32) Anion Gap 7 (6-14) Blood Urea Nitrogen 51 mg/dL (7-20) Creatinine 1.6 mg/dL (0.6-1.0) Estimated GFR (Cockcroft-Gault) 30.9 BUN/Creatinine Ratio 32 (6-20) Glucose Level 157 mg/dL (70-99) Calcium Level 8.6 mg/dL (8.5-10.1) Total Bilirubin 0.6 mg/dL (0.2-1.0) Aspartate Amino Transf (AST/SGOT) 39 U/L (15-37) Alanine Aminotransferase (ALT/SGPT) 22 U/L (14-59) Alkaline Phosphatase 61 U/L (46-116) Total Protein 6.4 g/dL (6.4-8.2) Albumin 2.4 g/dL (3.4-5.0) Albumin/Globulin Ratio 0.6 (1.0-1.7) Lactic Acid Level 1.3 mmol/L (0.4-2.0) Medications Active Scripts Medications Dose Route/Sig Max Daily Dose Days Date Category [Vitamin D] 04/14/20 Reported Alprazolam 1 Mg Tablet 1 Tab PO BID 04/14/20 Reported Centrum Complete Multivit Tab (Multivitamin/Iron/Folic Acid) 1 Each Tablet 1 Each PO DAILY 03/05/18 Reported [place] 3 Fish Oil Softgel ([place]-3 Fatty Acids/Fish Oil) 1 Each Capsule.dr 1 Each PO DAILY 03/05/18 Reported Vitamin C (Ascorbic Acid) 500 Mg Tab.chew 500 Mg PO DAILY 03/05/18 Reported Symbicort 160-4.5 Mcg Inhaler (Budesonide/Formoterol Fumarate) 10.2 Gm Hfa.aer.ad 1 Puff IH BID 03/05/18 Reported Aspir 81 (Aspirin) 81 Mg Tablet.dr 81 Mg PO DAILY 04/23/17 Reported Meloxicam 15 Mg Tablet 15 Mg PO DAILY 04/23/17 Reported Zoloft (Sertraline Hcl) 100 Mg Tablet 150 Mg PO DAILY 07/28/16 Reported Potassium Chloride 10 Meq Tab.er.prt 10 Meq PO DAILY 03/10/13 Reported Lasix (Furosemide) 40 Mg Tablet 40 Mg PO DAILY 03/10/13 Reported Flonase (Fluticasone Propionate) 16 Gm [place].susp 16 Gm NS DAILY 03/10/13 Reported Lamictal (Lamotrigine) 100 Mg Tablet 100 Mg PO BID 03/10/13 Reported Eemt Hs 0.625-1.25 Mg Tablet (Estrogen,Tess/Me-Testosterone) 1 Each Tablet 1 Each PO DAILY 02/19/13 Reported Zocor (Simvastatin) 80 Mg Tablet 40 Mg PO QHS 02/19/13 Reported Impression . 1. Acute hypoxic and hypercapnic respiratory failure with worsening bilateral infiltrates/ high grade fever in a patient who recently received 3rd COVID19- booster. Possibilities include A) Acute Interstitial Pneumonitis with hyperimmune response to vaccine. B).Likely congestive heart failure, Pt on IVF since admission ( High PrBNP) C) Sepsis with bacterial pneumonia, likely gram-negative ( Procalcitonin 30) 2. Abnormal chest x-ray as discussed above CT chest also abnormal with diffuse interstitial infiltrates and consolidation left lower lobe 3. Underlying chronic obstructive pulmonary disease. 4. Obstructive sleep apnea, on home CPAP and oxygen. 5. Acute kidney injury.? sepsis induced, check previous renal function. 6. The patient is status post third booster of COVID vaccine. Plan . Updated 11/10/2020 Continue supplemental oxygen. Try off BiPAP., keep oxygen saturations 90% elevate hob Continue antibiotics per infectious disease change solumedrol to 40 q 8hrs. Bronchospasm has improved. Bronchodilators Off Ativan. Haldol as needed for agitation avoid oversedation DVT/GI prophylaxis Discussed with RN, pts daughter AIDAOVIDIO MD Nov 10, 2020 09:09
[2020-11-10 09:15] LABS: ALBUMIN 2.3 g/dL (3.4-5.0); ALBUMIN/GLOBULIN RATIO 0.6 (1.0-1.7); CALCIUM 8.5 mg/dL (8.5-10.1); CREATININE 1.2 mg/dL (0.6-1.0); GFR 43.1; POTASSIUM 3.3 mmol/L (3.5-5.1); TOTAL BILIRUBIN 0.8 mg/dL (0.2-1.0); TOTAL PROTEIN 6.2 g/dL (6.4-8.2)
[2020-11-10 10:29] VITALS: BP 210/91
[2020-11-10] MEDS: PANTOPRAZOLE IV PUSH 40 MG VIAL. IVP SCH (10:29)
[2020-11-10 14:50] VITALS: BP 164/78
--- NOTE | 2020-11-10 14:52 | PDOC ---
Provider Note Date of Service: DATE: 11/10/20 TIME: 14:51 Provider Note agitated and hypertensive on bipap- labs ok- is a full code- iv steroids adding to bp, doses reduced today- follow Justifications for Admission Other Justification CHASE SHAIKH MD Nov 10, 2020 14:52
[2020-11-10] MEDS: methylPREDNISolone SOD SUCC PF 40 MG/ML VIAL. IV SCH ×2 (16:03→19:51)
[2020-11-10 19:25] VITALS: BP 187/85
[2020-11-10] MEDS: ACETAMINOPHEN 325 MG TABLET. PO PRN (19:52)
[2020-11-10 23:30] VITALS: BP 195/84
[2020-11-11 03:20] VITALS: BP 172/74
[2020-11-11] MEDS: methylPREDNISolone SOD SUCC PF 40 MG/ML VIAL. IV SCH ×3 (05:23→20:39)
[2020-11-11] MEDS: PIPERACILLIN/TAZOBACTAM 2.25 GM in IV NORMAL SALINE 50ML 50 ML IV SCH ×4 (05:24→23:16)
[2020-11-11 07:46] VITALS: BP 176/85
--- NOTE | 2020-11-11 07:54 | PDOC ---
Infectious Disease Note Subjective: Subjective Patient feels much better on O2 by nc T max 99.7 Daughter at bedside Vital Signs: Vital Signs Vital Signs Date Time Temp Pulse Resp B/P (MAP) Pulse Ox O2 Delivery O2 Flow Rate FiO2 11/11/20 03:51 99 BiPAP/CPAP 11/11/20 03:20 99.1 66 32 172/74 (106) 99.1 11/10/20 08:00 4.0 Physical Exam: PHYSICAL EXAM GENERAL: alert awake looks better on nasal O2 HEENT: Normocephalic, atraumatic. Anicteric. No thrush. Oral mucosa moist. NECK: Supple, no JVD. No meningismus. LUNGS: Coarse breath sounds bilaterally. Rhonchi present. HEART: S1, S2 regular. No murmurs. ABDOMEN: Soft, mild diffuse tenderness nondistended. No rebound. No guarding. GENITOURINARY: Brief is in place. No Harrell. EXTREMITIES: No edema, no cyanosis. DERMATOLOGIC: Warm, dry. No generalized rash. Few abrasions not infected. PSYCHIATRIC: Calm, cooperative. NEUROLOGIC alert awake PIV looks clean. Medications: Inpatient Meds: Medications reviewed. Labs: Lab Laboratory Tests Test 11/10/20 08:45 11/10/20 11:00 White Blood Count 11.0 x10^3/uL (4.0-11.0) Red Blood Count 3.73 x10^6/uL (3.50-5.40) Hemoglobin 11.5 g/dL (12.0-15.5) Hematocrit 34.1 % (36.0-47.0) Mean Corpuscular Volume 91 fL (79-100) Mean Corpuscular Hemoglobin 31 pg (25-35) Mean Corpuscular Hemoglobin Concent 34 g/dL (31-37) Red Cell Distribution Width 14.3 % (11.5-14.5) Platelet Count 181 x10^3/uL (140-400) Neutrophils (%) (Auto) 86 % (31-73) Lymphocytes (%) (Auto) 6 % (24-48) Monocytes (%) (Auto) 8 % (0-9) Eosinophils (%) (Auto) 0 % (0-3) Basophils (%) (Auto) 0 % (0-3) Neutrophils # (Auto) 9.5 x10^3/uL (1.8-7.7) Lymphocytes # (Auto) 0.7 x10^3/uL (1.0-4.8) Monocytes # (Auto) 0.9 x10^3/uL (0.0-1.1) Eosinophils # (Auto) 0.0 x10^3/uL (0.0-0.7) Basophils # (Auto) 0.0 x10^3/uL (0.0-0.2) Sodium Level 148 mmol/L (136-145) Potassium Level 3.3 mmol/L (3.5-5.1) Chloride Level 111 mmol/L (98-107) Carbon Dioxide Level 28 mmol/L (21-32) Anion Gap 9 (6-14) Blood Urea Nitrogen 43 mg/dL (7-20) Creatinine 1.2 mg/dL (0.6-1.0) Estimated GFR (Cockcroft-Gault) 43.1 BUN/Creatinine Ratio 36 (6-20) Glucose Level 152 mg/dL (70-99) Calcium Level 8.5 mg/dL (8.5-10.1) Total Bilirubin 0.8 mg/dL (0.2-1.0) Aspartate Amino Transf (AST/SGOT) 34 U/L (15-37) Alanine Aminotransferase (ALT/SGPT) 30 U/L (14-59) Alkaline Phosphatase 61 U/L (46-116) Total Protein 6.2 g/dL (6.4-8.2) Albumin 2.3 g/dL (3.4-5.0) Albumin/Globulin Ratio 0.6 (1.0-1.7) Clostridium difficile Toxin (PCR) Negative (NEGATIVE) Objective: Assessment: 1. Fever, improved 2. Acute hypoxic respiratory failure with diffuse bilateral infiltrates, Appears multifactorial including pneumonia, CHF, pneumonitis on bipap 3. Acute kidney injury. 4. History of chronic obstructive pulmonary disease. 5. History of obstructive sleep apnea. 6. CHF 7. Status post third booster of COVID vaccine. 8. Coffee-ground emesis earlier this morning. 9. History of fall prior to admission. 10.Encephalopathy appears metabolic,no evidence of encephalitis 11. Leucocytosis on steroids Plan: Plan of Care Continue Zosyn and linezolid on steroids per pulm team Results of abdominal ultrasound reviewed Follow labs and cultures Maintain aspiration precautions D/W and daughter at bedside Discussed with nursing staff WILFRIDO ALEMAN MD Nov 11, 2020 07:54
[2020-11-11] MEDS: IPRATRPIUM/ALBUTEROL 0.5/2.5MG 3 ML NEBU. NEB SCH ×4 (08:26→20:58)
--- NOTE | 2020-11-11 08:33 | PDOC ---
PULMONARY PROGRESS NOTES DATE: 11/11/20 TIME: 08:31 Subjective off bipap on 02 5 lpm sat 97% alert feeling better Vitals Vital Signs Date Time Temp Pulse Resp B/P (MAP) Pulse Ox O2 Delivery O2 Flow Rate FiO2 11/11/20 07:46 98.0 65 22 176/85 (115) 96 Nasal Cannula 5.0 98.0 Comments Unable to report review of systems secondary to current clinical state General: Alert, No acute distress Lungs: Crackles Cardiovascular: S1, S2 Abdomen: Soft Neuro Exam: Alert Extremities: No Edema Skin: Warm Labs Laboratory Tests Test 11/10/20 08:45 11/10/20 11:00 White Blood Count 11.0 x10^3/uL (4.0-11.0) Red Blood Count 3.73 x10^6/uL (3.50-5.40) Hemoglobin 11.5 g/dL (12.0-15.5) Hematocrit 34.1 % (36.0-47.0) Mean Corpuscular Volume 91 fL (79-100) Mean Corpuscular Hemoglobin 31 pg (25-35) Mean Corpuscular Hemoglobin Concent 34 g/dL (31-37) Red Cell Distribution Width 14.3 % (11.5-14.5) Platelet Count 181 x10^3/uL (140-400) Neutrophils (%) (Auto) 86 % (31-73) Lymphocytes (%) (Auto) 6 % (24-48) Monocytes (%) (Auto) 8 % (0-9) Eosinophils (%) (Auto) 0 % (0-3) Basophils (%) (Auto) 0 % (0-3) Neutrophils # (Auto) 9.5 x10^3/uL (1.8-7.7) Lymphocytes # (Auto) 0.7 x10^3/uL (1.0-4.8) Monocytes # (Auto) 0.9 x10^3/uL (0.0-1.1) Eosinophils # (Auto) 0.0 x10^3/uL (0.0-0.7) Basophils # (Auto) 0.0 x10^3/uL (0.0-0.2) Sodium Level 148 mmol/L (136-145) Potassium Level 3.3 mmol/L (3.5-5.1) Chloride Level 111 mmol/L (98-107) Carbon Dioxide Level 28 mmol/L (21-32) Anion Gap 9 (6-14) Blood Urea Nitrogen 43 mg/dL (7-20) Creatinine 1.2 mg/dL (0.6-1.0) Estimated GFR (Cockcroft-Gault) 43.1 BUN/Creatinine Ratio 36 (6-20) Glucose Level 152 mg/dL (70-99) Calcium Level 8.5 mg/dL (8.5-10.1) Total Bilirubin 0.8 mg/dL (0.2-1.0) Aspartate Amino Transf (AST/SGOT) 34 U/L (15-37) Alanine Aminotransferase (ALT/SGPT) 30 U/L (14-59) Alkaline Phosphatase 61 U/L (46-116) Total Protein 6.2 g/dL (6.4-8.2) Albumin 2.3 g/dL (3.4-5.0) Albumin/Globulin Ratio 0.6 (1.0-1.7) Clostridium difficile Toxin (PCR) Negative (NEGATIVE) Laboratory Tests Test 11/10/20 08:45 11/10/20 11:00 White Blood Count 11.0 x10^3/uL (4.0-11.0) Red Blood Count 3.73 x10^6/uL (3.50-5.40) Hemoglobin 11.5 g/dL (12.0-15.5) Hematocrit 34.1 % (36.0-47.0) Mean Corpuscular Volume 91 fL (79-100) Mean Corpuscular Hemoglobin 31 pg (25-35) Mean Corpuscular Hemoglobin Concent 34 g/dL (31-37) Red Cell Distribution Width 14.3 % (11.5-14.5) Platelet Count 181 x10^3/uL (140-400) Neutrophils (%) (Auto) 86 % (31-73) Lymphocytes (%) (Auto) 6 % (24-48) Monocytes (%) (Auto) 8 % (0-9) Eosinophils (%) (Auto) 0 % (0-3) Basophils (%) (Auto) 0 % (0-3) Neutrophils # (Auto) 9.5 x10^3/uL (1.8-7.7) Lymphocytes # (Auto) 0.7 x10^3/uL (1.0-4.8) Monocytes # (Auto) 0.9 x10^3/uL (0.0-1.1) Eosinophils # (Auto) 0.0 x10^3/uL (0.0-0.7) Basophils # (Auto) 0.0 x10^3/uL (0.0-0.2) Sodium Level 148 mmol/L (136-145) Potassium Level 3.3 mmol/L (3.5-5.1) Chloride Level 111 mmol/L (98-107) Carbon Dioxide Level 28 mmol/L (21-32) Anion Gap 9 (6-14) Blood Urea Nitrogen 43 mg/dL (7-20) Creatinine 1.2 mg/dL (0.6-1.0) Estimated GFR (Cockcroft-Gault) 43.1 BUN/Creatinine Ratio 36 (6-20) Glucose Level 152 mg/dL (70-99) Calcium Level 8.5 mg/dL (8.5-10.1) Total Bilirubin 0.8 mg/dL (0.2-1.0) Aspartate Amino Transf (AST/SGOT) 34 U/L (15-37) Alanine Aminotransferase (ALT/SGPT) 30 U/L (14-59) Alkaline Phosphatase 61 U/L (46-116) Total Protein 6.2 g/dL (6.4-8.2) Albumin 2.3 g/dL (3.4-5.0) Albumin/Globulin Ratio 0.6 (1.0-1.7) Clostridium difficile Toxin (PCR) Negative (NEGATIVE) Medications Active Scripts Medications Dose Route/Sig Max Daily Dose Days Date Category [Vitamin D] 04/14/20 Reported Alprazolam 1 Mg Tablet 1 Tab PO BID 04/14/20 Reported Centrum Complete Multivit Tab (Multivitamin/Iron/Folic Acid) 1 Each Tablet 1 Each PO DAILY 03/05/18 Reported [place] 3 Fish Oil Softgel ([place]-3 Fatty Acids/Fish Oil) 1 Each Capsule.dr 1 Each PO DAILY 03/05/18 Reported Vitamin C (Ascorbic Acid) 500 Mg Tab.chew 500 Mg PO DAILY 03/05/18 Reported Symbicort 160-4.5 Mcg Inhaler (Budesonide/Formoterol Fumarate) 10.2 Gm Hfa.aer.ad 1 Puff IH BID 03/05/18 Reported Aspir 81 (Aspirin) 81 Mg Tablet.dr 81 Mg PO DAILY 04/23/17 Reported Meloxicam 15 Mg Tablet 15 Mg PO DAILY 04/23/17 Reported Zoloft (Sertraline Hcl) 100 Mg Tablet 150 Mg PO DAILY 07/28/16 Reported Potassium Chloride 10 Meq Tab.er.prt 10 Meq PO DAILY 03/10/13 Reported Lasix (Furosemide) 40 Mg Tablet 40 Mg PO DAILY 03/10/13 Reported Flonase (Fluticasone Propionate) 16 Gm [place].susp 16 Gm NS DAILY 03/10/13 Reported Lamictal (Lamotrigine) 100 Mg Tablet 100 Mg PO BID 03/10/13 Reported Eemt Hs 0.625-1.25 Mg Tablet (Estrogen,Tess/Me-Testosterone) 1 Each Tablet 1 Each PO DAILY 02/19/13 Reported Zocor (Simvastatin) 80 Mg Tablet 40 Mg PO QHS 02/19/13 Reported Impression . 1. Acute hypoxic and hypercapnic respiratory failure with worsening bilateral infiltrates/ high grade fever in a patient who recently received 3rd COVID19- booster. Possibilities include A) Acute Interstitial Pneumonitis with hyperimmune response to vaccine. B).Likely congestive heart failure, Pt on IVF since admission ( High PrBNP) C) Sepsis with bacterial pneumonia, likely gram-negative ( Procalcitonin 30) 2. Abnormal chest x-ray as discussed above CT chest also abnormal with diffuse interstitial infiltrates and consolidation left lower lobe 3. Underlying chronic obstructive pulmonary disease. 4. Obstructive sleep apnea, on home CPAP and oxygen. 5. Acute kidney injury.? sepsis induced, check previous renal function. 6. The patient is status post third booster of COVID vaccine. Plan . Updated 11/11/2020 titrated fio2 keep oxygen saturations 90% bipap prn elevate hob Continue antibiotics per infectious disease change solumedrol to 40 q 12hrs. Bronchospasm has improved. Bronchodilators Off Ativan. Haldol as needed for agitation avoid oversedation DVT/GI prophylaxis Discussed with RN, OVIDIO PARRA MD Nov 11, 2020 08:33
--- NOTE | 2020-11-11 09:16 | PDOC ---
Provider Note Date of Service: DATE: 11/11/20 TIME: 09:15 Provider Note status same, bp labile, no temp- high O2 need- labs ok, cont mild sedation to protect her bp,etc- rest same Justifications for Admission Other Justification CHASE SHAIKH MD Nov 11, 2020 09:15
[2020-11-11] MEDS: lamoTRIgine 100 MG TABLET. PO SCH ×2 (09:23→20:39)
[2020-11-11] MEDS: ACETAMINOPHEN 325 MG TABLET. PO PRN ×2 (09:24→17:10)
[2020-11-11] MEDS: PANTOPRAZOLE IV PUSH 40 MG VIAL. IVP SCH (09:25)
[2020-11-11 10:50] VITALS: BP 189/81
[2020-11-11 15:39] VITALS: BP 179/89
[2020-11-11 19:35] VITALS: BP 149/69
[2020-11-11 23:20] VITALS: BP 176/81
[2020-11-12 03:10] VITALS: BP 178/79
[2020-11-12] MEDS: PIPERACILLIN/TAZOBACTAM 2.25 GM in IV NORMAL SALINE 50ML 50 ML IV SCH ×2 (05:20→12:00)
[2020-11-12 07:00] VITALS: BP 160/74
[2020-11-12] MEDS: IPRATRPIUM/ALBUTEROL 0.5/2.5MG 3 ML NEBU. NEB SCH ×4 (07:51→20:13)
[2020-11-12] MEDS: lamoTRIgine 100 MG TABLET. PO SCH ×2 (08:49→20:09)
[2020-11-12] MEDS: PANTOPRAZOLE IV PUSH 40 MG VIAL. IVP SCH (08:50)
[2020-11-12] MEDS: methylPREDNISolone SOD SUCC PF 40 MG/ML VIAL. IV SCH ×2 (08:51→20:08)
--- NOTE | 2020-11-12 09:00 | PDOC ---
PROGRESS NOTES Date of Service DATE: 11/12/20 TIME: 08:58 Assessment Problems Medical Problems: (1) Acute kidney injury Status: Acute (2) Fall Status: Acute (3) Skin abrasion Status: Acute (4) Weakness Status: Acute Metabolic encephalopathy, much better than when I last saw her on 11/09 Covid negative, status-post third booster of COVID vaccine No acute intracranial findings or focal abnormalities on exam Cervical spondylosis without evidence of radiculopathy or myelopathy. Fell prior to admission Fever, acute hypoxic respiratory failure, diffuse bilateral infiltrates, pneumonia, CHF, acute kidney injury, had coffee-ground emesis yesterday, 11/07. History of chronic obstructive pulmonary disease, obstructive sleep apnea. Plan Treat medical issues Hold on additional studies such as MRI Discussed with Subjective No complaints Objective Vital Signs Date Time Temp Pulse Resp B/P (MAP) Pulse Ox O2 Delivery O2 Flow Rate FiO2 11/12/20 07:51 96 Venturi Mask 15.0 11/12/20 07:00 98.2 67 24 160/74 (102) 98.2 Intake and Output 11/12/20 06:59 Intake Total 1300 ml Balance 1300 ml Intake Oral 950 ml IV Total 350 ml # Voids 3 # Bowel Movements 1 PHYSICAL EXAM Alert, knows location, not date, just 1 day off, though PERRL. EOMI. CN: no focal findings. Muscle tone: normal. Muscle strength: 4/5 DTR: 1+ Plantar reflex: Flexor Gait: not examined in bed. Sensory exam: no abnormal findings. No cerebellar signs elicited. Review of Relevant I have reviewed the following items shiela (where applicable) has been applied. Labs Laboratory Tests Test 11/10/20 11:00 Clostridium difficile Toxin (PCR) Negative (NEGATIVE) Medications Current Medications Sodium Chloride 1,000 ml @ 1,000 mls/hr 1X ONCE IV Last administered on 11/05/20at 12:17; Start 11/05/20 at 10:15; Stop 11/05/20 at 11:14; Status DC Diphtheria/ Tetanus/Acell Pertussis (ADACEL TDap SYRINGE) 0.5 ml ONCE ONCE VAX IM Last administered on 11/05/20at 12:14; Start 11/05/20 at 10:45; Stop 11/05/20 at 10:53; Status DC Bacitracin (Bacitracin Zinc Oint Pkt) 1 pkt 1X ONCE TP Last administered on 11/05/20at 12:14; Start 11/05/20 at 10:45; Stop 11/05/20 at 10:53; Status DC Acetaminophen (Tylenol) 650 mg 1X ONCE PO Last administered on 11/05/20at 12:12; Start 11/05/20 at 12:00; Stop 11/05/20 at 12:01; Status DC Lorazepam (Ativan Inj) 1 mg 1X ONCE IVP Last administered on 11/05/20at 13:15; Start 11/05/20 at 13:15; Stop 11/05/20 at 13:16; Status DC Lamotrigine (LaMICtal) 100 mg BID PO Last administered on 11/12/20at 08:49; Start 11/06/20 at 09:00 Pantoprazole Sodium (PROTONIX VIAL for IV PUSH) 40 mg DAILYAC IVP Last administered on 11/12/20at 08:50; Start 11/06/20 at 08:00 Sodium Chloride 1,000 ml @ 75 mls/hr 1X ONCE IV Last administered on 11/06/20at 08:11; Start 11/06/20 at 07:45; Stop 11/06/20 at 21:04; Status DC Piperacillin Sod/ Tazobactam Sod 2.25 gm/Sodium Chloride 50 ml @ 100 mls/hr Q6HRS IV Last administered on 11/12/20at 05:20; Start 11/06/20 at 08:00 Acetaminophen (Tylenol Supp) 650 mg PRN Q6HRS PRN [place] MILD PAIN / TEMP > 100.3'F Last administered on 11/06/20at 10:29; Start 11/06/20 at 10:15 Vancomycin HCl (Vanco Per Pharmacy) 1 each PRN DAILY PRN MC SEE COMMENTS; Start 11/06/20 at 11:45; Stop 11/06/20 at 13:20; Status DC Furosemide (Lasix) 40 mg 1X ONCE IVP Last administered on 11/06/20at 12:05; Start 11/06/20 at 11:45; Stop 11/06/20 at 11:46; Status DC Vancomycin HCl 1.5 gm/Sodium Chloride 500 ml @ 250 mls/hr 1X ONCE IV ; Start 11/06/20 at 14:00; Stop 11/06/20 at 13:18; Status DC Linezolid (Zyvox) 600 mg BID PO ; Start 11/06/20 at 13:30; Status Cancel Linezolid/Dextrose 300 ml @ 300 mls/hr Q12H IV Last administered on 11/12/20at 01:00; Start 11/06/20 at 14:00 Acetaminophen (Tylenol) 650 mg PRN Q6HRS PRN PO MILD PAIN / TEMP > 100.3'F Last administered on 11/11/20at 17:10; Start 11/06/20 at 17:30 Methylprednisolone Sodium Succinate (SOLU-Medrol 125MG VIAL) 60 mg Q8HRS IV Last administered on 11/10/20at 05:02; Start 11/07/20 at 11:00; Stop 11/10/20 at 09:10; Status DC Albuterol/ Ipratropium (Duoneb) 3 ml RTQID NEB Last administered on 11/12/20at 07:51; Start 11/07/20 at 12:00 Lorazepam (Ativan Inj) 1 mg PRN Q6HRS PRN IVP ANXIETY / AGITATION Last administered on 11/08/20at 05:34; Start 11/07/20 at 10:45; Stop 11/08/20 at 11:18; Status DC Haloperidol Lactate (Haldol Inj) 1 mg 1X ONCE IM Last administered on 11/07/20at 13:20; Start 11/07/20 at 13:15; Stop 11/07/20 at 13:16; Status DC Haloperidol Lactate (Haldol Inj) 5 mg PRN Q6HRS PRN IVP AGITATION Last administered on 11/10/20at 21:25; Start 11/08/20 at 11:30 Clonidine HCl (Catapres Tts-1) 1 patch WEEKLY TD Last administered on 11/08/20at 12:14; Start 11/08/20 at 12:30 Methylprednisolone Sodium Succinate (SOLU-Medrol 40MG VIAL) 40 mg Q8HRS IV Last administered on 11/11/20at 05:23; Start 11/10/20 at 14:00; Stop 11/11/20 at 08:49; Status DC Lorazepam (Ativan Inj) 1 mg PRN Q4HRS PRN IVP ANXIETY / AGITATION Last administered on 11/11/20at 00:42; Start 11/10/20 at 15:00 Methylprednisolone Sodium Succinate (SOLU-Medrol 40MG VIAL) 40 mg Q12HR IV Last administered on 11/12/20at 08:51; Start 11/11/20 at 09:00 Active Scripts Active Reported [Vitamin D] Alprazolam 1 Mg Tablet 1 Tab PO BID Centrum Complete Multivit Tab (Multivitamin/Iron/Folic Acid) 1 Each Tablet 1 Each PO DAILY [place] 3 Fish Oil Softgel ([place]-3 Fatty Acids/Fish Oil) 1 Each Capsule.dr 1 Each PO DAILY Vitamin C (Ascorbic Acid) 500 Mg Tab.chew 500 Mg PO DAILY Symbicort 160-4.5 Mcg Inhaler (Budesonide/Formoterol Fumarate) 10.2 Gm Hfa.aer.ad 1 Puff IH BID Aspir 81 (Aspirin) 81 Mg Tablet.dr 81 Mg PO DAILY Meloxicam 15 Mg Tablet 15 Mg PO DAILY Zoloft (Sertraline Hcl) 100 Mg Tablet 150 Mg PO DAILY Potassium Chloride 10 Meq Tab.er.prt 10 Meq PO DAILY Lasix (Furosemide) 40 Mg Tablet 40 Mg PO DAILY Flonase (Fluticasone Propionate) 16 Gm [place].susp 16 Gm NS DAILY Lamictal (Lamotrigine) 100 Mg Tablet 100 Mg PO BID Eemt Hs 0.625-1.25 Mg Tablet (Estrogen,Tess/Me-Testosterone) 1 Each Tablet 1 Each PO DAILY Zocor (Simvastatin) 80 Mg Tablet 40 Mg PO QHS Vitals/I & O Vital Sign - Last 24 Hours 11/11/20 11/11/20 11/11/20 11/11/20 10:50 11:40 15:39 15:40 Temp 99.1 99.2 99.1 99.2 Pulse 58 68 Resp 22 20 B/P (MAP) 189/81 (117) 179/89 (119) Pulse Ox 100 99 97 99 O2 Delivery BiPAP/CPAP BiPAP/CPAP BiPAP/CPAP BiPAP/CPAP 11/11/20 11/11/20 11/11/20 11/11/20 19:35 20:04 21:03 21:10 Temp 98.1 98.1 Pulse 68 Resp 20 B/P (MAP) 149/69 (95) Pulse Ox 95 88 99 O2 Delivery Nasal Cannula Nasal Cannula Nasal Cannula BiPAP/CPAP O2 Flow Rate 5.0 5.0 5.0 11/11/20 11/11/20 11/12/20 11/12/20 23:00 23:20 01:04 03:10 Temp 99.5 99.7 99.5 99.7 Pulse 67 73 Resp 24 24 B/P (MAP) 176/81 (112) 178/79 (112) Pulse Ox 87 96 95 100 O2 Delivery BiPAP/CPAP BiPAP/CPAP BiPAP/CPAP BiPAP/CPAP 11/12/20 11/12/20 11/12/20 11/12/20 03:10 05:22 07:00 07:51 Temp 98.2 98.2 Pulse 67 Resp 24 B/P (MAP) 160/74 (102) Pulse Ox 96 89 93 96 O2 Delivery BiPAP/CPAP Venturi Mask Venturi Mask Venturi Mask O2 Flow Rate 15.0 15.0 Intake and Output 11/11/20 11/11/20 11/12/20 14:59 22:59 06:59 Intake Total 650 ml 0 ml 650 ml Balance 650 ml 0 ml 650 ml Justicifation of Admission Dx: Justifications for Admission: Justification of Admission Dx: N/A MOO BRO MD Nov 12, 2020 08:59
--- NOTE | 2020-11-12 09:15 | PDOC ---
Infectious Disease Note Subjective Subjective pt is feeling ok, on bipap ROS ROS no n/v/d/sob Vital Sign Vital Signs Vital Signs Date Time Temp Pulse Resp B/P (MAP) Pulse Ox O2 Delivery O2 Flow Rate FiO2 11/12/20 07:51 96 Venturi Mask 15.0 11/12/20 07:00 98.2 67 24 160/74 (102) 98.2 Physical Exam PHYSICAL EXAM GENERAL: alert awake looks better on nasal O2 HEENT: Normocephalic, atraumatic. Anicteric. No thrush. Oral mucosa moist. NECK: Supple, no JVD. No meningismus. LUNGS: Coarse breath sounds bilaterally. Rhonchi present. HEART: S1, S2 regular. No murmurs. ABDOMEN: Soft, mild diffuse tenderness nondistended. No rebound. No guarding. GENITOURINARY: Brief is in place. No [place]. EXTREMITIES: No edema, no cyanosis. DERMATOLOGIC: Warm, dry. No generalized rash. Few abrasions not infected. PSYCHIATRIC: Calm, cooperative. NEUROLOGIC alert awake PIV looks clean. Objective Assessment 1. Fever, improved 2. Acute hypoxic respiratory failure with diffuse bilateral infiltrates, Appears multifactorial including pneumonia, CHF, pneumonitis on bipap 3. Acute kidney injury. 4. History of chronic obstructive pulmonary disease. 5. History of obstructive sleep apnea. 6. CHF 7. Status post third booster of COVID vaccine. 8. Coffee-ground emesis earlier this morning. 9. History of fall prior to admission. 10.Encephalopathy appears metabolic,no evidence of encephalitis 11. Leucocytosis on steroids Plan Plan of Care Continue Zosyn and linezolid on steroids per pulm team Results of abdominal ultrasound reviewed Follow labs and cultures Maintain aspiration precautions D/W at bedside Discussed with nursing staff AFUA ALEMAN MD Nov 12, 2020 09:14
[2020-11-12 10:20] VITALS: BP 143/70
--- NOTE | 2020-11-12 11:13 | PDOC ---
PULMONARY PROGRESS NOTES DATE: 11/12/20 TIME: 11:12 Subjective off bipap on 02 5 lpm sat 97% alert feeling better Vitals Vital Signs Date Time Temp Pulse Resp B/P (MAP) Pulse Ox O2 Delivery O2 Flow Rate FiO2 11/12/20 10:20 99.4 81 24 143/70 (94) 88 Venturi Mask 99.4 11/12/20 10:10 15.0 Comments Unable to report review of systems secondary to current clinical state General: Alert, No acute distress Lungs: Crackles Cardiovascular: S1, S2 Abdomen: Soft Neuro Exam: Alert Extremities: No Edema Skin: Warm Medications Active Scripts Medications Dose Route/Sig Max Daily Dose Days Date Category [Vitamin D] 04/14/20 Reported Alprazolam 1 Mg Tablet 1 Tab PO BID 04/14/20 Reported Centrum Complete Multivit Tab (Multivitamin/Iron/Folic Acid) 1 Each Tablet 1 Each PO DAILY 03/05/18 Reported [place] 3 Fish Oil Softgel ([place]-3 Fatty Acids/Fish Oil) 1 Each Capsule.dr 1 Each PO DAILY 03/05/18 Reported Vitamin C (Ascorbic Acid) 500 Mg Tab.chew 500 Mg PO DAILY 03/05/18 Reported Symbicort 160-4.5 Mcg Inhaler (Budesonide/Formoterol Fumarate) 10.2 Gm Hfa.aer.ad 1 Puff IH BID 03/05/18 Reported Aspir 81 (Aspirin) 81 Mg Tablet.dr 81 Mg PO DAILY 04/23/17 Reported Meloxicam 15 Mg Tablet 15 Mg PO DAILY 04/23/17 Reported Zoloft (Sertraline Hcl) 100 Mg Tablet 150 Mg PO DAILY 07/28/16 Reported Potassium Chloride 10 Meq Tab.er.prt 10 Meq PO DAILY 03/10/13 Reported Lasix (Furosemide) 40 Mg Tablet 40 Mg PO DAILY 03/10/13 Reported Flonase (Fluticasone Propionate) 16 Gm [place].susp 16 Gm NS DAILY 03/10/13 Reported Lamictal (Lamotrigine) 100 Mg Tablet 100 Mg PO BID 03/10/13 Reported Eemt Hs 0.625-1.25 Mg Tablet (Estrogen,Tess/Me-Testosterone) 1 Each Tablet 1 Each PO DAILY 02/19/13 Reported Zocor (Simvastatin) 80 Mg Tablet 40 Mg PO QHS 02/19/13 Reported Impression . 1. Acute hypoxic and hypercapnic respiratory failure with worsening bilateral infiltrates/ high grade fever in a patient who recently received 3rd COVID19- booster. Possibilities include A) Acute Interstitial Pneumonitis with hyperimmune response to vaccine. B).Likely congestive heart failure, Pt on IVF since admission ( High PrBNP) C) Sepsis with bacterial pneumonia, likely gram-negative ( Procalcitonin 30) 2. Abnormal chest x-ray as discussed above CT chest also abnormal with diffuse interstitial infiltrates and consolidation left lower lobe 3. Underlying chronic obstructive pulmonary disease. 4. Obstructive sleep apnea, on home CPAP and oxygen. 5. Acute kidney injury.? sepsis induced, check previous renal function. 6. The patient is status post third booster of COVID vaccine. Plan . titrated fio2 keep oxygen saturations 90% bipap prn elevate hob Continue antibiotics per infectious disease change solumedrol to 40 q 12hrs. Bronchospasm has improved. Bronchodilators Off Ativan. Haldol as needed for agitation avoid oversedation DVT/GI prophylaxis Discussed with RN, and patient's . Clinically improving slowly. HEIDI TRACEY MD Nov 12, 2020 11:13
[2020-11-12] MEDS: HALOPERIDOL LACTATE 5 MG/ML VIAL. IVP PRN (12:00)
[2020-11-12 14:40] VITALS: BP 164/77
--- NOTE | 2020-11-12 14:40 | RAD ---
XR CHEST 1V INDICATION: md order/ increased SOB . COMPARISON STUDY: 11/07/2020. FINDINGS: Lungs: Normal lung volume. Bilateral perihilar and basilar opacities, slightly improved in the right base. Pleura: Stable pleural spaces. Heart and Mediastinum: Stable cardiomediastinal silhouette and great vessels. Bones and Soft Tissues: Stable regional skeleton and soft tissues. IMPRESSION: Bilateral perihilar and basilar opacities, slightly improved in the right base.. Electronically signed by: Johan Acevedo MD (11/12/2020 2:37 PM) [id number]
--- NOTE | 2020-11-12 17:44 | PN ---
DATE: 11/12/2020 DAILY PROGRESS NOTE SUBJECTIVE: This 80-year-old female remains hospitalized with bilateral pneumonia, acute hypoxic respiratory failure, encephalopathy along with acute kidney injury, leukocytosis with septic pictures. OBJECTIVE: VITAL SIGNS: Stable. T-max in last 24 hours 99.7. GENERAL: She is much more awake and alert and appropriate this morning, wanting to go home, but still not quite her normal self that she does a little less in anything besides she is ready to go home today. CHEST: Essentially clear today. HEART: Regular. ABDOMEN: Benign. Leukocytosis is resolved. Acute kidney injury is almost completely resolved with creatinine down to 1.2. She has ongoing IV antibiotics. ASSESSMENT: 1. Bilateral pneumonia with acute hypoxic respiratory failure, COVID negative. 2. History of asthma. 3. Sepsis, improving. 4. Acute kidney injury, improving. PLAN: Continue present supportive care length of time for antibiotics per ID and begin to mobilize. MARITZA/DINA DR: Bisi TID: [id number]
[2020-11-12 17:56] LABS: BASO % 0 % (0-3); EOS % 0 % (0-3); HEMATOCRIT 38.7 % (36.0-47.0); HEMOGLOBIN 12.9 g/dL (12.0-15.5); LYMPH # 0.9 x10^3/uL (1.0-4.8); LYMPH % 5 % (24-48); MEAN CORPUSCULAR HEMOGLOBIN 31 pg (25-35); MEAN CORPUSCULAR HGB CONC 33 g/dL (31-37); MEAN CORPUSCULAR VOLUME 92 fL (79-100); MONO # 1.2 x10^3/uL (0.0-1.1); MONO % 6 % (0-9); NEUT # 17.8 x10^3/uL (1.8-7.7); NEUT % 89 % (31-73); PLATELET COUNT 171 x10^3/uL (140-400); RED BLOOD COUNT 4.19 x10^6/uL (3.50-5.40); RED CELL DISTRIBUTION WIDTH 14.1 % (11.5-14.5); WHITE BLOOD COUNT 19.9 x10^3/uL (4.0-11.0)
[2020-11-12] MEDS: PIPERACILLIN/TAZOBACTAM 3.375 GM in IV NORMAL SALINE 50ML 50 ML IV SCH ×2 (18:44→23:24)
[2020-11-12 19:35] VITALS: BP 169/77
[2020-11-12 19:47] LABS: % BANDS 3 % (0-9); % LYMPHS 6 % (24-48); % MONOS 3 % (0-10); % MYELOS 1 % (0-0); % SEGS 87 % (35-66); PLT ESTIMATE ADEQUATE (ADEQUATE)
[2020-11-12 19:48] LABS: TOXIC GRANULATION SLIGHT
[2020-11-12] MEDS: LACTOBACILLUS RHAMNOSUS GG 1 CAPSULE. PO SCH (20:09)
--- NOTE | 2020-11-12 20:49 | NUR ---
Pt anxious. Pts Don is here and requesting pt be given something to help her calm down. Ativan 0.5mg given. Will continue to monitor.
[2020-11-12 22:55] VITALS: BP 174/82
[2020-11-13 03:15] VITALS: BP 146/70
[2020-11-13] MEDS: PIPERACILLIN/TAZOBACTAM 3.375 GM in IV NORMAL SALINE 50ML 50 ML IV SCH ×4 (05:02→23:09)
[2020-11-13 07:00] VITALS: BP 184/84
[2020-11-13] MEDS: IPRATRPIUM/ALBUTEROL 0.5/2.5MG 3 ML NEBU. NEB SCH ×4 (07:46→20:31)
[2020-11-13] MEDS: HALOPERIDOL LACTATE 5 MG/ML VIAL. IVP PRN (07:50)
[2020-11-13] MEDS: PANTOPRAZOLE IV PUSH 40 MG VIAL. IVP SCH (07:50)
[2020-11-13 08:33] LABS: BASO % 0 % (0-3); EOS % 0 % (0-3); HEMATOCRIT 36.5 % (36.0-47.0); HEMOGLOBIN 12.3 g/dL (12.0-15.5); LYMPH # 1.4 x10^3/uL (1.0-4.8); LYMPH % 9 % (24-48); MEAN CORPUSCULAR HEMOGLOBIN 31 pg (25-35); MEAN CORPUSCULAR HGB CONC 34 g/dL (31-37); MEAN CORPUSCULAR VOLUME 91 fL (79-100); MONO # 0.5 x10^3/uL (0.0-1.1); MONO % 3 % (0-9); NEUT # 13.4 x10^3/uL (1.8-7.7); NEUT % 87 % (31-73); PLATELET COUNT 163 x10^3/uL (140-400); RED CELL DISTRIBUTION WIDTH 14.1 % (11.5-14.5); WHITE BLOOD COUNT 15.3 x10^3/uL (4.0-11.0)
--- NOTE | 2020-11-13 08:35 | PDOC ---
PROGRESS NOTES Date of Service DATE: 11/13/20 TIME: 08:34 Assessment Problems Medical Problems: (1) Acute kidney injury Status: Acute (2) Fall Status: Acute (3) Skin abrasion Status: Acute (4) Weakness Status: Acute Metabolic encephalopathy Covid negative, status-post third booster of COVID vaccine No acute intracranial findings or focal abnormalities on exam Cervical spondylosis without evidence of radiculopathy or myelopathy. Fell prior to admission Fever, acute hypoxic respiratory failure, diffuse bilateral infiltrates, p neumonia, CHF, acute kidney injury, had coffee-ground emesis 11/07. History of chronic obstructive pulmonary disease, obstructive sleep apnea. Plan Treat medical issues Hold on additional studies such as MRI Subjective None Objective Vital Signs Date Time Temp Pulse Resp B/P (MAP) Pulse Ox O2 Delivery O2 Flow Rate FiO2 11/13/20 08:17 91 BiPAP/CPAP 11/13/20 07:00 99.5 79 25 184/84 (117) 99.5 11/12/20 19:26 5.0 Intake and Output 11/13/20 07:00 Intake Total 1350 ml Balance 1350 ml Intake Oral 600 ml IV Total 750 ml # Voids 1 # Bowel Movements 2 PHYSICAL EXAM Sleepy, alerts to voice, moves to command PERRL. EOMI. CN: no focal findings. Muscle tone: normal. Muscle strength: 4/5 DTR: 1+ Plantar reflex: Flexor Gait: not examined in bed. Sensory exam: no abnormal findings. No cerebellar signs elicited. Review of Relevant I have reviewed the following items shiela (where applicable) has been applied. Labs Laboratory Tests Test 11/12/20 17:40 White Blood Count 19.9 x10^3/uL (4.0-11.0) Red Blood Count 4.19 x10^6/uL (3.50-5.40) Hemoglobin 12.9 g/dL (12.0-15.5) Hematocrit 38.7 % (36.0-47.0) Mean Corpuscular Volume 92 fL (79-100) Mean Corpuscular Hemoglobin 31 pg (25-35) Mean Corpuscular Hemoglobin Concent 33 g/dL (31-37) Red Cell Distribution Width 14.1 % (11.5-14.5) Platelet Count 171 x10^3/uL (140-400) Neutrophils (%) (Auto) 89 % (31-73) Lymphocytes (%) (Auto) 5 % (24-48) Monocytes (%) (Auto) 6 % (0-9) Eosinophils (%) (Auto) 0 % (0-3) Basophils (%) (Auto) 0 % (0-3) Neutrophils # (Auto) 17.8 x10^3/uL (1.8-7.7) Lymphocytes # (Auto) 0.9 x10^3/uL (1.0-4.8) Monocytes # (Auto) 1.2 x10^3/uL (0.0-1.1) Eosinophils # (Auto) 0.0 x10^3/uL (0.0-0.7) Basophils # (Auto) 0.0 x10^3/uL (0.0-0.2) Segmented Neutrophils % 87 % (35-66) Band Neutrophils % 3 % (0-9) Lymphocytes % 6 % (24-48) Monocytes % 3 % (0-10) Myelocytes % 1 % (0-0) Toxic Granulation Slight Platelet Estimate Adequate (ADEQUATE) Laboratory Tests Test 11/12/20 17:40 White Blood Count 19.9 x10^3/uL (4.0-11.0) Red Blood Count 4.19 x10^6/uL (3.50-5.40) Hemoglobin 12.9 g/dL (12.0-15.5) Hematocrit 38.7 % (36.0-47.0) Mean Corpuscular Volume 92 fL (79-100) Mean Corpuscular Hemoglobin 31 pg (25-35) Mean Corpuscular Hemoglobin Concent 33 g/dL (31-37) Red Cell Distribution Width 14.1 % (11.5-14.5) Platelet Count 171 x10^3/uL (140-400) Neutrophils (%) (Auto) 89 % (31-73) Lymphocytes (%) (Auto) 5 % (24-48) Monocytes (%) (Auto) 6 % (0-9) Eosinophils (%) (Auto) 0 % (0-3) Basophils (%) (Auto) 0 % (0-3) Neutrophils # (Auto) 17.8 x10^3/uL (1.8-7.7) Lymphocytes # (Auto) 0.9 x10^3/uL (1.0-4.8) Monocytes # (Auto) 1.2 x10^3/uL (0.0-1.1) Eosinophils # (Auto) 0.0 x10^3/uL (0.0-0.7) Basophils # (Auto) 0.0 x10^3/uL (0.0-0.2) Segmented Neutrophils % 87 % (35-66) Band Neutrophils % 3 % (0-9) Lymphocytes % 6 % (24-48) Monocytes % 3 % (0-10) Myelocytes % 1 % (0-0) Toxic Granulation Slight Platelet Estimate Adequate (ADEQUATE) Medications Current Medications Sodium Chloride 1,000 ml @ 1,000 mls/hr 1X ONCE IV Last administered on 11/05/20at 12:17; Start 11/05/20 at 10:15; Stop 11/05/20 at 11:14; Status DC Diphtheria/ Tetanus/Acell Pertussis (ADACEL TDap SYRINGE) 0.5 ml ONCE ONCE VAX IM Last administered on 11/05/20at 12:14; Start 11/05/20 at 10:45; Stop 11/05/20 at 10:53; Status DC Bacitracin (Bacitracin Zinc Oint Pkt) 1 pkt 1X ONCE TP Last administered on 11/05/20at 12:14; Start 11/05/20 at 10:45; Stop 11/05/20 at 10:53; Status DC Acetaminophen (Tylenol) 650 mg 1X ONCE PO Last administered on 11/05/20at 12:12; Start 11/05/20 at 12:00; Stop 11/05/20 at 12:01; Status DC Lorazepam (Ativan Inj) 1 mg 1X ONCE IVP Last administered on 11/05/20at 13:15; Start 11/05/20 at 13:15; Stop 11/05/20 at 13:16; Status DC Lamotrigine (LaMICtal) 100 mg BID PO Last administered on 11/12/20at 08:49; Start 11/06/20 at 09:00 Pantoprazole Sodium (PROTONIX VIAL for IV PUSH) 40 mg DAILYAC IVP Last administered on 11/13/20at 07:50; Start 11/06/20 at 08:00 Sodium Chloride 1,000 ml @ 75 mls/hr 1X ONCE IV Last administered on 11/06/20at 08:11; Start 11/06/20 at 07:45; Stop 11/06/20 at 21:04; Status DC Piperacillin Sod/ Tazobactam Sod 2.25 gm/Sodium Chloride 50 ml @ 100 mls/hr Q6HRS IV Last administered on 11/12/20at 12:00; Start 11/06/20 at 08:00; Stop 11/12/20 at 13:56; Status DC Acetaminophen (Tylenol Supp) 650 mg PRN Q6HRS PRN MS MILD PAIN / TEMP > 100.3'F Last administered on 11/06/20at 10:29; Start 11/06/20 at 10:15 Vancomycin HCl (Vanco Per Pharmacy) 1 each PRN DAILY PRN MC SEE COMMENTS; Start 11/06/20 at 11:45; Stop 11/06/20 at 13:20; Status DC Furosemide (Lasix) 40 mg 1X ONCE IVP Last administered on 11/06/20at 12:05; Start 11/06/20 at 11:45; Stop 11/06/20 at 11:46; Status DC Vancomycin HCl 1.5 gm/Sodium Chloride 500 ml @ 250 mls/hr 1X ONCE IV ; Start 11/06/20 at 14:00; Stop 11/06/20 at 13:18; Status DC Linezolid (Zyvox) 600 mg BID PO ; Start 11/06/20 at 13:30; Status Cancel Linezolid/Dextrose 300 ml @ 300 mls/hr Q12H IV Last administered on 11/13/20at 01:18; Start 11/06/20 at 14:00 Acetaminophen (Tylenol) 650 mg PRN Q6HRS PRN PO MILD PAIN / TEMP > 100.3'F Last administered on 11/11/20at 17:10; Start 11/06/20 at 17:30 Methylprednisolone Sodium Succinate (SOLU-Medrol 125MG VIAL) 60 mg Q8HRS IV Last administered on 11/10/20at 05:02; Start 11/07/20 at 11:00; Stop 11/10/20 at 09:10; Status DC Albuterol/ Ipratropium (Duoneb) 3 ml RTQID NEB Last administered on 11/13/20at 07:46; Start 11/07/20 at 12:00 Lorazepam (Ativan Inj) 1 mg PRN Q6HRS PRN IVP ANXIETY / AGITATION Last administered on 11/08/20at 05:34; Start 11/07/20 at 10:45; Stop 11/08/20 at 11:18; Status DC Haloperidol Lactate (Haldol Inj) 1 mg 1X ONCE IM Last administered on 11/07/20at 13:20; Start 11/07/20 at 13:15; Stop 11/07/20 at 13:16; Status DC Haloperidol Lactate (Haldol Inj) 5 mg PRN Q6HRS PRN IVP AGITATION Last administered on 11/13/20at 07:50; Start 11/08/20 at 11:30 Clonidine HCl (Catapres Tts-1) 1 patch WEEKLY TD Last administered on 11/08/20at 12:14; Start 11/08/20 at 12:30 Methylprednisolone Sodium Succinate (SOLU-Medrol 40MG VIAL) 40 mg Q8HRS IV Last administered on 11/11/20at 05:23; Start 11/10/20 at 14:00; Stop 11/11/20 at 08:49; Status DC Lorazepam (Ativan Inj) 1 mg PRN Q4HRS PRN IVP ANXIETY. Last administered on 11/12/20at 20:48; Start 11/10/20 at 15:00 Methylprednisolone Sodium Succinate (SOLU-Medrol 40MG VIAL) 40 mg Q12HR IV Last administered on 11/12/20at 20:08; Start 11/11/20 at 09:00 Piperacillin Sod/ Tazobactam Sod 3.375 gm/Sodium Chloride 50 ml @ 100 mls/hr Q6HRS IV Last administered on 11/13/20at 05:02; Start 11/12/20 at 18:00 Lactobacillus Rhamnosus (Culturelle) 1 cap BID PO ; Start 11/12/20 at 21:00 Active Scripts Active Reported [Vitamin D] Alprazolam 1 Mg Tablet 1 Tab PO BID Centrum Complete Multivit Tab (Multivitamin/Iron/Folic Acid) 1 Each Tablet 1 Each PO DAILY [place] 3 Fish Oil Softgel ([place]-3 Fatty Acids/Fish Oil) 1 Each Capsule.dr 1 Each PO DAILY Vitamin C (Ascorbic Acid) 500 Mg Tab.chew 500 Mg PO DAILY Symbicort 160-4.5 Mcg Inhaler (Budesonide/Formoterol Fumarate) 10.2 Gm Hfa.aer.ad 1 Puff IH BID Aspir 81 (Aspirin) 81 Mg Tablet.dr 81 Mg PO DAILY Meloxicam 15 Mg Tablet 15 Mg PO DAILY Zoloft (Sertraline Hcl) 100 Mg Tablet 150 Mg PO DAILY Potassium Chloride 10 Meq Tab.er.prt 10 Meq PO DAILY Lasix (Furosemide) 40 Mg Tablet 40 Mg PO DAILY Flonase (Fluticasone Propionate) 16 Gm [place].susp 16 Gm NS DAILY Lamictal (Lamotrigine) 100 Mg Tablet 100 Mg PO BID Eemt Hs 0.625-1.25 Mg Tablet (Estrogen,Tess/Me-Testosterone) 1 Each Tablet 1 Each PO DAILY Zocor (Simvastatin) 80 Mg Tablet 40 Mg PO QHS Vitals/I & O Vital Sign - Last 24 Hours 11/12/20 11/12/20 11/12/20 11/12/20 10:10 10:20 11:11 13:11 Temp 99.4 99.4 Pulse 81 Resp 24 B/P (MAP) 143/70 (94) Pulse Ox 89 88 92 95 O2 Delivery Venturi Mask Venturi Mask BiPAP/CPAP BiPAP/CPAP O2 Flow Rate 15.0 11/12/20 11/12/20 11/12/20 11/12/20 14:40 15:57 17:39 19:26 Temp 99.4 99.4 Pulse 93 Resp 24 B/P (MAP) 164/77 (106) Pulse Ox 97 98 97 O2 Delivery Venturi Mask BiPAP/CPAP BiPAP/CPAP Nasal Cannula O2 Flow Rate 5.0 11/12/20 11/12/20 11/12/20 11/12/20 19:35 20:13 21:19 22:55 Temp 98.9 99.8 98.9 99.8 Pulse 101 104 Resp 28 28 B/P (MAP) 169/77 (107) 174/82 (112) Pulse Ox 91 94 93 92 O2 Delivery BiPAP/CPAP BiPAP/CPAP BiPAP/CPAP BiPAP/CPAP 11/12/20 11/13/20 11/13/20 11/13/20 23:15 01:20 03:15 03:31 Temp 98.4 98.4 Pulse 65 Resp 28 B/P (MAP) 146/70 (95) Pulse Ox 96 93 96 96 O2 Delivery BiPAP/CPAP BiPAP/CPAP BiPAP/CPAP BiPAP/CPAP 11/13/20 11/13/20 11/13/20 05:32 07:00 08:17 Temp 99.5 99.5 Pulse 79 Resp 25 B/P (MAP) 184/84 (117) Pulse Ox 95 93 91 O2 Delivery BiPAP/CPAP BiPAP/CPAP BiPAP/CPAP Intake and Output 11/12/20 11/12/20 11/13/20 15:00 23:00 07:00 Intake Total 290 ml 660 ml 400 ml Balance 290 ml 660 ml 400 ml Justicifation of Admission Dx: Justifications for Admission: Justification of Admission Dx: N/A MOO BRO MD Nov 13, 2020 08:35
--- NOTE | 2020-11-13 10:03 | PN ---
DATE: 11/13/2020 DAILY PROGRESS NOTE LOCATION: She is in room 669. SUBJECTIVE: This 80-year-old female remains hospitalized with bilateral pneumonia and acute hypoxic hypercarbic respiratory failure. She has ongoing encephalopathy. Acute kidney injury present on admission has improved. is present and she is quite combative this morning. OBJECTIVE: VITAL SIGNS: Stable. T-max is 99.8. She remains intermittently hypertensive, likely related to agitation. Currently on BiPAP with sats of 95%. She did desat worse again yesterday, late morning and afternoon requiring going back to the BiPAP as she was on nasal cannula yesterday morning. Repeat chest x-ray done yesterday showed no worsening and actually may be some improvement in the right basilar infiltrate. CHEST: Reveals essentially clear. HEART: Regular. ABDOMEN: Benign. LABORATORY DATA: White count did bump up yesterday to 19,900 with worsening of the left shift again. However, bandemia present back on the 25th of 55% is resolved. ASSESSMENT: 1. Bilateral pneumonia with acute hypoxic hypercarbic respiratory failure and COVID negative. 2. Longstanding history of severe asthma. 3. Sepsis, improving. 4. Acute kidney injury, improving. 5. Encephalopathy ongoing. PLAN: Help of ID, pulmonary appreciated. Continue antibiotic coverage. Hopefully, will slowly improve. I am concerned about her worsening yesterday. She is currently not getting any IV fluids, so restart low dose at least IV fluids as she is n.p.o. TEJAS DR: MARITZA/darwin TID: [id number]
[2020-11-13] MEDS: methylPREDNISolone SOD SUCC PF 40 MG/ML VIAL. IV SCH ×2 (10:15→20:08)
[2020-11-13] MEDS: LACTOBACILLUS RHAMNOSUS GG 1 CAPSULE. PO SCH ×2 (10:15→21:00)
[2020-11-13] MEDS: lamoTRIgine 100 MG TABLET. PO SCH ×2 (10:15→20:08)
--- NOTE | 2020-11-13 10:22 | PDOC ---
Infectious Disease Note Subjective Subjective pt is feeling ok, on bipap ROS ROS no n/v/d/sob Vital Sign Vital Signs Vital Signs Date Time Temp Pulse Resp B/P (MAP) Pulse Ox O2 Delivery O2 Flow Rate FiO2 11/13/20 09:37 95 BiPAP/CPAP 11/13/20 07:00 99.5 79 25 184/84 (117) 99.5 11/12/20 19:26 5.0 Physical Exam PHYSICAL EXAM GENERAL: alert awake looks better on nasal O2 HEENT: Normocephalic, atraumatic. Anicteric. No thrush. Oral mucosa moist. NECK: Supple, no JVD. No meningismus. LUNGS: Coarse breath sounds bilaterally. Rhonchi present. HEART: S1, S2 regular. No murmurs. ABDOMEN: Soft, mild diffuse tenderness nondistended. No rebound. No guarding. GENITOURINARY: Brief is in place. No Har[place]. EXTREMITIES: No edema, no cyanosis. DERMATOLOGIC: Warm, dry. No generalized rash. Few abrasions not infected. PSYCHIATRIC: Calm, cooperative. NEUROLOGIC alert awake PIV looks clean. Labs Lab Laboratory Tests Test 11/12/20 17:40 11/13/20 08:15 White Blood Count 19.9 x10^3/uL (4.0-11.0) 15.3 x10^3/uL (4.0-11.0) Red Blood Count 4.19 x10^6/uL (3.50-5.40) 4.00 x10^6/uL (3.50-5.40) Hemoglobin 12.9 g/dL (12.0-15.5) 12.3 g/dL (12.0-15.5) Hematocrit 38.7 % (36.0-47.0) 36.5 % (36.0-47.0) Mean Corpuscular Volume 92 fL (79-100) 91 fL (79-100) Mean Corpuscular Hemoglobin 31 pg (25-35) 31 pg (25-35) Mean Corpuscular Hemoglobin Concent 33 g/dL (31-37) 34 g/dL (31-37) Red Cell Distribution Width 14.1 % (11.5-14.5) 14.1 % (11.5-14.5) Platelet Count 171 x10^3/uL (140-400) 163 x10^3/uL (140-400) Neutrophils (%) (Auto) 89 % (31-73) 87 % (31-73) Lymphocytes (%) (Auto) 5 % (24-48) 9 % (24-48) Monocytes (%) (Auto) 6 % (0-9) 3 % (0-9) Eosinophils (%) (Auto) 0 % (0-3) 0 % (0-3) Basophils (%) (Auto) 0 % (0-3) 0 % (0-3) Neutrophils # (Auto) 17.8 x10^3/uL (1.8-7.7) 13.4 x10^3/uL (1.8-7.7) Lymphocytes # (Auto) 0.9 x10^3/uL (1.0-4.8) 1.4 x10^3/uL (1.0-4.8) Monocytes # (Auto) 1.2 x10^3/uL (0.0-1.1) 0.5 x10^3/uL (0.0-1.1) Eosinophils # (Auto) 0.0 x10^3/uL (0.0-0.7) 0.0 x10^3/uL (0.0-0.7) Basophils # (Auto) 0.0 x10^3/uL (0.0-0.2) 0.0 x10^3/uL (0.0-0.2) Segmented Neutrophils % 87 % (35-66) Band Neutrophils % 3 % (0-9) Lymphocytes % 6 % (24-48) Monocytes % 3 % (0-10) Myelocytes % 1 % (0-0) Toxic Granulation Slight Platelet Estimate Adequate (ADEQUATE) Objective Assessment 1. Fever, improved 2. Acute hypoxic respiratory failure with diffuse bilateral infiltrates, Appears multifactorial including pneumonia, CHF, pneumonitis on bipap 3. Acute kidney injury. 4. History of chronic obstructive pulmonary disease. 5. History of obstructive sleep apnea. 6. CHF 7. Status post third booster of COVID vaccine. 8. Coffee-ground emesis earlier this morning. 9. History of fall prior to admission. 10.Encephalopathy appears metabolic,no evidence of encephalitis 11. Leucocytosis on steroids Plan Plan of Care Continue Zosyn and linezolid on steroids per pulm team Results of abdominal ultrasound reviewed Follow labs and cultures Maintain aspiration precautions D/W at bedside Discussed with nursing staff AFUA ALEMAN MD Nov 13, 2020 10:22
[2020-11-13 11:00] VITALS: BP 110/57
--- NOTE | 2020-11-13 11:06 | PDOC ---
PULMONARY PROGRESS NOTES DATE: 11/13/20 TIME: 11:04 Subjective Patient is lethargic. Back on BiPAP. Vitals Vital Signs Date Time Temp Pulse Resp B/P (MAP) Pulse Ox O2 Delivery O2 Flow Rate FiO2 11/13/20 09:37 95 BiPAP/CPAP 11/13/20 07:00 99.5 79 25 184/84 (117) 99.5 11/12/20 19:26 5.0 Comments Unable to report review of systems secondary to current clinical state Lungs: Crackles Cardiovascular: S1, S2 Abdomen: Soft Neuro Exam: Alert Extremities: No Edema Skin: Warm Labs Laboratory Tests Test 11/12/20 17:40 11/13/20 08:15 White Blood Count 19.9 x10^3/uL (4.0-11.0) 15.3 x10^3/uL (4.0-11.0) Red Blood Count 4.19 x10^6/uL (3.50-5.40) 4.00 x10^6/uL (3.50-5.40) Hemoglobin 12.9 g/dL (12.0-15.5) 12.3 g/dL (12.0-15.5) Hematocrit 38.7 % (36.0-47.0) 36.5 % (36.0-47.0) Mean Corpuscular Volume 92 fL (79-100) 91 fL (79-100) Mean Corpuscular Hemoglobin 31 pg (25-35) 31 pg (25-35) Mean Corpuscular Hemoglobin Concent 33 g/dL (31-37) 34 g/dL (31-37) Red Cell Distribution Width 14.1 % (11.5-14.5) 14.1 % (11.5-14.5) Platelet Count 171 x10^3/uL (140-400) 163 x10^3/uL (140-400) Neutrophils (%) (Auto) 89 % (31-73) 87 % (31-73) Lymphocytes (%) (Auto) 5 % (24-48) 9 % (24-48) Monocytes (%) (Auto) 6 % (0-9) 3 % (0-9) Eosinophils (%) (Auto) 0 % (0-3) 0 % (0-3) Basophils (%) (Auto) 0 % (0-3) 0 % (0-3) Neutrophils # (Auto) 17.8 x10^3/uL (1.8-7.7) 13.4 x10^3/uL (1.8-7.7) Lymphocytes # (Auto) 0.9 x10^3/uL (1.0-4.8) 1.4 x10^3/uL (1.0-4.8) Monocytes # (Auto) 1.2 x10^3/uL (0.0-1.1) 0.5 x10^3/uL (0.0-1.1) Eosinophils # (Auto) 0.0 x10^3/uL (0.0-0.7) 0.0 x10^3/uL (0.0-0.7) Basophils # (Auto) 0.0 x10^3/uL (0.0-0.2) 0.0 x10^3/uL (0.0-0.2) Segmented Neutrophils % 87 % (35-66) Band Neutrophils % 3 % (0-9) Lymphocytes % 6 % (24-48) Monocytes % 3 % (0-10) Myelocytes % 1 % (0-0) Toxic Granulation Slight Platelet Estimate Adequate (ADEQUATE) Laboratory Tests Test 11/12/20 17:40 11/13/20 08:15 White Blood Count 19.9 x10^3/uL (4.0-11.0) 15.3 x10^3/uL (4.0-11.0) Red Blood Count 4.19 x10^6/uL (3.50-5.40) 4.00 x10^6/uL (3.50-5.40) Hemoglobin 12.9 g/dL (12.0-15.5) 12.3 g/dL (12.0-15.5) Hematocrit 38.7 % (36.0-47.0) 36.5 % (36.0-47.0) Mean Corpuscular Volume 92 fL (79-100) 91 fL (79-100) Mean Corpuscular Hemoglobin 31 pg (25-35) 31 pg (25-35) Mean Corpuscular Hemoglobin Concent 33 g/dL (31-37) 34 g/dL (31-37) Red Cell Distribution Width 14.1 % (11.5-14.5) 14.1 % (11.5-14.5) Platelet Count 171 x10^3/uL (140-400) 163 x10^3/uL (140-400) Neutrophils (%) (Auto) 89 % (31-73) 87 % (31-73) Lymphocytes (%) (Auto) 5 % (24-48) 9 % (24-48) Monocytes (%) (Auto) 6 % (0-9) 3 % (0-9) Eosinophils (%) (Auto) 0 % (0-3) 0 % (0-3) Basophils (%) (Auto) 0 % (0-3) 0 % (0-3) Neutrophils # (Auto) 17.8 x10^3/uL (1.8-7.7) 13.4 x10^3/uL (1.8-7.7) Lymphocytes # (Auto) 0.9 x10^3/uL (1.0-4.8) 1.4 x10^3/uL (1.0-4.8) Monocytes # (Auto) 1.2 x10^3/uL (0.0-1.1) 0.5 x10^3/uL (0.0-1.1) Eosinophils # (Auto) 0.0 x10^3/uL (0.0-0.7) 0.0 x10^3/uL (0.0-0.7) Basophils # (Auto) 0.0 x10^3/uL (0.0-0.2) 0.0 x10^3/uL (0.0-0.2) Segmented Neutrophils % 87 % (35-66) Band Neutrophils % 3 % (0-9) Lymphocytes % 6 % (24-48) Monocytes % 3 % (0-10) Myelocytes % 1 % (0-0) Toxic Granulation Slight Platelet Estimate Adequate (ADEQUATE) Medications Active Scripts Medications Dose Route/Sig Max Daily Dose Days Date Category [Vitamin D] 04/14/20 Reported Alprazolam 1 Mg Tablet 1 Tab PO BID 04/14/20 Reported Centrum Complete Multivit Tab (Multivitamin/Iron/Folic Acid) 1 Each Tablet 1 Each PO DAILY 03/05/18 Reported [place] 3 Fish Oil Softgel ([place]-3 Fatty Acids/Fish Oil) 1 Each Capsule.dr 1 Each PO DAILY 03/05/18 Reported Vitamin C (Ascorbic Acid) 500 Mg Tab.chew 500 Mg PO DAILY 03/05/18 Reported Symbicort 160-4.5 Mcg Inhaler (Budesonide/Formoterol Fumarate) 10.2 Gm Hfa.aer.ad 1 Puff IH BID 03/05/18 Reported Aspir 81 (Aspirin) 81 Mg Tablet.dr 81 Mg PO DAILY 04/23/17 Reported Meloxicam 15 Mg Tablet 15 Mg PO DAILY 04/23/17 Reported Zoloft (Sertraline Hcl) 100 Mg Tablet 150 Mg PO DAILY 07/28/16 Reported Potassium Chloride 10 Meq Tab.er.prt 10 Meq PO DAILY 03/10/13 Reported Lasix (Furosemide) 40 Mg Tablet 40 Mg PO DAILY 03/10/13 Reported Flonase (Fluticasone Propionate) 16 Gm [place].susp 16 Gm NS DAILY 03/10/13 Reported Lamictal (Lamotrigine) 100 Mg Tablet 100 Mg PO BID 03/10/13 Reported Eemt Hs 0.625-1.25 Mg Tablet (Estrogen,Tess/Me-Testosterone) 1 Each Tablet 1 Each PO DAILY 02/19/13 Reported Zocor (Simvastatin) 80 Mg Tablet 40 Mg PO QHS 02/19/13 Reported Impression . 1. Acute hypoxic and hypercapnic respiratory failure with worsening bilateral infiltrates/ high grade fever in a patient who recently received 3rd COVID19- booster. Possibilities include A) Acute Interstitial Pneumonitis with hyperimmune response to vaccine. B).Likely congestive heart failure, Pt on IVF since admission ( High PrBNP) C) Sepsis with bacterial pneumonia, likely gram-negative ( Procalcitonin 30) 2. Abnormal chest x-ray as discussed above CT chest also abnormal with diffuse interstitial infiltrates and consolidation left lower lobe 3. Underlying chronic obstructive pulmonary disease. 4. Obstructive sleep apnea, on home CPAP and oxygen. 5. Acute kidney injury.? sepsis induced, check previous renal function. 6. The patient is status post third booster of COVID vaccine. Plan . titrated fio2 keep oxygen saturations 90% bipap prn elevate hob Continue antibiotics per infectious disease Wean Solu-Medrol gradually. Bronchospasm has improved. Bronchodilators Off Ativan. Haldol as needed for agitation avoid oversedation DVT/GI prophylaxis Discussed with RN, Watch respiratory status closely. HEIDI TRACEY MD Nov 13, 2020 11:06
--- NOTE | 2020-11-13 14:31 | NUR ---
SS following for discharge planning. SS reviewed pt chart and discussed with pt RN. Pt is from home and is currently on BIPAP at 55%. COVID19 negative. Pt on IV Zyvox, IV Zosyn, and IV Solu Medrol. ID, Pulmonology, and Neurology following. Pt has home CPAP. SS will continue to follow for discharge planning. Addendum: 11/13/20 at 1440 by ACE JUNIOR SS phoned and faxed demographics to [facility], ; fax [phone], to check REV codes if LTACH is needed. Addendum: 11/13/20 at 1622 by ACE JUNIOR Per [facility], pt does have REV codes for LTACH if needed.
[2020-11-13] MEDS: POTASSIUM CHLORIDE 10 MEQ in IV 1/2 NORMAL SALINE 1,000 ML IV SCH (14:53)
[2020-11-13 15:00] VITALS: BP 163/72
[2020-11-13] MEDS: ACETAMINOPHEN 325 MG TABLET. PO PRN (15:48)
[2020-11-13 19:45] VITALS: BP 178/70
[2020-11-13 23:15] VITALS: BP 176/74
[2020-11-14 03:30] VITALS: BP 136/63
[2020-11-14] MEDS: PIPERACILLIN/TAZOBACTAM 3.375 GM in IV NORMAL SALINE 50ML 50 ML IV SCH ×3 (05:09→18:19)
[2020-11-14 06:07] VITALS: BP 193/77
[2020-11-14 07:42] LABS: BASO % 0 % (0-3); EOS % 0 % (0-3); HEMATOCRIT 33.6 % (36.0-47.0); HEMOGLOBIN 11.7 g/dL (12.0-15.5); LYMPH % 8 % (24-48); MEAN CORPUSCULAR HEMOGLOBIN 32 pg (25-35); MEAN CORPUSCULAR HGB CONC 35 g/dL (31-37); MEAN CORPUSCULAR VOLUME 91 fL (79-100); MONO # 0.5 x10^3/uL (0.0-1.1); MONO % 3 % (0-9); NEUT % 89 % (31-73); PLATELET COUNT 145 x10^3/uL (140-400); RED CELL DISTRIBUTION WIDTH 14.1 % (11.5-14.5); WHITE BLOOD COUNT 13.5 x10^3/uL (4.0-11.0)
[2020-11-14] MEDS: IPRATRPIUM/ALBUTEROL 0.5/2.5MG 3 ML NEBU. NEB SCH ×4 (08:02→20:45)
--- NOTE | 2020-11-14 08:15 | PN ---
DATE: 11/14/2020 DAILY PROGRESS NOTE LOCATION: She is in room 669. SUBJECTIVE: This 80-year-old female remains hospitalized with bilateral pneumonia and acute hypoxic hypercarbic respiratory failure. She has ongoing encephalopathy. She is much calmer this morning, but received something for agitation within the last couple of hours per her , which I think is Haldol. states she is intermittently will talk a little bit to him, but remains certainly not anywhere close to her normal mental status. OBJECTIVE: VITAL SIGNS: Stable. She has T-max 100.6 in the last 24 hours. She remains intermittently hypertensive. She remains on BiPAP. CHEST: Reveals decent breath sounds. HEART: Regular. ABDOMEN: Benign. NEUROLOGIC: She is fairly sedate this morning. ASSESSMENT: 1. Bilateral pneumonia with acute hypoxic hypercarbic respiratory failure, COVID negative. 2. Longstanding history of severe asthma. 3. Sepsis, improving. 4. Acute kidney injury, improving. 5. Encephalopathy, ongoing. PLAN: Help of all consultants appreciated. We will expect her to gradually improve as the pneumonia comes under control. TEJAS DR: Bisi TID: [id number]
[2020-11-14 08:28] LABS: ALBUMIN 1.6 g/dL (3.4-5.0); ALBUMIN/GLOBULIN RATIO 0.4 (1.0-1.7); CALCIUM 7.4 mg/dL (8.5-10.1); CREATININE 0.9 mg/dL (0.6-1.0); GFR 60.1; TOTAL BILIRUBIN 0.6 mg/dL (0.2-1.0); TOTAL PROTEIN 5.2 g/dL (6.4-8.2)
[2020-11-14 08:32] LABS: POTASSIUM 2.7 mmol/L (3.5-5.1)
[2020-11-14] MEDS: POTASSIUM CHLORIDE 10 MEQ in IV 1/2 NORMAL SALINE 1,000 ML IV SCH (09:14)
[2020-11-14] MEDS: methylPREDNISolone SOD SUCC PF 40 MG/ML VIAL. IV SCH ×2 (09:15→20:26)
[2020-11-14] MEDS: POTASSIUM CHLORIDE 10MEQ 100 ML IV SCH ×4 (09:15→15:09)
[2020-11-14] MEDS: lamoTRIgine 100 MG TABLET. PO SCH ×2 (09:16→20:26)
[2020-11-14] MEDS: PANTOPRAZOLE IV PUSH 40 MG VIAL. IVP SCH (09:16)
[2020-11-14] MEDS: LACTOBACILLUS RHAMNOSUS GG 1 CAPSULE. PO SCH ×2 (09:16→20:26)
--- NOTE | 2020-11-14 10:28 | PDOC ---
Infectious Disease Note Subjective Subjective pt is feeling ok, on bipap ROS ROS No nausea vomiting or fever Vital Sign Vital Signs Vital Signs Date Time Temp Pulse Resp B/P (MAP) Pulse Ox O2 Delivery O2 Flow Rate FiO2 11/14/20 10:03 92 BiPAP/CPAP 11/14/20 06:07 98.7 66 24 193/77 (115) 98.7 11/13/20 11:00 2.0 Physical Exam PHYSICAL EXAM GENERAL: alert awake looks better on nasal O2 HEENT: Normocephalic, atraumatic. Anicteric. No thrush. Oral mucosa moist. NECK: Supple, no JVD. No meningismus. LUNGS: Coarse breath sounds bilaterally. Rhonchi present. HEART: S1, S2 regular. No murmurs. ABDOMEN: Soft, mild diffuse tenderness nondistended. No rebound. No guarding. GENITOURINARY: Brief is in place. No Harrell. EXTREMITIES: No edema, no cyanosis. DERMATOLOGIC: Warm, dry. No generalized rash. Few abrasions not infected. PSYCHIATRIC: Calm, cooperative. NEUROLOGIC alert awake PIV looks clean. Labs Lab Laboratory Tests Test 11/14/20 06:40 11/14/20 06:45 White Blood Count 13.5 x10^3/uL (4.0-11.0) Red Blood Count 3.70 x10^6/uL (3.50-5.40) Hemoglobin 11.7 g/dL (12.0-15.5) Hematocrit 33.6 % (36.0-47.0) Mean Corpuscular Volume 91 fL (79-100) Mean Corpuscular Hemoglobin 32 pg (25-35) Mean Corpuscular Hemoglobin Concent 35 g/dL (31-37) Red Cell Distribution Width 14.1 % (11.5-14.5) Platelet Count 145 x10^3/uL (140-400) Neutrophils (%) (Auto) 89 % (31-73) Lymphocytes (%) (Auto) 8 % (24-48) Monocytes (%) (Auto) 3 % (0-9) Eosinophils (%) (Auto) 0 % (0-3) Basophils (%) (Auto) 0 % (0-3) Neutrophils # (Auto) 12.0 x10^3/uL (1.8-7.7) Lymphocytes # (Auto) 1.0 x10^3/uL (1.0-4.8) Monocytes # (Auto) 0.5 x10^3/uL (0.0-1.1) Eosinophils # (Auto) 0.0 x10^3/uL (0.0-0.7) Basophils # (Auto) 0.0 x10^3/uL (0.0-0.2) Sodium Level 138 mmol/L (136-145) Potassium Level 2.7 mmol/L (3.5-5.1) Chloride Level 101 mmol/L (98-107) Carbon Dioxide Level 28 mmol/L (21-32) Anion Gap 9 (6-14) Blood Urea Nitrogen 21 mg/dL (7-20) Creatinine 0.9 mg/dL (0.6-1.0) Estimated GFR (Cockcroft-Gault) 60.1 BUN/Creatinine Ratio 23 (6-20) Glucose Level 131 mg/dL (70-99) Calcium Level 7.4 mg/dL (8.5-10.1) Total Bilirubin 0.6 mg/dL (0.2-1.0) Aspartate Amino Transf (AST/SGOT) 22 U/L (15-37) Alanine Aminotransferase (ALT/SGPT) 21 U/L (14-59) Alkaline Phosphatase 58 U/L (46-116) Total Protein 5.2 g/dL (6.4-8.2) Albumin 1.6 g/dL (3.4-5.0) Albumin/Globulin Ratio 0.4 (1.0-1.7) Objective Assessment 1. Fever, improved 2. Acute hypoxic respiratory failure with diffuse bilateral infiltrates, Appears multifactorial including pneumonia, CHF, pneumonitis on bipap 3. Acute kidney injury. 4. History of chronic obstructive pulmonary disease. 5. History of obstructive sleep apnea. 6. CHF 7. Status post third booster of COVID vaccine. 8. Coffee-ground emesis earlier this morning. 9. History of fall prior to admission. 10.Encephalopathy appears metabolic,no evidence of encephalitis 11. Leucocytosis on steroids Plan Plan of Care Continue Zosyn and linezolid on steroids per pulm team Results of abdominal ultrasound reviewed Follow labs and cultures Maintain aspiration precautions Prognosis poor D/W at bedside Discussed with nursing staff AFUA ALEMAN MD Nov 14, 2020 10:28
[2020-11-14 10:47] VITALS: BP 127/59
--- NOTE | 2020-11-14 11:10 | PDOC ---
PULMONARY PROGRESS NOTES DATE: 11/14/20 TIME: 11:06 Subjective Patient is lethargic. on BiPAP. Has been receiving as needed Ativan. Vitals Vital Signs Date Time Temp Pulse Resp B/P (MAP) Pulse Ox O2 Delivery O2 Flow Rate FiO2 11/14/20 10:47 98.6 69 20 127/59 (81) 94 BiPAP/CPAP 98.6 11/13/20 11:00 2.0 Comments Unable to report review of systems secondary to current clinical state Lungs: Crackles Cardiovascular: S1, S2 Abdomen: Soft Neuro Exam: Alert Extremities: No Edema Skin: Warm Labs Laboratory Tests Test 11/12/20 17:40 11/13/20 08:15 11/14/20 06:40 11/14/20 06:45 White Blood Count 19.9 x10^3/uL (4.0-11.0) 15.3 x10^3/uL (4.0-11.0) 13.5 x10^3/uL (4.0-11.0) Red Blood Count 4.19 x10^6/uL (3.50-5.40) 4.00 x10^6/uL (3.50-5.40) 3.70 x10^6/uL (3.50-5.40) Hemoglobin 12.9 g/dL (12.0-15.5) 12.3 g/dL (12.0-15.5) 11.7 g/dL (12.0-15.5) Hematocrit 38.7 % (36.0-47.0) 36.5 % (36.0-47.0) 33.6 % (36.0-47.0) Mean Corpuscular Volume 92 fL (79-100) 91 fL (79-100) 91 fL (79-100) Mean Corpuscular Hemoglobin 31 pg (25-35) 31 pg (25-35) 32 pg (25-35) Mean Corpuscular Hemoglobin Concent 33 g/dL (31-37) 34 g/dL (31-37) 35 g/dL (31-37) Red Cell Distribution Width 14.1 % (11.5-14.5) 14.1 % (11.5-14.5) 14.1 % (11.5-14.5) Platelet Count 171 x10^3/uL (140-400) 163 x10^3/uL (140-400) 145 x10^3/uL (140-400) Neutrophils (%) (Auto) 89 % (31-73) 87 % (31-73) 89 % (31-73) Lymphocytes (%) (Auto) 5 % (24-48) 9 % (24-48) 8 % (24-48) Monocytes (%) (Auto) 6 % (0-9) 3 % (0-9) 3 % (0-9) Eosinophils (%) (Auto) 0 % (0-3) 0 % (0-3) 0 % (0-3) Basophils (%) (Auto) 0 % (0-3) 0 % (0-3) 0 % (0-3) Neutrophils # (Auto) 17.8 x10^3/uL (1.8-7.7) 13.4 x10^3/uL (1.8-7.7) 12.0 x10^3/uL (1.8-7.7) Lymphocytes # (Auto) 0.9 x10^3/uL (1.0-4.8) 1.4 x10^3/uL (1.0-4.8) 1.0 x10^3/uL (1.0-4.8) Monocytes # (Auto) 1.2 x10^3/uL (0.0-1.1) 0.5 x10^3/uL (0.0-1.1) 0.5 x10^3/uL (0.0-1.1) Eosinophils # (Auto) 0.0 x10^3/uL (0.0-0.7) 0.0 x10^3/uL (0.0-0.7) 0.0 x10^3/uL (0.0-0.7) Basophils # (Auto) 0.0 x10^3/uL (0.0-0.2) 0.0 x10^3/uL (0.0-0.2) 0.0 x10^3/uL (0.0-0.2) Segmented Neutrophils % 87 % (35-66) Band Neutrophils % 3 % (0-9) Lymphocytes % 6 % (24-48) Monocytes % 3 % (0-10) Myelocytes % 1 % (0-0) Toxic Granulation Slight Platelet Estimate Adequate (ADEQUATE) Sodium Level 138 mmol/L (136-145) Potassium Level 2.7 mmol/L (3.5-5.1) Chloride Level 101 mmol/L (98-107) Carbon Dioxide Level 28 mmol/L (21-32) Anion Gap 9 (6-14) Blood Urea Nitrogen 21 mg/dL (7-20) Creatinine 0.9 mg/dL (0.6-1.0) Estimated GFR (Cockcroft-Gault) 60.1 BUN/Creatinine Ratio 23 (6-20) Glucose Level 131 mg/dL (70-99) Calcium Level 7.4 mg/dL (8.5-10.1) Total Bilirubin 0.6 mg/dL (0.2-1.0) Aspartate Amino Transf (AST/SGOT) 22 U/L (15-37) Alanine Aminotransferase (ALT/SGPT) 21 U/L (14-59) Alkaline Phosphatase 58 U/L (46-116) Total Protein 5.2 g/dL (6.4-8.2) Albumin 1.6 g/dL (3.4-5.0) Albumin/Globulin Ratio 0.4 (1.0-1.7) Laboratory Tests Test 11/14/20 06:40 11/14/20 06:45 White Blood Count 13.5 x10^3/uL (4.0-11.0) Red Blood Count 3.70 x10^6/uL (3.50-5.40) Hemoglobin 11.7 g/dL (12.0-15.5) Hematocrit 33.6 % (36.0-47.0) Mean Corpuscular Volume 91 fL (79-100) Mean Corpuscular Hemoglobin 32 pg (25-35) Mean Corpuscular Hemoglobin Concent 35 g/dL (31-37) Red Cell Distribution Width 14.1 % (11.5-14.5) Platelet Count 145 x10^3/uL (140-400) Neutrophils (%) (Auto) 89 % (31-73) Lymphocytes (%) (Auto) 8 % (24-48) Monocytes (%) (Auto) 3 % (0-9) Eosinophils (%) (Auto) 0 % (0-3) Basophils (%) (Auto) 0 % (0-3) Neutrophils # (Auto) 12.0 x10^3/uL (1.8-7.7) Lymphocytes # (Auto) 1.0 x10^3/uL (1.0-4.8) Monocytes # (Auto) 0.5 x10^3/uL (0.0-1.1) Eosinophils # (Auto) 0.0 x10^3/uL (0.0-0.7) Basophils # (Auto) 0.0 x10^3/uL (0.0-0.2) Sodium Level 138 mmol/L (136-145) Potassium Level 2.7 mmol/L (3.5-5.1) Chloride Level 101 mmol/L (98-107) Carbon Dioxide Level 28 mmol/L (21-32) Anion Gap 9 (6-14) Blood Urea Nitrogen 21 mg/dL (7-20) Creatinine 0.9 mg/dL (0.6-1.0) Estimated GFR (Cockcroft-Gault) 60.1 BUN/Creatinine Ratio 23 (6-20) Glucose Level 131 mg/dL (70-99) Calcium Level 7.4 mg/dL (8.5-10.1) Total Bilirubin 0.6 mg/dL (0.2-1.0) Aspartate Amino Transf (AST/SGOT) 22 U/L (15-37) Alanine Aminotransferase (ALT/SGPT) 21 U/L (14-59) Alkaline Phosphatase 58 U/L (46-116) Total Protein 5.2 g/dL (6.4-8.2) Albumin 1.6 g/dL (3.4-5.0) Albumin/Globulin Ratio 0.4 (1.0-1.7) Medications Active Scripts Medications Dose Route/Sig Max Daily Dose Days Date Category [Vitamin D] 04/14/20 Reported Alprazolam 1 Mg Tablet 1 Tab PO BID 04/14/20 Reported Centrum Complete Multivit Tab (Multivitamin/Iron/Folic Acid) 1 Each Tablet 1 Each PO DAILY 03/05/18 Reported [place] 3 Fish Oil Softgel ([place]-3 Fatty Acids/Fish Oil) 1 Each Capsule.dr 1 Each PO DAILY 03/05/18 Reported Vitamin C (Ascorbic Acid) 500 Mg Tab.chew 500 Mg PO DAILY 03/05/18 Reported Symbicort 160-4.5 Mcg Inhaler (Budesonide/Formoterol Fumarate) 10.2 Gm Hfa.aer.ad 1 Puff IH BID 03/05/18 Reported Aspir 81 (Aspirin) 81 Mg Tablet.dr 81 Mg PO DAILY 04/23/17 Reported Meloxicam 15 Mg Tablet 15 Mg PO DAILY 04/23/17 Reported Zoloft (Sertraline Hcl) 100 Mg Tablet 150 Mg PO DAILY 07/28/16 Reported Potassium Chloride 10 Meq Tab.er.prt 10 Meq PO DAILY 03/10/13 Reported Lasix (Furosemide) 40 Mg Tablet 40 Mg PO DAILY 03/10/13 Reported Flonase (Fluticasone Propionate) 16 Gm [place].susp 16 Gm NS DAILY 03/10/13 Reported Lamictal (Lamotrigine) 100 Mg Tablet 100 Mg PO BID 03/10/13 Reported Eemt Hs 0.625-1.25 Mg Tablet (Estrogen,Tess/Me-Testosterone) 1 Each Tablet 1 Each PO DAILY 02/19/13 Reported Zocor (Simvastatin) 80 Mg Tablet 40 Mg PO QHS 02/19/13 Reported Impression . 1. Acute hypoxic and hypercapnic respiratory failure with worsening bilateral infiltrates/ high grade fever in a patient who recently received 3rd COVID19- booster. Possibilities include A) Acute Interstitial Pneumonitis with hyperimmune response to vaccine. B).Likely congestive heart failure, Pt on IVF since admission ( High PrBNP) C) Sepsis with bacterial pneumonia, likely gram-negative ( Procalcitonin 30) 2. Abnormal chest x-ray as discussed above CT chest also abnormal with diffuse interstitial infiltrates and consolidation left lower lobe 3. Underlying chronic obstructive pulmonary disease. 4. Obstructive sleep apnea, on home CPAP and oxygen. 5. Acute kidney injury.? sepsis induced, check previous renal function. 6. The patient is status post third booster of COVID vaccine. 7. Encephalopathy likely medication induced. Plan . Discussed with RN. Will discontinue Ativan. Try off the BiPAP and try Venturi mask. titrated fio2 keep oxygen saturations above 92%. elevate hob Continue antibiotics per infectious disease Wean Solu-Medrol gradually. Bronchospasm has improved. Bronchodilators Haldol as needed for agitation avoid oversedation DVT/GI prophylaxis Discussed with RN, Watch respiratory status closely. HEIDI TRACEY MD Nov 14, 2020 11:09
--- NOTE | 2020-11-14 13:11 | NUR ---
Wound care All abrasions have resolved. Cleansed patient of dark liquid stool BM. Wound care is signing off, please reconsult if new wounds develop
[2020-11-14] MEDS: ACETAMINOPHEN 325 MG TABLET. PO PRN ×2 (14:13→20:34)
[2020-11-14 15:03] VITALS: BP 187/79
[2020-11-14] MEDS: HALOPERIDOL LACTATE 5 MG/ML VIAL. IVP PRN ×2 (16:09→22:34)
[2020-11-14 18:07] LABS: ALBUMIN 1.8 g/dL (3.4-5.0); ALBUMIN/GLOBULIN RATIO 0.5 (1.0-1.7); CALCIUM 7.2 mg/dL (8.5-10.1); CREATININE 1.1 mg/dL (0.6-1.0); GFR 47.7; POTASSIUM 3.1 mmol/L (3.5-5.1); TOTAL BILIRUBIN 0.5 mg/dL (0.2-1.0); TOTAL PROTEIN 5.5 g/dL (6.4-8.2)
[2020-11-14 19:12] VITALS: BP 107/52
[2020-11-14 22:02] VITALS: BP 108/55
[2020-11-15] MEDS: PIPERACILLIN/TAZOBACTAM 3.375 GM in IV NORMAL SALINE 50ML 50 ML IV SCH ×5 (00:37→23:55)
[2020-11-15 02:01] VITALS: BP 135/65
[2020-11-15 07:00] VITALS: BP 150/65
[2020-11-15] MEDS: IPRATRPIUM/ALBUTEROL 0.5/2.5MG 3 ML NEBU. NEB SCH ×4 (07:11→20:55)
--- NOTE | 2020-11-15 07:24 | PDOC ---
Infectious Disease Note Subjective Subjective pt is feeling better Denies any nausea vomiting diarrhea ROS ROS Breathing is better No fever or chest pain Vital Sign Vital Signs Vital Signs Date Time Temp Pulse Resp B/P (MAP) Pulse Ox O2 Delivery O2 Flow Rate FiO2 11/15/20 07:11 98 Venturi Mask 15.0 11/15/20 02:01 97.8 68 20 135/65 (88) 97.8 Physical Exam PHYSICAL EXAM GENERAL: alert awake looks better on nasal O2 HEENT: Normocephalic, atraumatic. Anicteric. No thrush. Oral mucosa moist. NECK: Supple, no JVD. No meningismus. LUNGS: Coarse breath sounds bilaterally. Rhonchi present. HEART: S1, S2 regular. No murmurs. ABDOMEN: Soft, mild diffuse tenderness nondistended. No rebound. No guarding. GENITOURINARY: Brief is in place. No Harrell. EXTREMITIES: No edema, no cyanosis. DERMATOLOGIC: Warm, dry. No generalized rash. Few abrasions not infected. PSYCHIATRIC: Calm, cooperative. NEUROLOGIC alert awake PIV looks clean. Labs Lab Laboratory Tests Test 11/14/20 17:38 Sodium Level 132 mmol/L (136-145) Potassium Level 3.1 mmol/L (3.5-5.1) Chloride Level 98 mmol/L (98-107) Carbon Dioxide Level 23 mmol/L (21-32) Anion Gap 11 (6-14) Blood Urea Nitrogen 21 mg/dL (7-20) Creatinine 1.1 mg/dL (0.6-1.0) Estimated GFR (Cockcroft-Gault) 47.7 BUN/Creatinine Ratio 19 (6-20) Glucose Level 208 mg/dL (70-99) Calcium Level 7.2 mg/dL (8.5-10.1) Total Bilirubin 0.5 mg/dL (0.2-1.0) Aspartate Amino Transf (AST/SGOT) 31 U/L (15-37) Alanine Aminotransferase (ALT/SGPT) 23 U/L (14-59) Alkaline Phosphatase 69 U/L (46-116) Total Protein 5.5 g/dL (6.4-8.2) Albumin 1.8 g/dL (3.4-5.0) Albumin/Globulin Ratio 0.5 (1.0-1.7) Objective Assessment 1. Fever, improved 2. Acute hypoxic respiratory failure with diffuse bilateral infiltrates, Appears multifactorial including pneumonia, CHF, pneumonitis on bipap 3. Acute kidney injury. 4. History of chronic obstructive pulmonary disease. 5. History of obstructive sleep apnea. 6. CHF 7. Status post third booster of COVID vaccine. 8. Coffee-ground emesis earlier this morning. 9. History of fall prior to admission. 10.Encephalopathy appears metabolic,no evidence of encephalitis 11. Leucocytosis on steroids Plan Plan of Care Continue Zosyn and DC linezolid on steroids per pulm team Results of abdominal ultrasound reviewed Follow labs and cultures Maintain aspiration precautions Prognosis poor D/W at bedside Discussed with nursing staff AFUA ALEMAN MD Nov 15, 2020 07:24
[2020-11-15] MEDS: lamoTRIgine 100 MG TABLET. PO SCH ×2 (09:04→20:23)
[2020-11-15] MEDS: LACTOBACILLUS RHAMNOSUS GG 1 CAPSULE. PO SCH ×2 (09:04→20:23)
[2020-11-15] MEDS: PANTOPRAZOLE IV PUSH 40 MG VIAL. IVP SCH (09:05)
[2020-11-15] MEDS: methylPREDNISolone SOD SUCC PF 40 MG/ML VIAL. IV SCH (09:05)
[2020-11-15] MEDS: cloNIDine TTS-1 1 PATCH PATCH.TDWK TD SCH (09:05)
--- NOTE | 2020-11-15 09:09 | HP ---
ADMIT DATE: 11/15/2020 LOCATION: She is in room #669. SUBJECTIVE: This 80-year-old female remains hospitalized with sepsis due to bilateral pneumonia, COVID negative. She is much more awake, alert and appropriate and approaching her baseline this morning. She is on nasal cannula as well as facemask oxygen this morning. OBJECTIVE: VITAL SIGNS: Stable. She has been afebrile over the last 24 hours. GENERAL: Again, awake, alert, recognizes me, this morning is not combative, is asking something for pain in her right groin area, which she states is extremely bad when the nurses for her legs to cleaner signs and she has no idea what might have caused this, but does not remember even coming into the hospital. CHEST: Decreased breath sounds, clear. HEART: Regular. ABDOMEN: Benign. IMPRESSION: 1. Bilateral pneumonia with acute hypoxic hypercarbic respiratory failure, COVID negative. 2. Longstanding history of severe asthma. 3. Sepsis, improving. 4. Acute kidney injury, improved. 5. Encephalopathy, improving. 6. Hypokalemia, being replaced. PLAN: Further potassium, plain films right hip and pelvis, I believe it is time to add therapy and mobilize. BC DR: Bisi TID: [id number]
[2020-11-15] MEDS ORDERED: POTASSIUM CHLORIDE 20 MEQ TABLET.ER. PO ONE (09:30)
--- NOTE | 2020-11-15 09:38 | PDOC ---
PULMONARY PROGRESS NOTES DATE: 11/15/20 TIME: 09:35 Subjective Patient is more awake. Ativan was discontinued. Remains on Ventimask/additional nasal cannula Vitals Vital Signs Date Time Temp Pulse Resp B/P (MAP) Pulse Ox O2 Delivery O2 Flow Rate FiO2 11/15/20 07:11 98 Venturi Mask 15.0 11/15/20 07:00 99.2 69 18 150/65 (93) 99.2 General: Alert, No acute distress Lungs: Crackles Cardiovascular: S1, S2 Abdomen: Soft Neuro Exam: Alert Extremities: No Edema Skin: Warm Labs Laboratory Tests Test 11/14/20 06:40 11/14/20 06:45 11/14/20 17:38 White Blood Count 13.5 x10^3/uL (4.0-11.0) Red Blood Count 3.70 x10^6/uL (3.50-5.40) Hemoglobin 11.7 g/dL (12.0-15.5) Hematocrit 33.6 % (36.0-47.0) Mean Corpuscular Volume 91 fL (79-100) Mean Corpuscular Hemoglobin 32 pg (25-35) Mean Corpuscular Hemoglobin Concent 35 g/dL (31-37) Red Cell Distribution Width 14.1 % (11.5-14.5) Platelet Count 145 x10^3/uL (140-400) Neutrophils (%) (Auto) 89 % (31-73) Lymphocytes (%) (Auto) 8 % (24-48) Monocytes (%) (Auto) 3 % (0-9) Eosinophils (%) (Auto) 0 % (0-3) Basophils (%) (Auto) 0 % (0-3) Neutrophils # (Auto) 12.0 x10^3/uL (1.8-7.7) Lymphocytes # (Auto) 1.0 x10^3/uL (1.0-4.8) Monocytes # (Auto) 0.5 x10^3/uL (0.0-1.1) Eosinophils # (Auto) 0.0 x10^3/uL (0.0-0.7) Basophils # (Auto) 0.0 x10^3/uL (0.0-0.2) Sodium Level 138 mmol/L (136-145) 132 mmol/L (136-145) Potassium Level 2.7 mmol/L (3.5-5.1) 3.1 mmol/L (3.5-5.1) Chloride Level 101 mmol/L (98-107) 98 mmol/L (98-107) Carbon Dioxide Level 28 mmol/L (21-32) 23 mmol/L (21-32) Anion Gap 9 (6-14) 11 (6-14) Blood Urea Nitrogen 21 mg/dL (7-20) 21 mg/dL (7-20) Creatinine 0.9 mg/dL (0.6-1.0) 1.1 mg/dL (0.6-1.0) Estimated GFR (Cockcroft-Gault) 60.1 47.7 BUN/Creatinine Ratio 23 (6-20) 19 (6-20) Glucose Level 131 mg/dL (70-99) 208 mg/dL (70-99) Calcium Level 7.4 mg/dL (8.5-10.1) 7.2 mg/dL (8.5-10.1) Total Bilirubin 0.6 mg/dL (0.2-1.0) 0.5 mg/dL (0.2-1.0) Aspartate Amino Transf (AST/SGOT) 22 U/L (15-37) 31 U/L (15-37) Alanine Aminotransferase (ALT/SGPT) 21 U/L (14-59) 23 U/L (14-59) Alkaline Phosphatase 58 U/L (46-116) 69 U/L (46-116) Total Protein 5.2 g/dL (6.4-8.2) 5.5 g/dL (6.4-8.2) Albumin 1.6 g/dL (3.4-5.0) 1.8 g/dL (3.4-5.0) Albumin/Globulin Ratio 0.4 (1.0-1.7) 0.5 (1.0-1.7) Laboratory Tests Test 11/14/20 17:38 Sodium Level 132 mmol/L (136-145) Potassium Level 3.1 mmol/L (3.5-5.1) Chloride Level 98 mmol/L (98-107) Carbon Dioxide Level 23 mmol/L (21-32) Anion Gap 11 (6-14) Blood Urea Nitrogen 21 mg/dL (7-20) Creatinine 1.1 mg/dL (0.6-1.0) Estimated GFR (Cockcroft-Gault) 47.7 BUN/Creatinine Ratio 19 (6-20) Glucose Level 208 mg/dL (70-99) Calcium Level 7.2 mg/dL (8.5-10.1) Total Bilirubin 0.5 mg/dL (0.2-1.0) Aspartate Amino Transf (AST/SGOT) 31 U/L (15-37) Alanine Aminotransferase (ALT/SGPT) 23 U/L (14-59) Alkaline Phosphatase 69 U/L (46-116) Total Protein 5.5 g/dL (6.4-8.2) Albumin 1.8 g/dL (3.4-5.0) Albumin/Globulin Ratio 0.5 (1.0-1.7) Medications Active Scripts Medications Dose Route/Sig Max Daily Dose Days Date Category [Vitamin D] 04/14/20 Reported Alprazolam 1 Mg Tablet 1 Tab PO BID 04/14/20 Reported Centrum Complete Multivit Tab (Multivitamin/Iron/Folic Acid) 1 Each Tablet 1 Each PO DAILY 03/05/18 Reported [place] 3 Fish Oil Softgel ([place]-3 Fatty Acids/Fish Oil) 1 Each Capsule.dr 1 Each PO DAILY 03/05/18 Reported Vitamin C (Ascorbic Acid) 500 Mg Tab.chew 500 Mg PO DAILY 03/05/18 Reported Symbicort 160-4.5 Mcg Inhaler (Budesonide/Formoterol Fumarate) 10.2 Gm Hfa.aer.ad 1 Puff IH BID 03/05/18 Reported Aspir 81 (Aspirin) 81 Mg Tablet.dr 81 Mg PO DAILY 04/23/17 Reported Meloxicam 15 Mg Tablet 15 Mg PO DAILY 04/23/17 Reported Zoloft (Sertraline Hcl) 100 Mg Tablet 150 Mg PO DAILY 07/28/16 Reported Potassium Chloride 10 Meq Tab.er.prt 10 Meq PO DAILY 03/10/13 Reported Lasix (Furosemide) 40 Mg Tablet 40 Mg PO DAILY 03/10/13 Reported Flonase (Fluticasone Propionate) 16 Gm [place].susp 16 Gm NS DAILY 03/10/13 Reported Lamictal (Lamotrigine) 100 Mg Tablet 100 Mg PO BID 03/10/13 Reported Eemt Hs 0.625-1.25 Mg Tablet (Estrogen,Tess/Me-Testosterone) 1 Each Tablet 1 Each PO DAILY 02/19/13 Reported Zocor (Simvastatin) 80 Mg Tablet 40 Mg PO QHS 02/19/13 Reported Impression . 1. Acute hypoxic and hypercapnic respiratory failure with worsening bilateral infiltrates/ high grade fever in a patient who recently received 3rd COVID19- booster. Possibilities include A) Acute Interstitial Pneumonitis with hyperimmune response to vaccine. B). Cannot exclude superimposed congestive heart failure, Pt on IVF since admission ( High PrBNP) C) Sepsis with bacterial pneumonia, likely gram-negative ( Procalcitonin 30) 2. Abnormal chest x-ray as discussed above CT chest also abnormal with diffuse interstitial infiltrates and consolidation left lower lobe 3. Underlying chronic obstructive pulmonary disease. 4. Obstructive sleep apnea, on home CPAP and oxygen. 5. Acute kidney injury.? sepsis induced, check previous renal function. 6. The patient is status post third booster of COVID vaccine. 7. Encephalopathy likely medication induced. Improving Plan . Discussed with RN. off the BiPAP and continue Venturi mask plus nasal cannula titrated fio2 keep oxygen saturations above 92%. elevate hob Continue antibiotics per infectious disease Wean Solu-Medrol. Bronchospasm has improved. Bronchodilators Haldol as needed for agitation avoid oversedation DVT/GI prophylaxis Discussed with RN, Watch respiratory status closely. HEIDI TRACEY MD Nov 15, 2020 09:38
[2020-11-15 11:00] VITALS: BP 132/58
--- NOTE | 2020-11-15 11:20 | RAD ---
EXAM: Right hip and pelvis, 3 views. HISTORY: Pain. COMPARISON: None. FINDINGS: A frontal view the pelvis and 2 views the right hip are obtained. There is no acute fractur e, dislocation or subluxation. There is heterotopic ossification or there are chronic nonunited fract ures along the right greater trochanter. There is slight decreased femoral head-neck offset, not with in limits to suggest significant hip impingement. There are clips overlying the left hemipelvis. IMPRESSION: No acute osseous finding. Electronically signed by: Jena Blackburn MD (11/15/2020 11:18 AM) [id number]
[2020-11-15] MEDS: ACETAMINOPHEN 325 MG TABLET. PO PRN ×2 (11:46→20:23)
--- NOTE | 2020-11-15 12:37 | PDOC ---
PROGRESS NOTES Date of Service DATE: 11/15/20 TIME: 12:33 Assessment Problems Medical Problems: (1) Acute kidney injury Status: Acute (2) Fall Status: Acute (3) Skin abrasion Status: Acute (4) Weakness Status: Acute Metabolic encephalopathy, better today Covid negative, status-post third booster of COVID vaccine No acute intracranial findings or focal abnormalities on exam Cervical spondylosis without evidence of radiculopathy or myelopathy. Fell prior to admission Fever, acute hypoxic respiratory failure, diffuse bilateral infiltrates, pneumonia, CHF, acute kidney injury, had coffee-ground emesis 11/07, sepsis History of chronic obstructive pulmonary disease, obstructive sleep apnea, on lamotrigine for psychiatric disease. Plan Treat medical issues Hold on additional studies such as MRI Discussed with son Subjective Feels better Objective Vital Signs Date Time Temp Pulse Resp B/P (MAP) Pulse Ox O2 Delivery O2 Flow Rate FiO2 11/15/20 12:17 88 Venturi Mask 15.0 11/15/20 11:00 99.5 85 18 132/58 (82) 99.5 Intake and Output 11/15/20 07:00 Intake Total 840 ml Output Total 550 ml Balance 290 ml Intake Oral 840 ml Output Urine Total 550 ml # Voids 3 # Bowel Movements 3 PHYSICAL EXAM Alert, knows location, month, and year PERRL. EOMI. CN: no focal findings. Muscle tone: normal. Muscle strength: 4/5 DTR: 1+ Plantar reflex: Flexor Gait: not examined in bed. Sensory exam: no abnormal findings. No cerebellar signs elicited. Review of Relevant I have reviewed the following items shiela (where applicable) has been applied. Labs Laboratory Tests Test 11/14/20 06:40 11/14/20 06:45 11/14/20 17:38 White Blood Count 13.5 x10^3/uL (4.0-11.0) Red Blood Count 3.70 x10^6/uL (3.50-5.40) Hemoglobin 11.7 g/dL (12.0-15.5) Hematocrit 33.6 % (36.0-47.0) Mean Corpuscular Volume 91 fL (79-100) Mean Corpuscular Hemoglobin 32 pg (25-35) Mean Corpuscular Hemoglobin Concent 35 g/dL (31-37) Red Cell Distribution Width 14.1 % (11.5-14.5) Platelet Count 145 x10^3/uL (140-400) Neutrophils (%) (Auto) 89 % (31-73) Lymphocytes (%) (Auto) 8 % (24-48) Monocytes (%) (Auto) 3 % (0-9) Eosinophils (%) (Auto) 0 % (0-3) Basophils (%) (Auto) 0 % (0-3) Neutrophils # (Auto) 12.0 x10^3/uL (1.8-7.7) Lymphocytes # (Auto) 1.0 x10^3/uL (1.0-4.8) Monocytes # (Auto) 0.5 x10^3/uL (0.0-1.1) Eosinophils # (Auto) 0.0 x10^3/uL (0.0-0.7) Basophils # (Auto) 0.0 x10^3/uL (0.0-0.2) Sodium Level 138 mmol/L (136-145) 132 mmol/L (136-145) Potassium Level 2.7 mmol/L (3.5-5.1) 3.1 mmol/L (3.5-5.1) Chloride Level 101 mmol/L (98-107) 98 mmol/L (98-107) Carbon Dioxide Level 28 mmol/L (21-32) 23 mmol/L (21-32) Anion Gap 9 (6-14) 11 (6-14) Blood Urea Nitrogen 21 mg/dL (7-20) 21 mg/dL (7-20) Creatinine 0.9 mg/dL (0.6-1.0) 1.1 mg/dL (0.6-1.0) Estimated GFR (Cockcroft-Gault) 60.1 47.7 BUN/Creatinine Ratio 23 (6-20) 19 (6-20) Glucose Level 131 mg/dL (70-99) 208 mg/dL (70-99) Calcium Level 7.4 mg/dL (8.5-10.1) 7.2 mg/dL (8.5-10.1) Total Bilirubin 0.6 mg/dL (0.2-1.0) 0.5 mg/dL (0.2-1.0) Aspartate Amino Transf (AST/SGOT) 22 U/L (15-37) 31 U/L (15-37) Alanine Aminotransferase (ALT/SGPT) 21 U/L (14-59) 23 U/L (14-59) Alkaline Phosphatase 58 U/L (46-116) 69 U/L (46-116) Total Protein 5.2 g/dL (6.4-8.2) 5.5 g/dL (6.4-8.2) Albumin 1.6 g/dL (3.4-5.0) 1.8 g/dL (3.4-5.0) Albumin/Globulin Ratio 0.4 (1.0-1.7) 0.5 (1.0-1.7) Laboratory Tests Test 11/14/20 17:38 Sodium Level 132 mmol/L (136-145) Potassium Level 3.1 mmol/L (3.5-5.1) Chloride Level 98 mmol/L (98-107) Carbon Dioxide Level 23 mmol/L (21-32) Anion Gap 11 (6-14) Blood Urea Nitrogen 21 mg/dL (7-20) Creatinine 1.1 mg/dL (0.6-1.0) Estimated GFR (Cockcroft-Gault) 47.7 BUN/Creatinine Ratio 19 (6-20) Glucose Level 208 mg/dL (70-99) Calcium Level 7.2 mg/dL (8.5-10.1) Total Bilirubin 0.5 mg/dL (0.2-1.0) Aspartate Amino Transf (AST/SGOT) 31 U/L (15-37) Alanine Aminotransferase (ALT/SGPT) 23 U/L (14-59) Alkaline Phosphatase 69 U/L (46-116) Total Protein 5.5 g/dL (6.4-8.2) Albumin 1.8 g/dL (3.4-5.0) Albumin/Globulin Ratio 0.5 (1.0-1.7) Medications Current Medications Sodium Chloride 1,000 ml @ 1,000 mls/hr 1X ONCE IV Last administered on 11/05/20at 12:17; Start 11/05/20 at 10:15; Stop 11/05/20 at 11:14; Status DC Diphtheria/ Tetanus/Acell Pertussis (ADACEL TDap SYRINGE) 0.5 ml ONCE ONCE VAX IM Last administered on 11/05/20at 12:14; Start 11/05/20 at 10:45; Stop 11/05/20 at 10:53; Status DC Bacitracin (Bacitracin Zinc Oint Pkt) 1 pkt 1X ONCE TP Last administered on 11/05/20at 12:14; Start 11/05/20 at 10:45; Stop 11/05/20 at 10:53; Status DC Acetaminophen (Tylenol) 650 mg 1X ONCE PO Last administered on 11/05/20at 12:12; Start 11/05/20 at 12:00; Stop 11/05/20 at 12:01; Status DC Lorazepam (Ativan Inj) 1 mg 1X ONCE IVP Last administered on 11/05/20at 13:15; Start 11/05/20 at 13:15; Stop 11/05/20 at 13:16; Status DC Lamotrigine (LaMICtal) 100 mg BID PO Last administered on 11/15/20at 09:04; Start 11/06/20 at 09:00 Pantoprazole Sodium (PROTONIX VIAL for IV PUSH) 40 mg DAILYAC IVP Last administered on 11/15/20at 09:05; Start 11/06/20 at 08:00; Stop 11/15/20 at 10:54; Status DC Sodium Chloride 1,000 ml @ 75 mls/hr 1X ONCE IV Last administered on 11/06/20at 08:11; Start 11/06/20 at 07:45; Stop 11/06/20 at 21:04; Status DC Piperacillin Sod/ Tazobactam Sod 2.25 gm/Sodium Chloride 50 ml @ 100 mls/hr Q6HRS IV Last administered on 11/12/20at 12:00; Start 11/06/20 at 08:00; Stop 11/12/20 at 13:56; Status DC Acetaminophen (Tylenol Supp) 650 mg PRN Q6HRS PRN NM MILD PAIN / TEMP > 100.3'F Last administered on 11/06/20at 10:29; Start 11/06/20 at 10:15 Vancomycin HCl (Vanco Per Pharmacy) 1 each PRN DAILY PRN MC SEE COMMENTS; Start 11/06/20 at 11:45; Stop 11/06/20 at 13:20; Status DC Furosemide (Lasix) 40 mg 1X ONCE IVP Last administered on 11/06/20at 12:05; Start 11/06/20 at 11:45; Stop 11/06/20 at 11:46; Status DC Vancomycin HCl 1.5 gm/Sodium Chloride 500 ml @ 250 mls/hr 1X ONCE IV ; Start 11/06/20 at 14:00; Stop 11/06/20 at 13:18; Status DC Linezolid (Zyvox) 600 mg BID PO ; Start 11/06/20 at 13:30; Status Cancel Linezolid/Dextrose 300 ml @ 300 mls/hr Q12H IV Last administered on 11/15/20at 02:17; Start 11/06/20 at 14:00; Stop 11/15/20 at 09:03; Status DC Acetaminophen (Tylenol) 650 mg PRN Q6HRS PRN PO MILD PAIN / TEMP > 100.3'F Last administered on 11/15/20at 11:46; Start 11/06/20 at 17:30 Methylprednisolone Sodium Succinate (SOLU-Medrol 125MG VIAL) 60 mg Q8HRS IV Last administered on 11/10/20at 05:02; Start 11/07/20 at 11:00; Stop 11/10/20 at 09:10; Status DC Albuterol/ Ipratropium (Duoneb) 3 ml RTQID NEB Last administered on 11/15/20at 12:16; Start 11/07/20 at 12:00 Lorazepam (Ativan Inj) 1 mg PRN Q6HRS PRN IVP ANXIETY / AGITATION Last administered on 11/08/20at 05:34; Start 11/07/20 at 10:45; Stop 11/08/20 at 11:18; Status DC Haloperidol Lactate (Haldol Inj) 1 mg 1X ONCE IM Last administered on 11/07/20at 13:20; Start 11/07/20 at 13:15; Stop 11/07/20 at 13:16; Status DC Haloperidol Lactate (Haldol Inj) 5 mg PRN Q6HRS PRN IVP AGITATION Last administered on 11/14/20at 22:34; Start 11/08/20 at 11:30 Clonidine HCl (Catapres Tts-1) 1 patch WEEKLY TD Last administered on 11/15/20at 09:05; Start 11/08/20 at 12:30 Methylprednisolone Sodium Succinate (SOLU-Medrol 40MG VIAL) 40 mg Q8HRS IV Last administered on 11/11/20at 05:23; Start 11/10/20 at 14:00; Stop 11/11/20 at 08:49; Status DC Lorazepam (Ativan Inj) 1 mg PRN Q4HRS PRN IVP ANXIETY. Last administered on 11/14/20at 02:35; Start 11/10/20 at 15:00; Stop 11/14/20 at 11:07; Status DC Methylprednisolone Sodium Succinate (SOLU-Medrol 40MG VIAL) 40 mg Q12HR IV Last administered on 11/15/20at 09:05; Start 11/11/20 at 09:00; Stop 11/15/20 at 09:39; Status DC Piperacillin Sod/ Tazobactam Sod 3.375 gm/Sodium Chloride 50 ml @ 100 mls/hr Q6HRS IV Last administered on 11/15/20at 06:07; Start 11/12/20 at 18:00 Lactobacillus Rhamnosus (Culturelle) 1 cap BID PO Last administered on 11/15/20at 09:04; Start 11/12/20 at 21:00 Potassium Chloride 10 meq/ Sodium Chloride 1,005 ml @ 50 mls/hr Q20H6M IV Last administered on 11/14/20at 09:14; Start 11/13/20 at 13:00 Potassium Chloride/Water 100 ml @ 100 mls/hr Q1H IV Last administered on 11/14/20at 15:09; Start 11/14/20 at 10:00; Stop 11/14/20 at 13:59; Status DC Potassium Chloride (Klor-Con) 20 meq 1X ONCE PO Last administered on 11/15/20at 11:03; Start 11/15/20 at 09:30; Stop 11/15/20 at 09:31; Status DC Methylprednisolone Sodium Succinate (SOLU-Medrol 40MG VIAL) 40 mg DAILY IV ; Start 11/16/20 at 09:00 Pantoprazole Sodium (Protonix) 40 mg DAILYAC PO ; Start 11/16/20 at 07:30 Active Scripts Active Reported [Vitamin D] Alprazolam 1 Mg Tablet 1 Tab PO BID Centrum Complete Multivit Tab (Multivitamin/Iron/Folic Acid) 1 Each Tablet 1 Each PO DAILY [place] 3 Fish Oil Softgel ([place]-3 Fatty Acids/Fish Oil) 1 Each Capsule.dr 1 Each PO DAILY Vitamin C (Ascorbic Acid) 500 Mg Tab.chew 500 Mg PO DAILY Symbicort 160-4.5 Mcg Inhaler (Budesonide/Formoterol Fumarate) 10.2 Gm Hfa.aer.ad 1 Puff IH BID Aspir 81 (Aspirin) 81 Mg Tablet.dr 81 Mg PO DAILY Meloxicam 15 Mg Tablet 15 Mg PO DAILY Zoloft (Sertraline Hcl) 100 Mg Tablet 150 Mg PO DAILY Potassium Chloride 10 Meq Tab.er.prt 10 Meq PO DAILY Lasix (Furosemide) 40 Mg Tablet 40 Mg PO DAILY Flonase (Fluticasone Propionate) 16 Gm [place].susp 16 Gm NS DAILY Lamictal (Lamotrigine) 100 Mg Tablet 100 Mg PO BID Eemt Hs 0.625-1.25 Mg Tablet (Estrogen,Tess/Me-Testosterone) 1 Each Tablet 1 Each PO DAILY Zocor (Simvastatin) 80 Mg Tablet 40 Mg PO QHS Vitals/I & O Vital Sign - Last 24 Hours 11/14/20 11/14/20 11/14/20 11/14/20 15:03 15:26 19:12 20:00 Temp 98.0 97.9 98.0 97.9 Pulse 83 70 Resp 18 20 B/P (MAP) 187/79 (115) 107/52 (70) Pulse Ox 95 99 94 O2 Delivery BiPAP/CPAP Venturi Mask Nasal Cannula Venturi Mask O2 Flow Rate 15.0 8.0 15.0 11/14/20 11/14/20 11/15/20 11/15/20 20:49 22:02 02:01 07:00 Temp 98.0 97.8 99.2 98.0 97.8 99.2 Pulse 84 68 69 Resp 20 20 18 B/P (MAP) 108/55 (72) 135/65 (88) 150/65 (93) Pulse Ox 97 94 98 96 O2 Delivery Venturi Mask Venturi Mask Venturi Mask 8L NC 15L NRB O2 Flow Rate 15.0 15.0 15.0 11/15/20 11/15/20 11/15/20 11/15/20 07:11 08:00 11:00 12:17 Temp 99.5 99.5 Pulse 85 Resp 18 B/P (MAP) 132/58 (82) Pulse Ox 98 100 88 O2 Delivery Venturi Mask Venturi Mask 8L NC 15L NRB Venturi Mask O2 Flow Rate 15.0 15.0 15.0 Intake and Output 11/14/20 11/14/20 11/15/20 15:00 23:00 07:00 Intake Total 100 ml 440 ml 300 ml Output Total 350 ml 200 ml Balance -250 ml 240 ml 300 ml Justicifation of Admission Dx: Justifications for Admission: Justification of Admission Dx: N/A MOO BRO MD Nov 15, 2020 12:37
[2020-11-15] MEDS: HALOPERIDOL LACTATE 5 MG/ML VIAL. IVP PRN ×2 (12:50→20:24)
[2020-11-15 15:00] VITALS: BP 137/62
[2020-11-15 19:04] VITALS: BP 143/65
[2020-11-15] MEDS: POTASSIUM CHLORIDE 10 MEQ in IV 1/2 NORMAL SALINE 1,000 ML IV SCH (19:46)
[2020-11-15 22:35] VITALS: BP 124/59
[2020-11-16] MEDS: POTASSIUM CHLORIDE 10 MEQ in IV 1/2 NORMAL SALINE 1,000 ML IV SCH ×2 (01:18→21:11)
[2020-11-16 03:24] VITALS: BP 143/65
[2020-11-16] MEDS: ACETAMINOPHEN 325 MG TABLET. PO PRN ×2 (03:57→14:34)
[2020-11-16] MEDS: PIPERACILLIN/TAZOBACTAM 3.375 GM in IV NORMAL SALINE 50ML 50 ML IV SCH ×3 (06:04→17:12)
[2020-11-16 06:50] LABS: CALCIUM 7.5 mg/dL (8.5-10.1); GFR 53.2
[2020-11-16 06:55] LABS: POTASSIUM 2.9 mmol/L (3.5-5.1)
[2020-11-16 07:12] VITALS: BP 153/70
[2020-11-16] MEDS: IPRATRPIUM/ALBUTEROL 0.5/2.5MG 3 ML NEBU. NEB SCH ×4 (07:28→20:15)
[2020-11-16 07:59] LABS: FECAL OB PT POSITIVE (NEG)
--- NOTE | 2020-11-16 08:00 | PDOC ---
PULMONARY PROGRESS NOTES DATE: 11/16/20 TIME: 08:00 Subjective Patient sitting up in a chair eating, did not utilize BiPAP currently on nasal cannula oxygen Vitals Vital Signs Date Time Temp Pulse Resp B/P (MAP) Pulse Ox O2 Delivery O2 Flow Rate FiO2 11/16/20 07:28 100 Venturi Mask 15.0 11/16/20 07:12 98.9 76 22 153/70 (97) 98.9 ROS: No Nausea, No Chest Pain, No Abdominal Pain General: Alert, No acute distress Lungs: Crackles Cardiovascular: S1, S2 Abdomen: Soft Neuro Exam: Alert Extremities: No Edema Skin: Warm Labs Laboratory Tests Test 11/14/20 17:38 11/16/20 04:00 Sodium Level 132 mmol/L (136-145) 138 mmol/L (136-145) Potassium Level 3.1 mmol/L (3.5-5.1) 2.9 mmol/L (3.5-5.1) Chloride Level 98 mmol/L (98-107) 103 mmol/L (98-107) Carbon Dioxide Level 23 mmol/L (21-32) 27 mmol/L (21-32) Anion Gap 11 (6-14) 8 (6-14) Blood Urea Nitrogen 21 mg/dL (7-20) 20 mg/dL (7-20) Creatinine 1.1 mg/dL (0.6-1.0) 1.0 mg/dL (0.6-1.0) Estimated GFR (Cockcroft-Gault) 47.7 53.2 BUN/Creatinine Ratio 19 (6-20) Glucose Level 208 mg/dL (70-99) 123 mg/dL (70-99) Calcium Level 7.2 mg/dL (8.5-10.1) 7.5 mg/dL (8.5-10.1) Total Bilirubin 0.5 mg/dL (0.2-1.0) Aspartate Amino Transf (AST/SGOT) 31 U/L (15-37) Alanine Aminotransferase (ALT/SGPT) 23 U/L (14-59) Alkaline Phosphatase 69 U/L (46-116) Total Protein 5.5 g/dL (6.4-8.2) Albumin 1.8 g/dL (3.4-5.0) Albumin/Globulin Ratio 0.5 (1.0-1.7) Laboratory Tests Test 11/16/20 04:00 Sodium Level 138 mmol/L (136-145) Potassium Level 2.9 mmol/L (3.5-5.1) Chloride Level 103 mmol/L (98-107) Carbon Dioxide Level 27 mmol/L (21-32) Anion Gap 8 (6-14) Blood Urea Nitrogen 20 mg/dL (7-20) Creatinine 1.0 mg/dL (0.6-1.0) Estimated GFR (Cockcroft-Gault) 53.2 Glucose Level 123 mg/dL (70-99) Calcium Level 7.5 mg/dL (8.5-10.1) Medications Active Scripts Medications Dose Route/Sig Max Daily Dose Days Date Category [Vitamin D] 04/14/20 Reported Alprazolam 1 Mg Tablet 1 Tab PO BID 04/14/20 Reported Centrum Complete Multivit Tab (Multivitamin/Iron/Folic Acid) 1 Each Tablet 1 Each PO DAILY 03/05/18 Reported [place] 3 Fish Oil Softgel ([place]-3 Fatty Acids/Fish Oil) 1 Each Capsule.dr 1 Each PO DAILY 03/05/18 Reported Vitamin C (Ascorbic Acid) 500 Mg Tab.chew 500 Mg PO DAILY 03/05/18 Reported Symbicort 160-4.5 Mcg Inhaler (Budesonide/Formoterol Fumarate) 10.2 Gm Hfa.aer.ad 1 Puff IH BID 03/05/18 Reported Aspir 81 (Aspirin) 81 Mg Tablet. 81 Mg PO DAILY 04/23/17 Reported Meloxicam 15 Mg Tablet 15 Mg PO DAILY 04/23/17 Reported Zoloft (Sertraline Hcl) 100 Mg Tablet 150 Mg PO DAILY 07/28/16 Reported Potassium Chloride 10 Meq Tab.er.prt 10 Meq PO DAILY 03/10/13 Reported Lasix (Furosemide) 40 Mg Tablet 40 Mg PO DAILY 03/10/13 Reported Flonase (Fluticasone Propionate) 16 Gm [place].susp 16 Gm NS DAILY 03/10/13 Reported Lamictal (Lamotrigine) 100 Mg Tablet 100 Mg PO BID 03/10/13 Reported Eemt Hs 0.625-1.25 Mg Tablet (Estrogen,Tess/Me-Testosterone) 1 Each Tablet 1 Each PO DAILY 02/19/13 Reported Zocor (Simvastatin) 80 Mg Tablet 40 Mg PO QHS 02/19/13 Reported Impression . 1. Acute hypoxic and hypercapnic respiratory failure with worsening bilateral infiltrates/ high grade fever in a patient who recently received 3rd COVID19- booster. 2. Abnormal chest x-ray as discussed above CT chest also abnormal with diffuse interstitial infiltrates and consolidation left lower lobe 3. Underlying chronic obstructive pulmonary disease. 4. Obstructive sleep apnea, on home CPAP and oxygen. 5. Acute kidney injury.? sepsis induced, check previous renal function. 6. The patient is status post third booster of COVID vaccine. 7. Encephalopathy likely medication induced. Improving 8. Fever per ID Plan . Updated 11/17 Patient slowly improving Continue current support Antibiotics per ID Steroids Discussed with at bedside 11/15 Discussed with RN. off the BiPAP and continue Venturi mask plus nasal cannula titrated fio2 keep oxygen saturations above 92%. elevate hob Continue antibiotics per infectious disease Wean Solu-Medrol. Bronchospasm has improved. Bronchodilators Haldol as needed for agitation avoid oversedation DVT/GI prophylaxis Discussed with RN, Watch respiratory status closely. EMI TURNER MD Nov 16, 2020 08:00
--- NOTE | 2020-11-16 08:16 | PN ---
DATE: 11/16/2020 DAILY PROGRESS NOTE LOCATION: She is in room 669. SUBJECTIVE: This 80-year-old female remains hospitalized, bilateral pneumonia and acute hypoxic hypercarbic respiratory failure. She has had severe encephalopathy, but this is much improved and she appears to be approaching her normal baseline. OBJECTIVE: VITAL SIGNS: Stable. She is afebrile. No fever in the last 24 hours. Blood pressures are improved. She is on facemask oxygen at this point instead of the BiPAP. CHEST: Reveals decreased breath sounds. HEART: Regular. ABDOMEN: Benign. ASSESSMENT: 1. Bilateral pneumonia with acute hypoxic hypercarbic respiratory failure, COVID negative. 2. Longstanding history of severe asthma. 3. Sepsis, improved. 4. Acute kidney injury, improved. 5. Encephalopathy, improved. PLAN: We will need ongoing potassium replacement as her potassium as well again this morning at 2.9 and this has been ordered. She still complains of right hip and left knee pain and x-rays yesterday are unrewarding. I will ask Ortho to see regarding the same. Therapy will be ongoing and ID decision is to extend the length of ongoing IV antibiotics. SUSANA DR: Bisi TID: [id number]
--- NOTE | 2020-11-16 09:16 | PDOC ---
Infectious Disease Note Subjective Subjective pt is feeling better Denies any nausea vomiting diarrhea ROS ROS no n/v/e/sob Vital Sign Vital Signs Vital Signs Date Time Temp Pulse Resp B/P (MAP) Pulse Ox O2 Delivery O2 Flow Rate FiO2 11/16/20 07:28 100 Venturi Mask 15.0 11/16/20 07:12 98.9 76 22 153/70 (97) 98.9 Physical Exam PHYSICAL EXAM GENERAL: alert awake looks better on nasal O2 HEENT: Normocephalic, atraumatic. Anicteric. No thrush. Oral mucosa moist. NECK: Supple, no JVD. No meningismus. LUNGS: Coarse breath sounds bilaterally. Rhonchi present. HEART: S1, S2 regular. No murmurs. ABDOMEN: Soft, mild diffuse tenderness nondistended. No rebound. No guarding. GENITOURINARY: Brief is in place. No Harrell. EXTREMITIES: No edema, no cyanosis. DERMATOLOGIC: Warm, dry. No generalized rash. Few abrasions not infected. PSYCHIATRIC: Calm, cooperative. NEUROLOGIC alert awake PIV looks clean. Labs Lab Laboratory Tests Test 11/16/20 03:56 11/16/20 04:00 Stool Occult Blood Positive (NEG) Sodium Level 138 mmol/L (136-145) Potassium Level 2.9 mmol/L (3.5-5.1) Chloride Level 103 mmol/L (98-107) Carbon Dioxide Level 27 mmol/L (21-32) Anion Gap 8 (6-14) Blood Urea Nitrogen 20 mg/dL (7-20) Creatinine 1.0 mg/dL (0.6-1.0) Estimated GFR (Cockcroft-Gault) 53.2 Glucose Level 123 mg/dL (70-99) Calcium Level 7.5 mg/dL (8.5-10.1) Objective Assessment 1. Fever, improved 2. Acute hypoxic respiratory failure with diffuse bilateral infiltrates, Appears multifactorial including pneumonia, CHF, pneumonitis on bipap 3. Acute kidney injury. 4. History of chronic obstructive pulmonary disease. 5. History of obstructive sleep apnea. 6. CHF 7. Status post third booster of COVID vaccine. 8. Coffee-ground emesis earlier this morning. 9. History of fall prior to admission. 10.Encephalopathy appears metabolic,no evidence of encephalitis 11. Leucocytosis on steroids Plan Plan of Care Continue Zosyn on steroids per pulm team Results of abdominal ultrasound reviewed Follow labs and cultures Maintain aspiration precautions Prognosis poor D/W at bedside Discussed with nursing staff AFUA ALEMAN MD Nov 16, 2020 09:16
[2020-11-16] MEDS: lamoTRIgine 100 MG TABLET. PO SCH ×2 (09:25→21:10)
[2020-11-16] MEDS: POTASSIUM CHLORIDE 20 MEQ TABLET.ER. PO SCH ×3 (09:25→17:07)
[2020-11-16] MEDS: methylPREDNISolone SOD SUCC PF 40 MG/ML VIAL. IV SCH (09:25)
[2020-11-16] MEDS: LACTOBACILLUS RHAMNOSUS GG 1 CAPSULE. PO SCH ×2 (09:26→21:11)
[2020-11-16] MEDS: PANTOPRAZOLE 40 MG TABLET.DR. PO SCH (09:26)
[2020-11-16 10:16] VITALS: BP 142/63
--- NOTE | 2020-11-16 12:50 | NUR ---
SS following up with discharge planning. SS reviewed pt chart and discussed with pt RN. Pt is currently requiring oxygen at 15 liters venti mask. COVID19 negative. Pt on IV Zosyn and IV Solu Medrol. SS discussed with Dr. Mello. SS phoned and faxed referral to [facility], ; fax [phone]. Pt accepted at [facility]. SS will continue to follow for discharge planning.
[2020-11-16 14:21] VITALS: BP 141/65
[2020-11-16] MEDS: HALOPERIDOL LACTATE 5 MG/ML VIAL. IVP PRN (15:08)
[2020-11-16 19:00] VITALS: BP 143/54
[2020-11-16] MEDS: LOPERAMIDE 2 MG CAPSULE PO PRN (21:10)
--- NOTE | 2020-11-16 21:33 | CONS ---
DATE OF CONSULTATION: 11/16/2020 REQUESTING CONSULTATION PHYSICIAN: Janett La MD. REASON FOR CONSULTATION: Bilateral hip pain. HISTORY OF PRESENT ILLNESS: The patient has been in the hospital for an extended amount of time with bilateral pneumonia and is COVID negative. She had been hospitalized with sepsis and was down for approximately since admission through the Emergency Department 11/05/2020 and indicates that in the past couple of days, she has had hip pain and is having difficulty getting up and around without pain in the crease of her groin on both hips and also notes that it hurts closing her legs up or opening them up with groin pain as well. She was concerned that perhaps due to a previous slip and fall that she may have had a hip fracture as apparently she fell into a flower bed prior to her admission and she was subsequently admitted with mental status changes, kidney failure and a chest x-ray and was subsequently treated with ongoing pneumonia. PAST MEDICAL HISTORY: Significant for severe asthma, hypertension, gastroparesis, and hyperlipidemia as well as balance and vertigo issues. PAST SURGICAL HISTORY: Significant for a left knee arthroplasty, more remotely a right shoulder surgery, , hysterectomy, resection of colon polyps and eyelid surgeries. MEDICATIONS: List is reviewed. ALLERGIES: SHE LISTS ALLERGIES TO CIPROFLOXACIN, SULFA, OMNICEF, TETRACYCLINE AND LISINOPRIL. SOCIAL HISTORY: Denies smoking or drug use. Rarely consumes any alcohol. She is and accompanied by her family today. Lives at home with her . FAMILY HISTORY: Really no significant family history. REVIEW OF SYSTEMS: Significant only for the resolving shortness of breath due to the pneumonia and asthma issues as well as the bilateral hip pain with movement in the groin area. She denies any radiating pain, focal weakness, numbness or tingling. PHYSICAL EXAMINATION: She really does not appear to be in any distress with motion of her hips either a log roll or up in flexion, rotation. She is very tender and weak however with any attempt of testing her hip flexor strength. On the right side, she is able to hold it up against gravity, but not really against resistance and is very tender over the rectus femoris. The left side is weaker and likewise painful when I test her hip flexors. She has a little tightness in the back of the knee with a straight leg raise maneuver, but no radiating pain. She has a well-healed midline incision on the left knee from previous total knee arthroplasty and has good patellofemoral tracking and stability. Normal examination of the left knee and bilateral ankles with overall intact motor function, distal pulses, sensation, reflexes, skin in both lower extremities throughout. IMAGING: X-rays show well maintained hip joint spaces on an AP of the pelvis. She does have some additional calcification over the greater trochanter area and at the gluteus medius insertional area generally but really more lateral to that specifically. Really no evidence of similar calcification or heterotopic ossification on the contralateral left hip. She really does not have significant tenderness or it is very minimal and equal bilaterally over the trochanteric bursa or abductor insertions on either hip. ASSESSMENT: Hip flexor tendinitis. TREATMENT PLAN: I went over with her that I do not see any structural deficits on examination. She does not have an exam at all consistent with hip fracture occult or otherwise. She really has no tenderness on weightbearing through an extended extremity except for where her hip flexors are stressed primarily. I told her that this is not a structural issue, but instead a muscular and tendinous tightness issue that we have to get her mobilized with physical therapy and in any case, she will not hurt this more, it may cause her some pain, but it is not going to cause any further deficit or structural issue to get her up and around even if she is having some groin pain associated with the hip flexors as the hips are otherwise structurally intact. She and her family appreciated the discussion. I am going to order some physical therapy that she can get up and around for ambulation and transfers consistent with her need for other medical treatment and required oxygen and assistance to help ensure her safety. Otherwise from an orthopedic standpoint, this is self-limiting and can be symptomatically treated again with therapy. No restrictions other than symptomatic and no real followup from an orthopedic standpoint necessary unless she has other difficulties in the interim. WALKER DR: Dionicio TID: [id number] CC: JANETT LA MD
[2020-11-16 23:00] VITALS: BP 138/63
[2020-11-17] MEDS: PIPERACILLIN/TAZOBACTAM 3.375 GM in IV NORMAL SALINE 50ML 50 ML IV SCH ×3 (00:21→12:15)
[2020-11-17 03:00] VITALS: BP 133/62
[2020-11-17] MEDS: IPRATRPIUM/ALBUTEROL 0.5/2.5MG 3 ML NEBU. NEB SCH ×4 (06:29→21:50)
[2020-11-17 07:00] VITALS: BP 131/59
[2020-11-17] MEDS: POTASSIUM CHLORIDE 20 MEQ TABLET.ER. PO SCH ×3 (09:47→17:22)
[2020-11-17] MEDS: PANTOPRAZOLE 40 MG TABLET.DR. PO SCH (09:47)
[2020-11-17] MEDS: lamoTRIgine 100 MG TABLET. PO SCH ×2 (09:47→20:12)
[2020-11-17] MEDS: methylPREDNISolone SOD SUCC PF 40 MG/ML VIAL. IV SCH (09:48)
[2020-11-17] MEDS: LACTOBACILLUS RHAMNOSUS GG 1 CAPSULE. PO SCH ×2 (09:48→20:12)
[2020-11-17] MEDS: LOPERAMIDE 2 MG CAPSULE PO PRN ×2 (09:53→20:13)
[2020-11-17 10:58] LABS: CALCIUM 7.7 mg/dL (8.5-10.1); CREATININE 0.9 mg/dL (0.6-1.0); GFR 60.1
[2020-11-17 11:21] VITALS: BP 130/58
--- NOTE | 2020-11-17 12:55 | PDOC ---
Infectious Disease Note Subjective Subjective pt is feeling better Denies any nausea vomiting diarrhea on 8L O2 up in chair ROS ROS no n/v/d/ Vital Sign Vital Signs Vital Signs Date Time Temp Pulse Resp B/P (MAP) Pulse Ox O2 Delivery O2 Flow Rate FiO2 11/17/20 11:21 98.2 89 18 130/58 (82) 96 Nasal Cannula 8.0 98.2 Physical Exam PHYSICAL EXAM GENERAL: alert awake looks better on nasal O2 HEENT: Normocephalic, atraumatic. Anicteric. No thrush. Oral mucosa moist. NECK: Supple, no JVD. No meningismus. LUNGS: Coarse breath sounds bilaterally. Rhonchi present. HEART: S1, S2 regular. No murmurs. ABDOMEN: Soft, mild diffuse tenderness nondistended. No rebound. No guarding. GENITOURINARY: Brief is in place. No Harrell. EXTREMITIES: No edema, no cyanosis. DERMATOLOGIC: Warm, dry. No generalized rash. Few abrasions not infected. PSYCHIATRIC: Calm, cooperative. NEUROLOGIC alert awake PIV looks clean. Labs Lab Laboratory Tests Test 11/17/20 09:21 Sodium Level 137 mmol/L (136-145) Potassium Level 4.0 mmol/L (3.5-5.1) Chloride Level 102 mmol/L (98-107) Carbon Dioxide Level 28 mmol/L (21-32) Anion Gap 7 (6-14) Blood Urea Nitrogen 12 mg/dL (7-20) Creatinine 0.9 mg/dL (0.6-1.0) Estimated GFR (Cockcroft-Gault) 60.1 Glucose Level 150 mg/dL (70-99) Calcium Level 7.7 mg/dL (8.5-10.1) Objective Assessment 1. Fever, improved 2. Acute hypoxic respiratory failure with diffuse bilateral infiltrates, Appears multifactorial including pneumonia, CHF, pneumonitis on bipap 3. Acute kidney injury. 4. History of chronic obstructive pulmonary disease. 5. History of obstructive sleep apnea. 6. CHF 7. Status post third booster of COVID vaccine. 8. Coffee-ground emesis earlier this morning. 9. History of fall prior to admission. 10.Encephalopathy appears metabolic,no evidence of encephalitis 11. Leucocytosis on steroids Plan Plan of Care change zosyn to po augmentin on steroids per pulm team Results of abdominal ultrasound reviewed Follow labs and cultures Maintain aspiration precautions Discussed with nursing staff AFUA ALEMAN MD Nov 17, 2020 12:55
[2020-11-17] MEDS: POTASSIUM CHLORIDE 10 MEQ in IV 1/2 NORMAL SALINE 1,000 ML IV SCH (14:59)
[2020-11-17 15:48] VITALS: BP 132/61
[2020-11-17 19:00] VITALS: BP 133/84
[2020-11-17] MEDS: AMOXICILLIN/K CLAV 875/125MG TABLET. PO SCH (20:12)
[2020-11-17] MEDS: ACETAMINOPHEN 325 MG TABLET. PO PRN (20:13)
[2020-11-17 22:34] VITALS: BP 151/70
--- NOTE | 2020-11-18 01:02 | PN ---
DATE: 11/17/2020 DAILY PROGRESS NOTE LOCATION: She is in room 669. SUBJECTIVE: This 80-year-old female remains hospitalized, bilateral pneumonia and acute hypoxic hypercarbic respiratory failure and is COVID negative. She has had severe encephalopathy, but this has essentially resolved. She also had acute kidney injury, which is resolved. OBJECTIVE: VITAL SIGNS: Stable. She is afebrile. She is currently on 9 liters per nasal cannula oxygen. Blood pressures have improved. CHEST: Reveals decreased breath sounds, no wheezing. HEART: Regular. ABDOMEN: Benign. She is quite weak and did not get therapy yesterday for some reason. ASSESSMENT: 1. Bilateral pneumonia with acute hypoxic hypercarbic respiratory failure, improving slowly. 2. Longstanding history of severe asthma. 3. Sepsis, improved. 4. Acute kidney injury, improved. 5. Encephalopathy, resolved. 6. Hypokalemia with a normal potassium this morning with replacement. PLAN: Continue present care. Will get up in the chair at least twice a day. Try to find out why therapy has not seen her. Ortho did see her and feels it is muscular causing her right hip, pelvic pain. ID continues to follow with ongoing antibiotics. MARITZA/ED/PATRICIA DR: Bisi TID: [id number]
[2020-11-18 02:34] VITALS: BP 195/93
[2020-11-18 07:00] VITALS: BP 155/69
[2020-11-18] MEDS: IPRATRPIUM/ALBUTEROL 0.5/2.5MG 3 ML NEBU. NEB SCH ×4 (07:49→22:12)
[2020-11-18] MEDS: POTASSIUM CHLORIDE 20 MEQ TABLET.ER. PO SCH ×3 (08:33→16:54)
[2020-11-18] MEDS: lamoTRIgine 100 MG TABLET. PO SCH ×2 (08:34→20:27)
[2020-11-18] MEDS: AMOXICILLIN/K CLAV 875/125MG TABLET. PO SCH ×2 (08:34→20:27)
[2020-11-18] MEDS: LOPERAMIDE 2 MG CAPSULE PO PRN ×4 (08:34→20:27)
[2020-11-18] MEDS: LACTOBACILLUS RHAMNOSUS GG 1 CAPSULE. PO SCH ×2 (08:34→20:27)
[2020-11-18] MEDS: PANTOPRAZOLE 40 MG TABLET.DR. PO SCH (08:34)
[2020-11-18] MEDS: methylPREDNISolone SOD SUCC PF 40 MG/ML VIAL. IV SCH (08:35)
--- NOTE | 2020-11-18 10:26 | PDOC ---
PULMONARY PROGRESS NOTES DATE: 11/18/20 TIME: 10:25 Subjective Patient not happy that she had a sit up in the chair yesterday not more short of breath Off of BiPAP Vitals Vital Signs Date Time Temp Pulse Resp B/P (MAP) Pulse Ox O2 Delivery O2 Flow Rate FiO2 11/18/20 08:00 Nasal Cannula 15.0 11/18/20 07:00 99.4 88 20 155/69 (97) 92 99.4 ROS: No Nausea, No Chest Pain, No Abdominal Pain General: Alert, No acute distress Lungs: Crackles Cardiovascular: S1, S2 Abdomen: Soft Neuro Exam: Alert Extremities: No Edema Skin: Warm Labs Laboratory Tests Test 11/17/20 09:21 Sodium Level 137 mmol/L (136-145) Potassium Level 4.0 mmol/L (3.5-5.1) Chloride Level 102 mmol/L (98-107) Carbon Dioxide Level 28 mmol/L (21-32) Anion Gap 7 (6-14) Blood Urea Nitrogen 12 mg/dL (7-20) Creatinine 0.9 mg/dL (0.6-1.0) Estimated GFR (Cockcroft-Gault) 60.1 Glucose Level 150 mg/dL (70-99) Calcium Level 7.7 mg/dL (8.5-10.1) Medications Active Scripts Medications Dose Route/Sig Max Daily Dose Days Date Category [Vitamin D] 04/14/20 Reported Alprazolam 1 Mg Tablet 1 Tab PO BID 04/14/20 Reported Centrum Complete Multivit Tab (Multivitamin/Iron/Folic Acid) 1 Each Tablet 1 Each PO DAILY 03/05/18 Reported [place] 3 Fish Oil Softgel ([place]-3 Fatty Acids/Fish Oil) 1 Each Capsule.dr 1 Each PO DAILY 03/05/18 Reported Vitamin C (Ascorbic Acid) 500 Mg Tab.chew 500 Mg PO DAILY 03/05/18 Reported Symbicort 160-4.5 Mcg Inhaler (Budesonide/Formoterol Fumarate) 10.2 Gm Hfa.aer.ad 1 Puff IH BID 03/05/18 Reported Aspir 81 (Aspirin) 81 Mg Tablet.dr 81 Mg PO DAILY 04/23/17 Reported Meloxicam 15 Mg Tablet 15 Mg PO DAILY 04/23/17 Reported Zoloft (Sertraline Hcl) 100 Mg Tablet 150 Mg PO DAILY 07/28/16 Reported Potassium Chloride 10 Meq Tab.er.prt 10 Meq PO DAILY 03/10/13 Reported Lasix (Furosemide) 40 Mg Tablet 40 Mg PO DAILY 03/10/13 Reported Flonase (Fluticasone Propionate) 16 Gm [place].susp 16 Gm NS DAILY 03/10/13 Reported Lamictal (Lamotrigine) 100 Mg Tablet 100 Mg PO BID 03/10/13 Reported Eemt Hs 0.625-1.25 Mg Tablet (Estrogen,Tess/Me-Testosterone) 1 Each Tablet 1 Each PO DAILY 02/19/13 Reported Zocor (Simvastatin) 80 Mg Tablet 40 Mg PO QHS 02/19/13 Reported Impression . 1. Acute hypoxic and hypercapnic respiratory failure with worsening bilateral infiltrates/ high grade fever in a patient who recently received 3rd COVID19- booster. 2. Abnormal chest x-ray as discussed above CT chest also abnormal with diffuse interstitial infiltrates and consolidation left lower lobe 3. Underlying chronic obstructive pulmonary disease. 4. Obstructive sleep apnea, on home CPAP and oxygen. 5. Acute kidney injury.? sepsis induced, check previous renal function. 6. The patient is status post third booster of COVID vaccine. 7. Encephalopathy likely medication induced. Improving 8. Fever per ID Plan . Updated 11/18 Continue oxygen supplementation Antibiotics per ID Up to chair PT OT Incentive spirometry We will discuss with social work up possible LTAC updated 11/17 Patient slowly improving Continue current support Antibiotics per ID Steroids Discussed with at bedside EMI TURNER MD Nov 18, 2020 10:26
[2020-11-18 11:37] VITALS: BP 191/73
[2020-11-18] MEDS: POTASSIUM CHLORIDE 10 MEQ in IV 1/2 NORMAL SALINE 1,000 ML IV SCH (11:46)
[2020-11-18] MEDS: HALOPERIDOL LACTATE 5 MG/ML VIAL. IVP PRN (12:44)
--- NOTE | 2020-11-18 12:50 | PN ---
DATE: 11/18/2020 DAILY PROGRESS NOTE LOCATION: She is in room 669. SUBJECTIVE: This 80-year-old female remains hospitalized with bilateral pneumonia and acute hypoxic hypercarbic respiratory failure as well as encephalopathy. Encephalopathy is definitely clear that she is awake, alert and back to her baseline mental status. She feels like 6 hours yesterday in the chair was too much. They did increase her oxygen backup during activity yesterday in Therapy and have not turned it back down, but it was at 8 liters yesterday. There are notes about it not picking up the O2 sats well and I am not sure she needs as much and have discussed the same with nursing. OBJECTIVE: VITAL SIGNS: Stable. She is afebrile. GENERAL: She is awake, alert. CHEST: Decreased breath sounds. No wheeze. HEART: Regular rate and rhythm. ABDOMEN: Soft, nontender, without hepatosplenomegaly or mass. EXTREMITIES: Without cyanosis, clubbing, edema. NEUROLOGIC: She is intact. IMPRESSION: 1. Acute hypoxic hypercarbic respiratory failure, felt due to bilateral pneumonia. 2. Underlying asthma, severe. 3. Obstructive sleep apnea. 4. Acute kidney injury, resolved. 5. Encephalopathy, resolved. PLAN: Continue oxygen. Antibiotics per ID, which had been switched to oral Augmentin. She will be ready for transfer at the beginning of the week to her next venue of care, which ideally would be senior living, but may have to be LTAC depending on oxygen needs. SUSANA LLANES: Bisi TID: [id number]
--- NOTE | 2020-11-18 13:12 | PDOC ---
Infectious Disease Note Subjective Subjective pt is feeling better Off BIPAP up in chair ROS ROS no n/v/d/ Vital Sign Vital Signs Vital Signs Date Time Temp Pulse Resp B/P (MAP) Pulse Ox O2 Delivery O2 Flow Rate FiO2 11/18/20 12:55 High Flow Nasal Cannula 15.0 11/18/20 11:37 97.5 97 20 191/73 (112) 96 97.5 Physical Exam PHYSICAL EXAM GENERAL: alert awake looks better on nasal O2 HEENT: Normocephalic, atraumatic. Anicteric. No thrush. Oral mucosa moist. NECK: Supple, no JVD. No meningismus. LUNGS: Coarse breath sounds bilaterally. Rhonchi present. HEART: S1, S2 regular. No murmurs. ABDOMEN: Soft, mild diffuse tenderness nondistended. No rebound. No guarding. GENITOURINARY: Brief is in place. No Harrell. EXTREMITIES: No edema, no cyanosis. DERMATOLOGIC: Warm, dry. No generalized rash. Few abrasions not infected. PSYCHIATRIC: Calm, cooperative. NEUROLOGIC alert awake PIV looks clean. Objective Assessment 1. Fever, improved 2. Acute hypoxic respiratory failure with diffuse bilateral infiltrates, Appears multifactorial including pneumonia, CHF, pneumonitis on bipap 3. Acute kidney injury. 4. History of chronic obstructive pulmonary disease. 5. History of obstructive sleep apnea. 6. CHF 7. Status post third booster of COVID vaccine. 8. Coffee-ground emesis earlier this morning. 9. History of fall prior to admission. 10.Encephalopathy appears metabolic,no evidence of encephalitis 11. Leucocytosis on steroids Plan Plan of Care Cont augmentin was on zosyn on steroids per pulm team Follow labs and cultures Maintain aspiration precautions Discussed with nursing staff AFUA ALEMAN MD Nov 18, 2020 13:12
[2020-11-18 14:55] VITALS: BP 132/72
[2020-11-18 18:59] VITALS: BP 133/64
[2020-11-18] MEDS: ACETAMINOPHEN 325 MG TABLET. PO PRN (20:27)
[2020-11-18 22:44] VITALS: BP 132/63
[2020-11-19 02:00] VITALS: BP 134/77
[2020-11-19 07:00] VITALS: BP 138/64
[2020-11-19] MEDS: IPRATRPIUM/ALBUTEROL 0.5/2.5MG 3 ML NEBU. NEB SCH ×4 (07:50→21:17)
--- NOTE | 2020-11-19 07:59 | PDOC ---
Infectious Disease Note Subjective Subjective pt is feeling better Off and on BIPAP up in chair ROS ROS No nausea vomiting diarrhea fever Vital Sign Vital Signs Vital Signs Date Time Temp Pulse Resp B/P (MAP) Pulse Ox O2 Delivery O2 Flow Rate FiO2 11/19/20 07:50 High Flow Nasal Cannula 15.0 11/19/20 02:00 98.1 85 22 134/77 (96) 90 98.1 Physical Exam PHYSICAL EXAM GENERAL: alert awake looks better on nasal O2 HEENT: Normocephalic, atraumatic. Anicteric. No thrush. Oral mucosa moist. NECK: Supple, no JVD. No meningismus. LUNGS: Coarse breath sounds bilaterally. Rhonchi present. HEART: S1, S2 regular. No murmurs. ABDOMEN: Soft, mild diffuse tenderness nondistended. No rebound. No guarding. GENITOURINARY: Brief is in place. No Harrell. EXTREMITIES: No edema, no cyanosis. DERMATOLOGIC: Warm, dry. No generalized rash. Few abrasions not infected. PSYCHIATRIC: Calm, cooperative. NEUROLOGIC alert awake PIV looks clean. Objective Assessment 1. Fever, improved 2. Acute hypoxic respiratory failure with diffuse bilateral infiltrates, Appears multifactorial including pneumonia, CHF, pneumonitis on bipap 3. Acute kidney injury. 4. History of chronic obstructive pulmonary disease. 5. History of obstructive sleep apnea. 6. CHF 7. Status post third booster of COVID vaccine. 8. Coffee-ground emesis earlier this morning. 9. History of fall prior to admission. 10.Encephalopathy appears metabolic,no evidence of encephalitis 11. Leucocytosis on steroids Plan Plan of Care Cont augmentin was on zosyn on steroids per pulm team Follow labs and cultures Maintain aspiration precautions Discussed with Discussed with nursing staff AFUA ALEMAN MD Nov 19, 2020 07:59
[2020-11-19] MEDS: PANTOPRAZOLE 40 MG TABLET.DR. PO SCH (08:15)
[2020-11-19] MEDS: AMOXICILLIN/K CLAV 875/125MG TABLET. PO SCH ×2 (08:15→18:58)
[2020-11-19] MEDS: lamoTRIgine 100 MG TABLET. PO SCH ×2 (08:15→18:58)
[2020-11-19] MEDS: LOPERAMIDE 2 MG CAPSULE PO PRN ×2 (08:15→17:08)
[2020-11-19] MEDS: LACTOBACILLUS RHAMNOSUS GG 1 CAPSULE. PO SCH ×2 (08:15→18:58)
[2020-11-19] MEDS: POTASSIUM CHLORIDE 20 MEQ TABLET.ER. PO SCH ×3 (08:15→17:08)
[2020-11-19] MEDS: POTASSIUM CHLORIDE 10 MEQ in IV 1/2 NORMAL SALINE 1,000 ML IV SCH (08:16)
[2020-11-19] MEDS: methylPREDNISolone SOD SUCC PF 40 MG/ML VIAL. IV SCH (08:16)
[2020-11-19] MEDS: ACETAMINOPHEN 325 MG TABLET. PO PRN (09:04)
[2020-11-19] MEDS: HALOPERIDOL LACTATE 5 MG/ML VIAL. IVP PRN ×2 (09:05→22:33)
[2020-11-19] MEDS: ACETAMINOPHEN 650 MG SUPP.RECT. PR PRN (09:38)
--- NOTE | 2020-11-19 10:10 | PN ---
DATE: 11/19/2020 LOCATION: She is in room 669. SUBJECTIVE: This 80-year-old female remains hospitalized with bilateral pneumonia and acute hypoxic hypercarbic respiratory failure as well as encephalopathy. Encephalopathy is resolved, acute kidney injury is resolved. She is still needing high flow oxygen which will likely make her discharge destination to an LTAC type setting. I am going to have nursing try to see what we can get her down to today. She was up in a chair, quite a while yesterday. OBJECTIVE: VITAL SIGNS: Stable. She is afebrile. GENERAL: She is awake, alert. CHEST: Decreased breath sounds without any further wheezing. HEART: Regular rate and rhythm. ABDOMEN: Soft, nontender, without hepatosplenomegaly or mass. EXTREMITIES: Unremarkable. NEUROLOGIC: She is intact. IMPRESSION: 1. Acute hypoxic hypercarbic respiratory failure, felt due to bilateral pneumonia. 2. Additional diagnosis of underlying severe asthma. 3. Obstructive sleep apnea. 4. Acute kidney injury, resolved. 5. Encephalopathy, resolved. PLAN: Continue oxygen taper as can. She has been switched to oral Augmentin and seems to be doing good for 24 hours on the same. Discharge planning underway and likely will discharge at the same location tomorrow depending on the amount of oxygen needs. KEZIA DR: Bisi TID: [id number]
[2020-11-19 11:00] VITALS: BP 146/76
--- NOTE | 2020-11-19 11:54 | PDOC ---
PULMONARY PROGRESS NOTES DATE: 11/19/20 TIME: 11:54 Subjective Off of BiPAP not more short of air Vitals Vital Signs Date Time Temp Pulse Resp B/P (MAP) Pulse Ox O2 Delivery O2 Flow Rate FiO2 11/19/20 11:12 97 High Flow Nasal Cannula 15.0 11/19/20 07:00 98.3 98 18 138/64 (88) 98.3 ROS: No Nausea, No Chest Pain, No Abdominal Pain General: Alert, No acute distress Lungs: Crackles Cardiovascular: S1, S2 Abdomen: Soft Neuro Exam: Alert Extremities: No Edema Skin: Warm Medications Active Scripts Medications Dose Route/Sig Max Daily Dose Days Date Category [Vitamin D] 04/14/20 Reported Alprazolam 1 Mg Tablet 1 Tab PO BID 04/14/20 Reported Centrum Complete Multivit Tab (Multivitamin/Iron/Folic Acid) 1 Each Tablet 1 Each PO DAILY 03/05/18 Reported [place] 3 Fish Oil Softgel ([place]-3 Fatty Acids/Fish Oil) 1 Each Capsule.dr 1 Each PO DAILY 03/05/18 Reported Vitamin C (Ascorbic Acid) 500 Mg Tab.chew 500 Mg PO DAILY 03/05/18 Reported Symbicort 160-4.5 Mcg Inhaler (Budesonide/Formoterol Fumarate) 10.2 Gm Hfa.aer.ad 1 Puff IH BID 03/05/18 Reported Aspir 81 (Aspirin) 81 Mg Tablet.dr 81 Mg PO DAILY 04/23/17 Reported Meloxicam 15 Mg Tablet 15 Mg PO DAILY 04/23/17 Reported Zoloft (Sertraline Hcl) 100 Mg Tablet 150 Mg PO DAILY 07/28/16 Reported Potassium Chloride 10 Meq Tab.er.prt 10 Meq PO DAILY 03/10/13 Reported Lasix (Furosemide) 40 Mg Tablet 40 Mg PO DAILY 03/10/13 Reported Flonase (Fluticasone Propionate) 16 Gm [place].susp 16 Gm NS DAILY 03/10/13 Reported Lamictal (Lamotrigine) 100 Mg Tablet 100 Mg PO BID 03/10/13 Reported Eemt Hs 0.625-1.25 Mg Tablet (Estrogen,Tess/Me-Testosterone) 1 Each Tablet 1 Each PO DAILY 02/19/13 Reported Zocor (Simvastatin) 80 Mg Tablet 40 Mg PO QHS 02/19/13 Reported Impression . 1. Acute hypoxic and hypercapnic respiratory failure with worsening bilateral infiltrates/ high grade fever in a patient who recently received 3rd COVID19- booster. 2. Abnormal chest x-ray as discussed above CT chest also abnormal with diffuse interstitial infiltrates and consolidation left lower lobe 3. Underlying chronic obstructive pulmonary disease. 4. Obstructive sleep apnea, on home CPAP and oxygen. 5. Acute kidney injury.? sepsis induced, check previous renal function. 6. The patient is status post third booster of COVID vaccine. 7. Encephalopathy likely medication induced. Improving 8. Fever per ID Plan . Updated 11/19 Discharge planning Continue Augmentin Oxygen supplementation Updated 11/18 Continue oxygen supplementation Antibiotics per ID Up to chair PT OT Incentive spirometry We will discuss with social work up possible LTAC updated 11/17 Patient slowly improving Continue current support Antibiotics per ID Steroids Discussed with at bedside EMI TURNER MD Nov 19, 2020 11:54
[2020-11-19 15:00] VITALS: BP 135/62
[2020-11-19 19:24] VITALS: BP 132/62
[2020-11-19 22:24] VITALS: BP 150/67
[2020-11-20] MEDS: ACETAMINOPHEN 325 MG TABLET. PO PRN ×4 (00:23→21:13)
[2020-11-20 03:00] VITALS: BP 154/70
[2020-11-20 07:00] VITALS: BP 155/67
[2020-11-20] MEDS: IPRATRPIUM/ALBUTEROL 0.5/2.5MG 3 ML NEBU. NEB SCH ×4 (07:31→21:05)
--- NOTE | 2020-11-20 08:37 | PDOC ---
PULMONARY PROGRESS NOTES DATE: 11/20/20 TIME: 08:37 Subjective Off of BiPAP not more short of air Vitals Vital Signs Date Time Temp Pulse Resp B/P (MAP) Pulse Ox O2 Delivery O2 Flow Rate FiO2 11/20/20 07:31 93 High Flow Nasal Cannula 10.0 11/20/20 03:00 98.9 113 26 154/70 (98) 98.9 ROS: No Nausea, No Chest Pain, No Abdominal Pain General: Alert, No acute distress Lungs: Crackles Cardiovascular: S1, S2 Abdomen: Soft Neuro Exam: Alert Extremities: No Edema Skin: Warm Medications Active Scripts Medications Dose Route/Sig Max Daily Dose Days Date Category [Vitamin D] 04/14/20 Reported Alprazolam 1 Mg Tablet 1 Tab PO BID 04/14/20 Reported Centrum Complete Multivit Tab (Multivitamin/Iron/Folic Acid) 1 Each Tablet 1 Each PO DAILY 03/05/18 Reported [place] 3 Fish Oil Softgel ([place]-3 Fatty Acids/Fish Oil) 1 Each Capsule.dr 1 Each PO DAILY 03/05/18 Reported Vitamin C (Ascorbic Acid) 500 Mg Tab.chew 500 Mg PO DAILY 03/05/18 Reported Symbicort 160-4.5 Mcg Inhaler (Budesonide/Formoterol Fumarate) 10.2 Gm Hfa.aer.ad 1 Puff IH BID 03/05/18 Reported Aspir 81 (Aspirin) 81 Mg Tablet.dr 81 Mg PO DAILY 04/23/17 Reported Meloxicam 15 Mg Tablet 15 Mg PO DAILY 04/23/17 Reported Zoloft (Sertraline Hcl) 100 Mg Tablet 150 Mg PO DAILY 07/28/16 Reported Potassium Chloride 10 Meq Tab.er.prt 10 Meq PO DAILY 03/10/13 Reported Lasix (Furosemide) 40 Mg Tablet 40 Mg PO DAILY 03/10/13 Reported Flonase (Fluticasone Propionate) 16 Gm [place].susp 16 Gm NS DAILY 03/10/13 Reported Lamictal (Lamotrigine) 100 Mg Tablet 100 Mg PO BID 03/10/13 Reported Eemt Hs 0.625-1.25 Mg Tablet (Estrogen,Tess/Me-Testosterone) 1 Each Tablet 1 Each PO DAILY 02/19/13 Reported Zocor (Simvastatin) 80 Mg Tablet 40 Mg PO QHS 02/19/13 Reported Impression . 1. Acute hypoxic and hypercapnic respiratory failure with worsening bilateral infiltrates/ high grade fever in a patient who recently received 3rd COVID19- booster. 2. Abnormal chest x-ray as discussed above CT chest also abnormal with diffuse interstitial infiltrates and consolidation left lower lobe 3. Underlying chronic obstructive pulmonary disease. 4. Obstructive sleep apnea, on home CPAP and oxygen. 5. Acute kidney injury.? sepsis induced, check previous renal function. 6. The patient is status post third booster of COVID vaccine. 7. Encephalopathy likely medication induced. Improving 8. Fever per ID Plan . Updated 11/19 Discharge planning Continue Augmentin Oxygen supplementation Updated 11/18 Continue oxygen supplementation Antibiotics per ID Up to chair PT OT Incentive spirometry We will discuss with social work up possible LTAC updated 11/17 Patient slowly improving Continue current support Antibiotics per ID Steroids Discussed with at bedside EMI TURNER MD Nov 20, 2020 08:37
[2020-11-20] MEDS: lamoTRIgine 100 MG TABLET. PO SCH ×2 (08:57→21:13)
[2020-11-20] MEDS: PANTOPRAZOLE 40 MG TABLET.DR. PO SCH (08:57)
[2020-11-20] MEDS: AMOXICILLIN/K CLAV 875/125MG TABLET. PO SCH ×2 (08:57→21:13)
[2020-11-20] MEDS: POTASSIUM CHLORIDE 20 MEQ TABLET.ER. PO SCH ×3 (08:59→16:48)
[2020-11-20] MEDS: LACTOBACILLUS RHAMNOSUS GG 1 CAPSULE. PO SCH ×2 (08:59→21:13)
--- NOTE | 2020-11-20 09:02 | PDOC ---
Infectious Disease Note Subjective Subjective pt is more hypoxic today on BIPAP ROS ROS no n/v//d/sob Vital Sign Vital Signs Vital Signs Date Time Temp Pulse Resp B/P (MAP) Pulse Ox O2 Delivery O2 Flow Rate FiO2 11/20/20 07:31 93 High Flow Nasal Cannula 10.0 11/20/20 07:00 98.8 96 20 155/67 (96) 98.8 Physical Exam PHYSICAL EXAM GENERAL: alert awake looks better on nasal O2 HEENT: Normocephalic, atraumatic. Anicteric. No thrush. Oral mucosa moist. NECK: Supple, no JVD. No meningismus. LUNGS: Coarse breath sounds bilaterally. Rhonchi present. HEART: S1, S2 regular. No murmurs. ABDOMEN: Soft, mild diffuse tenderness nondistended. No rebound. No guarding. GENITOURINARY: Brief is in place. No Harrell. EXTREMITIES: No edema, no cyanosis. DERMATOLOGIC: Warm, dry. No generalized rash. Few abrasions not infected. PSYCHIATRIC: Calm, cooperative. NEUROLOGIC alert awake PIV looks clean. Objective Assessment 1. Fever, improved 2. Acute hypoxic respiratory failure with diffuse bilateral infiltrates, Appears multifactorial including pneumonia, CHF, pneumonitis on bipap 3. Acute kidney injury. 4. History of chronic obstructive pulmonary disease. 5. History of obstructive sleep apnea. 6. CHF 7. Status post third booster of COVID vaccine. 8. Coffee-ground emesis earlier this morning. 9. History of fall prior to admission. 10.Encephalopathy appears metabolic,no evidence of encephalitis 11. Leucocytosis on steroids Plan Plan of Care Cont augmentin on steroids per pulm team Follow labs and cultures Maintain aspiration precautions Discussed with Discussed with nursing staff get cxr and bnp AFUA ALEMAN MD Nov 20, 2020 09:02
--- NOTE | 2020-11-20 09:46 | PN ---
DATE: 11/20/2020 DAILY PROGRESS NOTE LOCATION: She is in room 669. SUBJECTIVE: This 80-year-old female remains hospitalized with bilateral pneumonia, COVID negative, and acute hypoxic hypercarbic respiratory failure. Her encephalopathy has cleared. I saw her with respiratory therapy, who had her down to 10 liters yesterday with good sats. We were going to decrease further, but when she would come back to try, the oxygen was turned back up by nursing. OBJECTIVE: VITAL SIGNS: Stable. She is afebrile. She remains on 15 liters per nasal cannula oxygen. CHEST: Clear. HEART: Regular. ABDOMEN: Benign. ASSESSMENT: 1. Acute hypoxic respiratory failure due to pneumonia. 2. Encephalopathy, cleared. 3. Acute kidney injury, cleared. PLAN: Continue present therapy, will need transfer for rehab following this with O2 needs to determine neurological venues of care. MAXWELL/MICHAEL DR: Bisi TID: [id number]
--- NOTE | 2020-11-20 10:18 | RAD ---
Single view of the chest. 11/20/2020 9:51 AM Indication: Reason: Shortness of breath Comparison: Chest radiograph November 12, 2020 Findings: Diffuse interstitial and patchy alveolar infiltrates are seen throughout the bilateral lung s. Bibasilar opacities are also seen. Overall the appearances slightly worsened in the interim. No pn eumothorax or definitive effusion is seen. Heart size is top normal. No acute osseous changes are not ed in the interim. IMPRESSION: Some interval increase in bilateral patchy interstitial alveolar infiltrates Electronically signed by: Willis Cortes MD (11/20/2020 10:15 AM) [id number]
[2020-11-20 11:00] VITALS: BP 141/63
[2020-11-20] MEDS: methylPREDNISolone SOD SUCC PF 40 MG/ML VIAL. IV SCH (11:00)
[2020-11-20] MEDS: POTASSIUM CHLORIDE 10 MEQ in IV 1/2 NORMAL SALINE 1,000 ML IV SCH (11:00)
[2020-11-20 15:00] VITALS: BP 172/81
--- NOTE | 2020-11-20 15:50 | PDOC ---
PROGRESS NOTES Date of Service DATE: 11/20/20 TIME: 15:49 Assessment Problems Medical Problems: (1) Acute kidney injury Status: Acute (2) Fall Status: Acute (3) Skin abrasion Status: Acute (4) Weakness Status: Acute Metabolic encephalopathy, resolved Covid negative, status-post third booster of COVID vaccine No acute intracranial findings or focal abnormalities on exam Cervical spondylosis without evidence of radiculopathy or myelopathy. Fell prior to admission Fever, acute hypoxic respiratory failure, diffuse bilateral infiltrates, pneumonia, CHF, acute kidney injury, had coffee-ground emesis 11/07, sepsis History of chronic obstructive pulmonary disease, obstructive sleep apnea, on lamotrigine for psychiatric disease. Plan Treat medical issues Hold on additional studies such as MRI I will follow at intervals Objective Vital Signs Date Time Temp Pulse Resp B/P (MAP) Pulse Ox O2 Delivery O2 Flow Rate FiO2 11/20/20 15:43 88 High Flow Nasal Cannula 10.0 11/20/20 11:00 98.9 82 18 141/63 (89) 98.9 Intake and Output 11/20/20 07:00 Intake Total 1745 ml Output Total 1200 ml Balance 545 ml Intake Oral 740 ml IV Total 1005 ml Output Urine Total 1200 ml # Voids 2 # Bowel Movements 1 PHYSICAL EXAM Alert, knows location, month, and year PERRL. EOMI. CN: no focal findings. Muscle tone: normal. Muscle strength: 4/5 DTR: 1+ Plantar reflex: Flexor Gait: not examined in bed. Sensory exam: no abnormal findings. No cerebellar signs elicited. Review of Relevant I have reviewed the following items shiela (where applicable) has been applied. Labs Laboratory Tests Test 11/20/20 09:30 AX-Bjd-I-Type Natriuretic Peptide 3041 pg/mL (0-449) Laboratory Tests Test 11/20/20 09:30 RR-Cld-Z-Type Natriuretic Peptide 3041 pg/mL (0-449) Medications Current Medications Sodium Chloride 1,000 ml @ 1,000 mls/hr 1X ONCE IV Last administered on 11/05/20at 12:17; Start 11/05/20 at 10:15; Stop 11/05/20 at 11:14; Status DC Diphtheria/ Tetanus/Acell Pertussis (ADACEL TDap SYRINGE) 0.5 ml ONCE ONCE VAX IM Last administered on 11/05/20at 12:14; Start 11/05/20 at 10:45; Stop 11/05/20 at 10:53; Status DC Bacitracin (Bacitracin Zinc Oint Pkt) 1 pkt 1X ONCE TP Last administered on 11/05/20at 12:14; Start 11/05/20 at 10:45; Stop 11/05/20 at 10:53; Status DC Acetaminophen (Tylenol) 650 mg 1X ONCE PO Last administered on 11/05/20at 12:12; Start 11/05/20 at 12:00; Stop 11/05/20 at 12:01; Status DC Lorazepam (Ativan Inj) 1 mg 1X ONCE IVP Last administered on 11/05/20at 13:15; Start 11/05/20 at 13:15; Stop 11/05/20 at 13:16; Status DC Lamotrigine (LaMICtal) 100 mg BID PO Last administered on 11/20/20at 08:57; Start 11/06/20 at 09:00 Pantoprazole Sodium (PROTONIX VIAL for IV PUSH) 40 mg DAILYAC IVP Last a dministered on 11/15/20at 09:05; Start 11/06/20 at 08:00; Stop 11/15/20 at 10:54; Status DC Sodium Chloride 1,000 ml @ 75 mls/hr 1X ONCE IV Last administered on 11/06/20at 08:11; Start 11/06/20 at 07:45; Stop 11/06/20 at 21:04; Status DC Piperacillin Sod/ Tazobactam Sod 2.25 gm/Sodium Chloride 50 ml @ 100 mls/hr Q6HRS IV Last administered on 11/12/20at 12:00; Start 11/06/20 at 08:00; Stop 11/12/20 at 13:56; Status DC Acetaminophen (Tylenol Supp) 650 mg PRN Q6HRS PRN DC MILD PAIN / TEMP > 100.3'F Last administered on 11/19/20at 09:38; Start 11/06/20 at 10:15 Vancomycin HCl (Vanco Per Pharmacy) 1 each PRN DAILY PRN MC SEE COMMENTS; Start 11/06/20 at 11:45; Stop 11/06/20 at 13:20; Status DC Furosemide (Lasix) 40 mg 1X ONCE IVP Last administered on 11/06/20at 12:05; Start 11/06/20 at 11:45; Stop 11/06/20 at 11:46; Status DC Vancomycin HCl 1.5 gm/Sodium Chloride 500 ml @ 250 mls/hr 1X ONCE IV ; Start 11/06/20 at 14:00; Stop 11/06/20 at 13:18; Status DC Linezolid (Zyvox) 600 mg BID PO ; Start 11/06/20 at 13:30; Status Cancel Linezolid/Dextrose 300 ml @ 300 mls/hr Q12H IV Last administered on 11/15/20at 02:17; Start 11/06/20 at 14:00; Stop 11/15/20 at 09:03; Status DC Acetaminophen (Tylenol) 650 mg PRN Q6HRS PRN PO MILD PAIN / TEMP > 100.3'F Last administered on 11/20/20at 08:58; Start 11/06/20 at 17:30 Methylprednisolone Sodium Succinate (SOLU-Medrol 125MG VIAL) 60 mg Q8HRS IV Last administered on 11/10/20at 05:02; Start 11/07/20 at 11:00; Stop 11/10/20 at 09:10; Status DC Albuterol/ Ipratropium (Duoneb) 3 ml RTQID NEB Last administered on 11/20/20at 15:42; Start 11/07/20 at 12:00 Lorazepam (Ativan Inj) 1 mg PRN Q6HRS PRN IVP ANXIETY / AGITATION Last administered on 11/08/20at 05:34; Start 11/07/20 at 10:45; Stop 11/08/20 at 11:18; Status DC Haloperidol Lactate (Haldol Inj) 1 mg 1X ONCE IM Last administered on 11/07/20at 13:20; Start 11/07/20 at 13:15; Stop 11/07/20 at 13:16; Status DC Haloperidol Lactate (Haldol Inj) 5 mg PRN Q6HRS PRN IVP AGITATION Last administered on 11/19/20at 22:33; Start 11/08/20 at 11:30 Clonidine HCl (Catapres Tts-1) 1 patch WEEKLY TD Last administered on 11/15/20at 09:05; Start 11/08/20 at 12:30 Methylprednisolone Sodium Succinate (SOLU-Medrol 40MG VIAL) 40 mg Q8HRS IV Last administered on 11/11/20at 05:23; Start 11/10/20 at 14:00; Stop 11/11/20 at 08:49; Status DC Lorazepam (Ativan Inj) 1 mg PRN Q4HRS PRN IVP ANXIETY. Last administered on 11/14/20at 02:35; Start 11/10/20 at 15:00; Stop 11/14/20 at 11:07; Status DC Methylprednisolone Sodium Succinate (SOLU-Medrol 40MG VIAL) 40 mg Q12HR IV Last administered on 11/15/20at 09:05; Start 11/11/20 at 09:00; Stop 11/15/20 at 09:39; Status DC Piperacillin Sod/ Tazobactam Sod 3.375 gm/Sodium Chloride 50 ml @ 100 mls/hr Q6HRS IV Last administered on 11/17/20at 12:15; Start 11/12/20 at 18:00; Stop 11/17/20 at 16:28; Status DC Lactobacillus Rhamnosus (Culturelle) 1 cap BID PO Last administered on 11/20/20at 08:59; Start 11/12/20 at 21:00 Potassium Chloride 10 meq/ Sodium Chloride 1,005 ml @ 50 mls/hr Q20H6M IV Last administered on 11/20/20at 11:00; Start 11/13/20 at 13:00 Potassium Chloride/Water 100 ml @ 100 mls/hr Q1H IV Last administered on 11/14/20at 15:09; Start 11/14/20 at 10:00; Stop 11/14/20 at 13:59; Status DC Potassium Chloride (Klor-Con) 20 meq 1X ONCE PO Last administered on 11/15/20at 11:03; Start 11/15/20 at 09:30; Stop 11/15/20 at 09:31; Status DC Methylprednisolone Sodium Succinate (SOLU-Medrol 40MG VIAL) 40 mg DAILY IV Last administered on 11/20/20at 11:00; Start 11/16/20 at 09:00 Pantoprazole Sodium (Protonix) 40 mg DAILYAC PO Last administered on 11/20/20at 08:57; Start 11/16/20 at 07:30 Potassium Chloride (Klor-Con) 20 meq TIDWMEALS PO Last administered on 11/20/20at 08:59; Start 11/16/20 at 08:00 Loperamide HCl (Imodium) 2 mg PRN Q15MIN PRN PO DIARRHEA Last administered on 11/19/20at 17:08; Start 11/16/20 at 20:45 Amoxicillin/ Clavulanate Potassium (Augmentin 875/ 125mg) 1 tab BID PO Last administered on 11/20/20at 08:57; Start 11/17/20 at 21:00 Active Scripts Active Reported [Vitamin D] Alprazolam 1 Mg Tablet 1 Tab PO BID Centrum Complete Multivit Tab (Multivitamin/Iron/Folic Acid) 1 Each Tablet 1 Each PO DAILY [place] 3 Fish Oil Softgel ([place]-3 Fatty Acids/Fish Oil) 1 Each Capsule.dr 1 Each PO DAILY Vitamin C (Ascorbic Acid) 500 Mg Tab.chew 500 Mg PO DAILY Symbicort 160-4.5 Mcg Inhaler (Budesonide/Formoterol Fumarate) 10.2 Gm Hfa.aer.ad 1 Puff IH BID Aspir 81 (Aspirin) 81 Mg Tablet.dr 81 Mg PO DAILY Meloxicam 15 Mg Tablet 15 Mg PO DAILY Zoloft (Sertraline Hcl) 100 Mg Tablet 150 Mg PO DAILY Potassium Chloride 10 Meq Tab.er.prt 10 Meq PO DAILY Lasix (Furosemide) 40 Mg Tablet 40 Mg PO DAILY Flonase (Fluticasone Propionate) 16 Gm [place].susp 16 Gm NS DAILY Lamictal (Lamotrigine) 100 Mg Tablet 100 Mg PO BID Eemt Hs 0.625-1.25 Mg Tablet (Estrogen,Tess/Me-Testosterone) 1 Each Tablet 1 Each PO DAILY Zocor (Simvastatin) 80 Mg Tablet 40 Mg PO QHS Vitals/I & O Vital Sign - Last 24 Hours 11/19/20 11/19/20 11/19/20 11/19/20 15:54 19:24 19:51 21:18 Temp 98.5 98.5 Pulse 97 Resp 20 B/P (MAP) 132/62 (85) Pulse Ox 97 92 98 O2 Delivery High Flow Nasal Cannula Nasal Cannula Nasal Cannula High Flow Nasal Cannula O2 Flow Rate 15.0 10.0 10.0 10.0 11/19/20 11/20/20 11/20/20 11/20/20 22:24 03:00 07:00 07:31 Temp 99.6 98.9 98.8 99.6 98.9 98.8 Pulse 104 113 96 Resp 20 26 20 B/P (MAP) 150/67 (94) 154/70 (98) 155/67 (96) Pulse Ox 92 92 90 93 O2 Delivery Venturi Mask Venturi Mask 8L NC 15L NRB High Flow Nasal Cannula O2 Flow Rate 15.0 15.0 10.0 11/20/20 11/20/20 11/20/20 11/20/20 08:00 11:00 11:42 15:43 Temp 98.9 98.9 Pulse 82 Resp 18 B/P (MAP) 141/63 (89) Pulse Ox 94 93 88 O2 Delivery Nasal Cannula 8LNC 15L, NRB High Flow Nasal Cannula High Flow Nasal Cannula O2 Flow Rate 10.0 10.0 10.0 Intake and Output 11/19/20 11/19/20 11/20/20 15:00 23:00 07:00 Intake Total 1365 ml 280 ml 100 ml Output Total 750 ml 450 ml Balance 1365 ml -470 ml -350 ml Justicifation of Admission Dx: Justifications for Admission: Justification of Admission Dx: N/A MOO BRO MD Nov 20, 2020 15:50
[2020-11-20] MEDS: LOPERAMIDE 2 MG CAPSULE PO PRN (16:48)
[2020-11-20 19:37] VITALS: BP 142/66
[2020-11-20] MEDS: HALOPERIDOL LACTATE 5 MG/ML VIAL. IVP PRN (21:13)
[2020-11-20 22:55] VITALS: BP 146/66
[2020-11-21] MEDS: POTASSIUM CHLORIDE 10 MEQ in IV 1/2 NORMAL SALINE 1,000 ML IV SCH (01:54)
[2020-11-21 03:19] VITALS: BP 167/72
[2020-11-21] MEDS: ACETAMINOPHEN 325 MG TABLET. PO PRN (04:28)
[2020-11-21 07:00] VITALS: BP 172/70
[2020-11-21] MEDS: IPRATRPIUM/ALBUTEROL 0.5/2.5MG 3 ML NEBU. NEB SCH ×2 (07:36→11:43)
--- NOTE | 2020-11-21 08:06 | PDOC ---
Infectious Disease Note Subjective Subjective pt is more hypoxic on BIPAP ROS ROS No nausea vomiting diarrhea chest pain Vital Sign Vital Signs Vital Signs Date Time Temp Pulse Resp B/P (MAP) Pulse Ox O2 Delivery O2 Flow Rate FiO2 11/21/20 07:37 91 High Flow Nasal Cannula 10.0 11/21/20 03:19 98.6 100 22 167/72 (103) 98.6 Physical Exam PHYSICAL EXAM GENERAL: alert awake looks better on nasal O2 HEENT: Normocephalic, atraumatic. Anicteric. No thrush. Oral mucosa moist. NECK: Supple, no JVD. No meningismus. LUNGS: Coarse breath sounds bilaterally. Rhonchi present. HEART: S1, S2 regular. No murmurs. ABDOMEN: Soft, mild diffuse tenderness nondistended. No rebound. No guarding. GENITOURINARY: Brief is in place. No Har[place]. EXTREMITIES: No edema, no cyanosis. DERMATOLOGIC: Warm, dry. No generalized rash. Few abrasions not infected. PSYCHIATRIC: Calm, cooperative. NEUROLOGIC alert awake PIV looks clean. Labs Lab Laboratory Tests Test 11/20/20 09:30 RP-Ejm-E-Type Natriuretic Peptide 3041 pg/mL (0-449) Objective Assessment 1. Fever, improved 2. Acute hypoxic respiratory failure with diffuse bilateral infiltrates, Appears multifactorial including pneumonia, CHF, pneumonitis on bipap 3. Acute kidney injury. 4. History of chronic obstructive pulmonary disease. 5. History of obstructive sleep apnea. 6. CHF 7. Status post third booster of COVID vaccine. 8. Coffee-ground emesis earlier this morning. 9. History of fall prior to admission. 10.Encephalopathy appears metabolic,no evidence of encephalitis 11. Leucocytosis on steroids Plan Plan of Care Cont augmentin on steroids per pulm team Follow labs and cultures Maintain aspiration precautions Discussed with Discussed with nursing staff Worsening secondary to congestive heart failure Diuresis as per AFUA Davis MD Nov 21, 2020 08:06
--- NOTE | 2020-11-21 08:12 | PN ---
DATE: 11/21/2020 LOCATION: She is in room 669. SUBJECTIVE: This 80-year-old female remains hospitalized with bilateral pneumonia, COVID negative and acute hypoxic hypercarbic respiratory failure. Encephalopathy has cleared. She is still lying in bed most of the time, not very mobile. OBJECTIVE: VITAL SIGNS: Stable. She is afebrile. She continues to require high flow oxygen. Chest x-ray shows some worsening of bilateral infiltrates yesterday and BNP is elevated. CHEST: Clear. HEART: Regular. ABDOMEN: Benign. She does have bilateral lower extremity edema. IMPRESSION: 1. Acute hypoxic respiratory failure due to pneumonia. 2. Encephalopathy cleared. 3. Acute kidney injury, cleared. 4. Hypokalemia cleared. 5. Elevated BNP and worsening infiltrates, suggesting some fluid overload, pulmonary edema as part of this overall picture. PLAN: Add Lasix 40 mg IV b.i.d. Follow electrolytes. She is awaiting clearance for transfer to LTAC. KEZIA DR: Bisi TID: [id number]
[2020-11-21 08:50] LABS: CALCIUM 8.4 mg/dL (8.5-10.1); CREATININE 0.8 mg/dL (0.6-1.0); GFR 68.8; POTASSIUM 4.3 mmol/L (3.5-5.1)
[2020-11-21] MEDS: POTASSIUM CHLORIDE 20 MEQ TABLET.ER. PO SCH ×2 (08:52→10:52)
[2020-11-21] MEDS: lamoTRIgine 100 MG TABLET. PO SCH (08:52)
[2020-11-21] MEDS: methylPREDNISolone SOD SUCC PF 40 MG/ML VIAL. IV SCH (08:53)
[2020-11-21] MEDS: AMOXICILLIN/K CLAV 875/125MG TABLET. PO SCH (08:53)
[2020-11-21] MEDS: FUROSEMIDE 40 MG/4 ML VIAL. IVP SCH ×2 (08:53→13:24)
[2020-11-21] MEDS: PANTOPRAZOLE 40 MG TABLET.DR. PO SCH (08:53)
[2020-11-21] MEDS: LACTOBACILLUS RHAMNOSUS GG 1 CAPSULE. PO SCH (08:53)
--- NOTE | 2020-11-21 09:44 | PDOC ---
PULMONARY PROGRESS NOTES DATE: 11/21/20 TIME: 09:44 Subjective Off of BiPAP not more short of air Vitals Vital Signs Date Time Temp Pulse Resp B/P (MAP) Pulse Ox O2 Delivery O2 Flow Rate FiO2 11/21/20 07:37 91 High Flow Nasal Cannula 10.0 11/21/20 07:00 99.5 114 25 172/70 (104) 99.5 ROS: No Nausea, No Chest Pain, No Abdominal Pain General: Alert, No acute distress Lungs: Crackles Cardiovascular: S1, S2 Abdomen: Soft Neuro Exam: Alert Extremities: No Edema Skin: Warm Labs Laboratory Tests Test 11/20/20 09:30 11/21/20 08:10 LM-Hfm-L-Type Natriuretic Peptide 3041 pg/mL (0-449) Sodium Level 140 mmol/L (136-145) Potassium Level 4.3 mmol/L (3.5-5.1) Chloride Level 104 mmol/L (98-107) Carbon Dioxide Level 28 mmol/L (21-32) Anion Gap 8 (6-14) Blood Urea Nitrogen 9 mg/dL (7-20) Creatinine 0.8 mg/dL (0.6-1.0) Estimated GFR (Cockcroft-Gault) 68.8 Glucose Level 114 mg/dL (70-99) Calcium Level 8.4 mg/dL (8.5-10.1) Laboratory Tests Test 11/21/20 08:10 Sodium Level 140 mmol/L (136-145) Potassium Level 4.3 mmol/L (3.5-5.1) Chloride Level 104 mmol/L (98-107) Carbon Dioxide Level 28 mmol/L (21-32) Anion Gap 8 (6-14) Blood Urea Nitrogen 9 mg/dL (7-20) Creatinine 0.8 mg/dL (0.6-1.0) Estimated GFR (Cockcroft-Gault) 68.8 Glucose Level 114 mg/dL (70-99) Calcium Level 8.4 mg/dL (8.5-10.1) Medications Active Scripts Medications Dose Route/Sig Max Daily Dose Days Date Category [Vitamin D] 04/14/20 Reported Alprazolam 1 Mg Tablet 1 Tab PO BID 04/14/20 Reported Centrum Complete Multivit Tab (Multivitamin/Iron/Folic Acid) 1 Each Tablet 1 Each PO DAILY 03/05/18 Reported [place] 3 Fish Oil Softgel ([place]-3 Fatty Acids/Fish Oil) 1 Each Capsule.dr 1 Each PO DAILY 03/05/18 Reported Vitamin C (Ascorbic Acid) 500 Mg Tab.chew 500 Mg PO DAILY 03/05/18 Reported Symbicort 160-4.5 Mcg Inhaler (Budesonide/Formoterol Fumarate) 10.2 Gm Hfa.aer.ad 1 Puff IH BID 03/05/18 Reported Aspir 81 (Aspirin) 81 Mg Tablet.dr 81 Mg PO DAILY 04/23/17 Reported Meloxicam 15 Mg Tablet 15 Mg PO DAILY 04/23/17 Reported Zoloft (Sertraline Hcl) 100 Mg Tablet 150 Mg PO DAILY 07/28/16 Reported Potassium Chloride 10 Meq Tab.er.prt 10 Meq PO DAILY 03/10/13 Reported Lasix (Furosemide) 40 Mg Tablet 40 Mg PO DAILY 03/10/13 Reported Flonase (Fluticasone Propionate) 16 Gm [place].susp 16 Gm NS DAILY 03/10/13 Reported Lamictal (Lamotrigine) 100 Mg Tablet 100 Mg PO BID 03/10/13 Reported Eemt Hs 0.625-1.25 Mg Tablet (Estrogen,Tess/Me-Testosterone) 1 Each Tablet 1 Each PO DAILY 02/19/13 Reported Zocor (Simvastatin) 80 Mg Tablet 40 Mg PO QHS 02/19/13 Reported Impression . 1. Acute hypoxic and hypercapnic respiratory failure with worsening bilateral infiltrates/ high grade fever in a patient who recently received 3rd COVID19- booster. 2. Abnormal chest x-ray as discussed above CT chest also abnormal with diffuse interstitial infiltrates and consolidation left lower lobe 3. Underlying chronic obstructive pulmonary disease. 4. Obstructive sleep apnea, on home CPAP and oxygen. 5. Acute kidney injury.? sepsis induced, check previous renal function. 6. The patient is status post third booster of COVID vaccine. 7. Encephalopathy likely medication induced. Improving 8. Fever per ID Plan . Updated 11/19 Discharge planning Continue Augmentin Oxygen supplementation Updated 11/18 Continue oxygen supplementation Antibiotics per ID Up to chair PT OT Incentive spirometry We will discuss with social work up possible LTAC updated 11/17 Patient slowly improving Continue current support Antibiotics per ID Steroids Discussed with at bedside EMI TURNER MD Nov 21, 2020 09:44
[2020-11-21] MEDS: HALOPERIDOL LACTATE 5 MG/ML VIAL. IVP PRN (10:48)
[2020-11-21 11:00] VITALS: BP 138/64
--- NOTE | 2020-11-21 14:28 | NUR ---
Discharge Note: JAY VILLANUEVA6 [facility] Discharge instructions and discharge home medications reviewed with Other facility and a copy given. All questions have been answered and understanding verbalized. Patient discharged to [facility] with transport via stretcher. Report called to [facility] and IV left in for continued infusions at other facility.
== END 2020-11-21 14:45 | DRG 871 ==
LOC: ER 09:53 → ED HOLD 13:40 → 6 SOUTH 17:14 → 4 NORTH 22:00 → 6 SOUTH 11-08 13:13
PROVIDERS: ADMIT Family Medicine; ATTEND Family Medicine
PROC: 5A09357 Assistance with Respiratory Ventilation, Less than 24 Consecutive Hours, Continuous Positive Airway Pressure (ICD-10-PCS; principal; 2020-11-06)
PROC: 5A09357 Assistance with Respiratory Ventilation, Less than 24 Consecutive Hours, Continuous Positive Airway Pressure (ICD-10-PCS; 2020-11-07)
PROC: 5A09357 Assistance with Respiratory Ventilation, Less than 24 Consecutive Hours, Continuous Positive Airway Pressure (ICD-10-PCS; 2020-11-09)
PROC: 5A09357 Assistance with Respiratory Ventilation, Less than 24 Consecutive Hours, Continuous Positive Airway Pressure (ICD-10-PCS; 2020-11-10)
PROC: 5A09357 Assistance with Respiratory Ventilation, Less than 24 Consecutive Hours, Continuous Positive Airway Pressure (ICD-10-PCS; 2020-11-11)
PROC: 5A09357 Assistance with Respiratory Ventilation, Less than 24 Consecutive Hours, Continuous Positive Airway Pressure (ICD-10-PCS; 2020-11-12)
PROC: 5A09357 Assistance with Respiratory Ventilation, Less than 24 Consecutive Hours, Continuous Positive Airway Pressure (ICD-10-PCS; 2020-11-13)
PROC: 5A09357 Assistance with Respiratory Ventilation, Less than 24 Consecutive Hours, Continuous Positive Airway Pressure (ICD-10-PCS; 2020-11-14)
PROC: 5A0935A Assistance with Respiratory Ventilation, Less than 24 Consecutive Hours, High Flow/Velocity Cannula (ICD-10-PCS; 2020-11-17)
PROC: 5A0935A Assistance with Respiratory Ventilation, Less than 24 Consecutive Hours, High Flow/Velocity Cannula (ICD-10-PCS; 2020-11-18)
PROC: 5A0935A Assistance with Respiratory Ventilation, Less than 24 Consecutive Hours, High Flow/Velocity Cannula (ICD-10-PCS; 2020-11-19)
PROC: 5A0935A Assistance with Respiratory Ventilation, Less than 24 Consecutive Hours, High Flow/Velocity Cannula (ICD-10-PCS; 2020-11-20)
PROC: 5A0935A Assistance with Respiratory Ventilation, Less than 24 Consecutive Hours, High Flow/Velocity Cannula (ICD-10-PCS; 2020-11-21)
DX: A41.9 Sepsis, unspecified organism (principal); J15.6 Pneumonia due to other Gram-negative bacteria; J96.01 Acute respiratory failure with hypoxia; G93.41 Metabolic encephalopathy; J15.9 Unspecified bacterial pneumonia; J96.02 Acute respiratory failure with hypercapnia; N17.9 Acute kidney failure, unspecified; J44.0 Chronic obstructive pulmonary disease with (acute) lower respiratory infection; E78.00 Pure hypercholesterolemia, unspecified; E78.5 Hyperlipidemia, unspecified; E87.6 Hypokalemia; F41.9 Anxiety disorder, unspecified; G47.33 Obstructive sleep apnea (adult) (pediatric); I11.0 Hypertensive heart disease with heart failure; I50.9 Heart failure, unspecified; K31.84 Gastroparesis; M47.9 Spondylosis, unspecified; Z20.822 Contact with and (suspected) exposure to COVID-19; Z85.038 Personal history of other malignant neoplasm of large intestine; Z87.19 Personal history of other diseases of the digestive system; Z90.710 Acquired absence of both cervix and uterus; Z96.652 Presence of left artificial knee joint; F32.9 Major depressive disorder, single episode, unspecified; K21.9 Gastro-esophageal reflux disease without esophagitis; M19.90 Unspecified osteoarthritis, unspecified site; Z88.1 Allergy status to other antibiotic agents; Z88.2 Allergy status to sulfonamides; Z88.8 Allergy status to other drugs, medicaments and biological substances
CPT/HCPCS: 36415; 36600; 70450; 71045; 71250; 72125; 73502; 76700; 80048; 80053; 81001; 82274; 82553; 82565; 82805; 82962; 83605; 83880; 84145; 84484; 85007; 85025; 87426; 87493; 90471; 90715; 93005; 94640; 94660; 94760; 96361; 96374; C9113; J1630; J1940; J2020; J2060; J2543; J2920; J2930; J3480; J3490; J7030; U0003; U0005; 97110-GP; 97530-GP; 99285-25; G0378